=== PATIENT | female | born 1940 | race Caucasian/White ===

== ENCOUNTER 2019-12-05 16:13 | Inpatient (IN) ==
[2019-12-05] MEDS ORDERED: SODIUM CHLORIDE 0.9% 1000ML 1,000 ML IV SCH (17:30)
--- NOTE | 2019-12-05 17:32 | Emergency Department Note ---
Impression & Plan Weakness, Diarrhea, Elevated INR, Hypomagnesemia, Nausea, Hepatic steatosis ED Provider Note Provider: Hayder Sharma MD DATE OF SERVICE: 12/05/2019 CHIEF COMPLAINT: Fall, weakness, abdominal symptoms HISTORY OF PRESENT ILLNESS: Patient is a 79-year-old female with a past medical history of lupus, connective tissue disease, GERD, Sjogren's, diabetes presenting today with her daughter reporting that she has been having stomach issues and some discomfort for about a month. Decreased appetite and diarrhea has been reported. Initially treated with vancomycin with improvement of symptoms although C. difficile test was negative. Does relate that she was treated for multiple UTIs over the winter with transient improvement. History of abdominal issues and gastritis previously on omeprazole but has not been on it in some time. Evidently had a fall last night and again today where she slid out of bed and was too weak to get up. Was unable to get up and laid on the floor for least 4 hours this morning. Reports 8 of 10 abdominal pain at this time. Predominantly in the upper abdomen in a bandlike fashion. Endorses some diffuse mild back pain. Again denies any severe traumatic fall. Denies striking her head. Denies LOC. States at times she feels a bit nauseous and has worsening of the pain when she eats. Reports she has not had quite the same watery stools she has had before but it is very loose. Patient currently lives by herself in an apartment. PCP had recent blood work done without significant finding or consider GI evaluation; patient has history of GI evaluation. Patient has been started on Pepcid last several days without improvement of symptoms. REVIEW OF SYSTEMS: A total of 10 review of systems was obtained and negative except as stated above in the HPI. PAST MEDICAL HISTORY: As noted above MEDICATIONS: Reviewed and includes Depakote, Lexapro, Pepcid, metformin, Plaquenil SOCIAL HISTORY: lives in apartment by herself. No alcohol history reported. PHYSICAL EXAM: GENERAL: alert and oriented in no acute distress on stretcher appears fatigued Head: normocephalic and atraumatic EYES: No injection, discharge or icterus. NECK: Trachea midline. Supple. ENT: Mucous membranes pink and moist. LUNGS: Airway patent. No retractions. Breath sounds clear HEART: Regular rate and rhythm. No chest wall tenderness ABDOMEN: Soft with mild diffuse upper abdominal tenderness. BACK: Mild diffuse tenderness without noted crepitus, step-off, or contusion on the back SKIN: Acyanotic, warm, dry, without rashes EXTREMITIES: Without swelling, tenderness or deformity NEUROLOGICAL: No focal deficits. No aphasia. No facial droop or slurred speech. EK bpm sinus rhythm with PACs. No PVCs noted. No acute ST segment elevation is notable. Left axis. Normal QTC. No priors in the system. CONTINUOUS CARDIAC MONITORING: was ordered and showed a heart rate of 94 bpm in normal sinus rhythm with occasional PAC Patient's hypertension was referred to the hospitalist HOSPITAL COURSE: [id number] Patient was first seen and H&P performed. 1934 Patient reassessed and updated. Patient and daughter were updated. 1954 hospitalist was alerted. Patient's laboratory studies and imaging reviewed. Differential includes Infection, dehydration, metabolic abnormality, hypo/hyperglycemia, electrolyte disturbance, anemia, hypoxia, cardiac sources, i ntracerebral event, toxicologic, neurologic, gastrointestinal, as well as other pathologies. IMPRESSION/MEDICAL DECISION MAKING: Patient presents with nonspecific symptoms of weakness decreased appetite's over the past several weeks as well as abdominal pain and diarrhea. Has undergone outpatient evaluation. Recent blood work without acute findings noted beyond some mild AST elevation and alk phos elevation. Has tried Pepcid without improvement. Weakness to the point where she has difficulty getting out of bed and slid to the floor. Doubt significant traumatic injury given this minimal mechanism. States she did not strike her head. Not on anticoagulants. Doubt CVA. Do not believe any head or neck imaging at this time. Given her abdominal complaint and mild tenderness CT abdomen pelvis was completed. Basic labs were obtained including CK. EKG was obtained. Patient denies any acute chest pain. Stool tests were ordered including C. difficile although loose stool she is campo ving do not seem horribly consistent with this. Given some mild fluid hydration here initially. Not on significant anticoagulation. Laboratory studies show consistent thrombocytopenia. INR mildly elevated at 1.7. Hypomagnesemia of 1.1 is noted. Mild hyponatremia noted. Renal function stable. Free T4 within normal is a TSH slightly elevated. Troponin is negative. CPK 367. Depakote level be sent not significantly elevated. Urinalysis still pending. Chest x-ray is unremarkable. Ordered some magnesium replacement. Stool sample still pending. Does not examine significantly fluid overloaded at this time. Given her multiple falls and weakness as well as elevated INR and hepatic steatosis (concern for cirrhosis -would be a new diagnosis) with the colitis type symptoms feel that further observation in the hospital is warranted. Family and patient were in agreement. The hospitalist was alerted. Patient does not appear acutely septic. Given some Zofran and Toradol for symptom control. DIAGNOSIS: Weakness, diarrhea, hypomagnesemia, elevated INR, hepatic steatosis DISPOSITION: Evaluated by the hospitalist Past Med/Surg History Medical History (Updated 12/05/19 @ 22:59 by Nani May DO) Adjustment disorder with depressed mood (Chronic) Antibiotic-associated diarrhea (Chronic ~06/2019) Negative C. Diff test x 1 but good response to oral vancomycin Diabetes type 2, controlled (Chronic) Discoid lupus erythematosus GERD (gastroesophageal reflux disease) (Chronic) Glaucoma (Chronic) Gout (Resolved) Hearing difficulty (Chronic) Kidney stone (Resolved) Osteoarthritis (Chronic) Seizure (Resolved) Sjogren's disease (Chronic) Thrombocytopenia (Chronic) Undifferentiated connective tissue disease Surgical History H/O: hysterectomy (~1984) Hx of cholecystectomy (~1983) S/P tooth extraction Family History Grandfather Diabetes Mother Hypertension Gallbladder disease Grandmother No problems noted. Father Pancreatic cancer Brother Alcohol abuse Denies family history of Ovarian cancer Prostate cancer Alzheimer disease Heart disease Myocardial infarction Breast cancer Lung cancer Colorectal cancer Stroke Social History Preferred Language: [place]i Visual Impairment: Limited Hearing Ability: Use of Hearing Aid Beliefs That Will Affect Care: None marital status: / Current Living Situation: Alone Current Living Situation Comment: [place] current occupational status: retired Feels Safe at Home: Yes Smoking Status: Never smoker Second Hand Exposure: No ; Hx Alcohol Use: Yes Alcohol type: wine Alcohol Intake Frequency: Rarely Hx Substance Use: No Childhood Exposure to Second-Hand Smoke: Yes caffeine: Yes Dental Care, Regularly: Yes Physical Activity Frequency: 1-2 Times per Week Seatbelt Use: always Sunscreen Use: No Allergies Allergies Allergy/AdvReac Type Severity Reaction Status Date / Time ciprofloxacin [From Cipro] Allergy Severe Hives Verified 12/02/19 12:02 levofloxacin [From Levaquin] Allergy Severe Shortness Verified 12/02/19 12:02 of breath paroxetine Allergy Unknown Verified 12/02/19 12:02 phenytoin Allergy Unknown Verified 12/02/19 12:02 sulfamethoxazole Allergy Verified 12/02/19 12:02 [From Bactrim] trimethoprim [From Bactrim] Allergy Verified 12/02/19 12:02 unknown antibiotic Allergy Severe Browning-Bryon Uncoded 12/02/19 12:02 syndrome - no records available Home Meds Home Medications Medication Instructions Recorded Confirmed escitalopram oxalate 10 mg PO DAILY 12/05/19 12/05/19 estradiol [Estrace] 1 gm PV [id number] 12/05/19 12/05/19 latanoprost 1 drp OPB HS 12/05/19 12/05/19 metformin 1,000 mg PO QPM 12/05/19 12/05/19 propylene glycol [Systane Complete] 1 drp OPB TID PRN 12/05/19 12/05/19 Previous Rx's Medication Instructions Recorded divalproex 500 mg tablet,delayed 500 mg PO BID #180 tab 06/13/19 release hydroxychloroquine 200 mg tablet 200 mg PO DAILY #90 tab 08/25/19 famotidine 20 mg tablet 20 mg PO DAILY #30 tab 12/02/19 Results & Data (ED) Vital Signs Vital Signs - 24 hr 12/05/19 16:43 12/05/19 17:12 12/05/19 17:48 Temperature 36.8 C Temperature Source Oral Pulse Rate 100 H 100 H Pulse Rate from SpO2 Sensor 100 H Respiratory Rate 20 22 Respiratory Effort / Characteristics Non-Labored Spontaneous Respiratory Depth Normal Respiratory Pattern Regular Blood Pressure 81/54 L 107/62 Blood Pressure Mean 63 65 Blood Pressure Position Sitting Pulse Oximetry 95 98 96 Oxygen Delivery Method Room Air Room Air Sepsis Recent Fever Within 48 Hours No Sepsis New/Unexplained Change in Mental Status No Sepsis Action Taken by Nursing No Action Required 12/05/19 17:54 12/05/19 18:00 12/05/19 18:10 Temperature Temperature Source Pulse Rate 102 H 100 H 95 H Pulse Rate from SpO2 Sensor 127 H 99 H 98 H Respiratory Rate 13 19 17 Respiratory Effort / Characteristics Respiratory Depth Respiratory Pattern Blood Pressure Blood Pressure Mean Blood Pressure Position Pulse Oximetry 93 99 98 Oxygen Delivery Method Sepsis Recent Fever Within 48 Hours Sepsis New/Unexplained Change in Mental Status Sepsis Action Taken by Nursing 12/05/19 18:20 12/05/19 18:24 12/05/19 18:30 Temperature Temperature Source Pulse Rate 100 H 102 H 98 H Pulse Rate from SpO2 Sensor 103 H 98 H 106 H Respiratory Rate 29 H 20 15 Respiratory Effort / Characteristics Respiratory Depth Respiratory Pattern Blood Pressure 140/103 H 137/72 Blood Pressure Mean 112 106 Blood Pressure Position Pulse Oximetry 91 Oxygen Delivery Method Sepsis Recent Fever Within 48 Hours Sepsis New/Unexplained Change in Mental Status Sepsis Action Taken by Nursing 12/05/19 18:40 12/05/19 18:50 12/05/19 19:07 Temperature Temperature Source Pulse Rate 100 H 100 H 97 H Pulse Rate from SpO2 Sensor 98 H 92 H Respiratory Rate 22 27 H 16 Respiratory Effort / Characteristics Respiratory Depth Respiratory Pattern Blood Pressure Blood Pressure Mean Blood Pressure Position Pulse Oximetry 90 92 Oxygen Delivery Method Sepsis Recent Fever Within 48 Hours Sepsis New/Unexplained Change in Mental Status Sepsis Action Taken by Nursing 12/05/19 19:10 12/05/19 19:20 12/05/19 19:30 Temperature Temperature Source Pulse Rate 99 H 93 H 100 H Pulse Rate from SpO2 Sensor 104 H 96 H 101 H Respiratory Rate 17 17 22 Respiratory Effort / Characteristics Respiratory Depth Respiratory Pattern Blood Pressure 137/91 Blood Pressure Mean 106 Blood Pressure Position Pulse Oximetry 97 98 96 Oxygen Delivery Method Sepsis Recent Fever Within 48 Hours Sepsis New/Unexplained Change in Mental Status Sepsis Action Taken by Nursing 12/05/19 19:40 12/05/19 19:50 12/05/19 20:00 Temperature Temperature Source Pulse Rate 100 H 103 H 101 H Pulse Rate from SpO2 Sensor 113 H 100 H Respiratory Rate 24 20 15 Respiratory Effort / Characteristics Respiratory Depth Respiratory Pattern Blood Pressure 123/93 Blood Pressure Mean 99 Blood Pressure Position Pulse Oximetry 92 Oxygen Delivery Method Sepsis Recent Fever Within 48 Hours Sepsis New/Unexplained Change in Mental Status Sepsis Action Taken by Nursing 12/05/19 20:10 12/05/19 20:20 12/05/19 20:30 Temperature Temperature Source Pulse Rate 99 H 100 H 97 H Pulse Rate from SpO2 Sensor 101 H 115 H Respiratory Rate 13 16 21 Respiratory Effort / Characteristics Respiratory Depth Respiratory Pattern Blood Pressure 114/77 Blood Pressure Mean 90 Blood Pressure Position Pulse Oximetry 94 Oxygen Delivery Method Sepsis Recent Fever Within 48 Hours Sepsis New/Unexplained Change in Mental Status Sepsis Action Taken by Nursing 12/05/19 20:40 12/05/19 20:55 12/05/19 21:00 Temperature Temperature Source Pulse Rate 100 H 105 H 99 H Pulse Rate from SpO2 Sensor 99 H Respiratory Rate 14 14 Respiratory Effort / Characteristics Respiratory Depth Respiratory Pattern Blood Pressure 111/71 Blood Pressure Mean 84 Blood Pressure Position Pulse Oximetry 97 Oxygen Delivery Method Sepsis Recent Fever Within 48 Hours Sepsis New/Unexplained Change in Mental Status Sepsis Action Taken by Nursing 12/05/19 21:10 12/05/19 21:20 12/05/19 21:30 Temperature Temperature Source Pulse Rate 100 H 103 H 100 H Pulse Rate from SpO2 Sensor 101 H 85 99 H Respiratory Rate 19 17 22 Respiratory Effort / Characteristics Respiratory Depth Respiratory Pattern Blood Pressure 136/72 Blood Pressure Mean 81 Blood Pressure Position Pulse Oximetry 96 94 98 Oxygen Delivery Method Sepsis Recent Fever Within 48 Hours Sepsis New/Unexplained Change in Mental Status Sepsis Action Taken by Nursing 12/05/19 21:40 12/05/19 21:50 Temperature Temperature Source Pulse Rate 104 H 97 H Pulse Rate from SpO2 Sensor 97 H 99 H Respiratory Rate 23 20 Respiratory Effort / Characteristics Respiratory Depth Respiratory Pattern Blood Pressure Blood Pressure Mean Blood Pressure Position Pulse Oximetry 96 95 Oxygen Delivery Method Sepsis Recent Fever Within 48 Hours Sepsis New/Unexplained Change in Mental Status Sepsis Action Taken by Nursing Laboratory Data Result diagrams: 12/05/19 17:56 12/05/19 17:56 Lab Results 12/05/19 12/05/19 12/05/19 Range/Units 17:56 17:56 17:56 WBC 9.98 (4.8-10.8) K/uL RBC 4.03 L (4.2-5.4) M/uL Hgb 12.2 (12.0-16.0) g/dL Hct 36.9 L (37-47) % MCV 91.6 (80-100) fL MCH 30.3 (25-34) pg MCHC 33.1 (32-36) g/dL RDW Std Deviation 50.8 H (36.4-46.3) fL RDW Coeff of Nancy 15.0 H (11.5-14.5) % Plt Count 90 L (130-400) K/uL MPV 12.6 H (7.4-10.4) fL Immature Gran % (Auto) 0.3 % Neut % (Auto) 81.2 % Lymph % (Auto) 9.2 % Levy % (Auto) 9.1 % Eos % (Auto) 0.0 % Baso % (Auto) 0.2 % Immature Gran # (Auto) 0.03 H (0.00-0.02) K/uL Neut # (Auto) 8.10 H (1.4-6.5) K/uL Lymph # (Auto) 0.92 L (1.2-3.4) K/uL Levy # (Auto) 0.91 H (0.11-0.59) K/uL Eos # (Auto) 0.00 (0-0.5) K/uL Baso # (Auto) 0.02 (0-0.2) K/uL Echinocytes 1+ PT 17.7 H (9.0-12.0) Seconds INR 1.7 H (0.9-1.1) Sodium 134 L (136-145) mmol/L Potassium 4.1 (3.5-5.1) mmol/L Chloride 102 (98-107) mmol/L Carbon Dioxide 19 L (21-32) mmol/L Anion Gap 13.0 H (3-11) BUN 8 (7-18) mg/dl Creatinine 0.86 (0.6-1.2) mg/dl Est Cr Clr Drug Dosing 45.8 ml/min Est GFR ( Amer) 74.5 Est GFR (Non-Af Amer) 64.3 BUN/Creatinine Ratio 9.7 L (10-20) Glucose 85 (70-99) mg/dl Calcium 8.3 L (8.5-10.1) mg/dl Magnesium 1.1 L (1.8-2.4) mg/dl Total Bilirubin 0.7 (0.2-1) mg/dl AST 48 H (15-37) U/L ALT 18 (12-78) U/L Alkaline Phosphatase 175 H (45-117) U/L Total Creatine Kinase 367 H (26-192) U/L Troponin I < 0.015 (0-0.045) ng/ml Total Protein 6.4 (6.4-8.2) gm/dl Albumin 2.4 L (3.4-5.0) gm/dl Globulin 4.0 (2.5-4.0) gm/dl Albumin/Globulin Ratio 0.6 L (0.9-2) Lipase 20 L (73-393) U/L TSH 4.990 H (0.300-4.500) uIu/ml Free T4 1.27 (0.8-1.6) ng/dl Urine Color Urine Appearance (Clear) Urine pH (4.5-7.5) Ur Specific Alto (1.000-1.030) Urine Protein (Negative) Urine Glucose (UA) (Negative) Urine Ketones (Negative) Urine Blood (Negative) Urine Nitrite (Negative) Urine Bilirubin (Negative) Urine Urobilinogen (Negative) Ur Leukocyte Esterase (Negative) Urine WBC (Auto) (0-5) /hpf Urine RBC (Auto) (0-4) /hpf U Hyaline Cast (Auto) (0-5) /lpf U Epithel Cells (Auto) (0-5) /lpf Urine Bacteria (Auto) (Negative) Valproic Acid (50-100) mcg/ml 12/05/19 12/05/19 Range/Units 19:59 21:00 WBC (4.8-10.8) K/uL RBC (4.2-5.4) M/uL Hgb (12.0-16.0) g/dL Hct (37-47) % MCV (80-100) fL MCH (25-34) pg MCHC (32-36) g/dL RDW Std Deviation (36.4-46.3) fL RDW Coeff of Nancy (11.5-14.5) % Plt Count (130-400) K/uL MPV (7.4-10.4) fL Immature Gran % (Auto) % Neut % (Auto) % Lymph % (Auto) % Levy % (Auto) % Eos % (Auto) % Baso % (Auto) % Immature Gran # (Auto) (0.00-0.02) K/uL Neut # (Auto) (1.4-6.5) K/uL Lymph # (Auto) (1.2-3.4) K/uL Levy # (Auto) (0.11-0.59) K/uL Eos # (Auto) (0-0.5) K/uL Baso # (Auto) (0-0.2) K/uL Echinocytes PT (9.0-12.0) Seconds INR (0.9-1.1) Sodium (136-145) mmol/L Potassium (3.5-5.1) mmol/L Chloride (98-107) mmol/L Carbon Dioxide (21-32) mmol/L Anion Gap (3-11) BUN (7-18) mg/dl Creatinine (0.6-1.2) mg/dl Est Cr Clr Drug Dosing ml/min Est GFR ( Amer) Est GFR (Non-Af Amer) BUN/Creatinine Ratio (10-20) Glucose (70-99) mg/dl Calcium (8.5-10.1) mg/dl Magnesium (1.8-2.4) mg/dl Total Bilirubin (0.2-1) mg/dl AST (15-37) U/L ALT (12-78) U/L Alkaline Phosphatase (45-117) U/L Total Creatine Kinase (26-192) U/L Troponin I (0-0.045) ng/ml Total Protein (6.4-8.2) gm/dl Albumin (3.4-5.0) gm/dl Globulin (2.5-4.0) gm/dl Albumin/Globulin Ratio (0.9-2) Lipase (73-393) U/L TSH (0.300-4.500) uIu/ml Free T4 (0.8-1.6) ng/dl Urine Color Dark Yellow Urine Appearance Clear (Clear) Urine pH 5.0 (4.5-7.5) Ur Specific Alto > 1.045 H (1.000-1.030) Urine Protein Negative (Negative) Urine Glucose (UA) Negative (Negative) Urine Ketones Trace H (Negative) Urine Blood Negative (Negative) Urine Nitrite Positive A (Negative) Urine Bilirubin Negative (Negative) Urine Urobilinogen Negative (Negative) Ur Leukocyte Esterase Negative (Negative) Urine WBC (Auto) 5-10 H (0-5) /hpf Urine RBC (Auto) 0-4 (0-4) /hpf U Hyaline Cast (Auto) 1-5 (0-5) /lpf U Epithel Cells (Auto) >30 H (0-5) /lpf Urine Bacteria (Auto) 4+ H (Negative) Valproic Acid 33 L (50-100) mcg/ml Administered Medications Ioversol (Optiray 320 100ml) 93 ml IV ONCE PRN PRN Reason: Interaction Checking Stop: 12/09/19 18:58 Last Admin: 12/05/19 19:00 Dose: 93 ml Documented by: [id number] Discontinued Medications Sodium Chloride (Nss 1000ml) 1,000 mls @ 999 mls/hr IV .[id number] CARMELINA Stop: 12/05/19 18:30 Last Infusion: 12/05/19 19:09 Dose: 0 mls/hr Documented by: [id number] Admin: 12/05/19 18:01 Dose: 999 mls/hr Documented by: [id number] Magnesium Sulfate/Dextrose (Magnesium Sulfate / D5w) 1 gm in 100 mls @ 100 mls/hr IV NOW STA Stop: 12/05/19 20:34 Last Infusion: 12/05/19 20:54 Dose: 0 mls/hr Documented by: [id number] Admin: 12/05/19 19:45 Dose: 100 mls/hr Documented by: [id number] Phytonadione 10 mg/ Sodium (Chloride) 51 mls @ 102 mls/hr IV ONE ONE Stop: 12/05/19 22:22 Last Infusion: 12/05/19 22:54 Dose: 0 mls/hr Documented by: [id number] Admin: 12/05/19 22:20 Dose: 102 mls/hr Documented by: [id number] Ketorolac Tromethamine (Toradol) 10 mg IV NOW ONE Stop: 12/05/19 19:36 Last Admin: 12/05/19 19:45 Dose: 10 mg Documented by: [id number] Discharge Plan Visit Data *Final* Discharge Date/Time: 12/05/19 22:50 Chief Complaint: Fall Stated Complaint: FALL, NOT EATING, VERY WEAK, STOMACH PAINS ED Provider: Hayder Sharma Discharge Problem: Weakness, Diarrhea, Elevated INR, Hypomagnesemia, Nausea, Hepatic steatosis Patient Disposition: Admitted As Inpatient Discharge Instructions Interventions: ED Discharge Assessment Last Done: 12/05/19 22:50
[2019-12-05 18:18] LABS: Hematocrit (blood only) 36.9 % (37-47); Hemoglobin 12.2 g/dL (12.0-16.0); Mean Corpuscular Hemoglobin 30.3 pg (25-34); Mean Corpuscular Hgb Conc 33.1 g/dL (32-36); Mean Corpuscular Volume 91.6 fL (80-100); Mean Platelet Volume 12.6 fL (7.4-10.4); Platelet Count 90 K/uL (130-400); RDW Standard Deviation 50.8 fL (36.4-46.3); Red Blood Count 4.03 M/uL (4.2-5.4); White Blood Count 9.98 K/uL (4.8-10.8)
[2019-12-05 18:22] LABS: INR 1.7 (0.9-1.1); Prothrombin Time 17.7 Seconds (9.0-12.0)
[2019-12-05 18:33] LABS: Alanine Aminotransferase 18 U/L (12-78); Albumin Level 2.4 gm/dl (3.4-5.0); Aspartate Aminotransferase 48 U/L (15-37); BUN Creatinine Ratio 9.7 (10-20); Blood Urea Nitrogen 8 mg/dl (7-18); Calcium 8.3 mg/dl (8.5-10.1); Carbon Dioxide 19 mmol/L (21-32); Chloride 102 mmol/L (98-107); Creatinine Clr Calc Pharmacy 45.8 ml/min; Est GFR (African American) 74.5; Est GFR (Non-African American) 64.3; Glucose 85 mg/dl (70-99); Magnesium 1.1 mg/dl (1.8-2.4); Potassium 4.1 mmol/L (3.5-5.1); Sodium 134 mmol/L (136-145)
[2019-12-05 18:38] LABS: Basophils # (auto) 0.02 K/uL (0-0.2); Basophils % (auto) 0.2 %; Echinocytes 1+; Immature Granulocytes # (auto) 0.03 K/uL (0.00-0.02); Immature Granulocytes % (auto) 0.3 %; Lymphocytes # (auto) 0.92 K/uL (1.2-3.4); Lymphocytes % (auto) 9.2 %; Monocytes # (auto) 0.91 K/uL (0.11-0.59); Monocytes % (auto) 9.1 %; Neutrophils % (auto) 81.2 %
[2019-12-05 18:44] LABS: Albumin Globulin Ratio 0.6 (0.9-2); Alkaline Phosphatase 175 U/L (45-117); Bilirubin,Total 0.7 mg/dl (0.2-1); Creatine Kinase 367 U/L (26-192); Total Protein 6.4 gm/dl (6.4-8.2); Troponin I < 0.015 ng/ml (0-0.045)
--- NOTE | 2019-12-05 18:47 | XRay Report ---
SINGLE VIEW CHEST CLINICAL HISTORY: Generalized weakness. FINDINGS: An AP, portable, upright chest radiograph is obtained. No prior studies are available for c omparison at the time of dictation. The examination is degraded by portable technique, apical lordoti c positioning, and patient rotation. The heart is top normal for projection noting atherosclerotic c alcification of the thoracic aorta. The lungs and pleural spaces are clear. No pneumothorax is seen. The skeletal structures are osteopenic. The bony thorax is grossly intact. Degenerative change is not ed in the shoulders. Superior subluxation of the right humeral head suggests chronic rotator cuff inj ury. IMPRESSION: No active disease in the chest. ACT 112: Negative or not required by law. Electronically signed by: Jose Maria Baird M.D. 12/05/2019 6:46 PM
[2019-12-05 18:57] LABS: T4 Free Thyroxine 1.27 ng/dl (0.8-1.6)
[2019-12-05] MEDS ORDERED: IOVERSOL 100ml IV PRN (18:59)
--- NOTE | 2019-12-05 19:24 | CT Scan Report ---
CT SCAN OF THE ABDOMEN AND PELVIS WITH IV CONTRAST CLINICAL HISTORY: Generalized abdominal pain. Nausea and vomiting. Recent falls. COMPARISON STUDY: No priors. TECHNIQUE: Following the IV administration of 93 cc of Optiray 320, CT scan of the abdomen and pelvi s is performed from the lung bases to the proximal femora. Images are reviewed in the axial, sagittal , and coronal planes. IV contrast was administered without complication. A dose lowering technique wa s utilized adhering to the principles of ALARA. CT DOSE: 442.23 mGy.cm FINDINGS: Lung bases: The heart is normal in size and without pericardial effusion. The coronary arteries are d ensely calcified. There is a small hiatal hernia. There is a trace left pleural effusion with associa fatemeh atelectasis. Liver: The contrast-enhanced liver is cirrhotic in morphology. Hepatic attenuation is heterogeneously diminished indicating steatosis. There is hypertrophy of the left lobe and nodularity of the surface contour. There is no intrahepatic biliary ductal dilatation. The hepatic veins and portal veins are patent. Gallbladder: Surgically absent noting clips in the gallbladder fossa. Spleen: Normal in size and attenuation. Pancreas: The unenhanced pancreas is markedly atrophic. Question edema of the pancreatic head. Fluid surrounds the pancreas which may be related to ascites. Adrenal glands: Unremarkable. Kidneys: The contrast enhanced kidneys demonstrate cortical atrophy and are without hydronephrosis. T he kidneys enhance symmetrically. A 4 mm nonobstructing calculus is seen in the left lower pole. A ci rcumaortic left renal vein is incidentally noted. Abdominal vasculature: The abdominal aorta is normal in course and caliber noting advanced atheroscle rotic calcification. Bowel: There is moderate sigmoid diverticulosis without CT evidence of acute diverticulitis. There is colonic wall thickening and edema, greatest involving the right colon. There is associated mucosal h yperemia. The small bowel loops also appear mildly edematous. The appendix is well-visualized and no rmal. Peritoneum: There is a small volume of abdominopelvic ascites. No intraperitoneal free air is seen. Lymphadenopathy: None. Pelvic viscera: The bladder is decompressed and grossly unremarkable. The uterus is surgically absent . No adnexal lesion is seen Skeletal structures: The skeletal structures are osteopenic. The skeletal structures are osteopenic. There is lumbosacral spondylosis and scoliosis. There are age indeterminant compression deformities o f L1 and L4. No lytic or blastic lesions are seen. IMPRESSION: 1. The liver is cirrhotic in morphology with evidence of steatosis. 2. A small volume of abdominopelvic ascites suggest portal hypertension. 3. The colon appears thick-walled and edematous, greatest involving the right colon. This may represe nt portal colopathy. Correlate clinically for evidence of an infectious/inflammatory colitis. 4. The small bowel loops also appear mildly edematous, possibly related to hypoproteinemia and fluid overload. Again, clinical correlation will be required. 5. Trace left pleural effusion. 6. The pancreas is markedly atrophic and there is surrounding fluid. Question mild edema of the pancr eatic head. This is of indeterminant significance. Correlate with serum amylase/lipase levels to asse ss for pancreatitis. 7. There are age indeterminant compression deformities of L1 and L4. 8. Moderate sigmoid diverticulosis without CT evidence of acute diverticulitis. 9. Left-sided nephrolithiasis. 10. Additional findings as above. ACT 112: Negative or not required by law. Electronically signed by: Jose Maria Baird M.D. 12/05/2019 7:23 PM
[2019-12-05] MEDS ORDERED: MAGNESIUM SULFATE / D5W 1 GM/100 ML BAG IV STA (19:35)
[2019-12-05] MEDS ORDERED: KETOROLAC TROMETHAMINE 15 MG/ML VIAL IV ONE (19:35)
[2019-12-05 19:38] LABS: Lipase 20 U/L (73-393)
[2019-12-05 21:12] LABS: Appearance Urine Clear (Clear); Bacteria Urine Automated 4+ (Negative); Bilirubin Urine Negative (Negative); Blood Urine Negative (Negative); Color Urine Dark Yellow; Epithelial Cell Urine Auto >30 /lpf (0-5); Glucose Urine UA Negative (Negative); Ketones Urine Trace (Negative); Leukocyte Esterase Urine Negative (Negative); Nitrite Urine Positive (Negative); Protein Urine Negative (Negative); RBC Urine Automated 0-4 /hpf (0-4); Specific Gravity Urine > 1.045 (1.000-1.030); Urobilinogen Urine Negative (Negative)
[2019-12-05] MEDS ORDERED: ONDANSETRON INJ 2 MG/ML 2 ML VIAL IV PRN (21:53)
[2019-12-05] MEDS ORDERED: PHYTONADIONE 10 MG in SODIUM CHLORIDE 0.9% 50 ML IV ONE (21:53)
--- NOTE | 2019-12-05 21:55 | History & Physical Report ---
Date of Service December 05, 2019 Assessment & Plan (1) Cirrhosis: 79-year-old female with a past medical history significant for SLE, GERD, Sjogren's disease, seizure disorder, DM 2 on oral therapy admitted for newly discovered cirrhosis and ascites in the setting of abdominal pain, weakness and early satiety. Cirrhosis with findings suggestive of portal hypertension: CTAP showed mild ascites, suggests portal HTN from cirrhosis. MELD score 15. Differentials include alcoholic vs. autoimmune vs. infectious vs. medication-use hepatitis, primary biliary cholangitis. Patient does not have an alcohol abuse history. Have ordered acute hepatitis panel, anti-mitochondrial antibodies, anti-Smooth muscle antibodies. Patient has a history of autoimmune disease. While patient takes Tylenol daily, she takes <3g daily. Valproic acid level was not increased. Vitamin K 10mg IV given, repeat coags tomorrow (INR today 1.7). Morphine 2mg IV q4h PRN pain, Zofran PRN nausea. Hold fluids at this time in the setting of ascites and peripheral edema; albumin 25% x2 bags given (initial albumin 2.4). Repeat CMP AM. GI consult placed for AM. ? Colitis: Possible inflammatory vs. infectious colitis, other differential includes portal colopathy. Stool culture and C. diff testing ordered. Workup of cirrhosis as above. Full liquid diet for now. Pain control and Zofran as above. Abnormal UA: UA with bacteria, nitrites, negative LE. However catch was dirty. UCx pending. Patient without symptoms suggestive of UTI. Thrombocytopenia: Likely secondary to cirrhosis. Patient without acute bleeding. Continue to monitor with CBC. DM2: Hold home medications. Insulin SSI with carb correction. GERD: Continue home famotidine. Seizure disorder: Continue home valproic acid. Valproic acid level 33 on admission. Hypomagnesemia: Mg 1.1 on admission. Given Mg 1g IV. Repeat Mg AM. Code Status: FULL CODE FEN/GI: full liquid diet, albumin 25% x2 bags, Mg 1g IV given DVT ppx: SCDs Dispo: Med/Surg with Telemetry, GI consult AM, cirrhosis workup (2) Portal hypertension: (3) Ascites: (4) Elevated INR: (5) Colitis: (6) Thrombocytopenia: (7) Sjogren's disease: (8) Diabetes type 2, controlled: (9) Discoid lupus erythematosus: (10) Abdominal pain: History of Present Illness Chief Complaint: abdominal pain, weakness Primary Care Provider: Tamara Benítez MD 79-year-old female with a past medical history significant for SLE, GERD, Sjogren's disease, seizure disorder, DM 2 on oral therapy presented to the emergency room for several weeks of abdominal pain, diarrhea, with 1 week of profound weakness. Patient is accompanied by her daughter who also provided some collateral information. On my interview patient described that she has had watery, non-bloody diarrhea "on and off since April". Was seen several times by her PCP for UTIs, and therefore was thought to have a C. difficile infection and was put on vancomycin several months ago with temporary relief of her diarrhea. About 8 weeks ago she started to have recurrence of her watery diarrhea, and was intermittently taking Imodium with relief. Over that same time. She has also had a decrease in her appetite, as well as intermittent abdominal pains with food causing her to have significantly less oral intake. For example over the last week the patient has only had mashed potatoes every day. She has also not been hydrating well because she feels full after a few bites of food or sips of liquid. Yesterday she had an episode of weakness where she tried to get out of bed and felt she could not, so she slid out of bed onto the floor without hitting her head or losing consciousness, could not get up from the floor and so laid on the floor for 3 to 4 hours before she was assisted by her daughter. This happened again today which prompted her visit to the ER. Of note, it was noted on lab work in the outpatient that she had a transaminitis and a liver ultrasound is scheduled for Sunday of next week. Patient confirms some loss of weight of about 5-10 pounds over the last several months that was not intentional. On my interview patient is without abdominal pain, nausea or vomiting, fevers or chills, shortness of breath or chest pain. Feels that over the last several weeks her abdomen has become more distended. She reports a history of taking Tylenol Extra Strength 4 tablets every day for generalized aches and pains. No family history of any liver disease to her knowledge. Patient does not drink, nor does she have a history of alcohol abuse. Never smoker, denies illicit drug use. Reports that she "may have had a transfusion back when I lost a lot of after hysterectomy". In the ED BP initially was 81/54 tachycardia to low 100s. Patient was given 1 L NSS bolus with improvement in BP to 100s/60s. Toradol 10 mg IV given with improvement in her pain. CTAP performed which showed liver cirrhosis with steatosis, small ascites suggesting portal hypertension, possible portal colopathy vs. infectious/inflammatory colitis, mildly edematous small bowel loops, trace left pleural effusion, atrophic pancreas pancreatic head, diverticulosis without diverticulitis left-sided nonobstructive nephrolithiasis. Hospitalist service was consulted for admission. Allergies Allergy/AdvReac Type Severity Reaction Status Date / Time ciprofloxacin [From Cipro] Allergy Severe Hives Verified 12/02/19 12:02 levofloxacin [From Levaquin] Allergy Severe Shortness Verified 12/02/19 12:02 of breath paroxetine Allergy Unknown Verified 12/02/19 12:02 phenytoin Allergy Unknown Verified 12/02/19 12:02 sulfamethoxazole Allergy Verified 12/02/19 12:02 [From Bactrim] trimethoprim [From Bactrim] Allergy Verified 12/02/19 12:02 unknown antibiotic Allergy Severe Browning-Bryon Uncoded 12/02/19 12:02 syndrome - no records available Home Medications Home Medications Medication Instructions Recorded Confirmed Type divalproex 500 mg tablet,delayed 500 mg PO BID #180 tab 06/13/19 12/05/19 Rx release hydroxychloroquine 200 mg tablet 200 mg PO DAILY #90 tab 08/25/19 12/05/19 Rx famotidine 20 mg tablet 20 mg PO DAILY #30 tab 12/02/19 12/05/19 Rx escitalopram oxalate 10 mg PO DAILY 12/05/19 12/05/19 History estradiol [Estrace] 1 gm PV [id number] 12/05/19 12/05/19 History latanoprost 1 drp OPB HS 12/05/19 12/05/19 History metformin 1,000 mg PO QPM 12/05/19 12/05/19 History propylene glycol [Systane Complete] 1 drp OPB TID PRN 12/05/19 12/05/19 History Past Med/Surg History Medical History (Updated 12/07/19 @ 21:05 by Darien Meyer) Adjustment disorder with depressed mood (Chronic) Antibiotic-associated diarrhea (Chronic ~06/2019) Negative C. Diff test x 1 but good response to oral vancomycin Diabetes type 2, controlled (Chronic) Discoid lupus erythematosus GERD (gastroesophageal reflux disease) (Chronic) Glaucoma (Chronic) Gout (Resolved) Hearing difficulty (Chronic) Kidney stone (Resolved) Osteoarthritis (Chronic) Seizure Sjogren's disease (Chronic) Thrombocytopenia (Chronic) Undifferentiated connective tissue disease Surgical History H/O: hysterectomy (~1984) Hx of cholecystectomy (~1983) S/P tooth extraction Family History Grandfather Diabetes Mother Hypertension Gallbladder disease Grandmother No problems noted. Father Pancreatic cancer Brother Alcohol abuse Denies family history of Ovarian cancer Prostate cancer Alzheimer disease Heart disease Myocardial infarction Breast cancer Lung cancer Colorectal cancer Stroke Social History Preferred Language: Yi Communication Ability: Effective Visual Impairment: Limited Hearing Ability: Use of Hearing Aid Beliefs That Will Affect Care: None marital status: / Current Living Situation: Alone Current Living Situation Comment: [place] current occupational status: retired Other Information That Helps Us Care for You: No Feels Safe at Home: Yes Safety Concerns: Feels Safe At This Time Smoking Status: Never smoker Do You Dip or Chew Tobacco: No ; Second Hand Exposure: No ; Hx Alcohol Use: No Hx Substance Use: No Childhood Exposure to Second-Hand Smoke: Yes caffeine: Yes Dental Care, Regularly: Yes Physical Activity Frequency: 1-2 Times per Week Seatbelt Use: always Sunscreen Use: No Review of Systems Review of Systems: All systems reviewed & are unremarkable except as noted in HPI & below Constitutional: + malaise; no fever and no chills Respiratory: no cough, no dyspnea and no wheezing Cardiovascular: no chest pain, no palpitations and no edema Gastrointestinal: + abdominal pain (Diffuse, worst across her upper abdomen), + early satiety and + diarrhea/loose stools; no nausea, no vomiting, no constipation and no blood in stools Genitourinary: no dysuria and no hematuria Physical Exam Constitutional: WD/WN, vitals as above Eyes: PERRL, conjunctivae normal, anicteric sclerae ENMT: external ear and nose normal, oropharynx normal Neck: normal visual inspection Respiratory: normal respiratory effort, lungs clear to auscultation Cardiovascular: Rate/Rhythm: regular rate and regular rhythm Heart Sounds: + murmur (2/6 systolic murmur) Extremities: + edema (trace to 1+ bilateral LE edema) Gastrointestinal (Abdomen): Inspection/Auscultation: + abdomen distended and normal bowel sounds Percussion/Palpation: + abdomen tender (diffuse, worst in epigastric area) and abdomen soft; no guarding Musculoskeletal: no cyanosis or clubbing, extremities motor strength 5/5 Skin: no rashes, warm and dry no jaundice Neurologic: AAOx3, normal speech. PERRLA, EOMI, no nystagmus. Normal visual acuity bilaterally. Bilateral UE, LE, and face without sensory or motor deficits. II-XII intact bilaterally. No pronator drift. No tremor. Psychiatric: A+Ox3, euthymic affect Results & Data Results & Data ([facility]) Vital Signs (Past 12 Hours) Vital Signs Temp Pulse Resp BP Pulse Ox 12/05/19 20:55 105 H 12/05/19 20:40 100 H 14 12/05/19 20:30 97 H 21 114/77 12/05/19 20:20 100 H 16 94 12/05/19 20:10 99 H 13 12/05/19 20:00 101 H 15 123/93 92 20 19:50 103 H 20 12/05/19 19:40 100 H 24 12/05/19 19:30 100 H 22 137/91 96 12/05/19 19:20 93 H 17 98 12/05/19 19:10 99 H 17 97 12/05/19 19:07 97 H 16 12/05/19 18:50 100 H 27 H 92 20 18:40 100 H 22 90 20 18:30 98 H 15 137/72 20 18:24 102 H 20 140/103 H 12/05/19 18:20 100 H 29 H 91 20 18:10 95 H 17 98 12/05/19 18:00 100 H 19 99 20 17:54 102 H 13 93 12/05/19 17:48 96 12/05/19 17:12 100 H 22 107/62 98 12/05/19 16:43 36.8 C 100 H 20 81/54 L 95 Code Status & VTE Plan VTE Prophylaxis Plan VTE Prophylaxis will be ordered: Yes Supervising Physician Co-Signing Physician Notes Attending addendum: I have physically seen this patient, have supervised the medical residents activities, and agree with the H&P unless as otherwise noted. Assessment and Plan: Liver cirrhosis/portal hypertension/mild ascites/fatty liver/coagulopathy/meld score 15- Patient with known history of autoimmune diseases: Sjogren's syndrome and DLE. Order labs: Acute hepatitis panel, AMA and ASMA. Famotidine 20 mg IV every 12 hours Morphine sulfate 2 mg IV every 4 hours as needed severe pain Zofran 4 mg IV every 6 hours PRN Coagulopathy- INR 1.7. Give 10 mg vitamin K IV, and reassess in the a.m. Hypomagnesemia- Magnesium 1.1. Replace both IV and oral. Seizure disorder- Valproic acid level 33. Continue current dosing of 500 mg p.o. twice daily. Diabetes mellitus- Hold metformin 1000 mg p.o. every afternoon. Placed on Accu-Cheks before meals and at bedtime with NovoLog coverage per scale Remainder of orders and notations as noted. Resident Activity Tracking Resident Involvement: Resident Care Provided Care Provided: Adult Hospital Medicine (1) Ascites Ascites type: other type Qualified Code(s): R18.8 - Other ascites (2) Sjogren's disease Sjogren's organ involvement: unspecified organ involvement Qualified Code(s): M35.00 - Sicca syndrome, unspecified (3) Cirrhosis Ascites presence: with ascites Hepatic cirrhosis type: unspecified hepatic cirrhosis Qualified Code(s): K74.60 - Unspecified cirrhosis of liver; R18.8 - Other ascites (4) Diabetes type 2, controlled Diabetes mellitus complication status: without complication Diabetes mellitus long-term insulin use: without termite helper use Qualified Code(s): E11.9 - Type 2 diabetes mellitus without complications (5) Abdominal pain Abdominal location: upper abdomen, unspecified Qualified Code(s): R10.10 - Upper abdominal pain, unspecified
[2019-12-05] MEDS ORDERED: POLYETHYLENE (MIRALAX) 17 GM PACK PO PRN (23:18)
[2019-12-05] MEDS ORDERED: GLUCOSE 10 TABS/TUBE PO PRN (23:43)
[2019-12-05] MEDS ORDERED: DEXTROSE 50% 50 ML SYRINGE IV PRN (23:43)
[2019-12-05] MEDS ORDERED: GLUCAGON FOR INJ 1 MG VIAL SQ PRN (23:43)
[2019-12-05] MEDS ORDERED: CARBOHYDRATES FOR HYPOGLYCEMIA PO PRN (23:43)
[2019-12-05] MEDS ORDERED: GLUCOSE 40% GEL 15 GM TUBE PO PRN (23:43)
[2019-12-05] MEDS: ALBUMIN 25% 50 ML IV SCH (23:58)
[2019-12-06] MEDS: ALBUMIN 25% 50 ML IV SCH (00:54)
[2019-12-06 07:13] LABS: Hematocrit (blood only) 32.9 % (37-47); Hemoglobin 10.7 g/dL (12.0-16.0); Mean Corpuscular Hemoglobin 29.6 pg (25-34); Mean Corpuscular Hgb Conc 32.5 g/dL (32-36); Mean Corpuscular Volume 90.9 fL (80-100); Mean Platelet Volume 10.9 fL (7.4-10.4); Platelet Count 69 K/uL (130-400); RDW Coefficient of Variation 15.1 % (11.5-14.5); RDW Standard Deviation 50.9 fL (36.4-46.3); Red Blood Count 3.62 M/uL (4.2-5.4)
[2019-12-06 07:17] LABS: INR 1.5 (0.9-1.1); Partial Thromboplastin Ratio 1.3; Partial Thromboplastin Time 37.2 Seconds (21.0-31.0); Prothrombin Time 15.4 Seconds (9.0-12.0)
[2019-12-06 07:36] LABS: Albumin Level 2.5 gm/dl (3.4-5.0); BUN Creatinine Ratio 20.1 (10-20); Calcium 7.9 mg/dl (8.5-10.1); Creatinine Clr Calc Pharmacy 69.1 ml/min; Est GFR (African American) 102.2; Est GFR (Non-African American) 88.2; Magnesium 1.5 mg/dl (1.8-2.4)
[2019-12-06 07:37] LABS: Basophils # (auto) 0.01 K/uL (0-0.2); Basophils % (auto) 0.2 %; Eosinophils # (auto) 0.02 K/uL (0-0.5); Eosinophils % (auto) 0.5 %; Immature Granulocytes # (auto) 0.01 K/uL (0.00-0.02); Immature Granulocytes % (auto) 0.2 %; Lymphocytes # (auto) 0.61 K/uL (1.2-3.4); Lymphocytes % (auto) 13.9 %; Monocytes # (auto) 0.77 K/uL (0.11-0.59); Monocytes % (auto) 17.5 %; Neutrophils # (auto) 2.98 K/uL (1.4-6.5); Neutrophils % (auto) 67.7 %
[2019-12-06 07:39] LABS: Albumin Globulin Ratio 0.8 (0.9-2); Globulin 3.1 gm/dl (2.5-4.0); Total Protein 5.6 gm/dl (6.4-8.2)
[2019-12-06] MEDS: INSULIN ASPART 100 UNITS/ML 3 ML PEN SC SCH ×4 (07:50→21:17)
[2019-12-06] MEDS: DIVALPROEX DELAY RELEASE 500 MG TAB PO SCH ×2 (08:21→20:59)
[2019-12-06] MEDS: ESCITALOPRAM OXALATE 10 MG TAB PO SCH (08:21)
[2019-12-06] MEDS: FAMOTIDINE 20 MG TAB PO SCH (08:21)
[2019-12-06] MEDS: MoRPHine SULFATE 2 MG/ML CARP IV PRN (08:53)
[2019-12-06 09:05] LABS: Hepatitis B Surface Antigen Neg (Neg)
[2019-12-06 09:33] LABS: Hepatitis C IgG 13Yrs+Old_Rflx Neg (Neg)
--- NOTE | 2019-12-06 11:19 | Electrocardiogram Report ---
Test Reason : Blood Pressure : / mmHG Vent. Rate : 098 BPM Atrial Rate : 088 BPM P-R Int : 152 ms QRS Dur : 068 ms QT Int : 324 ms P-R-T Axes : 052 -30 -15 degrees QTc Int : 413 ms Poor data quality, interpretation may be adversely affected Sinus rhythm with Premature atrial complexes Left axis deviation Septal infarct , age undetermined Abnormal ECG No previous ECGs available Confirmed by Devin Triplett ([id number]) on 12/06/2019 11:19:25 AM Referred By: REFERRED SELF Confirmed By:Devin Triplett
--- NOTE | 2019-12-06 13:37 | Gastrointestinal Consultation ---
Date of Consultation December 06, 2019 Assessment & Plan (1) Cirrhosis: (2) Ascites: (3) Abnormal CT of the abdomen: MELD-Na is 11 today. decompensated cirrhosis with ascites. anemia noted, no obvious GI blood loss. her cirrhosis could be from SLE vs. AIH or other autoimmune etiology. viral hepatitis workup pending, so far negative hep BsAg and hep C Ab. the possibility of medication induced liver disease should be considered as well although this is rare with valproic acid and not seen with hydroxycholoroquine. Recs: --f/u pending liver workup and serologies --obtain diagnostic paracentesis on sunday12/08/2019, send fluid for cytology, cell count, albumin, amylase. --supportive care, trend H/H --will need EGD to screen for varices, likely as an outpatient --if no definitive etiology determined after workup, would consider liver biopsy -- <2 g sodium diet Thank you for allowing me to participate in the care of this patient. History of Present Illness Attending Physician: Darien Melendez Mitch 79 yo female with hx SLE on hydroxycholoroquine, GERD, Sjogrens disease, seizure disorder on valproic acid, DM2 with A1c less than 6 on metformin, here for abd pains, weakness and diarrhea. She was found to have cirrhosis on CT A/P. She denies any previous known hx liver disease, denies family hx liver disease, denies ETOH abuse. CT A/P shows cirrhosis and ascites and possible portal colopathy. Patient notes diffuse abdominal pains/swelling recently. Also notes decreased appetite. She has been having loose stools 2 times per day as well, denies hematochezia, hematemesis, had some unintentional wt loss but says she is gaining it back recently. She takes 2 g tylenol daily for aches and pains. Last blood transfusion was 36 years ago when she had a hysterectomy. No IVDU. Labs reviewed. Allergies Allergy/AdvReac Type Severity Reaction Status Date / Time ciprofloxacin [From Cipro] Allergy Severe Hives Verified 12/02/19 12:02 levofloxacin [From Levaquin] Allergy Severe Shortness Verified 12/02/19 12:02 of breath paroxetine Allergy Unknown Verified 12/02/19 12:02 phenytoin Allergy Unknown Verified 12/02/19 12:02 sulfamethoxazole Allergy Verified 12/02/19 12:02 [From Bactrim] trimethoprim [From Bactrim] Allergy Verified 12/02/19 12:02 unknown antibiotic Allergy Severe Browning-Bryon Uncoded 12/02/19 12:02 syndrome - no records available Home Medications Home Medications Medication Instructions Recorded Confirmed Type divalproex 500 mg tablet,delayed 500 mg PO BID #180 tab 06/13/19 12/05/19 Rx release hydroxychloroquine 200 mg tablet 200 mg PO DAILY #90 tab 08/25/19 12/05/19 Rx famotidine 20 mg tablet 20 mg PO DAILY #30 tab 12/02/19 12/05/19 Rx escitalopram oxalate 10 mg PO DAILY 12/05/19 12/05/19 History estradiol [Estrace] 1 gm PV 3XWK 12/05/19 12/05/19 History latanoprost 1 drp OPB HS 12/05/19 12/05/19 History metformin 1,000 mg PO QPM 12/05/19 12/05/19 History propylene glycol [Systane Complete] 1 drp OPB TID PRN 12/05/19 12/05/19 History Patient History Medical History Adjustment disorder with depressed mood (Chronic) Antibiotic-associated diarrhea (Chronic ~06/2019) Negative C. Diff test x 1 but good response to oral vancomycin Diabetes type 2, controlled (Chronic) Discoid lupus erythematosus GERD (gastroesophageal reflux disease) (Chronic) Glaucoma (Chronic) Gout (Resolved) Hearing difficulty (Chronic) Kidney stone (Resolved) Osteoarthritis (Chronic) Seizure (Resolved) Sjogren's disease (Chronic) Thrombocytopenia (Chronic) Undifferentiated connective tissue disease Surgical History H/O: hysterectomy (~1984) Hx of cholecystectomy (~1983) S/P tooth extraction Family History Grandfather Diabetes Mother Hypertension Gallbladder disease Grandmother No problems noted. Father Pancreatic cancer Brother Alcohol abuse Denies family history of Ovarian cancer Prostate cancer Alzheimer disease Heart disease Myocardial infarction Breast cancer Lung cancer Colorectal cancer Stroke Social History Preferred Language: Danish Communication Ability: Effective Visual Impairment: Limited Hearing Ability: Use of Hearing Aid Beliefs That Will Affect Care: None marital status: / Current Living Situation: Alone Current Living Situation Comment: [place] current occupational status: retired Other Information That Helps Us Care for You: No Feels Safe at Home: Yes Safety Concerns: Feels Safe At This Time Smoking Status: Never smoker Do You Dip or Chew Tobacco: No ; Second Hand Exposure: No ; Hx Alcohol Use: No Hx Substance Use: No Childhood Exposure to Second-Hand Smoke: Yes caffeine: Yes Dental Care, Regularly: Yes Physical Activity Frequency: 1-2 Times per Week Seatbelt Use: always Sunscreen Use: No Review of Systems Constitutional: no fever, no chills and no weight loss Eyes: as per Subjective / HPI Ear, Nose, Mouth, Throat: as per Subjective / HPI Respiratory: no dyspnea and no dyspnea on exertion Cardiovascular: no chest pain and no palpitations Gastrointestinal: as per Subjective / HPI Musculoskeletal: no joint pain and no swelling Integumentary: no rash and no lesions Neurologic: no numbness and no paresthesia Psychiatric: no depression and no anxiety Endocrine: no fatigue Hematologic / Lymphatic: no easy bleeding and no easy bruising Physical Exam Constitutional: WD/WN, vitals as above Eyes: EOM intact bilaterally Neck: normal visual inspection Respiratory: normal respiratory effort, lungs clear to auscultation Cardiovascular: RRR, no murmur, no edema Gastrointestinal (Abdomen): Inspection/Auscultation: abdomen normal to inspection; abdomen not distended Percussion/Palpation: + abdomen tender (periumbilical mild) and abdomen soft; no hepatosplenomegaly no asterixis Musculoskeletal: Extremities: no cyanosis Gait: normal gait Skin: no rashes, warm and dry Neurologic: moves all extremities Psychiatric: A+Ox3, euthymic affect Results & Data ([facility]) Vital Signs (Past 12 Hours) Vital Signs Temp Pulse Pulse Resp BP Pulse Ox 12/06/19 11:23 36.8 C 105 H 20 119/72 100 12/06/19 08:33 94 H 12/06/19 07:31 36.5 C 77 18 110/71 98 12/06/19 03:59 36.9 C 88 18 117/69 94 PG Care Time/CCT Total # of Minutes Spent Total Time Spent with Patient: Total time spent is greater than 50% in coordination of care (as documented) at patient's floor/unit and/or counseling patient: Coding Level of Care Code 75030 Initial Inpt Care Lvl 3 Diagnoses Cirrhosis K74.[address] of the abdomen R93.5
[2019-12-06] MEDS ORDERED: COUGH DROP (SUGAR FREE) LOZ 24 LOZ/1 BOX BUCCAL STA (21:05)
--- NOTE | 2019-12-06 22:55 | Hospitalist Progress Note ---
Date of Service December 06, 2019 Assessment & Plan (1) Cirrhosis: 79-year-old female with a past medical history significant for SLE, GERD, Sjogren's disease, seizure disorder, DM 2 on oral therapy admitted for newly discovered cirrhosis and ascites in the setting of abdominal pain, weakness and early satiety. Cirrhosis with findings suggestive of portal hypertension: CTAP showed mild ascites, suggests portal HTN from cirrhosis. MELD score 15. Differentials include alcoholic vs. autoimmune vs. infectious vs. medication-use hepatitis, primary biliary cholangitis. Patient does not have an alcohol abuse history. Have ordered acute hepatitis panel, anti-mitochondrial antibodies, anti-Smooth muscle antibodies. Patient has a history of autoimmune disease. Patient does take about 2 grs daily of tylenol which could be playing a role. Valproic acid level was not increased. INR improved to 1.5, however this was due to vit k. Morphine 2mg IV q4h PRN pain, however given abdominal pain will need to monitor closely for worsening pain and/or more frequent dosages as this may mask worsening condition. Zofran PRN nausea. will likely start lasix and spironolactone on the patient. Appreciate GI consult. ? Colitis: Possible inflammatory vs. infectious colitis, other differential includes portal colopathy. Stool culture and C. diff testing ordered. Workup of cirrhosis as above. Full liquid diet for now. Pain control and Zofran as above. Abnormal UA: UA with bacteria, nitrites, negative LE. However catch was dirty. UCx pending. Patient without symptoms suggestive of UTI. Thrombocytopenia: Likely secondary to cirrhosis. Patient without acute bleeding. Continue to monitor with CBC. DM2: Hold home medications. Insulin SSI with carb correction. GERD: Continue home famotidine. Seizure disorder: Continue home valproic acid. Valproic acid level 33 on admission. Hypomagnesemia: replenished. remains low. Code Status: FULL CODE FEN/GI: full liquid diet, albumin 25% x2 bags, Mg 1g IV given DVT ppx: SCDs Admission and Anticipated Discharge Date Admission Date: December 05, 2019 Subjective Patient reports no significant change from yesterday to today. Except for decreased amount of diarrhea. She reports her pain is better today. She does report about a 20 pound weight loss over the course of the previous year, but recently she has noticed some weight gain. She states her appetite has decreased. She reports she is not quite sure why she has liver problems. She does take about 2 grams of tylenol daily. Review of Systems Review of Systems: All systems reviewed & are unremarkable except as noted in HPI & below Physical Exam Physical Exam: Constitutional: WD/WN, vitals as above Eyes: PERRL, conjunctivae normal, anicteric sclerae ENMT: external ear and nose normal, oropharynx normal Neck: normal visual inspection Respiratory: normal respiratory effort, lungs clear to auscultation Cardiovascular: Rate/Rhythm: regular rate and regular rhythm Heart Sounds: + murmur (2/6 systolic murmur) Extremities: + edema (trace to 1+ bilateral LE edema) Gastrointestinal (Abdomen): Inspection/Auscultation: + abdomen distended and normal bowel sounds Percussion/Palpation: + abdomen tender (diffuse, worst in e pigastric area) and abdomen soft; no guarding, Musculoskeletal: no cyanosis or clubbing, extremities motor strength 5/5 Skin: no rashes, warm and dry no jaundice Neurologic: AAOx3, normal speech. PERRLA, EOMI, no nystagmus. Normal visual acuity bilaterally. Bilateral UE, LE, and face without sensory or motor deficits. II-XII intact bilaterally. No pronator drift. No tremor. Psychiatric: A+Ox3, euthymic affect Results & Data Results & Data ([facility]) Vital Signs (Past 12 Hours) Vital Signs Temp Pulse Pulse Resp BP Pulse Ox 12/06/19 19:43 37 C 87 18 117/71 95 12/06/19 16:16 94 H 12/06/19 16:00 36.6 C 91 H 18 101/62 90 12/06/19 11:23 36.8 C 105 H 20 119/72 100 PG Care Time/CCT Total # of Minutes Spent Total Time Spent with Patient: Total time spent is greater than 50% in coordination of care (as documented) at patient's floor/unit and/or counseling patient: Coding Level of Care Code 84277 Subseq Hosp Care Lvl 3 Diagnoses Cirrhosis K74.60 Time Spent (min) 35
[2019-12-07] MEDS: MoRPHine SULFATE 2 MG/ML CARP IV PRN ×3 (00:13→23:36)
[2019-12-07] MEDS: ESCITALOPRAM OXALATE 10 MG TAB PO SCH (07:59)
[2019-12-07] MEDS: FAMOTIDINE 20 MG TAB PO SCH (07:59)
[2019-12-07] MEDS: DIVALPROEX DELAY RELEASE 500 MG TAB PO SCH ×2 (08:00→19:36)
[2019-12-07] MEDS: INSULIN ASPART 100 UNITS/ML 3 ML PEN SC SCH (08:13)
--- NOTE | 2019-12-07 08:27 | Hospitalist Progress Note ---
Date of Service December 07, 2019 Assessment & Plan (1) Campylobacter enteritis: Patient has been in the past empirically treated for c diff colitis (though her c diff test was negative). She has developed diarrhea after a brief course of antibiotic for recurrent UTI. Recenly patient had recurrent diarrhea. During this hospital stay: C. diff negative Campylobacter jejuni is positive. Usually this is self limiting. Diarrhea though has been improving. Initially plan was to treat with antibiotics, as there was concern patient may be decompensating. However, this was not the case. will await paracenthesis to obtain culture/cell count of ascitic fluid as clinically patient appears to be improving: diarrhea is improving. BP has been stable. Percentage of neutrophils have decreased. Abdominal paracenthesis will be completed in the AM. (2) Cirrhosis: Cirrhosis with findings suggestive of portal hypertension: Newly diagnosed cirrhosis. CTAP showed mild ascites, suggests portal HTN from cirrhosis. MELD score 15. Differentials include alcoholic vs. autoimmune vs. infectious vs. medication-use hepatitis, primary biliary cholangitis. Patient does not have an alcohol abuse history. Have ordered acute hepatitis panel, anti-mitochondrial antibodies, anti-Smooth muscle antibodies. Patient has a history of autoimmune disease. Patient does take about 2 grs daily of tylenol which could be playing a role. Valproic acid level was not increased. INR improved to 1.5, however this was due to vit k. Morphine 2mg IV q4h PRN pain, however given abdominal pain will need to monitor closely for worsening pain and/or more frequent dosages as this may mask worsening condition. Zofran PRN nausea. may consider starting low dose lasix and spironolactone on the patient during hospital stay, at 40/100 mg ratio, once diarrhea improves. Appreciate GI consult. Abnormal UA: UA with bacteria, nitrites, negative LE. However catch was dirty. UCx pending. Patient without symptoms suggestive of UTI. Thrombocytopenia: Likely secondary to cirrhosis. Patient without acute bleeding. Continue to monitor with CBC. GERD: Continue home famotidine. Hypomagnesemia: replaced. remains low. (3) Ascites: will obtain paracenthesis in AM (4) Discoid lupus erythematosus: will resume plaquenil (5) Diabetes type 2, controlled: holding insulin as blood sugar has been controlled. (6) Seizure: Continue home valproic acid. Valproic acid level 33 on admission Code Status: FULL CODE FEN/GI: full liquid diet, albumin 25% x2 bags, Mg 1g IV given DVT ppx: SCDs Admission and Anticipated Discharge Date Admission Date: December 05, 2019 Subjective This is a pleasant 70-year-old female with SLE. She is a poor historian as he history does not coincide with the notes in the chart. She reports having abdominal pain since April accompanied by recurrent UTIs that were confirmed by dysuria and cultures. By June and in July of this year she started complaining of diarrhea and loose stools. She states that she is been following with urology and has no longer been having recurrent UTIs after starting a crea, but continues to be complain of weight loss and loose stools. Today she reports that her abdominal pain has not improved. She is also concerned about having a paracentesis and a liver biopsy. She is also concerned over diagnosis of cirrhosis. D/W nurse, he diarrhea appears improved. updated son. Review of Systems Review of Systems: All systems reviewed & are unremarkable except as noted in Subjective Physical Exam Physical Exam: Constitutional: WD/WN, vitals as above Eyes: PERRL, conjunctivae normal, anicteric sclerae ENMT: external ear and nose normal, oropharynx normal Neck: normal visual inspection Respiratory: normal respiratory effort, lungs clear to auscultation Cardiovascular: Rate/Rhythm: regular rate and regular rhythm Heart Sounds: + murmur (2/6 systolic murmur) Extremities: + edema (trace to 1+ bilateral LE edema) Gastrointestinal (Abdomen): Inspection/Auscultation: + abdomen distended and normal bowel sounds Percussion/Palpation: + abdomen tender (diffuse, worst in epigastric area) and abdomen soft; no guarding, Musculoskeletal: no cyanosis or clubbing, extremities motor strength 5/5 Skin: no rashes, warm and dry no jaundice Neurologic: AAOx3, normal speech. PERRLA, EOMI, no nystagmus. Normal visual acuity bilaterally. Bilateral UE, LE, and face without sensory or motor deficits. II-XII intact bilaterally. No pronator drift. No tremor. Psychiatric: A+Ox3, euthymic affect Results & Data Results & Data ([facility]) Vital Signs (Past 12 Hours) Vital Signs Temp Pulse Pulse Resp BP Pulse Ox 12/07/19 07:21 37.0 C 127 H 20 103/67 93 12/07/19 07:17 103 H 12/07/19 03:54 36.5 C 97 H 19 93/62 L 92 12/07/19 02:19 113 H 12/07/19 00:32 37.4 C 107 H 19 113/74 92 PG Care Time/CCT Total # of Minutes Spent Total Time Spent with Patient: Total time spent is greater than 50% in coordination of care (as documented) at patient's floor/unit and/or counseling patient: Coding Level of Care Code 58309 Subseq Hosp Care Lvl 3 Diagnoses Campylobacter enteritis A04.5 Cirrhosis K74.60 Ascites R18.8 Ascites type: other type Discoid lupus erythematosus L93.0 Diabetes type 2, controlled E11.9 Diabetes mellitus complication status: without complication Diabetes mellitus intermediate manager insulin use: without chcf use Seizure R56.9 Time Spent (min) 35 (1) Ascites Ascites type: other type Qualified Code(s): R18.8 - Other ascites (2) Diabetes type 2, controlled Diabetes mellitus complication status: without complication Diabetes mellitus intermediate manager insulin use: without intermediate manager use Qualified Code(s): E11.9 - Type 2 diabetes mellitus without complications
[2019-12-07 08:46] LABS: Hematocrit (blood only) 38.6 % (37-47); Hemoglobin 12.6 g/dL (12.0-16.0); Mean Corpuscular Hemoglobin 29.6 pg (25-34); Mean Corpuscular Hgb Conc 32.6 g/dL (32-36); Mean Corpuscular Volume 90.6 fL (80-100); Mean Platelet Volume 12.1 fL (7.4-10.4); Platelet Count 110 K/uL (130-400); RDW Coefficient of Variation 15.3 % (11.5-14.5); RDW Standard Deviation 50.8 fL (36.4-46.3); Red Blood Count 4.26 M/uL (4.2-5.4); White Blood Count 5.93 K/uL (4.8-10.8)
[2019-12-07 09:02] LABS: Albumin Level 2.6 gm/dl (3.4-5.0); BUN Creatinine Ratio 23.1 (10-20); Calcium 8.3 mg/dl (8.5-10.1); Creatinine Clr Calc Pharmacy 56.3 ml/min; Est GFR (African American) 95.5; Est GFR (Non-African American) 82.4; Magnesium 1.4 mg/dl (1.8-2.4); Potassium 3.6 mmol/L (3.5-5.1)
[2019-12-07 09:05] LABS: Albumin Globulin Ratio 0.7 (0.9-2); Bilirubin,Total 0.7 mg/dl (0.2-1); Globulin 3.6 gm/dl (2.5-4.0); Phosphorus 2.7 mg/dl (2.5-4.9); Total Protein 6.2 gm/dl (6.4-8.2)
[2019-12-07 09:11] LABS: Basophils # (auto) 0.01 K/uL (0-0.2); Basophils % (auto) 0.2 %; Echinocytes 1+; Eosinophils # (auto) 0.05 K/uL (0-0.5); Eosinophils % (auto) 0.8 %; Immature Granulocytes # (auto) 0.02 K/uL (0.00-0.02); Immature Granulocytes % (auto) 0.3 %; Lymphocytes # (auto) 1.15 K/uL (1.2-3.4); Lymphocytes % (auto) 19.4 %; Monocytes # (auto) 1.22 K/uL (0.11-0.59); Monocytes % (auto) 20.6 %; Neutrophils # (auto) 3.48 K/uL (1.4-6.5); Neutrophils % (auto) 58.7 %; Platelet Estimate Decreased (Normal)
[2019-12-07] MEDS: MAGNESIUM SULFATE / D5W 1 GM/100 ML BAG IV SCH ×2 (10:45→12:43)
--- NOTE | 2019-12-07 15:34 | Gastroenterology Progress Note ---
Date of Service December 07, 2019 Assessment & Plan (1) Abdominal pain: (2) Ascites: (3) Cirrhosis: agree with empiric coverage for possible SBP. C. Jejuni infection also noted. would recommend treatment in the setting of cirrhosis. low threshold for ICU transfer if she decompensates. await cirrhosis labs/chronic liver disease workup, diagnostic paracentesis tomorrow. rest as per primary team. Admission and Anticipated Discharge Date Admission Date: December 05, 2019 Subjective pt seen and examined, noted to have worsening labs today, worsening abdominal pains, and hypotension. placed on empiric abx by primary team for possible SBP, blood cx's sent. She notes diffuse abdominal pains, otherwise no significant sx's. afebrile. labs reviewed Review of Systems Constitutional: no fever and no chills Respiratory: no cough, no dyspnea and no dyspnea on exertion Cardiovascular: no chest pain and no dyspnea Gastrointestinal: as per Subjective / HPI Psychiatric: no depression and no anxiety Physical Exam Constitutional: WD/WN, vitals as above Respiratory: normal respiratory effort, lungs clear to auscultation Cardiovascular: RRR, no murmur, no edema Gastrointestinal (Abdomen): normal bowel sounds, soft, nontender, no hepatosplenomegaly Musculoskeletal: no lower extremity edema Psychiatric: A+Ox3, euthymic affect Results & Data Results & Data ([facility]) Vital Signs (Past 12 Hours) Vital Signs Temp Pulse Pulse Resp BP Pulse Ox 12/07/19 12:30 36.5 C 59 L 113/73 95 12/07/19 11:21 37.0 C 65 18 88/60 L 92 12/07/19 07:21 37.0 C 127 H 20 103/67 93 12/07/19 07:17 103 H 12/07/19 03:54 36.5 C 97 H 19 93/62 L 92 PG Care Time/CCT Total # of Minutes Spent Total Time Spent with Patient: Total time spent is greater than 50% in coordination of care (as documented) at patient's floor/unit and/or counseling patient: Coding Level of Care Code 29010 Subseq Hosp Care Lvl 3 Diagnoses Abdominal pain R10.10 Abdominal location: upper abdomen, unspecified Ascites R18.8 Ascites type: other type Cirrhosis K74.60; R18.8 Hepatic cirrhosis type: unspecified hepatic cirrhosis Ascites presence: with ascites (1) Abdominal pain Abdominal location: upper abdomen, unspecified Qualified Code(s): R10.10 - Upper abdominal pain, unspecified (2) Ascites Ascites type: other type Qualified Code(s): R18.8 - Other ascites (3) Cirrhosis Hepatic cirrhosis type: unspecified hepatic cirrhosis Ascites presence: with ascites Qualified Code(s): K74.60 - Unspecified cirrhosis of liver; R18.8 - Other ascites
--- NOTE | 2019-12-08 01:31 | Billing Data ---
Date of Service December 08, 2019 Coding Level of Care Code 72608 Initial Inpt Care Lvl 3
[2019-12-08] MEDS: DIVALPROEX DELAY RELEASE 500 MG TAB PO SCH ×2 (08:33→20:37)
[2019-12-08] MEDS: FAMOTIDINE 20 MG TAB PO SCH (08:33)
[2019-12-08] MEDS: ESCITALOPRAM OXALATE 10 MG TAB PO SCH (08:33)
[2019-12-08] MEDS: HYDROXYCHLOROQUINE SULFATE 200 MG TAB PO SCH ×2 (08:35→22:26)
--- NOTE | 2019-12-08 10:05 | Gastroenterology Progress Note ---
Date of Service December 08, 2019 Assessment & Plan (1) Cirrhosis: (2) Ascites: 1. Await diagnostic paracentesis as ordered. 2. Await pending blood cultures, autoantibodies and hepatitis serologies as ordered. 3. Will advise further pending results of testing. Admission and Anticipated Discharge Date Admission Date: December 05, 2019 Supervising Physician Co-Signing Physician Notes I personally evaluated the patient and agree with the findings as documented by CAROLYN Angel Exam: abd: soft, mild diffuse tenderness, nd Subjective Patient reports she is having some abdominal pain. Is going for diagnostic paracentesis this morning. Blood cultures are pending. Autoantibodies and hepa titis serologies pending. She offers no other complaints at present. MELD yesterday ~11. Review of Systems Constitutional: no fever Respiratory: no cough and no dyspnea Cardiovascular: no chest pain Gastrointestinal: as per Subjective / HPI Musculoskeletal: no swelling Physical Exam Constitutional: WD/WN, vitals as above well developed and well nourished Eyes: EOM intact bilaterally ENMT: Ears: + hearing impairment Neck: normal visual inspection Respiratory: normal respiratory effort, lungs clear to auscultation Cardiovascular: Rate/Rhythm: regular rate and regular rhythm Gastrointestinal (Abdomen): Inspection/Auscultation: normal bowel sounds Percussion/Palpation: + abdomen tender and abdomen soft Musculoskeletal: no lower extremity edema Skin: no rashes, warm and dry Psychiatric: A+Ox3, euthymic affect Results & Data Results & Data ([facility]) Vital Signs (Past 12 Hours) Vital Signs Temp Pulse Pulse Resp BP Pulse Ox 12/08/19 07:29 99 H 12/08/19 07:10 36.8 C 97 H 16 95/64 L 95 12/08/19 02:45 36.9 C 85 16 89/56 L 93 12/07/19 23:25 36.7 C 104 H 18 112/76 90 Laboratory Results Abnormal lab results 12/07/19 12/07/19 12/07/19 Range/Units 11:26 16:38 20:34 POC Glucose 206 H 111 H 144 H (70-99) mg/dl PG Care Time/CCT Total # of Minutes Spent Total Time Spent with Patient: Total time spent is greater than 50% in coordination of care (as documented) at patient's floor/unit and/or counseling patient: Coding Level of Care Code 99796 Subseq Hosp Care Lvl 3 Diagnoses Cirrhosis K74.60 Ascites R18.8
--- NOTE | 2019-12-08 10:17 | Ultrasound Report ---
PARACENTESIS UNDER ULTRASOUND GUIDANCE CLINICAL HISTORY: Generalized abdominal pain. Ascites. COMPARISON STUDY: Abdominal CT dated 12/05/2019. PROCEDURE: The risks, benefits, and alternatives to the procedure were discussed with the patient who voiced understanding. Written informed consent was obtained. Following real-time ultrasound localiza tion of a suitable pocket of fluid in the right lateral abdomen, the abdominal wall was prepped and d raped in the usual sterile fashion. The skin and soft tissues were anesthetized with 1% lidocaine. Th e sheathed paracentesis needle was inserted and approximately 0.8 liters of straw-colored ascitic flu id was removed by vacuum suction. Specimens were sent for laboratory analysis. The procedure was well tolerated and without immediate complication. The patient left the department in satisfactory condit ion. IMPRESSION: Successful ultrasound-guided paracentesis with removal of approximately 0.8 liters of asc itic fluid. ACT 112: Negative or not required by law. Electronically signed by: Jose Maria Baidr M.D. 12/08/2019 10:16 AM
[2019-12-08 11:19] LABS: Albumin Peritoneal Fluid 0.7 g/dl; Total Protein Peritoneal Fluid 1.5 g/dl
[2019-12-08 11:36] LABS: Appearance Peritoneal Fluid HAZY; Basophils, Fluid 1 %; Color Peritoneal Fluid YELLOW; Eosinophils, Fluid 0 %; Lymphocytes, Fluid 30 %; Mono,Macrophage,Mesothelial 48 %; Neutrophils, Fluid 21 %; RBC Peritoneal Fluid (A) < 3000 /uL; WBC Peritoneal Fluid (A) 259 /ul (0-300)
--- NOTE | 2019-12-08 14:31 | Hospitalist Progress Note ---
Date of Service December 08, 2019 Assessment & Plan (1) Campylobacter enteritis: Campylobacter jejuni is positive from stool on 12/05. - Per notes, was on abx for a brief time period, but by the time I took over on 12/07, she was not on any. Looking back in EMR, I do not see abx prescribed. - Started azithromycin on 12/07; 500 mg PO daily x 3 doses (2) Cirrhosis: Newly diagnosed cirrhosis; unknown cause. Differentials include alcoholic vs. autoimmune vs. infectious vs. medication-use hepatitis, primary biliary cholangitis. - Acute hepatitis panel, anti-mitochondrial antibodies, anti-Smooth muscle antibodies. - GI consulted - Will follow labs; will likely need liver biopsy and possibly EGD in the future though likely outpatient. - Paracentesis on 12/07 with no indication for SBP. (3) Discoid lupus erythematosus: No rashes at present. - Continue hydroxychloroquine (4) Sjogren's disease: Trouble with eating. - Delivery Of Shopping News & BRAKESHOE REPAIRER consult (5) Diabetes type 2, controlled: A1c was 5.7% this month. High of 9.3% last year. - Monitor blood sugars (6) Seizure: None noted inpatient. - Continue valproic acid (7) DVT prophylaxis: SCDs - Low DVT risk per admission calculator Admission and Anticipated Discharge Date Admission Date: December 05, 2019 Subjective Reports less abdominal pressure after her paracentesis. Overall, also less shortness of breath. No abdominal pain. Just feels tired. Reports no fevers/chills, chest pain, abdominal pain, nausea, or vomiting. Physical Exam Constitutional: WD/WN, vitals as above Eyes: EOM intact bilaterally; no conjunctival abnormality ENMT: external ear and nose normal, oropharynx normal Neck: trachea midline, no thyromegaly normal visual inspection Respiratory: normal respiratory effort, lungs clear to auscultation no respiratory distress Cardiovascular: RRR, no murmur, no edema Gastrointestinal (Abdomen): Inspection/Auscultation: abdomen normal to inspection; abdomen not distended Musculoskeletal: no cyanosis or clubbing, extremities motor strength 5/5 Skin: no rashes, warm and dry Neurologic: moves all extremities and awake Psychiatric: Orientation: alert, oriented to person and cooperative Results & Data Results & Data ([facility]) Vital Signs (Past 12 Hours) Vital Signs Temp Pulse Pulse Resp BP Pulse Ox 12/08/19 12:35 86 16 107/65 95 12/08/19 12:00 96 H 16 112/69 97 12/08/19 11:27 36.9 C 96 H 20 102/65 97 12/08/19 10:59 36.3 C L 96 H 20 107/71 97 12/08/19 10:33 88 16 106/62 97 12/08/19 10:13 80 16 107/66 90 12/08/19 07:29 99 H 12/08/19 07:10 36.8 C 97 H 16 95/64 L 95 12/08/19 02:45 36.9 C 85 16 89/56 L 93 PG Care Time/CCT Total # of Minutes Spent Total Time Spent with Patient: Total time spent is greater than 50% in coordination of care (as documented) at patient's floor/unit and/or counseling patient: Coding Level of Care Code 01280 Subseq Hosp Care Lvl 3 Diagnoses Campylobacter enteritis A04.5 Cirrhosis K74.60; R18.8 Hepatic cirrhosis type: unspecified hepatic cirrhosis Ascites presence: with ascites Discoid lupus erythematosus L93.0 Sjogren's disease M35.00 Sjogren's organ involvement: unspecified organ involvement Diabetes type 2, controlled E11.9 Diabetes mellitus penitentiary insulin use: without penitentiary use Diabetes mellitus complication status: without complication Seizure R56.9 DVT prophylaxis Z29.9 (1) Cirrhosis Hepatic cirrhosis type: unspecified hepatic cirrhosis Ascites presence: with ascites Qualified Code(s): K74.60 - Unspecified cirrhosis of liver; R18.8 - Oth er ascites (2) Sjogren's disease Sjogren's organ involvement: unspecified organ involvement Qualified Code(s): M35.00 - Sicca syndrome, unspecified (3) Diabetes type 2, controlled Diabetes mellitus penitentiary insulin use: without adjunct faculty for medical terminology use Diabetes mellitus complication status: without complication Qualified Code(s): E11.9 - Type 2 diabetes mellitus without complications
[2019-12-08] MEDS: AZITHROMYCIN 250 MG TAB PO SCH (16:22)
[2019-12-08] MEDS: MAGNESIUM SULFATE / D5W 1 GM/100 ML BAG IV SCH ×3 (18:47→22:26)
[2019-12-09 07:10] LABS: Hematocrit (blood only) 33.3 % (37-47); Hemoglobin 11.6 g/dL (12.0-16.0); Mean Corpuscular Hemoglobin 30.7 pg (25-34); Mean Corpuscular Hgb Conc 34.8 g/dL (32-36); Mean Corpuscular Volume 88.1 fL (80-100); RDW Coefficient of Variation 15.1 % (11.5-14.5); RDW Standard Deviation 48.6 fL (36.4-46.3); Red Blood Count 3.78 M/uL (4.2-5.4); White Blood Count 3.96 K/uL (4.8-10.8)
[2019-12-09 07:17] LABS: Mean Platelet Volume 11.1 fL (7.4-10.4); Platelet Count 81 K/uL (130-400)
[2019-12-09 07:28] LABS: Albumin Level 2.1 gm/dl (3.4-5.0); BUN Creatinine Ratio 25.9 (10-20); Creatinine Clr Calc Pharmacy 77.2 ml/min; Est GFR (Non-African American) 91.5; Magnesium 2.1 mg/dl (1.8-2.4); Potassium 3.5 mmol/L (3.5-5.1)
[2019-12-09 07:38] LABS: Albumin Globulin Ratio 0.7 (0.9-2); Bilirubin,Total 0.6 mg/dl (0.2-1); Globulin 3.1 gm/dl (2.5-4.0); Phosphorus 2.8 mg/dl (2.5-4.9); Total Protein 5.2 gm/dl (6.4-8.2)
[2019-12-09] MEDS: FAMOTIDINE 20 MG TAB PO SCH (08:15)
[2019-12-09] MEDS: DIVALPROEX DELAY RELEASE 500 MG TAB PO SCH ×3 (08:15→21:01)
[2019-12-09] MEDS: AZITHROMYCIN 250 MG TAB PO SCH (08:15)
[2019-12-09] MEDS: ESCITALOPRAM OXALATE 10 MG TAB PO SCH (08:15)
[2019-12-09] MEDS: HYDROXYCHLOROQUINE SULFATE 200 MG TAB PO SCH ×2 (08:18→20:45)
--- NOTE | 2019-12-09 09:41 | Gastroenterology Progress Note ---
Date of Service December 09, 2019 Assessment & Plan (1) Campylobacter enteritis: (2) Cirrhosis: 1. Complete course of oral antibiotics as prescribed. 2. Await pending labs. 3. Outpatient follow up in our office for ongoing medical management and work up of chronic liver disease. 4. Continue supportive care. Admission and Anticipated Discharge Date Admission Date: December 05, 2019 Supervising Physician Co-Signing Physician Notes I personally evaluated the patient and agree with the findings as documented by CAROLYN Angel Exam: abd: soft, nt, nd Subjective Isatu reports some ongoing abdominal pain and diarrhea and states "I just hurt all over". Has been started on Azithromycin by primary medicine. She is status post diagnostic paracentesis yesterday. No growth on culture. Cytology pending. C Diff testing from 12/05 was negative. Autoantibodies are pending. Review of Systems Constitutional: + fatigue; no fever and no chills Respiratory: no cough and no dyspnea Cardiovascular: no chest pain and no palpitations Gastrointestinal: as per Subjective / HPI Musculoskeletal: no swelling Psychiatric: no confusion Physical Exam Constitutional: WD/WN, vitals as above well developed and well nourished Eyes: + anicteric sclerae and EOM intact bilaterally Respiratory: normal respiratory effort, lungs clear to auscultation Cardiovascular: Rate/Rhythm: regular rate and regular rhythm Heart Sounds: + murmur Gastrointestinal (Abdomen): Inspection/Auscultation: normal bowel sounds Percussion/Palpation: abdomen soft; abdomen nontender Skin: no rashes, warm and dry Psychiatric: A+Ox3, euthymic affect Results & Data Results & Data ([facility]) Vital Signs (Past 12 Hours) Vital Signs Temp Pulse Pulse Resp BP Pulse Ox 12/09/19 07:04 36.6 C 75 20 100/61 95 12/09/19 03:04 36.3 C L 85 16 116/78 96 12/09/19 02:13 76 12/08/19 23:17 36.5 C 79 16 100/59 L 92 Laboratory Results Abnormal lab results 12/08/19 12/09/19 12/09/19 Range/Units 20:16 07:00 07:00 WBC 3.96 L (4.8-10.8) K/uL RBC 3.78 L (4.2-5.4) M/uL Hgb 11.6 L (12.0-16.0) g/dL Hct 33.3 L (37-47) % RDW Std Deviation 48.6 H (36.4-46.3) fL RDW Coeff of Nancy 15.1 H (11.5-14.5) % Plt Count 81 L (130-400) K/uL MPV 11.1 H (7.4-10.4) fL Creatinine 0.51 L (0.6-1.2) mg/dl BUN/Creatinine Ratio 25.9 H (10-20) POC Glucose 128 H (70-99) mg/dl Calcium 8.0 L (8.5-10.1) mg/dl AST 38 H (15-37) U/L Alkaline Phosphatase 155 H (45-117) U/L Total Protein 5.2 L (6.4-8.2) gm/dl Albumin 2.1 L (3.4-5.0) gm/dl Albumin/Globulin Ratio 0.7 L (0.9-2) PG Care Time/CCT Total # of Minutes Spent Total Time Spent with Patient: Total time spent is greater than 50% in coordination of care (as documented) at patient's floor/unit and/or counseling patient: Coding Level of Care Code 53135 Subseq Hosp Care Lvl 3 Diagnoses Campylobacter enteritis A04.5 Cirrhosis K74.60; R18.8 Ascites presence: with ascites Hepatic cirrhosis type: unspecified hepatic cirrhosis (1) Cirrhosis Ascites presence: with ascites Hepatic cirrhosis type: unspecified hepatic cirrhosis Qualified Code(s): K74.60 - Unspecified cirrhosis of liver; R18.8 - Other ascites
[2019-12-09] MEDS ORDERED: COUGH DROP (SUGAR FREE) LOZ 24 LOZ/1 BOX BUCCAL STA (13:31)
--- NOTE | 2019-12-09 13:59 | Hospitalist Progress Note ---
Date of Service December 09, 2019 Assessment & Plan (1) Campylobacter enteritis: Campylobacter jejuni is positive from stool on 12/05. - Per notes, was on abx for a brief time period, but by the time I took over on 12/07, she was not on any. Looking back in EMR, I do not see abx prescribed. - Started azithromycin on 12/07; 500 mg PO daily x 3 doses (may need longer given her immunosuppressed state) - On 12/08, diarrhea was improved slightly. Still loose and larger volume when goes, but only 1 episode so far today which is definitely an improvement. (2) Cirrhosis: Newly diagnosed cirrhosis; unknown cause. Differentials include alcoholic vs. autoimmune vs. infectious vs. medication-use hepatitis, primary biliary cholangitis. - Acute hepatitis panel, anti-mitochondrial antibodies, anti-Smooth muscle antibodies all pending. - Paracentesis on 12/07 with no indication for SBP. This was without any prior antibiotics (confirmed in our EMR and also with pharmacist). - GI consulted - Will follow labs; will likely need liver biopsy and possibly EGD in the future though likely outpatient. Discussed with GI team yesterday and today. Holding off on any diuretics as she only had a smaller volume of ascites and would not want to cause dehydration. (3) Discoid lupus erythematosus: No rashes at present. - Continue hydroxychloroquine (4) Sjogren's disease: Trouble with eating. - Insolvency Consultant & ENTRY LEVEL FINANCIAL ANALYST consulted -> Discussed with both today. Insolvency Consultant feels we will reach caloric goals in the next 1-2 days with adjusting of her diet. ENTRY LEVEL FINANCIAL ANALYST gave recs to help improve eating and reduce discomfort. (5) Diabetes type 2, controlled: A1c was 5.7% this month. High of 9.3% last year. - Monitor blood sugars -> Have been very good in the last 24 hours. (6) Seizure: None noted inpatient. - Continue valproic acid (7) DVT prophylaxis: SCDs - Low DVT risk per admission calculator Admission and Anticipated Discharge Date Admission Date: December 05, 2019 Subjective Doing better today. No major concerns overall. Feels "wiped out," but otherwise no pain in the abdomen, no other major concerns. Reports no fevers/chills, chest pain, shortness of breath, abdominal pain, nausea, or vomiting. Physical Exam Constitutional: WD/WN, vitals as above Eyes: EOM intact bilaterally; no conjunctival abnormality ENMT: external ear and nose normal, oropharynx normal Neck: trachea midline, no thyromegaly normal visual inspection Respiratory: normal respiratory effort, lungs clear to auscultation no respiratory distress Cardiovascular: RRR, no murmur, no edema Gastrointestinal (Abdomen): Inspection/Auscultation: abdomen normal to inspection; abdomen not distended Percussion/Palpation: abdomen soft; abdomen nontender, no guarding and abdomen not rigid Musculoskeletal: no cyanosis or clubbing, extremities motor strength 5/5 Skin: no rashes, warm and dry Neurologic: moves all extremities and awake Psychiatric: Orientation: alert, oriented to person and cooperative Results & Data Results & Data ([facility]) Vital Signs (Past 12 Hours) Vital Signs Temp Pulse Pulse Resp BP Pulse Ox 12/09/19 13:02 72 12/09/19 11:27 36.4 C L 79 20 99/68 L 99 12/09/19 11:12 76 12/09/19 07:04 36.6 C 75 20 100/61 95 12/09/19 03:04 36.3 C L 85 16 116/78 96 12/09/19 02:13 76 PG Care Time/CCT Total # of Minutes Spent Total Time Spent with Patient: Total time spent is greater than 50% in coordin ation of care (as documented) at patient's floor/unit and/or counseling patient: Coding Level of Care Code 97741 Subseq Hosp Care Lvl 3 Diagnoses Campylobacter enteritis A04.5 Cirrhosis K74.60; R18.8 Hepatic cirrhosis type: unspecified hepatic cirrhosis Ascites presence: with ascites Discoid lupus erythematosus L93.0 Sjogren's disease M35.00 Sjogren's organ involvement: unspecified organ involvement Diabetes type 2, controlled E11.9 Diabetes mellitus meterman insulin use: without meterman use Diabetes mellitus complication status: without complication Seizure R56.9 DVT prophylaxis Z29.9 (1) Cirrhosis Hepatic cirrhosis type: unspecified hepatic cirrhosis Ascites presence: with ascites Qualified Code(s): K74.60 - Unspecified cirrhosis of liver; R18.8 - Other ascites (2) Sjogren's disease Sjogren's organ involvement: unspecified organ involvement Qualified Code(s): M35.00 - Sicca syndrome, unspecified (3) Diabetes type 2, controlled Diabetes mellitus meterman insulin use: without meterman use Diabetes mellitus complication status: without complication Qualified Code(s): E11.9 - Type 2 diabetes mellitus without complications
--- NOTE | 2019-12-09 17:14 | Billing Data ---
Date of Service December 09, 2019 Coding Level of Care Code 06095 Prolonged Care (int'l) Comment Speaking with the patient's daughter, Naomi Toledo from 2:50pm - 3:25pm.
[2019-12-10 08:08] LABS: INR 1.2 (0.9-1.1); Prothrombin Time 12.5 Seconds (9.0-12.0)
[2019-12-10] MEDS: ESCITALOPRAM OXALATE 10 MG TAB PO SCH (08:22)
[2019-12-10] MEDS: AZITHROMYCIN 250 MG TAB PO SCH (08:22)
[2019-12-10] MEDS: FAMOTIDINE 20 MG TAB PO SCH (08:23)
[2019-12-10] MEDS: HYDROXYCHLOROQUINE SULFATE 200 MG TAB PO SCH ×2 (08:26→20:43)
[2019-12-10 08:36] LABS: BUN Creatinine Ratio 21.6 (10-20); Calcium 7.8 mg/dl (8.5-10.1); Creatinine Clr Calc Pharmacy 85.6 ml/min; Est GFR (African American) 109.7; Est GFR (Non-African American) 94.6; Magnesium 1.6 mg/dl (1.8-2.4); Potassium 3.6 mmol/L (3.5-5.1)
[2019-12-10 08:40] LABS: Albumin Globulin Ratio 0.7 (0.9-2); Bilirubin,Total 0.6 mg/dl (0.2-1); Ferritin 236.6 ng/ml (8-388); Globulin 2.9 gm/dl (2.5-4.0); Phosphorus 2.7 mg/dl (2.5-4.9); Total Protein 4.9 gm/dl (6.4-8.2)
[2019-12-10 09:59] LABS: Hematocrit (blood only) 31.9 % (37-47); Hemoglobin 11.2 g/dL (12.0-16.0); Mean Corpuscular Hemoglobin 30.9 pg (25-34); Mean Corpuscular Hgb Conc 35.1 g/dL (32-36); Mean Corpuscular Volume 88.1 fL (80-100); RDW Coefficient of Variation 15.2 % (11.5-14.5); RDW Standard Deviation 49.1 fL (36.4-46.3); Red Blood Count 3.62 M/uL (4.2-5.4); White Blood Count 3.63 K/uL (4.8-10.8)
[2019-12-10 10:09] LABS: Mean Platelet Volume 11.4 fL (7.4-10.4); Platelet Count 81 K/uL (130-400)
--- NOTE | 2019-12-10 10:24 | Gastroenterology Progress Note ---
Date of Service December 10, 2019 Assessment & Plan (1) Campylobacter enteritis: (2) Cirrhosis: 1. Complete course of oral antibiotics as prescribed. 2. Await pending labs. 3. Outpatient follow up in our office for ongoing medical management and work up of chronic liver disease. 4. Will sign off at this time. Admission and Anticipated Discharge Date Admission Date: December 05, 2019 Subjective Patient reports she is feeling better today. Reduced abdominal pain and states she did have a formed stool this morning. Continues Azithromycin. No other GI complaints. Review of Systems Constitutional: + fatigue; no fever and no chills Gastrointestinal: as per Subjective / HPI Psychiatric: no confusion Physical Exam Constitutional: WD/WN, vitals as above well developed and well nourished Eyes: + anicteric sclerae and EOM intact bilaterally Neck: normal visual inspection Respiratory: normal respiratory effort, lungs clear to auscultation Cardiovascular: Rate/Rhythm: regular rate and regular rhythm Gastrointestinal (Abdomen): normal bowel sounds, soft, nontender, no hepatosplenomegaly Skin: no rashes, warm and dry Psychiatric: A+Ox3, euthymic affect Results & Data Results [facility] Vital Signs (Past 12 Hours) Vital Signs Temp Pulse Pulse Resp BP Pulse Ox 12/10/19 07:35 36.6 C 55 L 95 H 106/69 95 12/10/19 07:30 61 12/10/19 03:02 36.6 C 69 18 112/67 96 12/10/19 02:01 77 12/09/19 23:25 36.7 C 65 18 107/72 96 PG Care Time/CCT Total # of Minutes Spent Total Time Spent with Patient: Total time spent is greater than 50% in coordination of care (as documented) at patient's floor/unit and/or counseling patient: Coding Level of Care Code 37542 Subseq Hosp Care Lvl 3 Diagnoses Campylobacter enteritis A04.5 Cirrhosis K74.60; R18.8 Ascites presence: with ascites Hepatic cirrhosis type: unspecified hepatic cirrhosis (1) Cirrhosis Ascites presence: with ascites Hepatic cirrhosis type: unspecified hepatic cirrhosis Qualified Code(s): K74.60 - Unspecified cirrhosis of liver; R18.8 - Other ascites
[2019-12-10] MEDS: LATANOPROST 0.005% OP SOLN 2.5 ML BTL OPB SCH (11:16)
[2019-12-10 11:44] LABS: Hepatitis A Antibody IgM NON-REACTIVE (NON-REACTIVE); Hepatitis B Core Antibody IgM NON-REACTIVE (NON-REACTIVE)
[2019-12-10] MEDS ORDERED: ACETAMINOPHEN 500 MG TAB PO PRN (13:27)
--- NOTE | 2019-12-10 13:49 | Ultrasound Report ---
US abdomen limited HISTORY: Nausea. Pain. Gallbladder. COMPARISON: None. FINDINGS: Pancreas: The pancreas demonstrates a normal echotexture. Liver: Hepatic cirrhosis. Outer cortical margin scarring. Gallbladder: Surgically removed CBD: 8 mm Right kidney: No hydronephrosis. Moderate ascites IMPRESSION: 1. Hepatic cirrhosis. 2. Ascites. 3. Prior cholecystectomy. ACT 112: Negative or not required by law. The above report was generated using voice recognition software. It may contain grammatical, syntax or spelling errors. Electronically signed by: Subhash Wilson M.D. 12/10/2019 1:47 PM
--- NOTE | 2019-12-10 15:37 | Hospitalist Progress Note ---
Date of Service December 10, 2019 Assessment & Plan (1) Campylobacter enteritis: Campylobacter jejuni is positive from stool on 12/05. - Per notes, was on abx for a brief time period, but by the time I took over on 12/07, she was not on any. Looking back in EMR, I do not see abx prescribed. - Started azithromycin on 12/07; 500 mg PO daily x 3 doses (may need longer given her immunosuppressed state) - On 12/08, diarrhea was improved slightly. - On 12/09, had 1 BM that was slightly firmer, but then had a looser stool in the afternoon. This could also be worsened/aggravated by portal colopathy which would be harder to treat. Zn deficiency could be playing a role as well as deficiency can cause diarrhea. (2) Cirrhosis: Newly diagnosed cirrhosis; unknown cause. - Differential includes: * NAFLD: Has diabetes and this can be worsened by valproic acid. Possibly most likely. * Autoimmune hepatitis: Has strong history of auto-immune disease personally and in family. Smooth muscle Ab and anti-KLM Ab pending. * Medication-use: Does report using up to 3g of acetaminophen daily for nearly 10 years. * PSC & primary biliary cholangitis: Both seemingly less likely given her non- cholestatic picture. Anti-mitrochondrial Ab pending. Could consider MRCP if needed. * Alpha-1 antitrypsin deficiency: Less likely given no COPD and no family hx of early cirrhosis. * Hemochromatosis: Ruled out given ferritin of 250. * Infectious causes: Ruled out given negative hepatitis Ab testing. - Paracentesis on 12/07 with no indication for SBP. This was without any prior antibiotics (confirmed in our EMR and also with pharmacist). - GI consulted - Will follow labs; will likely need liver biopsy and possibly EGD in the future though likely outpatient. Discussed with GI team yesterday and today. Holding off on any diuretics as she only had a smaller volume of ascites and would not want to cause dehydration. - Stable for discharge from their perspective. (3) Discoid lupus erythematosus: No rashes at present. - Continue hydroxychloroquine (4) Sjogren's disease: Trouble with eating. - It Help Desk Associate & HOP FARM WORKER consulted -> Discussed with both today. It Help Desk Associate feels we will reach caloric goals in the next 1-2 days with adjusting of her diet. HOP FARM WORKER gave recs to help improve eating and reduce discomfort. (5) Diabetes type 2, controlled: A1c was 5.7% this month. High of 9.3% last year. - Monitor blood sugars -> Have been very good in the last 24 hours. (6) Seizure: None noted inpatient. - Continue valproic acid (7) DVT prophylaxis: SCDs - Low DVT risk per admission calculator Admission and Anticipated Discharge Date Admission Date: December 05, 2019 Subjective Stable today. Had a more solid BM today, but then had a looser stool. Somewhat more energy today at times, but still with passing abdominal pain. Physical Exam Constitutional: WD/WN, vitals as above Eyes: EOM intact bilaterally; no conjunctival abnormality ENMT: external ear and nose normal, oropharynx normal Neck: trachea midline, no thyromegaly normal visual inspection Respiratory: normal respiratory effort, lungs clear to auscultation no respiratory distress Cardiovascular: RRR, no murmur, no edema Gastrointestinal (Abdomen): Inspection/Auscultation: abdomen normal to inspection; abdomen not distended Percussion/Palpation: abdomen soft; abdomen nontender, no guarding and abdomen not rigid Musculoskeletal: no cyanosis or clubbing, extremities motor strength 5/5 Skin: no rashes, warm and dry Neurologic: moves all extremities and awake Psychiatric: Orientation: alert, oriented to person and cooperative Results & Data Results & Data ([facility]) Vital Signs (Past 12 Hours) Vital Signs Temp Pulse Pulse Resp BP BP Pulse Ox 12/10/19 12:18 36.7 C 76 20 105/72 96 12/10/19 07:35 36.6 C 55 L 95 H 106/69 95 12/10/19 07:30 61 PG Care Time/CCT Total # of Minutes Spent Total Time Spent with Patient: Total time spent is greater than 50% in coordination of care (as documented) at patient's floor/unit and/or counseling patient: Coding Level of Care Code 68075 Subseq Hosp Care Lvl 3 Diagnoses Campylobacter enteritis A04.5 Cirrhosis K74.60; R18.8 Hepatic cirrhosis type: unspecified hepatic cirrhosis Ascites presence: with ascites Discoid lupus erythematosus L93.0 Sjogren's disease M35.00 Sjogren's organ involvement: unspecified organ involvement Diabetes type 2, controlled E11.9 Diabetes mellitus long term care pharmacist insulin use: without alf use Diabetes mellitus complication status: without complication Seizure R56.9 DVT prophylaxis Z29.9 (1) Cirrhosis Hepatic cirrhosis type: unspecified hepatic cirrhosis Ascites presence: with ascites Qualified Code(s): K74.60 - Unspecified cirrhosis of liver; R18.8 - Other ascites (2) Sjogren's disease Sjogren's organ involvement: unspecified organ involvement Qualified Code(s): M35.00 - Sicca syndrome, unspecified (3) Diabetes type 2, controlled Diabetes mellitus alf insulin use: without alf use Diabetes mellitus complication status: without complication Qualified Code(s): E11.9 - Type 2 diabetes mellitus without complications
[2019-12-10] MEDS: ZINC SULFATE 220 MG CAPSULE PO SCH (17:06)
[2019-12-10] MEDS: DIVALPROEX DELAY RELEASE 500 MG TAB PO SCH (20:43)
[2019-12-11 07:09] LABS: Hematocrit (blood only) 32.2 % (37-47); Mean Corpuscular Hemoglobin 30.7 pg (25-34); Mean Corpuscular Hgb Conc 34.2 g/dL (32-36); Mean Corpuscular Volume 89.9 fL (80-100); RDW Coefficient of Variation 15.5 % (11.5-14.5); RDW Standard Deviation 50.8 fL (36.4-46.3); Red Blood Count 3.58 M/uL (4.2-5.4); White Blood Count 3.37 K/uL (4.8-10.8)
[2019-12-11 07:39] LABS: Mean Platelet Volume 11.2 fL (7.4-10.4); Platelet Count 85 K/uL (130-400)
[2019-12-11 07:42] LABS: Albumin Level 1.9 gm/dl (3.4-5.0); BUN Creatinine Ratio 16.2 (10-20); Calcium 8.1 mg/dl (8.5-10.1); Creatinine Clr Calc Pharmacy 77.2 ml/min; Est GFR (Non-African American) 91.5; Magnesium 1.4 mg/dl (1.8-2.4); Potassium 3.5 mmol/L (3.5-5.1)
[2019-12-11 07:45] LABS: Albumin Globulin Ratio 0.6 (0.9-2); Bilirubin,Total 0.6 mg/dl (0.2-1); Globulin 3.2 gm/dl (2.5-4.0); Phosphorus 3.1 mg/dl (2.5-4.9); Total Protein 5.1 gm/dl (6.4-8.2)
[2019-12-11] MEDS: DIVALPROEX DELAY RELEASE 500 MG TAB PO SCH (07:48)
[2019-12-11] MEDS: ESCITALOPRAM OXALATE 10 MG TAB PO SCH (07:48)
[2019-12-11] MEDS: FAMOTIDINE 20 MG TAB PO SCH (07:48)
[2019-12-11] MEDS: AZITHROMYCIN 250 MG TAB PO SCH (07:49)
[2019-12-11] MEDS: LATANOPROST 0.005% OP SOLN 2.5 ML BTL OPB SCH ×2 (07:49→07:56)
[2019-12-11] MEDS: ZINC SULFATE 220 MG CAPSULE PO SCH (07:49)
[2019-12-11] MEDS: HYDROXYCHLOROQUINE SULFATE 200 MG TAB PO SCH (07:52)
[2019-12-11] MEDS ORDERED: AZITHROMYCIN 250 MG TAB PO ONE (07:59)
[2019-12-11] MEDS ORDERED: MAGNESIUM SULFATE / D5W 1 GM/100 ML BAG IV SCH (09:00)
--- NOTE | 2019-12-11 16:28 | Discharge Summary ---
Date of Service December 11, 2019 Admission HPI Per Admitting Provider 79-year-old female with a past medical history significant for SLE, GERD, Sjogren's disease, seizure disorder, DM 2 on oral therapy presented to the emergency room for several weeks of abdominal pain, diarrhea, with 1 week of profound weakness. Patient is accompanied by her daughter who also provided some collateral information. On my interview patient described that she has had watery, non-bloody diarrhea "on and off since April". Was seen several times by her PCP for UTIs, and therefore was thought to have a C. difficile infection and was put on vancomycin several months ago with temporary relief of her d iarrhea. About 8 weeks ago she started to have recurrence of her watery diarrhea, and was intermittently taking Imodium with relief. Over that same time. She has also had a decrease in her appetite, as well as intermittent abdominal pains with food causing her to have significantly less oral intake. For example over the last week the patient has only had mashed potatoes every day. She has also not been hydrating well because she feels full after a few bites of food or sips of liquid. Yesterday she had an episode of weakness where she tried to get out of bed and felt she could not, so she slid out of bed onto the floor without hitting her head or losing consciousness, could not get up from the floor and so laid on the floor for 3 to 4 hours before she was assisted by her daughter. This happened again today which prompted her visit to the ER. Of note, it was noted on lab work in the outpatient that she had a transaminitis and a liver ultrasound is scheduled for Sunday of next week. Patient confirms some loss of weight of about 5-10 pounds over the last several months that was not intentional. On my interview patient is without abdominal pain, nausea or vomiting, fevers or chills, shortness of breath or chest pain. Feels that over the last several weeks her abdomen has become more distended. She reports a history of taking Tylenol Extra Strength 4 tablets every day for generalized aches and pains. No family history of any liver disease to her knowledge. Patient does not drink, nor does she have a history of alcohol abuse. Never smoker, denies illicit drug use. Reports that she "may have had a transfusion back when I lost a lot of after hysterectomy". In the ED BP initially was 81/54 tachycardia to low 100s. Patient was given 1 L NSS bolus with improvement in BP to 100s/60s. Toradol 10 mg IV given with improvement in her pain. CTAP performed which showed liver cirrhosis with steatosis, small ascites suggesting portal hypertension, possible portal col opathy vs. infectious/inflammatory colitis, mildly edematous small bowel loops, trace left pleural effusion, atrophic pancreas pancreatic head, diverticulosis without diverticulitis left-sided nonobstructive nephrolithiasis. Hospitalist service was consulted for admission. Principal Diagnosis Campylobacter colitis and cirrhosis Discharge Exam Constitutional WD/WN, vitals as above Eyes EOM intact bilaterally; no conjunctival abnormality ENMT external ear and nose normal, oropharynx normal Neck trachea midline, no thyromegaly normal visual inspection Respiratory normal respiratory effort, lungs clear to auscultation no respiratory distress Cardiovascular RRR, no murmur, no edema Gastrointestinal (Abdomen) Inspection/Auscultation: abdomen normal to inspection; abdomen not distended Percussion/Palpation: abdomen soft; abdomen nontender, no guarding and abdomen not rigid Musculoskeletal no cyanosis or clubbing, extremities motor strength 5/5 Skin no rashes, warm and dry Neurologic moves all extremities and awake Psychiatric Orientation: alert, oriented to person and cooperative Discharge Data Allergies Allergy/AdvReac Type Severity Reaction Status Date / Time ciprofloxacin [From Cipro] Allergy Severe Hives Verified 12/02/19 12:02 levofloxacin [From Levaquin] Allergy Severe Shortness Verified 12/02/19 12:02 of breath paroxetine Allergy Unknown Verified 12/02/19 12:02 phenytoin Allergy Unknown Verified 12/02/19 12:02 sulfamethoxazole Allergy Verified 12/02/19 12:02 [From Bactrim] trimethoprim [From Bactrim] Allergy Verified 12/02/19 12:02 unknown antibiotic Allergy Severe Browning-Bryon Uncoded 12/02/19 12:02 syndrome - no records available Consultations 12/05/19 19:59 ED Decision to Admit Stat 12/05/19 23:18 Consult Gastroenterology Routine Ordered Studies 12/05/19 17:23 CT abd pelvis IV con only Stat 12/08/19 11:01 US paracentesis abd w/image Urgent 12/10/19 13:30 US abdomen limited Routine Hospital Course (1) Campylobacter enteritis: Campylobacter jejuni is positive from stool on 12/05. - Started azithromycin on 12/07; 500 mg PO daily x 1 week. BMs and abdominal pain seemed to be improving slightly by discharge. Can use Imodium PRN as well at home. (2) Cirrhosis: Newly diagnosed cirrhosis; unknown cause. - Differential includes: * NAFLD: Has diabetes and this can be worsened by valproic acid. Possibly most likely. * Autoimmune hepatitis: Has strong history of auto-immune disease personally and in family. Smooth muscle Ab and anti-KLM Ab pending. * Medication-use: Does report using up to 3g of acetaminophen daily for nearly 10 years. * PSC & primary biliary cholangitis: Both seemingly less likely given her non- cholestatic picture. Anti-mitrochondrial Ab pending. Could consider MRCP if needed. * Alpha-1 antitrypsin deficiency: Less likely given no COPD and no family hx of early cirrhosis. * Hemochromatosis: Ruled out given ferritin of 250. * Infectious causes: Ruled out given negative hepatitis Ab testing. - Paracentesis on 12/07 with no indication for SBP. This was without any prior antibiotics (confirmed in our EMR and also with pharmacist). - GI consulted - Will follow labs; will likely need liver biopsy and possibly EGD in the future though likely outpatient. Discussed with GI team yesterday and today. Holding off on any diuretics as she only had a smaller volume of ascites and would not want to cause dehydration. - Stable for discharge from their perspective. (3) Discoid lupus erythematosus: No rashes at present. - Continue hydroxychloroquine (4) Sjogren's disease: Trouble with eating. - Turntable Man & LIQUEFIED NATURAL GAS PLANT OPERATOR consulted -> Discussed with both today. She was really only able to eat about 1/3 of her caloric needs and drink about 1/2 of the liquid needs. She and daughter felt that she could do as well at home with food that was more to her liking. - Hopefully zinc supplement and treating the Campylobacter infection will improve this. (5) Diabetes type 2, controlled: A1c was 5.7% this month. High of 9.3% last year. - Monitor blood sugars -> Have been very good in the last 24 hours. (6) Seizure: None noted inpatient. - Continue valproic acid (7) DVT prophylaxis: SCDs - Low DVT risk per admission calculator Total Time Total Time Spent Total Time Spent (In Minutes): 35 Discharge Plan Discharge Items Patient Disposition: Home - Home Health Services Reason For Visit: CIRRHOSIS,PULMONARY HTN,WEAKNESS Discharge Diagnosis: Campylobacter infection, cirrhosis Activity: Resume your previous activity Non-emergency contact: Primary Care Provider and Pump Attendant Call non-emergency contact if: your symptoms worsen, your pain is worsening and your temperature is above 101 Follow-up/Referrals: Tamara Benítez MD [Primary Care Provider] - Alvino Mike MD [Physician] - (Please see Dr. Mike or Ria Faustin in the clinic in 1-2 weeks to review lab results and discuss any further testing needed.) Diet: Carb Consistent or DM2 and Heart Healthy Addtl Attending Provider Instructions: Ms. Toledo, You were admitted to the hospital with weakness and abdominal pain after eating. We found that you have a Campylobacter infection which is a food-borne bacterial infection. We started you on an antibiotic called azithromycin which you take for 3-7 days. We are going with the 7-day regimen because of your immune compromise from the hydroxychloroquine. Even with treatment, you will shed the bacteria in your stool for several months, so please do take extra care with handwashing after using the bathroom. The antibiotic is called azithromycin which is the "first-line" treatment for this infection. ( [email or web address]) It seems like your stools are improving with the treatment as they are generally becoming more solid and less loose. Hopefully this will continue to improve over the coming week to weeks. You can also use [id number] Imodium to help firm up your stools. Please take the Imodium as recommended on the label. We also incidentally discovered that you have a liver issue called cirrhosis. This is a scarring or fibrosis of the liver. There are many causes for this, and we feel that yours is most likely caused by an autoimmune issue (as you have several other autoimmune diseases and a strong family history of them) or possibly medication-related or related to your diabetes. We have some antibody testing that has been sent to the lab which will be back in a week or so, and the GI doctors will follow up with you regarding what the results show and any further testing. For your loss of taste and enjoyment in food, the account developer felt that a zinc deficiency can cause or contribute to this, and she recommended a zinc supplement for 14 days to help correct this to see if this improves your enjoyment of food. At present, you are really only eating about 1/3 to 1/2 of the calories and protein needed to stay healthy and about 1/2 of the liquid intake you need to stay healthy. You will need to boost these over the next few weeks to prevent further weight loss and reduce the risk of dehydration. Finally, I know you have periods with significant pain from your lupus. Tylenol is still safe in liver issues; however, you will need to cut back slightly on it. Please only take 500 mg tablets and only up to 3 per day. This amount of Tylenol should be safe even with your liver cirrhosis. If this is not effectively controlling your pain, please speak with Dr. Benítez and/or Dr. Mike on other pain-control options. It seemed to work well in the hospital, but in the hospital, you're not working as much or moving quite as much as at home, so you will have to see how this works for you while at home. Please follow closely with Dr. Benítez and Dr. Mike. If the diarrhea and abdominal pain are not improving in the next week, please call Dr. Benítez or Dr. Mike's office to discuss further testing or treatment. We have explored/tested for a variety of issues in the hospital, and I do not see any other explanations other than the Campylobacter infection and the liver issues. Pending Studies at Discharge: Yes Studies:: Liver antibody testing Stand-Alone Forms: My [facility] [employer], Smoking Cessation Medications and DC Order Prescriptions: New azithromycin 250 mg Tablet 500 mg PO QAM Qty: 6 RF: 0 zinc sulfate [Orazinc] 220 (50) mg Capsule 220 mg PO QAM Qty: 13 RF: 0 Continued divalproex [Depakote] 500 mg tablet,delayed release (DR/EC) 500 mg PO BID Qty: 180 RF: 3 hydroxychloroquine [Plaquenil] 200 mg tablet 200 mg PO DAILY Qty: 90 RF: 3 famotidine [Pepcid] 20 mg tablet 20 mg PO DAILY Qty: 30 RF: 2 escitalopram oxalate 20 mg tablet 10 mg PO DAILY RF: 0 estradiol [Estrace] 0.01 % (0.1 mg/gram) cream 1 gm PV [id number] RF: 0 metformin 1,000 mg tablet extended release 24hr 1,000 mg PO QPM RF: 0 Systane Complete 0.6 % Drops 1 drp OPB TID PRN (Reason: Dry Eyes) RF: 0 latanoprost 0.005 % drops 1 drp OPB HS RF: 0 Discharge Orders: Discharge Order (Routine); Ordered 12/11/19 Ordered By: Richard Cosby/Other Patient Handouts: Tips for Using Less Salt Admission Data Admit Date/Time: 12/05/19 21:53 Attending Provider: Richard Martinez Admit Provider: Nani May Primary Care Provider: Tamara Benítez Other Providers: Damir Magallanes ; Richard Martinez ; [facility] Other Interventions: Discharge Summary Assessment (RN) Last Done: 12/11/19 10:33 DC Date/Time DO NOT enter until pt leaves facility: 12/11/19 11:25 Coding Level of Care Code D/C Day Management >30 mins Diagnoses Campylobacter enteritis A04.5 Cirrhosis K74.60; R18.8 Hepatic cirrhosis type: unspecified hepatic cirrhosis Ascites presence: with ascites Discoid lupus erythematosus L93.0 Sjogren's disease M35.00 Sjogren's organ involvement: unspecified organ involvement Diabetes type 2, controlled E11.9 Diabetes mellitus residential insulin use: without vermin exterminator use Diabetes mellitus complication status: without complication Seizure R56.9 DVT prophylaxis Z29.9
--- NOTE | 2019-12-11 21:45 | Electrocardiogram Report ---
Test Reason : Blood Pressure : / mmHG Vent. Rate : 071 BPM Atrial Rate : 071 BPM P-R Int : 164 ms QRS Dur : 074 ms QT Int : 454 ms P-R-T Axes : -21 -21 -11 degrees QTc Int : 493 ms Sinus rhythm with Premature supraventricular complexes Low voltage QRS Cannot rule out Anterior infarct (cited on or before 05-DEC-2019) Nonspecific T wave abnormality Abnormal ECG When compared with ECG of 05-DEC-2019 17:31, Questionable change in initial forces of Anteroseptal leads Nonspecific T wave abnormality, improved in Lateral leads QT has lengthened Confirmed by Jeyson Chun ([id number]) on 12/11/2019 9:45:03 PM Referred By: REFERRED SELF Confirmed By:Jeyson Chun
[2019-12-12 10:54] LABS: Alpha 1 Antitrypsin 141 mg/dL (83-199); Liver,Kidney Microsome IgG Ab <=20.0 U (<=20.0)
== END 2019-12-11 11:25 | disposition home health service (06) | DRG 433 ==
LOC: ED 16:13 → 2N 21:53 → SUATTDRO 21:53 → 2N 22:50

== ENCOUNTER 2019-12-14 13:51 | Inpatient (IN) ==
--- NOTE | 2019-12-14 14:10 | Emergency Department Note ---
Impression & Plan Fall, Acute pain of left hip, Closed fracture of left inferior pubic ramus, Fracture of superior ramus of left pubis ED Provider Note Provider: Hayder Sharma MD DATE OF SERVICE: 12/14/2019 CHIEF COMPLAINT: Fall HISTORY OF PRESENT ILLNESS: Patient is a 79-year-old female with a history of radha pus, connective tissue disease, GERD, Sjogren's, diabetes, recent hospitalization for Campylobacter enteritis presenting today via ambulance from her apartment after a fall. Patient states that last night around midnight she was getting ready for bed and was going to sit down caught her toe and fell to the floor. Patient complains of some left hip pain prickly with trying to stand on her with movement but not so much at rest. States she might of bumped her head. Denies significant new pain to her chest, abdomen, or upper extremities. Patient denies numbness or tingling in her lower extremities at this time. Patient denies use of anticoagulants. Patient states that she did not want to bother anybody's and laid on the floor all night until family came and found her just a little bit ago. Patient states that her pain is really other with certain movements and when she tries to walk with her left leg/hip. REVIEW OF SYSTEMS: A total of 10 review of systems was obtained and negative except as stated above in the HPI. PAST MEDICAL HISTORY: As noted above MEDICATIONS: Reviewed medications which include metformin, Depakote, azithromycin among others SOCIAL HISTORY: Lives in an apartment, no alcohol history reported PHYSICAL EXAM: GENERAL: alert and oriented in no acute distress on stretcher Head: normocephalic and atraumatic EYES: No injection, discharge or icterus. PERRL NECK: Trachea midline. Supple. ENT: Mucous membranes pink and moist. LUNGS: Airway patent. No retractions. Breath sounds clear HEART: Regular rate and rhythm. No chest wall tenderness ABDOMEN: Soft and non-tender, without guarding or rebound. SKIN: Acyanotic, warm, dry, without rashes EXTREMITIES: Without swelling, tenderness or deformity except for pain with ROM of the left hip and some slight greater trochanter tenderness. NEUROLOGICAL: No focal deficits. No aphasia. No facial droop or slurred speech. Normal strength and tone in the extremities. Sensation to gross touch normal. EKG: Sinus rhythm with PACs at [address] segment elevation or depression notable. QTC 490. CONTINUOUS CARDIAC MONITORING: was ordered and showed a heart rate of 92 bpm in sinus rhythm with PVCs Patient's hypertension was referred to the hospitalist GCS 15. HOSPITAL COURSE: 1356 Patient was first seen and H&P performed. 1540 Patient reassessed and updated. Patient was resting comfortably. Informed of results. Discussed plan for MRI for further differentiation of hip. Discussed disposition and they have concerns about her ability to go home and wish for placement. We will start the admission process while awaiting MRI results [address] Pedro of the hospitalist team. Patient's laboratory studies and imaging reviewed. Differential includes Fracture, dislocation, contusion, intra-abdominal, pneumothorax, intrathoracic, intracranial, neurologic, compartment syndrome, rhabdomyolysis, as well as other pathologies. IMPRESSION/MEDICAL DECISION MAKING: Patient presents after mechanical fall last night. Recent hospitalization. Not on anticoagulants. Concern for left hip injury or pelvis/lower back issue. Did strike his head and given a imaging here was completed to exclude occult injury. Imaging of the hip and pelvis were obtained. Basic labs were obtained given the fact she was on the floor all night look for any signs of rhabdomyolysis or other issue. Patient's pain is not significant. Neurologically intact lower extremities. EKG without abnormality. Laboratory studies without significant abnormality. No troponin. CK not elevated. CT is without evidence of significant traumatic injury. Left hip x-ray concerning for possible nondispl aced impaction fracture. Discussed with radiology also reviewed on the CTs obtained and recommend an MRI for differentiation. Discussed with patient and [id number]. MRI will be ordered. Given that the patient still has difficult comfort walking and is having dysfunction at home they wish for rehab placement and will admit for further work on rehab placement and again pending MRI result for possible need for orthopedic involvement. MRI later returns with the patient is awaiting bed upstairs indicating evidence of pelvic fracture (medial aspect of the left superior and inferior pubic rami) without acute hip/femur fracture. DIAGNOSIS: Fall, left hip pain, left superior and inferior pubic rami fracture DISPOSITION: Hospitalist will evaluate Patient was agreeable with this plan. Past Med/Surg History Medical History (Updated 12/14/19 @ 19:06 by Hayder Sharma M.D.) Adjustment disorder with depressed mood (Chronic) Antibiotic-associated diarrhea (Chronic ~06/2019) Negative C. Diff test x 1 but good response to oral vancomycin Diabetes type 2, controlled (Chronic) Discoid lupus erythematosus GERD (gastroesophageal reflux disease) (Chronic) Glaucoma (Chronic) Gout (Resolved) Hearing difficulty (Chronic) Kidney stone (Resolved) Osteoarthritis (Chronic) Seizure Sjogren's disease (Chronic) Thrombocytopenia (Chronic) Undifferentiated connective tissue disease Surgical History H/O: hysterectomy (~1984) Hx of cholecystectomy (~1983) S/P tooth extraction Social History Preferred Language: Italian Communication Ability: Effective Visual Impairment: Limited Hearing Ability: Use of Hearing Aid Beliefs That Will Affect Care: None marital status: / Current Living Situation: Alone Current Living Situation Comment: [place] current occupational status: retired Feels Safe at Home: Yes Smoking Status: Never smoker Second Hand Exposure: No ; Hx Alcohol Use: No Hx Substance Use: No Childhood Exposure to Second-Hand Smoke: Yes caffeine: Yes Dental Care, Regularly: Yes Physical Activity Frequency: 1-2 Times per Week Seatbelt Use: always Sunscreen Use: No Allergies Allergies Allergy/AdvReac Type Severity Reaction Status Date / Time ciprofloxacin [From Cipro] Allergy Severe Hives Verified 12/14/19 14:21 levofloxacin [From Levaquin] Allergy Severe Shortness Verified 12/14/19 14:21 of breath paroxetine Allergy Unknown Verified 12/14/19 14:21 phenytoin Allergy Unknown Verified 12/14/19 14:21 sulfamethoxazole Allergy Verified 12/14/19 14:21 [From Bactrim] trimethoprim [From Bactrim] Allergy Verified 12/14/19 14:21 unknown antibiotic Allergy Severe Browning-Bryon Uncoded 12/14/19 14:21 syndrome - no records available Home Meds Home Medications Medication Instructions Recorded Confirmed Systane Complete 1 drp OPB TID PRN 12/05/19 12/14/19 escitalopram oxalate 10 mg PO DAILY 12/05/19 12/14/19 estradiol [Estrace] 1 gm PV 3XWK 12/05/19 12/14/19 latanoprost 1 drp OPB HS 12/05/19 12/14/19 metformin 1,000 mg PO QPM 12/05/19 12/14/19 Previous Rx's Medication Instructions Recorded divalproex 500 mg tablet,delayed 500 mg PO BID #180 tab 06/13/19 release hydroxychloroquine 200 mg tablet 200 mg PO DAILY #90 tab 08/25/19 famotidine 20 mg tablet 20 mg PO DAILY #30 tab 12/02/19 azithromycin 500 mg PO QAM #6 tab 12/11/19 zinc sulfate [Orazinc] 220 mg PO QAM #13 cap 12/11/19 blood sugar diagnostic #300 ea 12/12/19 blood-glucose meter #1 ea 12/12/19 lancets 33 gauge #300 ea 12/12/19 Results & Data (ED) Vital Signs Vital Signs - 24 hr 12/14/19 14:00 12/14/19 14:13 12/14/19 16:11 Temperature 37.0 C Temperature Source Oral Pulse Rate 92 H 77 Pulse Rate from SpO2 Sensor 87 Respiratory Rate 14 18 Respiratory Effort / Characteristics Non-Labored Respiratory Depth Normal Blood Pressure 136/75 135/80 Blood Pressure Mean 91 99 Pulse Oximetry 98 99 98 Oxygen Delivery Method Room Air Room Air Sepsis Recent Fever Within 48 Hours No Sepsis New/Unexplained Change in Mental Status No Sepsis Action Taken by Nursing No Action Required 12/14/19 17:13 Temperature Temperature Source Pulse Rate Pulse Rate from SpO2 Sensor Respiratory Rate Respiratory Effort / Characteristics Respiratory Depth Blood Pressure Blood Pressure Mean Pulse Oximetry Oxygen Delivery Method Room Air Sepsis Recent Fever Within 48 Hours Sepsis New/Unexplained Change in Mental Status Sepsis Action Taken by Nursing Laboratory Data Result diagrams: 12/14/19 14:07 12/14/19 14:07 Lab Results 12/14/19 12/14/19 12/14/19 Range/Units 14:07 14:07 14:07 WBC 10.25 (4.8-10.8) K/uL RBC 3.89 L (4.2-5.4) M/uL Hgb 11.7 L (12.0-16.0) g/dL Hct 35.3 L (37-47) % MCV 90.7 (80-100) fL MCH 30.1 (25-34) pg MCHC 33.1 (32-36) g/dL RDW Std Deviation 52.8 H (36.4-46.3) fL RDW Coeff of Nancy 15.9 H (11.5-14.5) % Plt Count 104 L (130-400) K/uL MPV 9.9 (7.4-10.4) fL Immature Gran % (Auto) 2.4 % Neut % (Auto) 64.8 % Lymph % (Auto) 19.2 % [place] % (Auto) 12.8 % Eos % (Auto) 0.7 % Baso % (Auto) 0.1 % Neut # (Auto) 6.64 H (1.4-6.5) K/uL Lymph # (Auto) 1.97 (1.2-3.4) K/uL [place] # (Auto) 1.31 H (0.11-0.59) K/uL Eos # (Auto) 0.07 (0-0.5) K/uL Baso # (Auto) 0.01 (0-0.2) K/uL Immature Gran # (Auto) 0.25 H (0.00-0.02) K/uL PT 14.2 H (9.0-12.0) Seconds INR 1.4 H (0.9-1.1) Sodium 138 (136-145) mmol/L Potassium 3.6 (3.5-5.1) mmol/L Chloride 105 (98-107) mmol/L Carbon Dioxide 25 (21-32) mmol/L Anion Gap 8.0 (3-11) BUN 6 L (7-18) mg/dl Creatinine 0.60 (0.6-1.2) mg/dl Est Cr Clr Drug Dosing 74.6 ml/min Est GFR ( Amer) 100.5 Est GFR (Non-Af Amer) 86.7 BUN/Creatinine Ratio 9.7 L (10-20) Glucose 83 (70-99) mg/dl Calcium 8.3 L (8.5-10.1) mg/dl Total Bilirubin 1.0 (0.2-1) mg/dl AST 53 H (15-37) U/L ALT 22 (12-78) U/L Alkaline Phosphatase 205 H (45-117) U/L Total Creatine Kinase 106 (26-192) U/L Troponin I < 0.015 (0-0.045) ng/ml Total Protein 6.0 L (6.4-8.2) gm/dl Albumin 2.3 L (3.4-5.0) gm/dl Globulin 3.7 (2.5-4.0) gm/dl Albumin/Globulin Ratio 0.6 L (0.9-2) Discharge Plan Visit Data Chief Complaint: Fall Stated Complaint: Fall hip pain ED Provider: Hayder Sharma Discharge Problem: Fall, Acute pain of left hip, Closed fracture of left inferior pubic ramus, Fracture of superior ramus of left pubis Patient Disposition: Being Evaluated by Hospitalist Discharge Instructions Interventions: ED Discharge Assessment Last Done: 12/14/19 17:13 Prescriptions Prescriptions: No Action divalproex [Depakote] 500 mg tablet,delayed release (DR/EC) 500 mg PO BID Qty: 180 RF: 3 hydroxychloroquine [Plaquenil] 200 mg tablet 200 mg PO DAILY Qty: 90 RF: 3 (DME) blood sugar diagnostic [RelaborateTouch Ultra Blue Test Strip] Strip See Rx Instructions .ROUTE .MEDSUPPLY Qty: 300 RF: 3 (DME) blood-glucose meter [RelaborateTouch Ultra2 Meter] Kit See Rx Instructions .ROUTE .MEDSUPPLY Qty: 1 RF: 1 (DME) lancets [RelaborateTouch Delica Lancets] 33 gauge misc See Rx Instructions .ROUTE .MEDSUPPLY Qty: 300 RF: 3 famotidine [Pepcid] 20 mg tablet 20 mg PO DAILY Qty: 30 RF: 2 escitalopram oxalate 20 mg tablet 10 mg PO DAILY RF: 0 estradiol [Estrace] 0.01 % (0.1 mg/gram) cream 1 gm PV 3XWK RF: 0 metformin 1,000 mg tablet extended release 24hr 1,000 mg PO QPM RF: 0 Systane Complete 0.6 % Drops 1 drp OPB TID PRN (Reason: Dry Eyes) RF: 0 latanoprost 0.005 % drops 1 drp OPB HS RF: 0 azithromycin 250 mg Tablet 500 mg PO QAM Qty: 6 RF: 0 zinc sulfate [Orazinc] 220 (50) mg Capsule 220 mg PO QAM Qty: 13 RF: 0 Referrals Referrals: Tamara Benítez MD [Primary Care Provider] - Discharge Problem: Fall Qualifiers: Encounter type: initial encounter Qualified Code(s): W19.XXXA - Unspecified fall, initial encounter Closed fracture of left inferior pubic ramus Qualifiers: Encounter type: initial encounter Qualified Code(s): S32.592A - Other specified fracture of left pubis, initial encounter for closed fracture Fracture of superior ramus of left pubis Qualifiers: Encounter type: initial encounter Fracture type: closed Qualified Code(s): S32.512A - Fracture of superior rim of left pubis, initial encounter for closed fracture
[2019-12-14 14:23] LABS: Basophils # (auto) 0.01 K/uL (0-0.2); Basophils % (auto) 0.1 %; Eosinophils # (auto) 0.07 K/uL (0-0.5); Eosinophils % (auto) 0.7 %; Hematocrit (blood only) 35.3 % (37-47); Hemoglobin 11.7 g/dL (12.0-16.0); Immature Granulocytes # (auto) 0.25 K/uL (0.00-0.02); Immature Granulocytes % (auto) 2.4 %; Lymphocytes # (auto) 1.97 K/uL (1.2-3.4); Lymphocytes % (auto) 19.2 %; Mean Corpuscular Hemoglobin 30.1 pg (25-34); Mean Corpuscular Hgb Conc 33.1 g/dL (32-36); Mean Corpuscular Volume 90.7 fL (80-100); Mean Platelet Volume 9.9 fL (7.4-10.4); Monocytes # (auto) 1.31 K/uL (0.11-0.59); Monocytes % (auto) 12.8 %; Neutrophils # (auto) 6.64 K/uL (1.4-6.5); Neutrophils % (auto) 64.8 %; Platelet Count 104 K/uL (130-400); RDW Coefficient of Variation 15.9 % (11.5-14.5); RDW Standard Deviation 52.8 fL (36.4-46.3); Red Blood Count 3.89 M/uL (4.2-5.4); White Blood Count 10.25 K/uL (4.8-10.8)
[2019-12-14 14:32] LABS: INR 1.4 (0.9-1.1); Prothrombin Time 14.2 Seconds (9.0-12.0)
[2019-12-14 14:40] LABS: Alanine Aminotransferase 22 U/L (12-78); Albumin Level 2.3 gm/dl (3.4-5.0); Aspartate Aminotransferase 53 U/L (15-37); BUN Creatinine Ratio 9.7 (10-20); Blood Urea Nitrogen 6 mg/dl (7-18); Calcium 8.3 mg/dl (8.5-10.1); Carbon Dioxide 25 mmol/L (21-32); Chloride 105 mmol/L (98-107); Creatinine Clr Calc Pharmacy 74.6 ml/min; Est GFR (African American) 100.5; Est GFR (Non-African American) 86.7; Glucose 83 mg/dl (70-99); Potassium 3.6 mmol/L (3.5-5.1); Sodium 138 mmol/L (136-145)
[2019-12-14 14:45] LABS: Albumin Globulin Ratio 0.6 (0.9-2); Alkaline Phosphatase 205 U/L (45-117); Creatine Kinase 106 U/L (26-192); Globulin 3.7 gm/dl (2.5-4.0); Troponin I < 0.015 ng/ml (0-0.045)
--- NOTE | 2019-12-14 15:01 | CT Scan Report ---
LUMBAR SPINE CT CT DOSE: HISTORY: Back pain. fall TECHNIQUE: Multiaxial CT images of the lumbar spine were performed and reformatted in the sagittal an d coronal plane without the use of contrast. A dose lowering technique was utilized adhering to the principles of ALARA. COMPARISON: None. FINDINGS: Mild levoscoliosis of the upper lumbar spine. The sacrum appears intact. Moderate facet deg enerative changes within the lower lumbar spine. Moderate disc space narrowing at L2-L3 and L5-S1. No change in the super endplate compression deformities at L1 and L4. There is also a mild inferior end plate compression deformity at T12. No new fractures or subluxation identified within the lumbar spin e. IMPRESSION: 1. Old compression deformities as described above. No acute fracture or subluxation within the lumbar spine. 2. Degenerative changes as described above. ACT 112: Negative or not required by law. Electronically signed by: Brady Mcdonald M.D. 12/14/2019 2:59 PM
--- NOTE | 2019-12-14 15:07 | CT Scan Report ---
ABDOMEN AND PELVIS CT WITHOUT CONTRAST CT DOSE: 407.74 mGy.cm HISTORY: fall TECHNIQUE: Multiaxial CT images of the abdomen and pelvis were performed without contrast. A dose lo wering technique was utilized adhering to the principles of ALARA. COMPARISON STUDY: Abdomen and pelvis CT 12/05/2019. FINDINGS: Trace bilateral pleural effusions. No pneumoperitoneum. No pneumatosis. Old T12, L1, and L4 compression deformities are again noted. No acute fractures identified within the abdomen or pelvis. Nodular contour to the liver consistent with cirrhosis. The spleen is mildly enlarged. Small amount of ascites, unchanged. Cholecystectomy. The unenhanced pancreas and adrenal glands are unremarkable. Bilateral nephrolithiasis. No hydronephrosis. No retroperitoneal lymphadenopathy. There is a left ret roaortic renal vein. Normal caliber abdominal aorta. Suboptimal evaluation for bowel pathology due to the lack of intravenous and oral contrast. However, there is no definite bowel wall thickening or ob struction. Colonic diverticulosis. Moderate body wall edema. Questionable thickening along the right side of the colon has improved in the interval. This may be due to underdistention. Normal bladder. T he uterus is surgically absent. IMPRESSION: 1. No acute traumatic process within the abdomen or pelvis. 2. Old compression deformities within the lower thoracic and lumbar spine. 3. Bilateral nephrolithiasis. No hydronephrosis. 4. Cirrhotic liver with evidence for portal hypertension including a small amount of ascites. This re honorio unchanged. 5. Moderate body wall edema.. 6. Questionable thickening along the right-sided colon has improved in the interval. This may be due to underdistention. 7. Additional findings as described above. ACT 112: Negative or not required by law. Electronically signed by: Brady Mcdonald M.D. 12/14/2019 3:06 PM
--- NOTE | 2019-12-14 15:11 | CT Scan Report ---
HEAD CT NONCONTRAST CT DOSE: 537.48 mGy.cm HISTORY: fall TECHNIQUE: Multiaxial CT images of the head were performed without the use of intravenous contrast. A utomated exposure control was utilized for this study. A dose lowering technique was utilized adheri ng to the principles of ALARA. Comparison: None. Findings: The paranasal sinuses and mastoid air cells are clear. The calvarium and skull base are int act. There is no mass, hematoma, midline shift, acute infarct. White matter hypodensity is nonspecifi c but suggestive of microvascular ischemic change. The ventricles and sulci demonstrate mild age-rela fatemeh involutional changes. Impression: No acute intracranial abnormality. Atrophy and microvascular ischemic changes. ACT 112: Negative or not required by law. Electronically signed by: Brady Mcdonald M.D. 12/14/2019 3:10 PM
--- NOTE | 2019-12-14 15:21 | XRay Report ---
XR hip LT 2V w pelvis, XR femur LT 2V routine CLINICAL HISTORY: fall, hip pain L COMPARISON STUDY: None. FINDINGS: The bones are osteopenic. The visualized pelvic bones are intact. Questionable subtle scler osis at the left subcapital femoral neck. This raises the possibility of a nondisplaced impaction fra cture. The mid to distal left femur is intact. Vascular calcifications are noted. No knee effusion. N o fracture or dislocation within the right hip. IMPRESSION: 1. Questionable subtle sclerosis of the left subcapital femoral neck. This raises the possibly of a n ondisplaced impaction fracture. Dedicated left hip MRI is recommended for further evaluation. 2. No fracture identified within the pelvis, right hip, or mid to distal left femur. ACT 112: Negative or not required by law. Electronically signed by: Brady Mcdonald M.D. 12/14/2019 3:19 PM
--- NOTE | 2019-12-14 16:19 | History & Physical Report ---
Date of Service December 14, 2019 Assessment & Plan (1) Acute pain of left hip: Pubic rami fracture on MRI Consult orthopedics for AM but suspect can be cleared for full weight bearing PT/OT evals (2) Fall: Monitor on telemetry for arrhythmia TTE to assess for murmurs present on exam Appears mechanical related to generalized weakness and deconditioning from recent hospitalization PT/OT evals for possible need for inpatient rehab (3) Campylobacter enteritis: Recently hospitalization for this. Last dose of azithromycin today. Monitor for ongoing diarrhea (4) Seizure: History of this. Not had seizure for many years and not suspected to be related to current admission Continue depakote (5) Cirrhosis: Ongoing workup for this. Follow up with gastroenterology on December 25 (6) GERD (gastroesophageal reflux disease): Continue famotidine 20mg PO daily (7) Diabetes type 2, controlled: HbA1C 5.7 [12/03/19] Hold metformin during admission, especially with diarrhea. Unclear if she still needs to take this Monitor with AM glucose in BMP (8) Adjustment disorder with depressed mood: Continue Lexapro 10mg PO daily (9) Discoid lupus erythematosus: Continue hydroxychloroquine 200mg PO daily (10) DVT prophylaxis: SCDs Admission and Anticipated Discharge Date Admission Date: 12/14/2019 History of Present Illness Chief Complaint: Left hip pain after falling Primary Care Provider: Tamara Benítez MD Isatu Toledo is a 79 year old female with multiple medical conditions who presents to the ER after falling at home. She was recently hospitalized due to Campylobacter colitis and recent diagnosis of liver cirrhosis causing diarrhea and generalized weakness and deconditioning. She was not eating well prior to discharge however she felt she would do better eating her own food at home and she was also not getting a lot of sleep in hospital so she felt this would also be better at home. She lives alone however her daughter lives 10 minutes away and is able to spend a lot of time with her. She was still not eating well at home. Yesterday afternoon she managed to walk around [facility]. After being dropped off back at her house she fell asleep on the couch and when she woke up to get into bed around midnight she tripped on a night stand when she turned and fell. Unable to get herself back up and didn't want to disturb anyone so spent the night on the floor. She thinks she may have hit her head on the way down but did not loose consciousness. No prodromal symptoms such as chest pain, shortness of breath or dizziness. Her family found her on the floor around 10:15am and she begged them to let her sleep in bed for a few hours before coming to hospital. She was unable to walk on her left leg when they got her up. Therefore brought in via EMS. Allergies Allergy/AdvReac Type Severity Reaction Status Date / Time ciprofloxacin [From Cipro] Allergy Severe Hives Verified 12/14/19 14:21 levofloxacin [From Levaquin] Allergy Severe Shortness Verified 12/14/19 14:21 of breath paroxetine Allergy Unknown Verified 12/14/19 14:21 phenytoin Allergy Unknown Verified 12/14/19 14:21 sulfamethoxazole Allergy Verified 12/14/19 14:21 [From Bactrim] trimethoprim [From Bactrim] Allergy Verified 12/14/19 14:21 unknown antibiotic Allergy Severe Browning-Bryon Uncoded 12/14/19 14:21 syndrome - no records available Home Medications Home Medications Medication Instructions Recorded Confirmed Type divalproex 500 mg tablet,delayed 500 mg PO BID #180 tab 06/13/19 12/14/19 Rx release hydroxychloroquine 200 mg tablet 200 mg PO DAILY #90 tab 08/25/19 12/14/19 Rx famotidine 20 mg tablet 20 mg PO DAILY #30 tab 12/02/19 12/14/19 Rx Systane Complete 1 drp OPB TID PRN 12/05/19 12/14/19 History escitalopram oxalate 10 mg PO DAILY 12/05/19 12/14/19 History estradiol [Estrace] 1 gm PV 3XWK 12/05/19 12/14/19 History latanoprost 1 drp OPB HS 12/05/19 12/14/19 History metformin 1,000 mg PO QPM 12/05/19 12/14/19 History azithromycin 500 mg PO QAM #6 tab 12/11/19 12/14/19 Rx zinc sulfate [Orazinc] 220 mg PO QAM #13 cap 12/11/19 12/14/19 Rx blood sugar diagnostic #300 ea 12/12/19 12/14/19 Rx blood-glucose meter #1 ea 12/12/19 12/14/19 Rx lancets 33 gauge #300 ea 12/12/19 12/14/19 Rx Past Med/Surg History Medical History Adjustment disorder with depressed mood (Chronic) Antibiotic-associated diarrhea (Chronic ~06/2019) Negative C. Diff test x 1 but good response to oral vancomycin Diabetes type 2, controlled (Chronic) Discoid lupus erythematosus GERD (gastroesophageal reflux disease) (Chronic) Glaucoma (Chronic) Gout (Resolved) Hearing difficulty (Chronic) Kidney stone (Resolved) Osteoarthritis (Chronic) Seizure Sjogren's disease (Chronic) Thrombocytopenia (Chronic) Undifferentiated connective tissue disease Surgical History H/O: hysterectomy (~1984) Hx of cholecystectomy (~1983) S/P tooth extraction Family History Grandfather Diabetes Mother Hypertension Gallbladder disease Grandmother No problems noted. 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 Beliefs That Will Affect Care: None marital status: / Current Living Situation: Alone Current Living Situation Comment: [place] current occupational status: retired Other Information That Helps Us Care for You: No Feels Safe at Home: Yes Safety Concerns: Feels Safe At This Time Smoking Status: Never smoker Second Hand Exposure: No ; Hx Alcohol Use: No Hx Substance Use: No Childhood Exposure to Second-Hand Smoke: Yes caffeine: Yes Dental Care, Regularly: Yes Physical Activity Frequency: 1-2 Times per Week Seatbelt Use: always Sunscreen Use: No Review of Systems Review of Systems: All systems reviewed & are unremarkable except as noted in HPI & below Physical Exam Constitutional: WD/WN, vitals as above Eyes: PERRL, conjunctivae normal, anicteric sclerae ENMT: external ear and nose normal, oropharynx normal Neck: trachea midline, no thyromegaly Respiratory: normal respiratory effort, lungs clear to auscultation Cardiovascular: Rate/Rhythm: regular rate and regular rhythm Heart Sounds: + murmur (systolci LUSB and apex) Extremities: normal capillary refill; no calf tenderness and no pedal edema Gastrointestinal (Abdomen): normal bowel sounds, soft, nontender, no hepatosplenomegaly Musculoskeletal: Left lateral hip pain on palpation. Able to internally and externally rotate hip with only mild pain. Skin: no rashes, warm and dry Neurologic: moves all extremities and awake; no focal motor deficits and not confused Speech / Cognition: normal speech Motor/Sensory: no tremor, no pronator drift and no sensory deficit Psychiatric: A+Ox3, euthymic affect Genitourinary: no CVA tenderness Results & Data Results & Data ([facility]) Vital Signs (Past 12 Hours) Vital Signs Temp Pulse Resp BP Pulse Ox 12/14/19 14:13 99 12/14/19 14:00 37.0 C 92 H 14 136/[address] NONCONTRAST Impression: No acute intracranial abnormality. Atrophy and microvascular ischemic changes. XR hip LT 2V w pelvis, XR femur LT 2V routine IMPRESSION: 1. Questionable subtle sclerosis of the left subcapital femoral neck. This raises the possibly of a nondisplaced impaction fracture. Dedicated left hip MRI is recommended for further evaluation. 2. No fracture identified within the pelvis, right hip, or mid to distal left femur. ABDOMEN AND PELVIS CT WITHOUT CONTRAST IMPRESSION: 1. No acute traumatic process within the abdomen or pelvis. 2. Old compression deformities within the lower thoracic and lumbar spine. 3. Bilateral nephrolithiasis. No hydronephrosis. 4. Cirrhotic liver with evidence for portal hypertension including a small amount of ascites. This remains unchanged. 5. Moderate body wall edema.. 6. Questionable thickening along the right-sided colon has improved in the interval. This may be due to underdistention. 7. Additional findings as described above. LUMBAR SPINE CT IMPRESSION: 1. Old compression deformities as described above. No acute fracture or subluxation within the lumbar spine. 2. Degenerative changes as described above. MR hip LT wo con IMPRESSION: 1. Nondisplaced fracture involving the medial aspect of the left superior and inferior pubic rami. 2. No fracture or dislocation within the proximal left femur. 3. Small amount of ascites and moderate body wall edema. ECG Indication: other (Fall) Rate (beats per minute): 85 Rhythm: normal sinus Findings: + PAC Comparison ECG Date: from (December 11 2019) Change: the following changes noted (TWI no longer evident in lateral leads) Code Status & VTE Plan Code Status All treatment outside of a cardiac arrest VTE Prophylaxis Plan VTE Prophylaxis will be ordered: Yes Reason for no VTE drug order: Treatment not indicated PG Care Time/CCT Total # of Minutes Spent Total Time Spent with Patient: Total time spent is greater than 50% in coordination of care (as documented) at patient's floor/unit and/or counseling patient: Coding Level of Care Code 74064 OBS Care - Level 3 Diagnoses Acute pain of left hip M25.552 Fall W19.XXXA Encounter type: initial encounter Campylobacter enteritis A04.5 Seizure R56.9 Cirrhosis K74.60 GERD (gastroesophageal reflux disease) K21.9 Diabetes type 2, controlled E11.9 Diabetes mellitus nursing home insulin use: without nursing home use Diabetes mellitus complication status: without complication Adjustment disorder with depressed mood F43.21 Discoid lupus erythematosus L93.0 DVT prophylaxis Z29.9 (1) Fall Encounter type: initial encounter Qualified Code(s): W19.XXXA - Unspecified fall, initial encounter (2) Diabetes type 2, controlled Diabetes mellitus nursing home insulin use: without nursing home use Diabetes mellitus complication status: without complication Qualified Code(s): E11.9 - Type 2 diabetes mellitus without complications
--- NOTE | 2019-12-14 17:50 | Magnetic Resonance Report ---
MR hip LT wo con HISTORY: Left hip pain, fall, ?frx TECHNIQUE: Multiplanar multisequence MRI of the pelvis and left hip were performed without the use of intravenous contrast. COMPARISON STUDY: Abdomen and pelvis CT 12/06/2019. FINDINGS: Nondisplaced fracture involving the medial aspect of the left superior and inferior pubic r ami. This is associated marrow edema within the medial aspect of the left pubic ring and adjacent sof t tissue edema. No fracture or dislocation within the proximal right or left femur. Small amount of a scites is again noted. Diffuse body wall edema. [id number] osteoarthritis within the bilateral hips. The visualized sacrum is intact. IMPRESSION: 1. Nondisplaced fracture involving the medial aspect of the left superior and inferior pubic rami. 2. No fracture or dislocation within the proximal left femur. 3. Small amount of ascites and moderate body wall edema. ACT 112: Negative or not required by law. Electronically signed by: Brady Mcdonald M.D. 12/14/2019 5:48 PM
[2019-12-14] MEDS ORDERED: POLYETHYLENE (MIRALAX) 17 GM PACK PO PRN (19:31)
[2019-12-14] MEDS ORDERED: ONDANSETRON INJ 2 MG/ML 2 ML VIAL IV PRN (19:31)
[2019-12-14] MEDS ORDERED: ALUMINUM/MAGNESIUM SUSP 30 ML UDC PO PRN (19:31)
[2019-12-14] MEDS ORDERED: MAGNESIUM HYDROXIDE SUSP 30 ML UDC PO PRN (19:31)
[2019-12-14] MEDS ORDERED: ARTIFICIAL TEARS OP PRN (19:41)
[2019-12-14] MEDS ORDERED: AZITHROMYCIN 250 MG TAB PO SCH (20:15)
--- NOTE | 2019-12-14 20:39 | Electrocardiogram Report ---
Test Reason : Blood Pressure : / mmHG Vent. Rate : 085 BPM Atrial Rate : 085 BPM P-R Int : 160 ms QRS Dur : 066 ms QT Int : 412 ms P-R-T Axes : 000 -29 017 degrees QTc Int : 490 ms Sinus rhythm with Premature atrial complexes Low voltage QRS Borderline ECG When compared with ECG of 11-DEC-2019 08:17, Minimal criteria for Anterior infarct are no longer Present Nonspecific T wave abnormality no longer evident in Lateral leads Confirmed by Andrea Hernandez ([id number]) on 12/14/2019 8:39:23 PM Referred By: REFERRED SELF Confirmed By:Artur Hernandez
[2019-12-14] MEDS: ACETAMINOPHEN 325 MG TAB PO PRN (20:41)
[2019-12-14] MEDS: DIVALPROEX DELAY RELEASE 500 MG TAB PO SCH (20:42)
[2019-12-14] MEDS: LATANOPROST 0.005% OP SOLN 2.5 ML BTL OPB SCH (20:43)
[2019-12-15] MEDS: ACETAMINOPHEN 325 MG TAB PO PRN ×3 (02:05→16:50)
[2019-12-15 07:38] LABS: Hematocrit (blood only) 31.8 % (37-47); Mean Corpuscular Hemoglobin 30.8 pg (25-34); Mean Corpuscular Hgb Conc 34.6 g/dL (32-36); Mean Corpuscular Volume 89.1 fL (80-100); RDW Coefficient of Variation 15.8 % (11.5-14.5); RDW Standard Deviation 51.7 fL (36.4-46.3); Red Blood Count 3.57 M/uL (4.2-5.4); White Blood Count 6.85 K/uL (4.8-10.8)
[2019-12-15] MEDS: DIVALPROEX DELAY RELEASE 500 MG TAB PO SCH ×2 (07:51→20:04)
[2019-12-15] MEDS: ESCITALOPRAM OXALATE 10 MG TAB PO SCH (07:51)
[2019-12-15] MEDS: ZINC SULFATE 220 MG CAPSULE PO SCH (07:51)
[2019-12-15] MEDS: FAMOTIDINE 20 MG TAB PO SCH (07:52)
[2019-12-15 07:53] LABS: Mean Platelet Volume 10.5 fL (7.4-10.4); Platelet Count 90 K/uL (130-400)
[2019-12-15 08:14] LABS: BUN Creatinine Ratio 14.3 (10-20); Calcium 8.1 mg/dl (8.5-10.1); Creatinine Clr Calc Pharmacy 101.8 ml/min; Est GFR (African American) 111.3; Magnesium 1.2 mg/dl (1.8-2.4); Potassium 3.9 mmol/L (3.5-5.1)
[2019-12-15] MEDS: HYDROXYCHLOROQUINE SULFATE 200 MG TAB PO SCH (09:33)
--- NOTE | 2019-12-15 11:20 | XCELERA ---
[id number]}___[id number]
--- NOTE | 2019-12-15 15:41 | Orthopedic Consultation ---
Date of Consultation December 15, 2019 Assessment & Plan (1) Closed fracture of left inferior pubic ramus: Fractures amenable to conservative treatment, protected weightbearing 50% on left lower extremity, ambulate with an assistive device/walker, physical therapy and Occupational Therapy, pain control, we discussed follow-up with osteoporosis clinic at [facility] at follow-up. The patient will need to follow-up with Dr. Ramirez in the office in 4 weeks for repeat x-rays, . Thank you for the consultation (2) Fracture of superior ramus of left pubis: History of Present Illness Reason for Consultation: Left superior and inferior pubic rami fracture Attending Physician: Darien Meyer History of Present Illness The patient is a 79-year-old female who presented to [facility] secondary to a mechanical fall from standing height on 12/13/2019 she reports. Had difficulty ambulating and pain to the left hip. Was admitted to [facility] on 12/14/2019 for further inpatient evaluation and treatment for left hip pain. X-ray showed questionable hip fracture, MRI of the left hip demonstrated a nondisplaced fracture of the left inferior and superior pubic rami. Patient denies any associated injuries, hitting head or loss of consciousness. Denies any numbness or tingling to her extremities. Allergies Allergy/AdvReac Type Severity Reaction Status Date / Time ciprofloxacin [From Cipro] Allergy Severe Hives Verified 12/14/19 14:21 levofloxacin [From Levaquin] Allergy Severe Shortness Verified 12/14/19 14:21 of breath paroxetine Allergy Unknown Verified 12/14/19 14:21 phenytoin Allergy Unknown Verified 12/14/19 14:21 sulfamethoxazole Allergy Verified 12/14/19 14:21 [From Bactrim] trimethoprim [From Bactrim] Allergy Verified 12/14/19 14:21 unknown antibiotic Allergy Severe Browning-Bryon Uncoded 12/14/19 14:21 syndrome - no records available Home Medications Home Medications Medication Instructions Recorded Confirmed Type divalproex 500 mg tablet,delayed 500 mg PO BID #180 tab 06/13/19 12/14/19 Rx release hydroxychloroquine 200 mg tablet 200 mg PO DAILY #90 tab 08/25/19 12/14/19 Rx famotidine 20 mg tablet 20 mg PO DAILY #30 tab 12/02/19 12/14/19 Rx Systane Complete 1 drp OPB TID PRN 12/05/19 12/14/19 History escitalopram oxalate 10 mg PO DAILY 12/05/19 12/14/19 History estradiol [Estrace] 1 gm PV 3XWK 12/05/19 12/14/19 History latanoprost 1 drp OPB HS 12/05/19 12/14/19 History metformin 1,000 mg PO QPM 12/05/19 12/14/19 History azithromycin 500 mg PO QAM #6 tab 12/11/19 12/14/19 Rx zinc sulfate [Orazinc] 220 mg PO QAM #13 cap 12/11/19 12/14/19 Rx blood sugar diagnostic #300 ea 12/12/19 12/14/19 Rx blood-glucose meter #1 ea 12/12/19 12/14/19 Rx lancets 33 gauge #300 ea 12/12/19 12/14/19 Rx Patient History Medical History Adjustment disorder with depressed mood (Chronic) Antibiotic-associated diarrhea (Chronic ~06/2019) Negative C. Diff test x 1 but good response to oral vancomycin Diabetes type 2, controlled (Chronic) Discoid lupus erythematosus GERD (gastroesophageal reflux disease) (Chronic) Glaucoma (Chronic) Gout (Resolved) Hearing difficulty (Chronic) Kidney stone (Resolved) Osteoarthritis (Chronic) Seizure Sjogren's disease (Chronic) Thrombocytopenia (Chronic) Undifferentiated connective tissue disease Surgical History H/O: hysterectomy (~1984) Hx of cholecystectomy (~1983) S/P tooth extraction Family History Grandfather Diabetes Mother Hypertension Gallbladder disease Grandmother No problems noted. 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 Beliefs That Will Affect Care: None marital status: / Current Living Situation: Alone Current Living Situation Comment: [place] current occupational status: retired Other Information That Helps Us Care for You: No Feels Safe at Home: Yes Safety Concerns: Feels Safe At This Time Smoking Status: Never smoker Second Hand Exposure: No ; Hx Alcohol Use: No Hx Substance Use: No Childhood Exposure to Second-Hand Smoke: Yes caffeine: Yes Dental Care, Regularly: Yes Physical Activity Frequency: 1-2 Times per Week Seatbelt Use: always Sunscreen Use: No Review of Systems Review of Systems: All systems reviewed & are unremarkable except as noted in HPI & below Constitutional: as per Subjective / HPI Physical Exam Physical Exam: LLE NVSI +EHL/FHL/TA/GS SILT grossly, +2 DP pulse, compartments soft NT, painful active and passive range of motion of left hip. Tenderness to palpation over greater trochanteric bursa. Skin is clean dry and intact. Constitutional: WD/WN, vitals as above Results & Data ([place]) Vital Signs (Past 12 Hours) Vital Signs Temp Pulse Pulse Resp BP BP Pulse Ox 12/15/19 15:07 74 12/15/19 15:04 36.7 C 71 18 106/69 96 12/15/19 11:16 36.3 C L 57 L 18 126/77 97 12/15/19 07:50 36.7 C 67 18 103/63 96 12/15/19 07:39 70 Diagnostic Findings XR hip LT 2V w pelvis, XR femur LT 2V routine CLINICAL HISTORY: fall, hip pain L COMPARISON STUDY: None. FINDINGS: The bones are osteopenic. The visualized pelvic bones are intact. Questionable subtle sclerosis at the left subcapital femoral neck. This raises the possibility of a nondisplaced impaction fracture. The mid to distal left femur is intact. Vascular calcifications are noted. No knee effusion. No fracture or dislocation within the right hip. IMPRESSION: 1. Questionable subtle sclerosis of the left subcapital femoral neck. This raises the possibly of a nondisplaced impaction fracture. Dedicated left hip MRI is recommended for further evaluation. 2. No fracture identified within the pelvis, right hip, or mid to distal left femur. HISTORY: Left hip pain, fall, ?frx TECHNIQUE: Multiplanar multisequence MRI of the pelvis and left hip were performed without the use of intravenous contrast. COMPARISON STUDY: Abdomen and pelvis CT 12/06/2019. FINDINGS: Nondisplaced fracture involving the medial aspect of the left superior and inferior pubic rami. This is associated marrow edema within the medial aspect of the left pubic ring and adjacent soft tissue edema. No fracture or dislocation within the proximal right or left femur. Small amount of ascites is again noted. Diffuse body wall edema. Xagu-fy-[id number] osteoarthritis within the bilateral hips. The visualized sacrum is intact. IMPRESSION: 1. Nondisplaced fracture involving the medial aspect of the left superior and inferior pubic rami. 2. No fracture or dislocation within the proximal left femur. 3. Small amount of ascites and moderate body wall edema. (1) Closed fracture of left inferior pubic ramus Encounter type: initial encounter Qualified Code(s): S32.592A - Other specified fracture of left pubis, initial encounter for closed fracture (2) Fracture of superior ramus of left pubis Encounter type: initial encounter Fracture type: closed Qualified Code(s): S32.512A - Fracture of superior rim of left pubis, initial encounter for closed fracture
[2019-12-15] MEDS: LATANOPROST 0.005% OP SOLN 2.5 ML BTL OPB SCH (20:04)
--- NOTE | 2019-12-15 21:37 | Hospitalist Progress Note ---
Date of Service December 15, 2019 Assessment & Plan (1) Acute pain of left hip: Pubic rami fracture on MRI Appreciate input from ortho PT/OT evals Anticpate discharge in AM. (2) Fall: Monitor on telemetry for arrhythmia TTE to assess for murmurs present on exam Appears mechanical related to generalized weakness and deconditioning from recent hospitalization PT/OT evals for possible need for inpatient rehab (3) Campylobacter enteritis: Recently hospitalization for this. Last dose of azithromycin today. Monitor for ongoing diarrhea (4) Seizure: History of this. Not had seizure for many years and not suspected to be related to current admission Continue depakote (5) Cirrhosis: Ongoing workup for this. Follow up with gastroenterology on December 25 (6) GERD (gastroesophageal reflux disease): Continue famotidine 20mg PO daily (7) Diabetes type 2, controlled: HbA1C 5.7 [12/03/19] Hold metformin during admission, especially with diarrhea. Unclear if she still needs to take this Monitor with AM glucose in BMP (8) Adjustment disorder with depressed mood: Continue Lexapro 10mg PO daily (9) Discoid lupus erythematosus: Continue hydroxychloroquine 200mg PO daily (10) DVT prophylaxis: SCDs Admission and Anticipated Discharge Date Admission Date: December 14, 2019 Subjective Patient reports feeling well. She has no new complaints. Review of Systems Review of Systems: All systems reviewed & are unremarkable except as noted in Subjective Physical Exam Physical Exam: Constitutional: WD/WN, vitals as above Eyes: PERRL, conjunctivae normal, anicteric sclerae ENMT: external ear and nose normal, oropharynx normal Neck: trachea midline, no thyromegaly Respiratory: normal respiratory effort, lungs clear to auscultation Cardiovascular: RaTe/Rhythm: regular rate and regular rhythm Heart Sounds: + murmur (systolci LUSB and apex) Extremities: normal capillary refill; no calf tenderness and no pedal edema Gastrointestinal (Abdomen): normal bowel sounds, soft, nontender, no hepatosplenomegaly Musculoskeletal: Left lateral hip pain on palpation. Able to internally and externally rotate hip with only mild pain. Skin: no rashes, warm and dry Neurologic: moves all extremities and awake; no focal motor deficits and not confused Speech / Cognition: normal speech Motor/Sensory: no tremor, no pronator drift and no sensory deficit Psychiatric: A+Ox3, euthymic affect Genitourinary: no CVA tenderness Results & Data Results & Data ([facility]) Vital Signs (Past 12 Hours) Vital Signs Temp Pulse Pulse Pulse Resp BP BP 12/15/19 20:03 36.6 C 77 15 112/72 12/15/19 15:07 74 12/15/19 15:04 36.7 C 71 18 106/69 12/15/19 11:16 36.3 C L 57 L 18 126/77 Pulse Ox 12/15/19 20:03 97 12/15/19 15:07 12/15/19 15:04 96 12/15/19 11:16 97 PG Care Time/CCT Total # of Minutes Spent Total Time Spent with Patient: Total time spent is greater than 50% in coordination of care (as documented) at patient's floor/unit and/or counseling patient: Coding Level of Care Code 82757 Subseq Hosp Care Lvl 3 Diagnoses Acute pain of left hip M25.552 Fall W19.XXXA Encounter type: initial encounter Campylobacter enteritis A04.5 Seizure R56.9 Cirrhosis K74.60 GERD (gastroesophageal reflux disease) K21.9 Diabetes type 2, controlled E11.9 Diabetes mellitus complication status: without complication Diabetes mellitus local company intermodal truck driver insulin use: without local company intermodal truck driver use Adjustment disorder with depressed mood F43.21 Discoid lupus erythematosus L93.0 DVT prophylaxis Z29.9 Time Spent (min) 35 (1) Diabetes type 2, controlled Diabetes mellitus complication status: without complication Diabetes mellitus local company intermodal truck driver insulin use: without jail use Qualified Code(s): E11.9 - Type 2 diabetes mellitus without complications (2) Fall Encounter type: initial encounter Qualified Code(s): W19.XXXA - Unspecified fall, initial encounter
[2019-12-15] MEDS: MAGNESIUM SULFATE / D5W 1 GM/100 ML BAG IV SCH (22:09)
[2019-12-15 23:57] LABS: Appearance Urine Cloudy (Clear); Bacteria Urine Automated 4+ (Negative); Bilirubin Urine Negative (Negative); Blood Urine Negative (Negative); Color Urine Orange; Epithelial Cell Urine Auto >30 /lpf (0-5); Glucose Urine UA Negative (Negative); Ketones Urine Trace (Negative); Leukocyte Esterase Urine Trace (Negative); Nitrite Urine Positive (Negative); Protein Urine Trace (Negative); Specific Gravity Urine 1.022 (1.000-1.030); Urobilinogen Urine Negative (Negative); pH Urine 5.5 (4.5-7.5)
[2019-12-16] MEDS: MAGNESIUM SULFATE / D5W 1 GM/100 ML BAG IV SCH ×4 (00:13→10:06)
[2019-12-16 00:15] LABS: Calcium Oxalate Crystals Urine Present (None Prsent); RBC Urine Automated 0-4 /hpf (0-4)
[2019-12-16] MEDS: ACETAMINOPHEN 325 MG TAB PO PRN ×2 (08:07→16:54)
[2019-12-16] MEDS: ESCITALOPRAM OXALATE 10 MG TAB PO SCH (08:10)
[2019-12-16] MEDS: DIVALPROEX DELAY RELEASE 500 MG TAB PO SCH ×2 (08:10→20:41)
[2019-12-16] MEDS: ZINC SULFATE 220 MG CAPSULE PO SCH (08:11)
[2019-12-16] MEDS: FAMOTIDINE 20 MG TAB PO SCH (08:11)
[2019-12-16 08:47] LABS: BUN Creatinine Ratio 11.9 (10-20); Calcium 8.1 mg/dl (8.5-10.1); Creatinine Clr Calc Pharmacy 80.4 ml/min; Est GFR (African American) 107.4; Est GFR (Non-African American) 92.7; Magnesium 1.9 mg/dl (1.8-2.4); Potassium 3.6 mmol/L (3.5-5.1)
[2019-12-16] MEDS ORDERED: NITROFURANTOIN MONOHYDRATE 100 MG CAP PO SCH (09:00)
[2019-12-16] MEDS: HYDROXYCHLOROQUINE SULFATE 200 MG TAB PO SCH (09:03)
[2019-12-16 12:50] LABS: BUN Creatinine Ratio 11.4 (10-20); Calcium 7.8 mg/dl (8.5-10.1); Creatinine Clr Calc Pharmacy 71.6 ml/min; Est GFR (African American) 103.4; Est GFR (Non-African American) 89.2; Potassium 3.8 mmol/L (3.5-5.1)
[2019-12-16] MEDS: LATANOPROST 0.005% OP SOLN 2.5 ML BTL OPB SCH (20:41)
--- NOTE | 2019-12-16 23:38 | Hospitalist Progress Note ---
Date of Service December 16, 2019 Assessment & Plan (1) Acute pain of left hip: Pubic rami fracture on MRI Appreciate input from ortho PT/OT evals Anticpate discharge, however awaiting [employer] approval from insurance.. (2) Fall: Monitor on telemetry for arrhythmia TTE to assess for murmurs present on exam Appears mechanical related to generalized weakness and deconditioning from recent hospitalization PT/OT evals for possible need for inpatient rehab (3) Campylobacter enteritis: Recently hospitalization for this. Last dose of azithromycin today. Monitor for ongoing diarrhea (4) Seizure: History of this. Not had seizure for many years and not suspected to be related to current admission Continue depakote (5) Cirrhosis: Ongoing workup for this. Follow up with gastroenterology on December 25 (6) GERD (gastroesophageal reflux disease): Continue famotidine 20mg PO daily (7) Diabetes type 2, controlled: HbA1C 5.7 [12/03/19] Hold metformin during admission, especially with diarrhea. Unclear if she still needs to take this Monitor with AM glucose in BMP (8) Adjustment disorder with depressed mood: Continue Lexapro 10mg PO daily (9) Discoid lupus erythematosus: Continue hydroxychloroquine 200mg PO daily (10) DVT prophylaxis: SCDs Asymptomatic bacteriuria Patient with bacteruria and pyuria. However she has no symptoms. will hold antibiotics ordered by overnight resident. Admission and Anticipated Discharge Date Admission Date: December 16, 2019 Subjective Patient reports no new symptoms. Patient denies any dysuria, or unrinary incontinence, hematuria. Review of Systems Review of Systems: All systems reviewed & are unremarkable except as noted in HPI & below Physical Exam Physical Exam: Constitutional: WD/WN, vitals as above Eyes: PERRL, conjunctivae normal, anicteric sclerae ENMT: external ear and nose normal, oropharynx normal Neck: trachea midline, no thyromegaly Respiratory: normal respiratory effort, lungs clear to auscultation Cardiovascular: Rate/Rhythm: regular rate and regular rhythm Heart Sounds: + murmur (systolci LUSB and apex) Extremities: normal capillary refill; no calf tenderness and no pedal edema Gastrointestinal (Abdomen): normal bowel sounds, soft, nontender, no hepatosplenomegaly Musculoskeletal: Left lateral hip pain on palpation. Able to internally and externally rotate hip with only mild pain. Skin: no rashes, warm and dry Neurologic: moves all extremities and awake; no focal motor deficits and not confused Speech / Cognition: normal speech Motor/Sensory: no tremor, no pronator drift and no sensory deficit Psychiatric: A+Ox3, euthymic affect Genitourinary: no CVA tenderness Results & Data Results & Data ([facility]) Vital Signs (Past 12 Hours) Vital Signs Temp Pulse Pulse Pulse Resp BP Pulse Ox 12/16/19 19:40 36.4 C L 72 18 111/73 97 12/16/19 15:15 36.8 C 70 18 104/56 L 95 12/16/19 15:06 70 12/16/19 11:43 36.7 C 69 18 103/58 L 94 PG Care Time/CCT Total # of Minutes Spent Total Time Spent with Patient: Total time spent is greater than 50% in coordination of care (as documented) at patient's floor/unit and/or counseling patient: Coding Level of Care Code 60618 Subseq Hosp Care Lvl 2 Diagnoses Acute pain of left hip M25.552 Fall W19.XXXA Encounter type: initial encounter Campylobacter enteritis A04.5 Seizure R56.9 Cirrhosis K74.60 GERD (gastroesophageal reflux disease) K21.9 Diabetes type 2, controlled E11.9 Diabetes mellitus equipment operator intermodal yard insulin use: without equipment operator intermodal yard use Diabetes mellitus complication status: without complication Adjustment disorder with depressed mood F43.21 Discoid lupus erythematosus L93.0 DVT prophylaxis Z29.9 (1) Fall Encounter type: initial encounter Qualified Code(s): W19.XXXA - Unspecified f all, initial encounter (2) Diabetes type 2, controlled Diabetes mellitus snf insulin use: without equipment operator intermodal yard use Diabetes mellitus complication status: without complication Qualified Code(s): E11.9 - Type 2 diabetes mellitus without complications
[2019-12-17] MEDS: DIVALPROEX DELAY RELEASE 500 MG TAB PO SCH (07:36)
[2019-12-17] MEDS: ESCITALOPRAM OXALATE 10 MG TAB PO SCH (07:37)
[2019-12-17] MEDS: FAMOTIDINE 20 MG TAB PO SCH (07:37)
[2019-12-17] MEDS: ZINC SULFATE 220 MG CAPSULE PO SCH (07:37)
[2019-12-17] MEDS: HYDROXYCHLOROQUINE SULFATE 200 MG TAB PO SCH (11:12)
--- NOTE | 2019-12-24 08:17 | Discharge Summary ---
Date of Service December 17, 2019 Admission HPI Per Admitting Provider Isatu Toledo is a 79 year old female with multiple medical conditions who presents to the ER after falling at home. She was recently hospitalized due to Campylobacter colitis and recent diagnosis of liver cirrhosis causing diarrhea and generalized weakness and deconditioning. She was not eating well prior to discharge however she felt she would do better eating her own food at home and she was also not getting a lot of sleep in hospital so she felt this would also be better at home. She lives alone however her daughter lives 10 minutes away and is able to spend a lot of time with her. She was still not eating well at home. Yesterday afternoon she managed to walk around [facility]. After being dropped off back at her house she fell asleep on the couch and when she woke up to get into bed around midnight she tripped on a night stand when she turned and fell. Unable to get herself back up and didn't want to disturb anyone so spent the night on the floor. She thinks she may have hit her head on the way down but did not loose consciousness. No prodromal symptoms such as chest pain, shortness of breath or dizziness. Her family found her on the floor around 10:15am and she begged them to let her sleep in bed for a few hours before coming to hospital. She was unable to walk on her left leg when they got her up. Therefore brought in via EMS. Principal Diagnosis closed fracture of left pubic rami Discharge Exam Constitutional: WD/WN, vitals as above Eyes: PERRL, conjunctivae normal, anicteric sclerae ENMT: external ear and nose normal, oropharynx normal Neck: trachea midline, no thyromegaly Respiratory: normal respiratory effort, lungs clear to auscultation Cardiovascular: Rate/Rhythm: regular rate and regular rhythm Heart Sounds: + murmur (systolci LUSB and apex) Extremities: normal capillary refill; no calf tenderness and no pedal edema Gastrointestinal (Abdomen): normal bowel sounds, soft, nontender, no hepatosplenomegaly Musculoskeletal: Left lateral hip pain on palpation. Able to internally and externally rotate hip with only mild pain. Skin: no rashes, warm and dry Neurologic: moves all extremities and awake; no focal motor deficits and not confused Speech / Cognition: normal speech Motor/Sensory: no tremor, no pronator drift and no sensory deficit Psychiatric: A+Ox3, euthymic affect Genitourinary: no CVA tenderness Discharge Data Allergies Allergy/AdvReac Type Severity Reaction Status Date / Time ciprofloxacin [From Cipro] Allergy Severe Hives Verified 12/14/19 14:21 levofloxacin [From Levaquin] Allergy Severe Shortness Verified 12/14/19 14:21 of breath paroxetine Allergy Unknown Verified 12/14/19 14:21 phenytoin Allergy Unknown Verified 12/14/19 14:21 sulfamethoxazole Allergy Verified 12/14/19 14:21 [From Bactrim] trimethoprim [From Bactrim] Allergy Verified 12/14/19 14:21 unknown antibiotic Allergy Severe Browning-Bryon Uncoded 12/14/19 14:21 syndrome - no records available Consultations 12/14/19 16:04 ED Decision to Admit Stat 12/15/19 12:17 Consult Orthopedic Surgery Routine Ordered Studies 12/14/19 14:02 CT abd pelvis wo con Stat CT head/brain wo con Stat CT lumbar spine wo con Stat 12/14/19 15:55 MR hip LT wo con Stat Hospital Course (1) Acute pain of left hip: Pubic rami fracture on MRI Appreciate input from ortho PT/OT evals discharge held due to awaiting [employer] approval from insurance.. (2) Fall: Monitor on telemetry for arrhythmia TTE to assess for murmurs present on exam Appears mechanical related to generalized weakness and deconditioning from recent hospitalization (3) Campylobacter enteritis: Recently hospitalization for this. Last dose of azithromycin today. Monitor for ongoing diarrhea (4) Seizure: History of this. Not had seizure for many years and not suspected to be related to current admission Continue depakote (5) Cirrhosis: Ongoing workup for this. Follow up with gastroenterology on December 25 (6) GERD (gastroesophageal reflux disease): Continue famotidine 20mg PO daily (7) Diabetes type 2, controlled: HbA1C 5.7 [12/03/19] Hold metformin during admission, especially with diarrhea. Unclear if she still needs to take this Monitor with AM glucose in [facility] (8) Adjustment disorder with depressed mood: Continue Lexapro 10mg PO daily (9) Discoid lupus erythematosus: Continue hydroxychloroquine 200mg PO daily (10) DVT prophylaxis: SCDs Asymptomatic bacteriuria Patient with bacteruria and pyuria. However she has no symptoms. will hold antibiotics Total Time Total Time Spent Total Time Spent (In Minutes): 32 Discharge Plan Discharge Items Patient Disposition: Transfer Inpatient Rehab Fac Reason For Visit: FALL, LEFT HIP PAIN Discharge Diagnosis: left hip pain Activity: Resume your previous activity Non-emergency contact: Primary Care Provider Call non-emergency contact if: you have any medication questions Follow-up/Referrals: Tamara Benítez MD [Primary Care Provider] - Diet: Low Sodium (2gm) and Lactose Intolerant Addtl Attending Provider Instructions: Bryce Avina were admitted to the hospital with orthopedic fracture. These fractures are amenable to conservative treatment. Please only perform protected weightbearing 50% on left lower extremity, ambulate with an assistive device/walker, physical therapy and Occupational Therapy, we discussed follow-up with osteoporosis clinic at [facility] at follow-up. The patient will need to follow-up with Dr. Ramirez in the office in 4 weeks for repeat x-rays, . You completed treatment for Campylobacter infection which is a food-borne bacterial infection. Hopefully your diarrhea will continue to improve over the coming week to weeks. You can also use [id number] Imodium to help firm up your stools. In regards to you cirrhosis, follow up with gastroenterology on December 25 Please continue with your zinc supplement. Finally, I know you have periods with significant pain from your lupus. Tylenol is still safe in liver issues; however, you will need to cut back slightly on it. Please only take 500 mg tablets and only up to 3 per day. This amount of Tylenol should be safe even with your liver cirrhosis. If this is not effectively controlling your pain, please speak with Dr. Benítez and/or Dr. Mike on other pain-control options. It seemed to work well in the hospital, but in the hospital, you're not working as much or moving quite as much as at home, so you will have to see how this works for you while at home. Please follow closely with Dr. Benítez and Dr. Mike. If the diarrhea and abdominal pain are not improving in the next week, please call Dr. Benítez or Dr. Mike's office to discuss further testing or treatment. We have explored/t ested for a variety of issues in the hospital, and I do not see any other explanations other than the Campylobacter infection and the liver issues. Pending Studies at Discharge: No Stand-Alone Forms: My [facility] Skilled Items Patient informed of condition?: No DNR: Yes Discharge Level of Care: Acute rehab Communicable Disease: No Discharge Prognosis: Stable Lines: None Urinary Catheter: No Medications and DC Order Prescriptions: Continued divalproex [Depakote] 500 mg tablet,delayed release (DR/EC) 500 mg PO BID Qty: 180 RF: 3 hydroxychloroquine [Plaquenil] 200 mg tablet 200 mg PO DAILY Qty: 90 RF: 3 famotidine [Pepcid] 20 mg tablet 20 mg PO DAILY Qty: 30 RF: 2 escitalopram oxalate 20 mg tablet 10 mg PO DAILY RF: 0 estradiol [Estrace] 0.01 % (0.1 mg/gram) cream 1 gm PV [id number] RF: 0 metformin 1,000 mg tablet extended release 24hr 1,000 mg PO QPM RF: 0 Systane Complete 0.6 % Drops 1 drp OPB TID PRN (Reason: Dry Eyes) RF: 0 latanoprost 0.005 % drops 1 drp OPB HS RF: 0 zinc sulfate [Orazinc] 220 (50) mg Capsule 220 mg PO QAM Qty: 13 RF: 0 Discontinued azithromycin 250 mg Tablet 500 mg PO QAM Qty: 6 RF: 0 No Action (DME) blood sugar diagnostic [OneTouch Ultra Blue Test Strip] Strip See Rx Instructions .ROUTE .MEDSUPPLY Qty: 300 RF: 3 (DME) lancets [OneTouch Delica Lancets] 33 gauge misc See Rx Instructions .ROUTE .MEDSUPPLY Qty: 300 RF: 3 (DME) blood-glucose meter [OneTouch Ultra2 Meter] Kit See Rx Instructions .ROUTE .MEDSUPPLY Qty: 1 RF: 1 Discharge Orders: Discharge Order (Routine); Ordered 12/17/19 Ordered By: Darien Meyer Admission Data Admit Date/Time: 12/16/19 16:45 Attending Provider: Darien Meyer Admit Provider: Dean Pedro Primary Care Provider: Tamara Benítez Other Providers: Dean Pedro ; Cristiano Simmons [facility] ; [facility] ; Edilson Edgar Other Interventions: Discharge Summary Assessment (RN) Last Done: 12/17/19 14:45 DC Date/Time DO NOT enter until pt leaves facility: 12/17/19 15:45 Coding Level of Care Code D/C Day Management >30 mins Diagnoses Acute pain of left hip M25.552 Fall W19.XXXA Encounter type: initial encounter Campylobacter enteritis A04.5 Seizure R56.9 Cirrhosis K74.60 GERD (gastroesophageal reflux disease) K21.9 Diabetes type 2, controlled E11.9 Diabetes mellitus complication status: without complication Diabetes mellitus jail insulin use: without jail use Adjustment disorder with depressed mood F43.21 Discoid lupus erythematosus L93.0 DVT prophylaxis Z29.9
== END 2019-12-17 15:45 | DRG 543 ==
LOC: ED 13:51 → 2N 13:51 → SUATTDRO 16:18 → 2N 17:13

== ENCOUNTER 2020-03-01 11:13 | Observation (INO) ==
[2020-03-01] MEDS ORDERED: SODIUM CHLORIDE 0.9% 1000ML 1,000 ML IV STA (11:31)
--- NOTE | 2020-03-01 11:36 | Emergency Department Note ---
Impression & Plan Nausea & vomiting, Retrosternal chest pain, Acute dehydration ED Provider Note INFORMANT: Patient ED PROVIDER(S): Krunal Holder MD CHIEF COMPLAINT: Dehydration PLAN: Disposition: Admitted Condition: Good MEDICAL DECISION MAKING: Patient presented due to chest pain and inability to swallow. This occurred since her gastric banding procedure. The patient had a nonischemic ECG. Her laboratory testing did not reveal any significant abnormalities. Troponin was negative. Chest x-ray was unremarkable. The case was discussed with her GI physician, Dr. Mike. He recommended Carafate and a PPI. We discussed a GI cocktail as well. Unfortunate the patient could not tolerate any oral intake. Because of this she was hydrated. A consultation was made with the internal medicine team for admission and further management. Patient informed. Triage Nursing notes reviewed and agree them. Additional history obtained from family Prior medical records reviewed, EGD and banding procedures noted. Vital Signs: reviewed and remarkable for no significant abnormalities Differential diagnosis: Esophageal obstruction, esophageal edema, esophageal spasm, infection, dehydration, metabolic abnormality, hypo/hyperglycemia, electrolyte disturbance, anemia, cardiac sources, neurologic, as well as other pathologies. Diagnostics interpreted by me: ECG: Twelve-lead ECG reveals a sinus rhythm at 70 bpm. There are PACs. Low voltage QRS. Septal Q waves present. No ST elevation or depression. Normal axis. Cardiac Monitoring: Cardiac monitoring ordered by me: The patient was placed on continuous cardiac monitoring and observed. It revealed a normal sinus rhythm at 78 beats per minute without ectopy or evidence of dysrhythmia. Imaging studies: Imaging studies: Chest x-ray. Findings: A chest x-ray was performed and revealed no pneumothorax, effusion, infiltrate, pulmonary edema, free air under the diaphragm, or wide mediastinum. Impression: No acute disease. Consultation(s): Dr. Mike, gastroenterology Dr. Pedro, hospitalist service HPI: The patient is a 79 year old female who presents to the Emergency Room with complaints of dehydration. This started 4 days ago and worsening. The patient also notes the following associated symptoms, nausea and vomiting, retrosternal chest , weakness, chronic diarrhea. The patient has found no relieving factors. Current pain is rated as 6/10. She had an EGD done 02/25 and three large varices banded by Dr. Mike. Pt denies LOC, headache, fevers, chills, diaphoresis, visual changes, neck pain, breathing difficulties, abdominal pain, back pain, melena, hematochezia, urinary symptoms, numbness, lymphadenopathy, rash, or other complaints. ROS: See above HPI for pertinent positives & negatives. A total of 10 systems reviewed and were otherwise negative. PAST MEDICAL HISTORY:See Below, GERD, SZ PAST SURGICAL HISTORY:See Below, EGD FAMILY HISTORY:See Below SOCIAL HISTORY:See Below, lives alone HOME MEDICATIONS:See Below ALLERGIES:See Below VITALS:See Below PHYSICAL EXAMINATION: GENERAL: Awake, tired-appearing, in no distress HENT: Normocephalic, atraumatic. Oropharynx unremarkable. EYES: Normal conjunctiva. Sclera non-icteric. NECK: Inspection normal. Non-tender. Supple. No nuchal rigidity. FROM. No masses. RESPIRATORY: Clear to auscultation. No wheezes. No rales. Normal respiratory effort. CARDIAC: Normal rate. Normal rhythm. No murmurs. No rubs. Extremities warm and well perfused. Pulses equal. No JVD. GI: Soft, non-distended. No tenderness to palpation. No rebound or guarding. No masses. RECTAL: Deferred. MUSCULOSKELETAL: Atraumatic. Chest examination reveals no tenderness. The back is symmetrical on inspection without obvious abnormality. There is no CVA tenderness to palpation. No joint edema. LOWER EXTREMITIES: Calves are equal size bilaterally and non-tender. No edema. No discoloration. NEURO: Normal sensorium. No sensory or motor deficits noted. SKIN: No rash or jaundice noted. Krunal Holder MD Past Med/Surg History Medical History (Updated 03/01/20 @ 16:03 by Zeke Ruiz DO) Adjustment disorder with depressed mood Antibiotic-associated diarrhea (~06/2019) Negative C. Diff test x 1 but good response to oral vancomycin Cardiac murmur "HEARD AT TIMES" Chronic back pain Cirrhosis CRYPTOGENIC Diabetes type 2, controlled Discoid lupus erythematosus F/U DR SALCEDO Esophageal varices GERD (gastroesophageal reflux disease) Glaucoma Gout Hearing difficulty Kidney stone Osteoarthritis Pelvic fracture 12/14/19-WHEELCHAIR BOUND-70% WT BEARING AT PRESENT Seizure LAST ONE MORE THAN 10 YRS AGO-F/U PCP Sjogren's disease Thrombocytopenia Undifferentiated connective tissue disease Surgical History (Updated 02/18/20 @ 09:44 by Svetlana Bajwa RN) H/O: hysterectomy (~1984) History of colonoscopy History of esophagogastroduodenoscopy (EGD) History of esophagogastroduodenoscopy (EGD) with banding of esophageal varices History of liver biopsy Hx of cholecystectomy (~1983) S/P tooth extraction Family History Grandfather Diabetes Mother Hypertension Gallbladder disease Grandmother No problems noted. Father Pancreatic cancer Brother Alcohol abuse Denies family history of Ovarian cancer Prostate cancer Alzheimer disease Heart disease Myocardial infarction Breast cancer Lung cancer Colorectal cancer Stroke Social History Smoking Status: Never smoker Second Hand Exposure: Yes (SPOUSE SMOKED CIGARS); Hx Alcohol Use: No Hx Substance Use: No Preferred Language: [place]an Communication Ability: Effective Visual Impairment: Limited Hearing Ability: Use of Hearing Aid Furnace Door Tender Required: No Beliefs That Will Affect Care: None marital status: / Current Living Situation: Alone Current Living Situation Comment: [place] current occupational status: retired Feels Safe at Home: Yes Childhood Exposure to Second-Hand Smoke: Yes caffeine: Yes Dental Care, Regularly: Yes Physical Activity Frequency: 1-2 Times per Week Seatbelt Use: always Sunscreen Use: No Allergies Allergies Allergy/AdvReac Type Severity Reaction Status Date / Time ciprofloxacin [From Cipro] Allergy Severe Hives Verified 03/01/20 12:58 levofloxacin [From Levaquin] Allergy Severe Shortness Verified 03/01/20 12:58 of breath paroxetine Allergy Unknown Diarrhea Verified 03/01/20 12:58 phenytoin Allergy Unknown Unknown Verified 03/01/20 12:58 sulfamethoxazole Allergy Unknown SOB Verified 03/01/20 12:58 [From Bactrim] trimethoprim [From Bactrim] Allergy Unknown SOB Verified 03/01/20 12:58 unknown antibiotic Allergy Severe Browning-Bryon Uncoded 03/01/20 12:58 syndrome - no records available Home Meds Home Medications Medication Instructions Recorded Confirmed Systane Complete 1 drp OPB TID PRN 12/05/19 03/01/20 escitalopram oxalate 10 mg PO QAM 12/05/19 03/01/20 latanoprost 1 drp OPB HS 12/05/19 03/01/20 lidocaine 5 % topical patch 1 - 2 patch TOP DAILY PRN 12/26/19 03/01/20 hydroxychloroquine [Plaquenil] 200 mg PO QAM 01/22/20 03/01/20 magnesium oxide 400 mg PO QAM 01/22/20 03/01/20 Previous Rx's Medication Instructions Recorded divalproex 500 mg tablet,delayed 500 mg PO BID #180 tab 06/13/19 release blood sugar diagnostic #300 ea 12/18/19 blood-glucose meter #1 ea 12/18/19 lancets 33 gauge #300 ea 12/18/19 rifaximin 550 mg tablet 550 mg PO BID #60 tab 02/03/20 dicyclomine 10 mg capsule 10 mg PO TID #90 cap 02/24/20 Results & Data (ED) Vital Signs Vital Signs - 24 hr 03/01/20 11:15 03/01/20 11:31 03/01/20 12:24 Temperature 36.6 C Temperature Source Oral Pulse Rate 73 66 Pulse Rate [Left] Pulse Rate from SpO2 Sensor Pulse Rhythm Regular Pulse Strength Normal Respiratory Rate 20 15 Respiratory Effort / Characteristics Non-Labored Spontaneous Respiratory Depth Normal Respiratory Pattern Regular Blood Pressure 107/63 Blood Pressure [Right Arm] Blood Pressure Mean 77 Blood Pressure Mean [Right Arm] Blood Pressure Position Sitting Blood Pressure Position [Right Arm] Pulse Oximetry 96 Oxygen Delivery Method Room Air Room Air Sepsis Recent Fever Within 48 Hours No Sepsis New/Unexplained Change in Mental Status N/A Sepsis Action Taken by Nursing No Action Required 03/01/20 12:30 03/01/20 13:00 03/01/20 13:13 Temperature Temperature Source Pulse Rate 68 65 65 Pulse Rate [Left] Pulse Rate from SpO2 Sensor Pulse Rhythm Pulse Strength Respiratory Rate 14 16 19 Respiratory Effort / Characteristics Respiratory Depth Respiratory Pattern Blood Pressure 125/67 Blood Pressure [Right Arm] Blood Pressure Mean 90 Blood Pressure Mean [Right Arm] Blood Pressure Position Blood Pressure Position [Right Arm] Pulse Oximetry Oxygen Delivery Method Sepsis Recent Fever Within 48 Hours Sepsis New/Unexplained Change in Mental Status Sepsis Action Taken by Nursing 03/01/20 13:14 03/01/20 13:30 03/01/20 13:31 Temperature Temperature Source Pulse Rate 65 61 63 Pulse Rate [Left] Pulse Rate from SpO2 Sensor Pulse Rhythm Pulse Strength Respiratory Rate 20 14 15 Respiratory Effort / Characteristics Respiratory Depth Respiratory Pattern Blood Pressure 144/73 H Blood Pressure [Right Arm] Blood Pressure Mean 90 Blood Pressure Mean [Right Arm] Blood Pressure Position Blood Pressure Position [Right Arm] Pulse Oximetry Oxygen Delivery Method Sepsis Recent Fever Within 48 Hours Sepsis New/Unexplained Change in Mental Status Sepsis Action Taken by Nursing 03/01/20 13:48 03/01/20 14:00 03/01/20 14:01 Temperature Temperature Source Pulse Rate 70 69 65 Pulse Rate [Left] 72 Pulse Rate from SpO2 Sensor 66 70 66 Pulse Rhythm Pulse Strength Respiratory Rate 16 16 15 Respiratory Effort / Characteristics Respiratory Depth Respiratory Pattern Blood Pressure 151/102 H 140/84 Blood Pressure [Right Arm] 151/102 H Blood Pressure Mean 116 99 Blood Pressure Mean [Right Arm] 118 Blood Pressure Position Blood Pressure Position [Right Arm] Lying Pulse Oximetry 98 98 98 Oxygen Delivery Method Room Air Sepsis Recent Fever Within 48 Hours Sepsis New/Unexplained Change in Mental Status Sepsis Action Taken by Nursing 03/01/20 14:30 03/01/20 14:31 03/01/20 15:00 Temperature Temperature Source Pulse Rate 68 69 71 Pulse Rate [Left] Pulse Rate from SpO2 Sensor 68 68 76 Pulse Rhythm Pulse Strength Respiratory Rate 14 18 13 Respiratory Effort / Characteristics Respiratory Depth Respiratory Pattern Blood Pressure 141/106 H Blood Pressure [Right Arm] Blood Pressure Mean 118 Blood Pressure Mean [Right Arm] Blood Pressure Position Blood Pressure Position [Right Arm] Pulse Oximetry 95 97 94 Oxygen Delivery Method Sepsis Recent Fever Within 48 Hours Sepsis New/Unexplained Change in Mental Status Sepsis Action Taken by Nursing 03/01/20 15:01 03/01/20 15:30 03/01/20 15:31 Temperature Temperature Source Pulse Rate 73 68 68 Pulse Rate [Left] Pulse Rate from SpO2 Sensor 70 Pulse Rhythm Pulse Strength Respiratory Rate 15 20 13 Respiratory Effort / Characteristics Respiratory Depth Respiratory Pattern Blood Pressure 135/73 155/71 H Blood Pressure [Right Arm] Blood Pressure Mean 88 91 Blood Pressure Mean [Right Arm] Blood Pressure Position Blood Pressure Position [Right Arm] Pulse Oximetry 95 Oxygen Delivery Method Sepsis Recent Fever Within 48 Hours Sepsis New/Unexplained Change in Mental Status Sepsis Action Taken by Nursing Laboratory Data Result diagrams: 03/01/20 11:52 03/01/20 11:52 Lab Results 03/01/20 03/01/20 03/01/20 Range/Units 11:52 11:52 11:52 WBC 3.72 L (4.8-10.8) K/uL RBC 3.92 L (4.2-5.4) M/uL Hgb 11.8 L (12.0-16.0) g/dL Hct 35.8 L (37-47) % MCV 91.3 (80-100) fL MCH 30.1 (25-34) pg MCHC 33.0 (32-36) g/dL RDW Std Deviation 46.6 H (36.4-46.3) fL RDW Coeff of Nancy 13.9 (11.5-14.5) % Plt Count 70 L (130-400) K/uL MPV 11.3 H (7.4-10.4) fL Immature Gran % (Auto) 0.3 % Neut % (Auto) 43.9 % Lymph % (Auto) 34.1 % Frio % (Auto) 17.7 % Eos % (Auto) 4.0 % Baso % (Auto) 0.0 % Neut # (Auto) 1.63 (1.4-6.5) K/uL Lymph # (Auto) 1.27 (1.2-3.4) K/uL Frio # (Auto) 0.66 H (0.11-0.59) K/uL Eos # (Auto) 0.15 (0-0.5) K/uL Baso # (Auto) 0.00 (0-0.2) K/uL Immature Gran # (Auto) 0.01 (0.00-0.02) K/uL PT 14.5 H (9.0-12.0) Seconds INR 1.4 H (0.9-1.1) APTT 28.8 (21.0-31.0) Seconds PTT Ratio 1.0 Sodium 139 (136-145) mmol/L Potassium 3.2 L (3.5-5.1) mmol/L Chloride 103 (98-107) mmol/L Carbon Dioxide 28 (21-32) mmol/L Anion Gap 8.0 (3-11) BUN 5 L (7-18) mg/dl Creatinine 0.60 (0.6-1.2) mg/dl Est Cr Clr Drug Dosing Not Reportable Est GFR ( Amer) 100.5 Est GFR (Non-Af Amer) 86.7 BUN/Creatinine Ratio 8.7 L (10-20) Glucose 136 H (70-99) mg/dl Calcium 9.3 (8.5-10.1) mg/dl Total Bilirubin 0.6 (0.2-1) mg/dl AST 45 H (15-37) U/L ALT 12 (12-78) U/L Alkaline Phosphatase 210 H (45-117) U/L Troponin I < 0.015 (0-0.045) ng/ml Total Protein 6.6 (6.4-8.2) gm/dl Albumin 2.4 L (3.4-5.0) gm/dl Globulin 4.2 H (2.5-4.0) gm/dl Albumin/Globulin Ratio 0.6 L (0.9-2) Lipase 37 L (73-393) U/L Administered Medications Sodium Chloride (Nss 1000ml) 1,000 mls @ 125 mls/hr IV .Q8H STA Stop: 03/01/20 19:30 Last Infusion: 03/01/20 16:59 Dose: 0 mls/hr Documented by: [id number] Admin: 03/01/20 13:16 Dose: 125 mls/hr Documented by: [id number] Discontinued Medications Al Hydrox/Mg Hydrox/Simethicone (Gi Cocktail Ed Use) Confirm Administered Dose 1 dose PO .STK-MED ONE Stop: 03/01/20 13:33 Last Admin: 03/01/20 13:34 Dose: 1 dose Documented by: [id number] Al Hydrox/Mg Hydrox/Simethicone 18 ml/ Lidocaine HCl 6 ml/ BARCODE IDENTIFIER 1 ea 0 ml PO ONE ONE Stop: 03/01/20 13:24 Last Admin: 03/01/20 13:34 Dose: Not Given Documented by: [id number] Sodium Chloride (Nss) 500 mls @ 999 mls/hr IV .Q31M CARMELINA Stop: 03/01/20 12:15 Last Infusion: 03/01/20 12:30 Dose: 0 mls/hr Documented by: [id number] Admin: 03/01/20 11:56 Dose: 999 mls/hr Documented by: [id number] Pantoprazole Sodium (Pantoprazole 40 Mg Tab) 40 mg PO NOW STA Stop: 03/01/20 13:24 Last Admin: 03/01/20 13:34 Dose: 40 mg Documented by: [id number] Sucralfate (Sucralfate 1 Gm/10 Ml Udc) 1 gm PO NOW STA Stop: 03/01/20 13:24 Last Admin: 03/01/20 13:47 Dose: Not Given Documented by: [id number] Discharge Plan Visit Data Chief Complaint: Dehydration Stated Complaint: DEHYDRATION,CHEST PAIN WITH EATING ED Provider: Krunal Holder Discharge Problem: Nausea & vomiting, Retrosternal chest pain, Acute dehydration Patient Disposition: Admitted As Inpatient Discharge Instructions Interventions: ED Discharge Assessment Last Done: 03/01/20 16:37
[2020-03-01] MEDS ORDERED: SODIUM CHLORIDE 0.9% 500 ML IV SCH (11:45)
[2020-03-01 12:01] LABS: Hematocrit (blood only) 35.8 % (37-47); Hemoglobin 11.8 g/dL (12.0-16.0); Mean Corpuscular Hemoglobin 30.1 pg (25-34); Mean Corpuscular Volume 91.3 fL (80-100); RDW Coefficient of Variation 13.9 % (11.5-14.5); RDW Standard Deviation 46.6 fL (36.4-46.3); Red Blood Count 3.92 M/uL (4.2-5.4); White Blood Count 3.72 K/uL (4.8-10.8)
[2020-03-01 12:06] LABS: Mean Platelet Volume 11.3 fL (7.4-10.4); Platelet Count 70 K/uL (130-400)
[2020-03-01 12:13] LABS: INR 1.4 (0.9-1.1); Partial Thromboplastin Time 28.8 Seconds (21.0-31.0); Prothrombin Time 14.5 Seconds (9.0-12.0)
[2020-03-01 12:22] LABS: Alanine Aminotransferase 12 U/L (12-78); Albumin Level 2.4 gm/dl (3.4-5.0); Aspartate Aminotransferase 45 U/L (15-37); BUN Creatinine Ratio 8.7 (10-20); Blood Urea Nitrogen 5 mg/dl (7-18); Calcium 9.3 mg/dl (8.5-10.1); Carbon Dioxide 28 mmol/L (21-32); Chloride 103 mmol/L (98-107); Est GFR (African American) 100.5; Est GFR (Non-African American) 86.7; Glucose 136 mg/dl (70-99); Lipase 37 U/L (73-393); Potassium 3.2 mmol/L (3.5-5.1); Sodium 139 mmol/L (136-145)
[2020-03-01 12:24] LABS: Eosinophils # (auto) 0.15 K/uL (0-0.5); Immature Granulocytes # (auto) 0.01 K/uL (0.00-0.02); Immature Granulocytes % (auto) 0.3 %; Lymphocytes # (auto) 1.27 K/uL (1.2-3.4); Lymphocytes % (auto) 34.1 %; Monocytes # (auto) 0.66 K/uL (0.11-0.59); Monocytes % (auto) 17.7 %; Neutrophils # (auto) 1.63 K/uL (1.4-6.5); Neutrophils % (auto) 43.9 %
--- NOTE | 2020-03-01 12:25 | XRay Report ---
XR chest 1V portable CLINICAL HISTORY: Atypical chest pain COMPARISON STUDY: No previous studies for comparison. FINDINGS: The cardiac and mediastinal contours are normal. There is no evidence of focal pulmonary co nsolidation. There is no evidence of failure. No pleural effusions are visualized.[ IMPRESSION: No active disease in the chest. ACT 112: Negative or not required by law. Electronically signed by: Timmy Wilson M.D. 03/01/2020 12:24 PM
[2020-03-01 12:28] LABS: Albumin Globulin Ratio 0.6 (0.9-2); Alkaline Phosphatase 210 U/L (45-117); Bilirubin,Total 0.6 mg/dl (0.2-1); Globulin 4.2 gm/dl (2.5-4.0); Total Protein 6.6 gm/dl (6.4-8.2); Troponin I < 0.015 ng/ml (0-0.045)
--- NOTE | 2020-03-01 12:29 | Electrocardiogram Report ---
Test Reason : Blood Pressure : / mmHG Vent. Rate : 070 BPM Atrial Rate : 070 BPM P-R Int : 150 ms QRS Dur : 082 ms QT Int : 434 ms P-R-T Axes : 054 -22 -09 degrees QTc Int : 468 ms Sinus rhythm with Premature atrial complexes Low voltage QRS Septal infarct , age undetermined Abnormal ECG When compared with ECG of 14-DEC-2019 14:10, Septal infarct is now Present Confirmed by Devin Triplett ([id number]) on 03/01/2020 12:29:16 PM Referred By: Alvino Mike Confirmed By:Devin Triplett
[2020-03-01] MEDS ORDERED: SUCRALFATE 1 GM/10 ML UDC PO STA (13:23)
[2020-03-01] MEDS ORDERED: PANTOprazole 40 MG TAB PO STA (13:23)
[2020-03-01] MEDS ORDERED: ALUMINUM/MAGNESIUM SUSP 18 ML, LIDOCAINE HCL VISCOUS 2% 6 ML, BARCODE IDENTIFIER 1 EA PO ONE (13:23)
[2020-03-01] MEDS ORDERED: GI COCKTAIL ED USE PO ONE (13:32)
--- NOTE | 2020-03-01 16:05 | History & Physical Report ---
Date of Service March 01, 2020 Assessment & Plan (1) Odynophagia: started after she had three varices banded on 02/25 pain is in lower esophagus, only happens when she swallows, occurs with both liquids and solids, really bad with trying to take pills pain lasts only a few minutes burping helps relieve the pain will allow full liquid diet, consult Dr. Mike who performed the EGD place on NSS + 20mEq of K at 80cc/hr repeat labs in the morning (2) Acute dehydration: fluids at 80cc/hr should be able to stop tomorrow Cr is at baseline, no RAJENDRA (3) Retrosternal chest pain: (4) Nausea & vomiting: occurs after trying to eat Zofran PRN consult GI (5) Esophageal varices: recently banding now with severe pain (6) Cirrhosis: no signs of decompensation follows with GI (7) Undifferentiated connective tissue disease: (8) Hypokalemia: will add 20mEq to IV fluids History of Present Illness Chief Complaint: it hurts to swallow Primary Care Provider: Tamara Benítez MD 79 yo female with history of cirrhosis with esophageal varices who presented to the ED due to pain in chest associated with drinking or eating. She said she had EGD on 02/[address] Mike, found to have three varices. The varices were banded. The following day she noticed intense chest pain with drinking liquids. The pain would last a few minutes and then subside. She only had the pain when swallowing something. She said that she never had pain in her throat, never had difficulty swallowing. The pain is located retro-sternal. Definitely only gets pain with swallowing, both liquids and solids. Some of her pills are difficult to get down due to their size. She was concerned because she never had pain like this after other EGD's. She said she never wants another EGD if this is the pain she gets. The ED discussed with Dr. Mike, he recommended carafate and protonix. Allergies Allergy/AdvReac Type Severity Reaction Status Date / Time ciprofloxacin [From Cipro] Allergy Severe Hives Verified 03/01/20 12:58 levofloxacin [From Levaquin] Allergy Severe Shortness Verified 03/01/20 12:58 of breath paroxetine Allergy Unknown Diarrhea Verified 03/01/20 12:58 phenytoin Allergy Unknown Unknown Verified 03/01/20 12:58 sulfamethoxazole Allergy Unknown SOB Verified 03/01/20 12:58 [From Bactrim] trimethoprim [From Bactrim] Allergy Unknown SOB Verified 03/01/20 12:58 unknown antibiotic Allergy Severe Browning-Bryon Uncoded 03/01/20 12:58 syndrome - no records available Home Medications Home Medications Medication Instructions Recorded Confirmed Type divalproex 500 mg tablet,delayed 500 mg PO BID #180 tab 06/13/19 03/01/20 Rx release Systane Complete 1 drp OPB TID PRN 12/05/19 03/01/20 History escitalopram oxalate 10 mg PO QAM 12/05/19 03/01/20 History latanoprost 1 drp OPB HS 12/05/19 03/01/20 History blood sugar diagnostic #300 ea 12/18/19 02/03/20 Rx blood-glucose meter #1 ea 12/18/19 02/03/20 Rx lancets 33 gauge #300 ea 12/18/19 02/03/20 Rx lidocaine 5 % topical patch 1 - 2 patch TOP DAILY PRN 12/26/19 03/01/20 History hydroxychloroquine [Plaquenil] 200 mg PO QAM 01/22/20 03/01/20 History magnesium oxide 400 mg PO QAM 01/22/20 03/01/20 History rifaximin 550 mg tablet 550 mg PO BID #60 tab 02/03/20 03/01/20 Rx dicyclomine 10 mg capsule 10 mg PO TID #90 cap 02/24/20 03/01/20 Rx Past Med/Surg History Medical History Adjustment disorder with depressed mood Antibiotic-associated diarrhea (~06/2019) Negative C. Diff test x 1 but good response to oral vancomycin Cardiac murmur "HEARD AT TIMES" Chronic back pain Cirrhosis CRYPTOGENIC Diabetes type 2, controlled Discoid lupus erythematosus F/U DR SALCEDO Esophageal varices GERD (gastroesophageal reflux disease) Glaucoma Gout Hearing difficulty Kidney stone Osteoarthritis Pelvic fracture 12/14/19-WHEELCHAIR BOUND-70% WT BEARING AT PRESENT Seizure LAST ONE MORE THAN 10 YRS AGO-F/U PCP Sjogren's disease Thrombocytopenia Undifferentiated connective tissue disease Surgical History H/O: hysterectomy (~1984) History of colonoscopy History of esophagogastroduodenoscopy (EGD) History of esophagogastroduodenoscopy (EGD) with banding of esophageal varices History of liver biopsy Hx of cholecystectomy (~1983) S/P tooth extraction Family History Grandfather Diabetes Mother Hypertension Gallbladder disease Grandmother No problems noted. Father Pancreatic cancer Brother Alcohol abuse Denies family history of Ovarian cancer Prostate cancer Alzheimer disease Heart disease Myocardial infarction Breast cancer Lung cancer Colorectal cancer Stroke Social History Smoking Status: Never smoker Second Hand Exposure: Yes (as a child); Hx Alcohol Use: No Hx Substance Use: No Preferred Language: Azerbaijani Communication Ability: Effective Visual Impairment: Limited Hearing Ability: Use of Hearing Aid Machine Sewer Required: No Beliefs That Will Affect Care: None marital status: / Current Living Situation: Alone Current Living Situation Comment: [place] current occupational status: retired Other Information That Helps Us Care for You: No Feels Safe at Home: Yes Safety Concerns: Feels Safe At This Time Childhood Exposure to Second-Hand Smoke: Yes caffeine: Yes Dental Care, Regularly: Yes Physical Activity Frequency: 1-2 Times per Week Seatbelt Use: always Sunscreen Use: No Review of Systems Review of Systems: All systems reviewed & are unremarkable except as noted in HPI & below Physical Exam Constitutional: WD/WN, vitals as above Eyes: PERRL, conjunctivae normal, anicteric sclerae ENMT: external ear and nose normal, oropharynx normal Neck: trachea midline, no thyromegaly Respiratory: normal respiratory effort, lungs clear to auscultation Cardiovascular: RRR, no murmur, no edema Gastrointestinal (Abdomen): normal bowel sounds, soft, nontender, no hepatosplenomegaly Musculoskeletal: no cyanosis or clubbing, extremities motor strength 5/5 Skin: no rashes, warm and dry Neurologic: patellar DTR's 2+ bilat, sensation intact and PERRL, EOMI, acco mmodation nl, no face palsy, no dysarthria Psychiatric: A+Ox3, euthymic affect Lymphatic: no cervical or axillary lymphadenopathy Results & Data Results & Data ([facility]) Vital Signs (Past 12 Hours) Vital Signs Temp Pulse Pulse Resp BP BP Pulse Ox 03/01/20 15:31 68 13 03/01/20 15:30 68 20 155/71 H 03/01/20 15:01 73 15 135/73 95 03/01/20 15:00 71 13 94 03/01/20 14:31 69 18 97 03/01/20 14:30 68 14 141/106 H 95 03/01/20 14:01 65 15 98 03/01/20 14:00 69 16 140/84 98 03/01/20 13:48 70 72 16 151/102 H 151/102 H 98 03/01/20 13:31 63 15 03/01/20 13:30 61 14 144/73 H 03/01/20 13:14 65 20 03/01/20 13:13 65 19 125/67 03/01/20 13:00 65 16 03/01/20 12:30 68 14 03/01/20 12:24 66 15 03/01/20 11:15 36.6 C 73 20 107/63 96 Laboratory Results Laboratory Results - last 24 hr 03/01/20 03/01/20 03/01/20 11:52 11:52 11:52 WBC 3.72 L RBC 3.92 L Hgb 11.8 L Hct 35.8 L MCV 91.3 MCH 30.1 MCHC 33.0 RDW Std Deviation 46.6 H RDW Coeff of Nancy 13.9 Plt Count 70 L MPV 11.3 H Immature Gran % (Auto) 0.3 Neut % (Auto) 43.9 Lymph % (Auto) 34.1 [place] % (Auto) 17.7 Eos % (Auto) 4.0 Baso % (Auto) 0.0 Neut # (Auto) 1.63 Lymph # (Auto) 1.27 [place] # (Auto) 0.66 H Eos # (Auto) 0.15 Baso # (Auto) 0.00 Immature Gran # (Auto) 0.01 PT 14.5 H INR 1.4 H APTT 28.8 PTT Ratio 1.0 Sodium 139 Potassium 3.2 L Chloride 103 Carbon Dioxide 28 Anion Gap 8.0 BUN 5 L Creatinine 0.60 Est Cr Clr Drug Dosing Not Reportable Est GFR ( Amer) 100.5 Est GFR (Non-Af Amer) 86.7 BUN/Creatinine Ratio 8.7 L Glucose 136 H POC Glucose Calcium 9.3 Total Bilirubin 0.6 AST 45 H ALT 12 Alkaline Phosphatase 210 H Troponin I < 0.015 Total Protein 6.6 Albumin 2.4 L Globulin 4.2 H Albumin/Globulin Ratio 0.6 L Lipase 37 L 03/01/20 03/01/20 17:24 20:44 WBC RBC Hgb Hct MCV MCH MCHC RDW Std Deviation RDW Coeff of Nancy Plt Count MPV Immature Gran % (Auto) Neut % (Auto) Lymph % (Auto) [place] % (Auto) Eos % (Auto) Baso % (Auto) Neut # (Auto) Lymph # (Auto) [place] # (Auto) Eos # (Auto) Baso # (Auto) Immature Gran # (Auto) PT INR APTT PTT Ratio Sodium Potassium Chloride Carbon Dioxide Anion Gap BUN Creatinine Est Cr Clr Drug Dosing Est GFR ( Amer) Est GFR (Non-Af Amer) BUN/Creatinine Ratio Glucose POC Glucose 87 184 H Calcium Total Bilirubin AST ALT Alkaline Phosphatase Troponin I Total Protein Albumin Globulin Albumin/Globulin Ratio Lipase Diagnostic Findings XR chest 1V portable CLINICAL HISTORY: Atypical chest pain COMPARISON STUDY: No previous studies for comparison. FINDINGS: The cardiac and mediastinal contours are normal. There is no evidence of focal pulmonary consolidation. There is no evidence of failure. No pleural effusions are visualized.[ IMPRESSION: No active disease in the chest. Code Status & VTE Plan VTE Prophylaxis Plan VTE Prophylaxis will be ordered: Yes PG Care Time/CCT Total # of Minutes Spent Total Time Spent with Patient: Total time spent is greater than 50% in coordination of care (as documented) at patient's floor/unit and/or counseling patient: Coding Level of Care Code 48238 OBS Care - Level 3 Diagnoses Odynophagia R13.10 Acute dehydration E86.0 Retrosternal chest pain R07.2 Nausea & vomiting R11.2 Esophageal varices I85.00 Cirrhosis K74.60 Undifferentiated connective tissue disease M35.9 Hypokalemia E87.6
[2020-03-01] MEDS ORDERED: ACETAMINOPHEN 325 MG TAB PO PRN (17:12)
[2020-03-01] MEDS ORDERED: ARTIFICIAL TEARS OP PRN (17:12)
[2020-03-01] MEDS ORDERED: ONDANSETRON INJ 2 MG/ML 2 ML VIAL IV PRN (17:12)
[2020-03-01] MEDS: SUCRALFATE 1 GM/10 ML UDC PO SCH ×2 (18:15→20:48)
[2020-03-01] MEDS: NSS + 20MEQ KCL 20 MEQ/1,000 ML BAG IV SCH (18:15)
[2020-03-01] MEDS: HEPARIN SOD 5,000 UNIT/0.5 ML VIAL SQ SCH (20:47)
[2020-03-01] MEDS: DIVALPROEX DELAY RELEASE 500 MG TAB PO SCH (20:47)
[2020-03-01] MEDS: LATANOPROST 0.005% OP SOLN 2.5 ML BTL OPB SCH (20:47)
[2020-03-01] MEDS: RIFAXIMIN 550 MG TABLET PO SCH (20:48)
[2020-03-02] MEDS: NSS + 20MEQ KCL 20 MEQ/1,000 ML BAG IV SCH (05:47)
[2020-03-02] MEDS: HEPARIN SOD 5,000 UNIT/0.5 ML VIAL SQ SCH ×3 (05:48→20:22)
[2020-03-02 06:31] LABS: Hematocrit (blood only) 31.8 % (37-47); Hemoglobin 10.6 g/dL (12.0-16.0); Mean Corpuscular Hemoglobin 30.5 pg (25-34); Mean Corpuscular Hgb Conc 33.3 g/dL (32-36); Mean Corpuscular Volume 91.6 fL (80-100); RDW Standard Deviation 46.9 fL (36.4-46.3); Red Blood Count 3.47 M/uL (4.2-5.4); White Blood Count 3.62 K/uL (4.8-10.8)
[2020-03-02 06:35] LABS: Mean Platelet Volume 10.6 fL (7.4-10.4); Platelet Count 59 K/uL (130-400)
[2020-03-02 07:14] LABS: Alanine Aminotransferase 9 U/L (12-78); Albumin Globulin Ratio 0.6 (0.9-2); Albumin Level 2.1 gm/dl (3.4-5.0); Alkaline Phosphatase 182 U/L (45-117); Aspartate Aminotransferase 32 U/L (15-37); Bilirubin,Total 0.7 mg/dl (0.2-1); Blood Urea Nitrogen 4 mg/dl (7-18); Calcium 7.9 mg/dl (8.5-10.1); Carbon Dioxide 28 mmol/L (21-32); Chloride 108 mmol/L (98-107); Est GFR (African American) 108.1; Est GFR (Non-African American) 93.3; Globulin 3.6 gm/dl (2.5-4.0); Glucose 79 mg/dl (70-99); Potassium 3.5 mmol/L (3.5-5.1); Sodium 141 mmol/L (136-145); Total Protein 5.7 gm/dl (6.4-8.2)
[2020-03-02] MEDS: SUCRALFATE 1 GM/10 ML UDC PO SCH ×4 (09:10→20:21)
[2020-03-02] MEDS: DIVALPROEX DELAY RELEASE 500 MG TAB PO SCH ×2 (09:10→20:21)
[2020-03-02] MEDS: ESCITALOPRAM OXALATE 10 MG TAB PO SCH (09:10)
[2020-03-02] MEDS: RIFAXIMIN 550 MG TABLET PO SCH ×2 (09:10→20:22)
--- NOTE | 2020-03-02 09:35 | Gastrointestinal Consultation ---
Date of Consultation March 02, 2020 Assessment & Plan (1) Odynophagia: (2) Cirrhosis: (3) Esophageal varices: Painful swallowing in the setting of recent large esophageal variceal banding. Symptoms have improved with addition of Carafate. 1. Continue Pantoprazole 40 mg daily. 2. Continue Carafate 1 g suspension ACHS x 10 days. 3. Diet advancement to soft diet as tolerated. 4. Continue supportive care. Supervising Physician Co-Signing Physician Notes I personally evaluated the patient and agree with the findings as documented by CAROLYN Angel Exam: abd: soft, nt, nd improving on carafate and PPI. continue these treatments, encouraged her to have small meals and chew food thoroughly. History of Present Illness Reason for Consultation: Odynophagia Requesting Physician: Dr. Ruiz Attending Physician: Zeke Ruiz DO History of Present Illness Patient is a 79 year-old female with a history of cryptogenic cirrhosis admitted with new onset of odynophagia and chest pain which began after recent EGD with variceal banding of large esophageal varices on 02/26/[address] Mike. She states that since admission, the symptoms have improved, especially after administration of the Carafate in the ER. Tolerating a full liquid diet but reports persistent pain with swallowing of medications. She denies any n/v or hematemesis. No melena. No abdominal pain. She remains on Pantoprazole 40 mg daily. Allergies Allergy/AdvReac Type Severity Reaction Status Date / Time ciprofloxacin [From Cipro] Allergy Severe Hives Verified 03/01/20 12:58 levofloxacin [From Levaquin] Allergy Severe Shortness Verified 03/01/20 12:58 of breath paroxetine Allergy Unknown Diarrhea Verified 03/01/20 12:58 phenytoin Allergy Unknown Unknown Verified 03/01/20 12:58 sulfamethoxazole Allergy Unknown SOB Verified 03/01/20 12:58 [From Bactrim] trimethoprim [From Bactrim] Allergy Unknown SOB Verified 03/01/20 12:58 unknown antibiotic Allergy Severe Browning-Bryon Uncoded 03/01/20 12:58 syndrome - no records available Home Medications Home Medications Medication Instructions Recorded Confirmed Type divalproex 500 mg tablet,delayed 500 mg PO BID #180 tab 06/13/19 03/01/20 Rx release Systane Complete 1 drp OPB TID PRN 12/05/19 03/01/20 History escitalopram oxalate 10 mg PO QAM 12/05/19 03/01/20 History latanoprost 1 drp OPB HS 12/05/19 03/01/20 History blood sugar diagnostic #300 ea 12/18/19 02/03/20 Rx blood-glucose meter #1 ea 12/18/19 02/03/20 Rx lancets 33 gauge #300 ea 12/18/19 02/03/20 Rx lidocaine 5 % topical patch 1 - 2 patch TOP DAILY PRN 12/26/19 03/01/20 History hydroxychloroquine [Plaquenil] 200 mg PO QAM 01/22/20 03/01/20 History magnesium oxide 400 mg PO QAM 01/22/20 03/01/20 History rifaximin 550 mg tablet 550 mg PO BID #60 tab 02/03/20 03/01/20 Rx dicyclomine 10 mg capsule 10 mg PO TID #90 cap 02/24/20 03/01/20 Rx pantoprazole 40 mg PO DAILY #30 tab 03/02/20 Rx sucralfate 1 g PO QID 10 Days #400 ml 03/02/20 Rx Patient History Medical History Adjustment disorder with depressed mood Antibiotic-associated diarrhea (~06/2019) Negative C. Diff test x 1 but good response to oral vancomycin Cardiac murmur "HEARD AT TIMES" Chronic back pain Cirrhosis CRYPTOGENIC Diabetes type 2, controlled Discoid lupus erythematosus F/U DR SALCEDO Esophageal varices GERD (gastroesophageal reflux disease) Glaucoma Gout Hearing difficulty Kidney stone Osteoarthritis Pelvic fracture 12/14/19-WHEELCHAIR BOUND-70% WT BEARING AT PRESENT Seizure LAST ONE MORE THAN 10 YRS AGO-F/U PCP Sjogren's disease Thrombocytopenia Undifferentiated connective tissue disease Surgical History H/O: hysterectomy (~1984) History of colonoscopy History of esophagogastroduodenoscopy (EGD) History of esophagogastroduodenoscopy (EGD) with banding of esophageal varices History of liver biopsy Hx of cholecystectomy (~1983) S/P tooth extraction Family History Grandfather Diabetes Mother Hypertension Gallbladder disease Grandmother No problems noted. Father Pancreatic cancer Brother Alcohol abuse Denies family history of Ovarian cancer Prostate cancer Alzheimer disease Heart disease Myocardial infarction Breast cancer Lung cancer Colorectal cancer Stroke Social History Smoking Status: Never smoker Second Hand Exposure: Yes (as a child); Hx Alcohol Use: No Hx Substance Use: No Preferred Language: Gibraltarian Communication Ability: Effective Visual Impairment: Limited Hearing Ability: Use of Hearing Aid Hatch Supervisor Required: No Beliefs That Will Affect Care: None marital status: / Current Living Situation: Alone Current Living Situation Comment: [place] current occupational status: retired Other Information That Helps Us Care for You: No Feels Safe at Home: Yes Safety Concerns: Feels Safe At This Time Childhood Exposure to Second-Hand Smoke: Yes caffeine: Yes Dental Care, Regularly: Yes Physical Activity Frequency: 1-2 Times per Week Seatbelt Use: always Sunscreen Use: No Review of Systems Constitutional: no fever and no chills Eyes: no problem reported Ear, Nose, Mouth, Throat: as per Subjective / HPI Respiratory: no cough and no dyspnea Cardiovascular: no chest pain and no palpitations Gastrointestinal: as per Subjective / HPI Genitourinary: no problem reported Musculoskeletal: no problem reported Integumentary: no problem reported Neurologic: no problem reported Psychiatric: no problem reported Endocrine: no problem reported Hematologic / Lymphatic: no problem reported Physical Exam Constitutional: WD/WN, vitals as above well developed and well nourished Eyes: EOM intact bilaterally ENMT: Ears: + hearing impairment Neck: normal visual inspection Respiratory: normal respiratory effort, lungs clear to auscultation Cardiovascular: RRR, no murmur, no edema Gastrointestinal (Abdomen): normal bowel sounds, soft, nontender, no hepatosplenomegaly Musculoskeletal: Extremities: extremities normal to inspection Skin: no rashes, warm and dry Psychiatric: A+Ox3, euthymic affect Results & Data ([facility]) Vital Signs (Past 12 Hours) Vital Signs Temp Pulse Resp BP Pulse Ox 03/02/20 07:18 36.9 C 66 16 133/73 94 03/01/20 23:30 36.8 C 70 16 137/66 95 Laboratory Results Abnormal lab results 03/01/20 03/01/20 03/01/20 Range/Units 11:52 11:52 11:52 WBC 3.72 L (4.8-10.8) K/uL RBC 3.92 L (4.2-5.4) M/uL Hgb 11.8 L (12.0-16.0) g/dL Hct 35.8 L (37-47) % RDW Std Deviation 46.6 H (36.4-46.3) fL Plt Count 70 L (130-400) K/uL MPV 11.3 H (7.4-10.4) fL Haakon # (Auto) 0.66 H (0.11-0.59) K/uL PT 14.5 H (9.0-12.0) Seconds INR 1.4 H (0.9-1.1) Potassium 3.2 L (3.5-5.1) mmol/L Chloride (98-107) mmol/L BUN 5 L (7-18) mg/dl Creatinine (0.6-1.2) mg/dl BUN/Creatinine Ratio 8.7 L (10-20) Glucose 136 H (70-99) mg/dl POC Glucose (70-99) mg/dl Calcium (8.5-10.1) mg/dl AST 45 H (15-37) U/L ALT (12-78) U/L Alkaline Phosphatase 210 H (45-117) U/L Total Protein (6.4-8.2) gm/dl Albumin 2.4 L (3.4-5.0) gm/dl Globulin 4.2 H (2.5-4.0) gm/dl Albumin/Globulin Ratio 0.6 L (0.9-2) Lipase 37 L (73-393) U/L 03/01/20 03/02/20 03/02/20 Range/Units 20:44 06:01 06:01 WBC 3.62 L (4.8-10.8) K/uL RBC 3.47 L (4.2-5.4) M/uL Hgb 10.6 L (12.0-16.0) g/dL Hct 31.8 L (37-47) % RDW Std Deviation 46.9 H (36.4-46.3) fL Plt Count 59 L (130-400) K/uL MPV 10.6 H (7.4-10.4) fL Haakon # (Auto) (0.11-0.59) K/uL PT (9.0-12.0) Seconds INR (0.9-1.1) Potassium (3.5-5.1) mmol/L Chloride 108 H (98-107) mmol/L BUN 4 L (7-18) mg/dl Creatinine 0.48 L (0.6-1.2) mg/dl BUN/Creatinine Ratio 9.0 L (10-20) Glucose (70-99) mg/dl POC Glucose 184 H (70-99) mg/dl Calcium 7.9 L D (8.5-10.1) mg/dl AST (15-37) U/L ALT 9 L (12-78) U/L Alkaline Phosphatase 182 H (45-117) U/L Total Protein 5.7 L (6.4-8.2) gm/dl Albumin 2.1 L (3.4-5.0) gm/dl Globulin (2.5-4.0) gm/dl Albumin/Globulin Ratio 0.6 L (0.9-2) Lipase (73-393) U/L PG Care Time/CCT Total # of Minutes Spent Total Time Spent with Patient: Total time spent is greater than 50% in coordination of care (as documented) at patient's floor/unit and/or counseling patient: Coding Level of Care Code 71902 Initial Inpt Care Lvl 3 Diagnoses Odynophagia R13.10 Cirrhosis K74.60 Esophageal varices I85.00
[2020-03-02] MEDS: PANTOprazole 40 MG in SYRINGE 0 ML IV SCH (11:47)
[2020-03-02] MEDS: MAGNESIUM SULFATE / D5W 1 GM/100 ML BAG IV SCH ×2 (13:35→15:48)
--- NOTE | 2020-03-02 13:52 | Hospitalist Progress Note ---
Date of Service March 02, 2020 Assessment & Plan (1) Odynophagia: started after she had three varices banded on 02/25 pain is in lower esophagus, only happens when she swallows, occurs with both liquids and solids, really bad with trying to take pills pain lasts only a few minutes burping helps relieve the pain relief with carafate and protonix advance to regular likely home tomorrow (2) Acute dehydration: fluids at 80cc/hr will stop today as intake is better Cr is at baseline, no RAJENDRA (3) Retrosternal chest pain: (4) Nausea & vomiting: occurs after trying to eat Zofran PRN consult GI resolved today (5) Esophageal varices: recently banding now with severe pain (6) Cirrhosis: no signs of decompensation follows with GI (7) Undifferentiated connective tissue disease: (8) Hypokalemia: resolved today, stop K in fluids (9) Hypomagnesemia: 1.5 today despite taking Mag Oxide 400mg at home will give 2gm IV today repeat tomorrow Admission and Anticipated Discharge Date Admission Date: March 01, 2020 Subjective patient doing better with Carafate for her pain tolerating liquids, did okay with some solid food spoke with her daughter over the phone, the patient has not been eating well for some time it is a constant struggle, they have tried supplements but patient unwilling to drink them daughter asked to check a magnesium as it tends to be low, it was 1.5, will give 2gm IV replacement patient will continue to try to improve oral intake check labs in AM, likely home tomorrow morning Review of Systems Review of Systems: All systems reviewed & are unremarkable except as noted in Subjective Physical Exam Constitutional: WD/WN, vitals as above Eyes: PERRL, conjunctivae normal, anicteric sclerae ENMT: external ear and nose normal, oropharynx normal Neck: trachea midline, no thyromegaly Respiratory: normal respiratory effort, lungs clear to auscultation Cardiovascular: RRR, no murmur, no edema Gastrointestinal (Abdomen): normal bowel sounds, soft, nontender, no hepatosplenomegaly Musculoskeletal: no cyanosis or clubbing, extremities motor strength 5/5 Skin: no rashes, warm and dry Neurologic: patellar DTR's 2+ bilat, sensation intact and PERRL, EOMI, accommodation nl, no face palsy, no dysarthria Psychiatric: A+Ox3, euthymic affect Lymphatic: no cervical or axillary lymphadenopathy Results & Data Results & Data ([facility]) Vital Signs (Past 12 Hours) Vital Signs Temp Pulse Resp BP Pulse Ox 03/02/20 07:18 36.9 C 66 16 133/73 94 Laboratory Results Laboratory Results - last 24 hr 03/01/20 03/01/20 03/02/20 17:24 20:44 06:01 WBC 3.62 L RBC 3.47 L Hgb 10.6 L Hct 31.8 L MCV 91.6 MCH 30.5 MCHC 33.3 RDW Std Deviation 46.9 H RDW Coeff of Nancy 14.0 Plt Count 59 L MPV 10.6 H Sodium Potassium Chloride Carbon Dioxide Anion Gap BUN Creatinine Est Cr Clr Drug Dosing Est GFR ( Amer) Est GFR (Non-Af Amer) BUN/Creatinine Ratio Glucose POC Glucose 87 184 H Calcium Magnesium Total Bilirubin AST ALT Alkaline Phosphatase Total Protein Albumin Globulin Albumin/Globulin Ratio 03/02/20 03/02/20 06:01 06:01 WBC RBC Hgb Hct MCV MCH MCHC RDW Std Deviation RDW Coeff of Nancy Plt Count MPV Sodium 141 Potassium 3.5 Chloride 108 H Carbon Dioxide 28 Anion Gap 5.0 BUN 4 L Creatinine 0.48 L Est Cr Clr Drug Dosing Not Reportable Est GFR ( Amer) 108.1 Est GFR (Non-Af Amer) 93.3 BUN/Creatinine Ratio 9.0 L Glucose 79 POC Glucose Calcium 7.9 L D Magnesium 1.5 L Total Bilirubin 0.7 AST 32 ALT 9 L Alkaline Phosphatase 182 H Total Protein 5.7 L Albumin 2.1 L Globulin 3.6 Albumin/Globulin Ratio 0.6 L Medications Administered Current Inpatient Medications Acetaminophen (Acetaminophen 325 Mg Tab) 650 mg PO Q4H PRN PRN Reason: pain/fever Stop: 03/31/20 17:11 Artificial Tears (Artificial Tears) 1 drops OP TID PRN PRN Reason: Dry Eyes Stop: 03/31/20 17:11 Divalproex Sodium (Divalproex Delay Release 500 Mg Tab) 500 mg PO BID CARMELINA Stop: 03/31/20 20:59 Last Admin: 03/02/20 09:10 Dose: 500 mg Documented by: Escitalopram Oxalate (Escitalopram Oxalate 10 Mg Tab) 10 mg PO QAM CARMELINA Stop: 04/01/20 08:59 Last Admin: 03/02/20 09:10 Dose: 10 mg Documented by: Heparin Sodium (Porcine) (Heparin Sod 5,000 Unit/0.5 Ml Vial) 5,000 units SQ Q8 [facility] Stop: 03/31/20 21:59 Last Admin: 03/02/20 13:35 Dose: Not Given Documented by: Pantoprazole Sodium 40 mg/ (Syringe) 10 mls @ 5 mls/min IV DAILY@1100 [facility] Stop: 04/01/20 10:59 Last Admin: 03/02/20 11:47 Dose: 5 mls/min Documented by: Magnesium Sulfate/Dextrose (Magnesium Sulfate / D5w) 1 gm in 100 mls @ 50 mls/hr IV Q2H [facility] Stop: 03/02/20 17:29 Last Admin: 03/02/20 13:35 Dose: 50 mls/hr Documented by: Latanoprost (Latanoprost 0.005% Op Soln 2.5 Ml Btl) 1 drops OPB HS [facility] Stop: 03/31/20 20:59 Last Admin: 03/01/20 20:47 Dose: 1 drops Documented by: Ondansetron HCl (Ondansetron Inj 2 Mg/Ml 2 Ml Vial) 4 mg IV Q6H PRN PRN Reason: Nausea Stop: 03/31/20 17:11 Rifaximin (Rifaximin 550 Mg Tablet) 550 mg PO BID [facility] Stop: 03/31/20 20:59 Last Admin: 03/02/20 09:10 Dose: 550 mg Documented by: Sucralfate (Sucralfate 1 Gm/10 Ml Udc) 1 gm PO QID [facility] Stop: 03/31/20 17:59 Last Admin: 03/02/20 13:12 Dose: 1 gm Documented by: PG Care Time/CCT Total # of Minutes Spent Total Time Spent with Patient: Total time spent is greater than 50% in coordination of care (as documented) at patient's floor/unit and/or counseling patient: Coding Level of Care Code 12336 Subseq Obs Care Lvl 3 Diagnoses Odynophagia R13.10 Acute dehydration E86.0 Retrosternal chest pain R07.2 Nausea & vomiting R11.2 Esophageal varices I85.00 Cirrhosis K74.60 Undifferentiated connective tissue disease M35.9 Hypokalemia E87.6 Hypomagnesemia E83.42
[2020-03-02] MEDS: LATANOPROST 0.005% OP SOLN 2.5 ML BTL OPB SCH (20:22)
[2020-03-03] MEDS: HEPARIN SOD 5,000 UNIT/0.5 ML VIAL SQ SCH ×2 (00:59→15:03)
[2020-03-03 07:25] LABS: BUN Creatinine Ratio 5.3 (10-20); Blood Urea Nitrogen 3 mg/dl (7-18); Calcium 8.2 mg/dl (8.5-10.1); Carbon Dioxide 26 mmol/L (21-32); Chloride 107 mmol/L (98-107); Est GFR (African American) 107.4; Est GFR (Non-African American) 92.7; Glucose 80 mg/dl (70-99); Magnesium 1.5 mg/dl (1.8-2.4); Potassium 3.5 mmol/L (3.5-5.1); Sodium 139 mmol/L (136-145)
[2020-03-03] MEDS: MAGNESIUM SULFATE / D5W 1 GM/100 ML BAG IV SCH ×3 (08:13→13:19)
[2020-03-03] MEDS: RIFAXIMIN 550 MG TABLET PO SCH (08:18)
[2020-03-03] MEDS: SUCRALFATE 1 GM/10 ML UDC PO SCH ×2 (08:18→13:19)
[2020-03-03] MEDS: DIVALPROEX DELAY RELEASE 500 MG TAB PO SCH (08:18)
[2020-03-03] MEDS: ESCITALOPRAM OXALATE 10 MG TAB PO SCH (08:20)
[2020-03-03] MEDS: PANTOprazole 40 MG in SYRINGE 0 ML IV SCH (10:59)
--- NOTE | 2020-03-03 14:33 | Discharge Summary ---
Date of Service March 03, 2020 Admission HPI Per Admitting Provider 79 yo female with history of cirrhosis with esophageal varices who presented to the ED due to pain in chest associated with drinking or eating. She said she had EGD on 02/[address] Mike, found to have three varices. The varices were banded. The following day she noticed intense chest pain with drinking liquids. The pain would last a few minutes and then subside. She only had the pain when swallowing something. She said that she never had pain in her throat, never had difficulty swallowing. The pain is located retro-sternal. Definitely only gets pain with swallowing, both liquids and solids. Some of her pills are difficult to get down due to their size. She was concerned because she never had pain like this after other EGD's. She said she never wants another EGD if this is the pain she gets. The ED discussed with Dr. Mike, he recommended carafate and protonix. Principal Diagnosis Odynophagia after banding of esophageal varices Discharge Exam Constitutional WD/WN, vitals as above Eyes PERRL, conjunctivae normal, anicteric sclerae ENMT external ear and nose normal, oropharynx normal Neck trachea midline, no thyromegaly Respiratory normal respiratory effort, lungs clear to auscultation Cardiovascular RRR, no murmur, no edema Gastrointestinal (Abdomen) normal bowel sounds, soft, nontender, no hepatosplenomegaly Musculoskeletal no cyanosis or clubbing, extremities motor strength 5/5 Skin no rashes, warm and dry Neurologic patellar DTR's 2+ bilat, sensation intact and PERRL, EOMI, accommodation nl, no face palsy, no dysarthria Psychiatric A+Ox3, euthymic affect Lymphatic no cervical or axillary lymphadenopathy Discharge Data Allergies Allergy/AdvReac Type Severity Reaction Status Date / Time ciprofloxacin [From Cipro] Allergy Severe Hives Verified 03/01/20 12:58 levofloxacin [From Levaquin] Allergy Severe Shortness Verified 03/01/20 12:58 of breath paroxetine Allergy Unknown Diarrhea Verified 03/01/20 12:58 phenytoin Allergy Unknown Unknown Verified 03/01/20 12:58 sulfamethoxazole Allergy Unknown SOB Verified 03/01/20 12:58 [From Bactrim] trimethoprim [From Bactrim] Allergy Unknown SOB Verified 03/01/20 12:58 unknown antibiotic Allergy Severe Browning-Bryon Uncoded 03/01/20 12:58 syndrome - no records available Consultations 03/01/20 14:04 ED Decision to Admit Stat 03/01/20 17:12 Consult Case Management - Discharge Planning Routine Consult Gastroenterology Routine Hospital Course (1) Odynophagia: started after she had three varices banded on 02/25 pain is in lower esophagus, only happens when she swallows, occurs with both liquids and solids, really bad with trying to take pills pain lasts only a few minutes burping helps relieve the pain relief with carafate and protonix advance diet to regular tolerating her diet although she does not eat much, this is normal for her, family always encouraging her to eat more discharge home on Carafate x 10 days, Protonix follow up with PCP (2) Acute dehydration: fluids at 80cc/hr stopped after one day as intake was better Cr is at baseline, no RAJENDRA (3) Retrosternal chest pain: due to esophageal pain resolved with Carafate no concerns that this is cardiac, only occurred after eating, sharp pain (4) Nausea & vomiting: occurs after trying to eat Zofran PRN consult GI resolved today (5) Esophageal varices: recently banding now with severe pain but resolved with carafate (6) Cirrhosis: no signs of decompensation follows with GI (7) Undifferentiated connective tissue disease: (8) Hypokalemia: resolved today, stop K in fluids (9) Hypomagnesemia: 1.5 on 03/02 and 03/03 despite IV replacement gave her additional 3gm IV on day of discharge will change her to Slo Mag from Mag Oxide to see if she gets better absorption Total Time Total Time Spent Total Time Spent (In Minutes): 32 minutes Total Time Includes: Examination of the Patient, Discharge Planning, Medication Reconciliation and Communication With Other Providers Discharge Plan Discharge Items Patient Disposition: Home - Self-Care Reason For Visit: DYSPHAGIA Discharge Diagnosis: Odynophagia (painful swallowing) Esophageal varices, banded, causing pain Condition on Discharge: Good Activity: Resume your previous activity Non-emergency contact: Primary Care Provider and Paramedical Aide Call non-emergency contact if: you have any medication questions, your symptoms worsen, your pain is not controlled and you have a fever Follow-up/Referrals: Tamara Benítez MD [Primary Care Provider] - 03/09/20 2:00 pm (one week) Diet: Regular Addtl Attending Provider Instructions: Medications: - CARAFATE: take four times a day prior to meals and evening, this is for pain in the chest due to esophagus pain, take for 10 days - PROTONIX: 40mg daily, take for a month - SLO MAG: replaces magnesium oxide as this might be better absorbed to help maintain magnesium Odynophagia (painful swallowing): due to banding of esophageal varices relieved with carafate and Protonix follow up with PCP in a week Low magnesium: replaced IV while you were here change to Slo Mag to see if you have better absorption Poor nutrition, intake try to continue to eat more, focus on food rich in protein, try to drink supplements if you cannot eat enough protein Pending Studies at Discharge: No Stand-Alone Forms: My [facility] [employer], Smoking Cessation Medications and DC Order Prescriptions: New sucralfate 100 mg/mL Suspension 1 g PO QID 10 Days Qty: 400 RF: 0 pantoprazole 40 mg tablet,delayed release (DR/EC) 40 mg PO DAILY Qty: 30 RF: 0 Slow-Mag 71.5 mg tablet,delayed release (DR/EC) 71.5 mg PO DAILY Qty: 30 RF: 3 Continued divalproex [Depakote] 500 mg tablet,delayed release (DR/EC) 500 mg PO BID Qty: 180 RF: 3 (DME) blood sugar diagnostic [OneTouch Ultra Blue Test Strip] Strip See Rx Instructions .ROUTE .MEDSUPPLY Qty: 300 RF: 3 (DME) lancets [OneTouch Delica Lancets] 33 gauge misc See Rx Instructions .ROUTE .MEDSUPPLY Qty: 300 RF: 3 (DME) blood-glucose meter [OneTouch Ultra2 Meter] Kit See Rx Instructions .ROUTE .MEDSUPPLY Qty: 1 RF: 1 dicyclomine 10 mg capsule 10 mg PO TID Qty: 90 RF: 2 lidocaine 5 % adhesive patch,medicated 1 - 2 patch TOP DAILY PRN (Reason: Pain) RF: 0 rifaximin 550 mg tablet 550 mg PO BID Qty: 60 RF: 2 escitalopram oxalate 20 mg tablet 10 mg PO QAM RF: 0 Systane Complete 0.6 % Drops 1 drp OPB TID PRN (Reason: Dry Eyes) RF: 0 latanoprost 0.005 % drops 1 drp OPB HS RF: 0 hydroxychloroquine [Plaquenil] 200 mg tablet 200 mg PO QAM RF: 0 Discontinued magnesium oxide 400 mg magnesium Capsule 400 mg PO QAM RF: 0 Discharge Orders: Discharge Order (Routine); Ordered 03/03/20 Ordered By: Zeke Ruiz Admission Data Admit Date/Time: 03/01/20 15:56 Attending Provider: Zeke Ruiz Admit Provider: Zeke Ruiz Primary Care Provider: Tamara Benítez Other Providers: Dean Pedro ; Alvino Mike Other Interventions: Discharge Summary Assessment (RN) Last Done: 03/03/20 14:17 Coding Level of Care Code 87264 OBS Care - Discharge Diagnoses Odynophagia R13.10 Acute dehydration E86.0 Retrosternal chest pain R07.2 Nausea & vomiting R11.2 Esophageal varices I85.00 Cirrhosis K74.60 Undifferentiated connective tissue disease M35.9 Hypokalemia E87.6 Hypomagnesemia E83.42
== END 2020-03-03 15:47 | disposition home or self-care (01) ==
LOC: 3W 11:13 → ED 11:13 → 3W 16:37

== ENCOUNTER 2020-03-05 22:16 | Observation (INO) ==
--- NOTE | 2020-03-05 22:57 | Emergency Department Note ---
History of Present Illness General Chief complaint: Confusion Stated complaint: CONFUSION, WEAKNESS Time Seen by Provider: 03/05/20 22:38 Source: patient and family (Daughter) History of Present Illness Provider complaint: Altered mental status Onset (ago): hour(s) 5 Pain Consistency: + now resolved Associated symptoms: + confusion and + weakness; no chest pain, no cough, no fever/chills, no headaches, no nausea/vomiting and no shortness of breath 79-year-old female presents emergency department for altered mental status. Daughter at bedside that reports that at 5:30 PM the patient was acutely confused. She states she almost fell but did not fall. No head trauma. Erika maiarturo reports that the patient was repeatedly asking the same questions and was trying to play with her phone when her phone was off. The daughter states that the patient was with her caregiver at that time. The daughter is visiting from out of town and was at a hotel. Daughter states that by the time she got back to the patient in 9 PM from the hotel she is back to her baseline. Home Medications Home Medications Medication Instructions Recorded Confirmed Type divalproex 500 mg tablet,delayed 500 mg PO BID #180 tab 06/13/19 03/06/20 Rx release Systane Complete 1 drp OPB TID PRN 12/05/19 03/06/20 History escitalopram oxalate 10 mg PO QAM 12/05/19 03/06/20 History latanoprost 1 drp OPB HS 12/05/19 03/06/20 History blood sugar diagnostic #300 ea 12/18/19 02/03/20 Rx blood-glucose meter #1 ea 12/18/19 02/03/20 Rx lancets 33 gauge #300 ea 12/18/19 02/03/20 Rx lidocaine 5 % topical patch 1 - 2 patch TOP DAILY PRN 12/26/19 03/06/20 History hydroxychloroquine [Plaquenil] 200 mg PO QAM 01/22/20 03/06/20 History rifaximin 550 mg tablet 550 mg PO BID #60 tab 02/03/20 03/06/20 Rx dicyclomine 10 mg capsule 10 mg PO TID #90 cap 02/24/20 03/06/20 Rx pantoprazole 40 mg PO DAILY #30 tab 03/02/20 03/06/20 Rx sucralfate 1 g PO QID 10 Days #400 ml 03/02/20 03/06/20 Rx magnesium chloride [Slow-Mag] 71.5 mg PO DAILY #30 tab 03/03/20 03/06/20 Rx Allergies Allergy/AdvReac Type Severity Reaction Status Date / Time ciprofloxacin [From Cipro] Allergy Severe Hives Verified 03/06/20 00:38 levofloxacin [From Levaquin] Allergy Severe Shortness Verified 03/06/20 00:38 of breath paroxetine Allergy Unknown Diarrhea Verified 03/06/20 00:38 phenytoin Allergy Unknown Unknown Verified 03/06/20 00:38 sulfamethoxazole Allergy Unknown SOB Verified 03/06/20 00:38 [From Bactrim] trimethoprim [From Bactrim] Allergy Unknown SOB Verified 03/06/20 00:38 unknown antibiotic Allergy Severe Browning-Bryon Uncoded 03/06/20 00:38 syndrome - no records available Past Med/Surg History Medical History Acute dehydration Adjustment disorder with depressed mood Antibiotic-associated diarrhea (~06/2019) Negative C. Diff test x 1 but good response to oral vancomycin Cardiac murmur "HEARD AT TIMES" Chronic back pain Cirrhosis CRYPTOGENIC Diabetes type 2, controlled Discoid lupus erythematosus F/U DR SALCEDO Esophageal varices GERD (gastroesophageal reflux disease) Glaucoma Gout Hearing difficulty Kidney stone Nausea & vomiting Osteoarthritis Pelvic fracture 12/14/19-WHEELCHAIR BOUND-70% WT BEARING AT PRESENT Retrosternal chest pain Seizure LAST ONE MORE THAN 10 YRS AGO-F/U PCP Sjogren's disease Thrombocytopenia Undifferentiated connective tissue disease Surgical History H/O: hysterectomy (~1984) History of colonoscopy History of esophagogastroduodenoscopy (EGD) History of esophagogastroduodenoscopy (EGD) with banding of esophageal varices History of liver biopsy Hx of cholecystectomy (~1983) S/P tooth extraction Family History Grandfather Diabetes Mother Hypertension Gallbladder disease Grandmother No problems noted. Father Pancreatic cancer Brother Alcohol abuse Denies family history of Ovarian cancer Prostate cancer Alzheimer disease Heart disease Myocardial infarction Breast cancer Lung cancer Colorectal cancer Stroke Social History (Reviewed 03/05/20 @ 22:54 by Yassine Eaton Smoking Status: Never smoker Second Hand Exposure: Yes (as a child); Hx Alcohol Use: No Hx Substance Use: No Preferred Language: Lithuanian Communication Ability: Effective Visual Impairment: Limited Hearing Ability: Use of Hearing Aid Bag Turner Required: No Beliefs That Will Affect Care: None marital status: / Current Living Situation: Alone Current Living Situation Comment: [place] current occupational status: retired Feels Safe at Home: Yes Childhood Exposure to Second-Hand Smoke: Yes caffeine: Yes Dental Care, Regularly: Yes Physical Activity Frequency: 1-2 Times per Week Seatbelt Use: always Sunscreen Use: No Review of Systems A total of 10 systems reviewed and were otherwise negative Physical Exam Vital Signs Vital Signs - 24 hr 03/05/20 22:23 03/05/20 23:35 03/05/20 23:47 Temperature 36.4 C L Temperature Source Oral Pulse Rate 76 Pulse Rate [Right Finger] 77 Respiratory Rate 18 18 Respiratory Effort / Characteristics Non-Labored Spontaneous Non-Labored Respiratory Depth Normal Blood Pressure 126/66 Blood Pressure [Right Arm] 151/70 H Blood Pressure Mean 86 Blood Pressure Mean [Right Arm] 97 Blood Pressure Position Sitting Pulse Oximetry 97 98 Oxygen Delivery Method Room Air Sepsis Recent Fever Within 48 Hours No Sepsis New/Unexplained Change in Mental Status No Sepsis Action Taken by Nursing No Action Required 03/06/20 00:16 Temperature Temperature Source Pulse Rate Pulse Rate [Right Finger] 82 Respiratory Rate 19 Respiratory Effort / Characteristics Respiratory Depth Blood Pressure Blood Pressure [Right Arm] 153/79 H Blood Pressure Mean Blood Pressure Mean [Right Arm] 103 Blood Pressure Position Pulse Oximetry 97 Oxygen Delivery Method Sepsis Recent Fever Within 48 Hours Sepsis New/Unexplained Change in Mental Status Sepsis Action Taken by Nursing Physical Exam GENERAL: She is oriented to person, place, and time. She appears well-developed and well-nourished. She does not appear distressed. HENT: Exam performed. -Head: Normocephalic and atraumatic. -Right Ear: External ear normal. No mastoid tenderness. -Left Ear: External ear normal. No mastoid tenderness. -Mouth/Throat: The oropharynx is clear and moist. No trismus in the jaw. No dental abscesses or uvula swelling. No oropharyngeal exudate or tonsillar abscesses. EYES: Conjunctivae and EOM are normal. Pupils are equal, round, and reactive to light. Right eye exhibits no discharge. Left eye exhibits no discharge. No scleral icterus. NECK: Normal range of motion. Neck supple. No JVD present. No spinous process tenderness present. No carotid bruit present. No rigidity. No tracheal deviation and normal range of motion present. No Brudzinski's sign and no Kernig's sign noted. CV: Normal rate, regular rhythm, normal heart sounds and intact distal pulses. There is no peripheral edema. Palpable radial pulses bue. PULM/CHEST: Effort normal and breath sounds normal. No respiratory distress. No stridor. She has no wheezes. She has no rales. -Chest Wall: She exhibits no tenderness. ABD: The abdomen is soft. Bowel sounds are normal. She has no distension. No mass is present. There is no tenderness. There is no rebound, no guarding, no Krishna's sign and no tenderness at McBurney's point. Rovsig negative MUSC/SKEL: Normal range of motion. There is no peripheral edema, tenderness or deformity. LYMPH: No cervical adenopathy. NEURO: She is alert and oriented to person, place, and time. She has normal strength. No cranial nerve deficit or sensory deficit. GCS eye subscore is 4. GCS verbal subscore is 5. GCS motor subscore is 6. Cerebellar tests wnl. NIHSS: 0 SKIN: Skin is warm and dry. She is not diaphoretic. PSYCH: She has a normal mood and affect. Behavior is normal. Judgment and thought content normal. Course Course 2237: The patient was evaluated in room C7. A complete history and physical exam was performed. Cardiac monitoring: An order was placed for continuous cardiac monitoring. The monitor shows a rate of 80 with sinus rhythm EMR reviewed. Patient has a history of esophageal varices and liver cirrhosis. Patient had variceal banding by Dr. Mike on February 26, 2020. 3 esophageal varices were banded. Patient was seen in the emergency department March 01 and admitted to the hospital from March 01 to March 03. During that hospital admission it was thought that the patient was suffering from a done aphasia after banding of the esophageal varices. The patient was dehydrated and received some fluids. She was given Carafate for her retrosternal chest pain. Her magnesium level was 1.5 on March 02 March 03. Patient appears to be always hypomagnesemic. Currently the patient has an NIH stroke scale of 0 and the patient daughter repo rts that the patient is back at her baseline mental status. No code stroke was called at this time given her negative NIH stroke scale and the fact that she is back to normal. Labs will be drawn the patient will be sent for CT of the head. 0030: Vital signs stable. Labs show hypomagnesemia. Lactic acidosis elevated at 3. Urinalysis is pending. Is unclear if the lactic acidemia is due to the patient's liver cirrhosis or due to acute infection. She has no meningeal signs on exam. Patient's altered mental status could be due electrolyte abnormality such as hypo-magnesium or TIA. [facility] Doyle consulted. Dr. Doyle asked that a CTA of the head and neck also be ordered for the patient. Administered Medications Magnesium Sulfate/Dextrose (Magnesium Sulfate / D5w) 1 gm in 100 mls @ 100 mls/hr IV Q1H CARMELINA Stop: 03/06/20 01:54 Last Admin: 03/06/20 00:19 Dose: 100 mls/hr Documented by: [id number] Discontinued Medications Sodium Chloride (Nss 1000ml) 1,000 mls @ 999 mls/hr IV .Q1H1M ONE Stop: 03/06/20 00:54 Last Admin: 03/06/20 00:19 Dose: 999 mls/hr Documented by: [id number] Medical Decision Making Laboratory Data Result diagrams: 03/05/20 23:12 03/05/20 23:12 Lab Results 03/05/20 03/05/20 03/05/20 Range/Units 23:12 23:12 23:12 WBC 4.30 L (4.8-10.8) K/uL RBC 3.76 L (4.2-5.4) M/uL Hgb 11.4 L (12.0-16.0) g/dL Hct 34.3 L (37-47) % MCV 91.2 (80-100) fL MCH 30.3 (25-34) pg MCHC 33.2 (32-36) g/dL RDW Std Deviation 47.1 H (36.4-46.3) fL RDW Coeff of Nancy 14.0 (11.5-14.5) % Plt Count 68 L (130-400) K/uL MPV 10.9 H (7.4-10.4) fL Immature Gran % (Auto) 0.2 % Neut % (Auto) 46.3 % Lymph % (Auto) 37.4 % [place] % (Auto) 13.3 % Eos % (Auto) 2.6 % Baso % (Auto) 0.2 % Neut # (Auto) 1.99 (1.4-6.5) K/uL Lymph # (Auto) 1.61 (1.2-3.4) K/uL [place] # (Auto) 0.57 (0.11-0.59) K/uL Eos # (Auto) 0.11 (0-0.5) K/uL Baso # (Auto) 0.01 (0-0.2) K/uL Immature Gran # (Auto) 0.01 (0.00-0.02) K/uL Platelet Estimate Decreased L (Normal) PT 14.2 H (9.0-12.0) Seconds INR 1.4 H (0.9-1.1) APTT 30.0 (21.0-31.0) Seconds PTT Ratio 1.1 Sodium (136-145) mmol/L Potassium (3.5-5.1) mmol/L Chloride (98-107) mmol/L Carbon Dioxide (21-32) mmol/L Anion Gap (3-11) BUN (7-18) mg/dl Creatinine (0.6-1.2) mg/dl Est Cr Clr Drug Dosing Est GFR ( Amer) Est GFR (Non-Af Amer) BUN/Creatinine Ratio (10-20) Glucose (70-99) mg/dl Lactate (0.4-2.0) mmol/L Calcium (8.5-10.1) mg/dl Magnesium (1.8-2.4) mg/dl Total Bilirubin (0.2-1) mg/dl AST (15-37) U/L ALT (12-78) U/L Alkaline Phosphatase (45-117) U/L Ammonia 34.3 H (11-32) umol/L Troponin I (0-0.045) ng/ml Total Protein (6.4-8.2) gm/dl Albumin (3.4-5.0) gm/dl Globulin (2.5-4.0) gm/dl Albumin/Globulin Ratio (0.9-2) Procalcitonin (0-0.5) ng/ml Urine Color Urine Appearance (Clear) Urine pH (4.5-7.5) Ur Specific [place] (1.000-1.030) Urine Protein (Negative) Urine Glucose (UA) (Negative) Urine Ketones (Negative) Urine Blood (Negative) Urine Nitrite (Negative) Urine Bilirubin (Negative) Urine Urobilinogen (Negative) Ur Leukocyte Esterase (Negative) Urine WBC (Auto) (0-5) /hpf Urine RBC (Auto) (0-4) /hpf U Epithel Cells (Auto) (0-5) /lpf Urine Bacteria (Auto) (Negative) 03/05/20 03/05/20 03/05/20 Range/Units 23:12 23:12 23:12 WBC (4.8-10.8) K/uL RBC (4.2-5.4) M/uL Hgb (12.0-16.0) g/dL Hct (37-47) % MCV (80-100) fL MCH (25-34) pg MCHC (32-36) g/dL RDW Std Deviation (36.4-46.3) fL RDW Coeff of Nancy (11.5-14.5) % Plt Count (130-400) K/uL MPV (7.4-10.4) fL Immature Gran % (Auto) % Neut % (Auto) % Lymph % (Auto) % [place] % (Auto) % Eos % (Auto) % Baso % (Auto) % Neut # (Auto) (1.4-6.5) K/uL Lymph # (Auto) (1.2-3.4) K/uL [place] # (Auto) (0.11-0.59) K/uL Eos # (Auto) (0-0.5) K/uL Baso # (Auto) (0-0.2) K/uL Immature Gran # (Auto) (0.00-0.02) K/uL Platelet Estimate (Normal) PT (9.0-12.0) Seconds INR (0.9-1.1) APTT (21.0-31.0) Seconds PTT Ratio Sodium 136 (136-145) mmol/L Potassium 3.2 L (3.5-5.1) mmol/L Chloride 101 (98-107) mmol/L Carbon Dioxide 27 (21-32) mmol/L Anion Gap 8.0 (3-11) BUN 6 L (7-18) mg/dl Creatinine 0.62 (0.6-1.2) mg/dl Est Cr Clr Drug Dosing Not Reportable Est GFR ( Amer) 99.4 Est GFR (Non-Af Amer) 85.8 BUN/Creatinine Ratio 9.5 L (10-20) Glucose 98 (70-99) mg/dl Lactate 3.0 H* (0.4-2.0) mmol/L Calcium 8.5 (8.5-10.1) mg/dl Magnesium 1.5 L (1.8-2.4) mg/dl Total Bilirubin 0.6 (0.2-1) mg/dl AST 32 (15-37) U/L ALT 11 L (12-78) U/L Alkaline Phosphatase 185 H (45-117) U/L Ammonia (11-32) umol/L Troponin I < 0.015 (0-0.045) ng/ml Total Protein 6.5 (6.4-8.2) gm/dl Albumin 2.4 L (3.4-5.0) gm/dl Globulin 4.1 H (2.5-4.0) gm/dl Albumin/Globulin Ratio 0.6 L (0.9-2) Procalcitonin < 0.05 (0-0.5) ng/ml Urine Color Urine Appearance (Clear) Urine pH (4.5-7.5) Ur Specific [place] (1.000-1.030) Urine Protein (Negative) Urine Glucose (UA) (Negative) Urine Ketones (Negative) Urine Blood (Negative) Urine Nitrite (Negative) Urine Bilirubin (Negative) Urine Urobilinogen (Negative) Ur Leukocyte Esterase (Negative) Urine WBC (Auto) (0-5) /hpf Urine RBC (Auto) (0-4) /hpf U Epithel Cells (Auto) (0-5) /lpf Urine Bacteria (Auto) (Negative) 03/06/20 Range/Units Unknown WBC (4.8-10.8) K/uL RBC (4.2-5.4) M/uL Hgb (12.0-16.0) g/dL Hct (37-47) % MCV (80-100) fL MCH (25-34) pg MCHC (32-36) g/dL RDW Std Deviation (36.4-46.3) fL RDW Coeff of Nancy (11.5-14.5) % Plt Count (130-400) K/uL MPV (7.4-10.4) fL Immature Gran % (Auto) % Neut % (Auto) % Lymph % (Auto) % [place] % (Auto) % Eos % (Auto) % Baso % (Auto) % Neut # (Auto) (1.4-6.5) K/uL Lymph # (Auto) (1.2-3.4) K/uL [place] # (Auto) (0.11-0.59) K/uL Eos # (Auto) (0-0.5) K/uL Baso # (Auto) (0-0.2) K/uL Immature Gran # (Auto) (0.00-0.02) K/uL Platelet Estimate (Normal) PT (9.0-12.0) Seconds INR (0.9-1.1) APTT (21.0-31.0) Seconds PTT Ratio Sodium (136-145) mmol/L Potassium (3.5-5.1) mmol/L Chloride (98-107) mmol/L Carbon Dioxide (21-32) mmol/L Anion Gap (3-11) BUN (7-18) mg/dl Creatinine (0.6-1.2) mg/dl Est Cr Clr Drug Dosing Est GFR ( Amer) Est GFR (Non-Af Amer) BUN/Creatinine Ratio (10-20) Glucose (70-99) mg/dl Lactate (0.4-2.0) mmol/L Calcium (8.5-10.1) mg/dl Magnesium (1.8-2.4) mg/dl Total Bilirubin (0.2-1) mg/dl AST (15-37) U/L ALT (12-78) U/L Alkaline Phosphatase (45-117) U/L Ammonia (11-32) umol/L Troponin I (0-0.045) ng/ml Total Protein (6.4-8.2) gm/dl Albumin (3.4-5.0) gm/dl Globulin (2.5-4.0) gm/dl Albumin/Globulin Ratio (0.9-2) Procalcitonin (0-0.5) ng/ml Urine Color Dark Yellow Urine Appearance Clear (Clear) Urine pH 6.0 (4.5-7.5) Ur Specific [place] 1.018 (1.000-1.030) Urine Protein Negative (Negative) Urine Glucose (UA) Negative (Negative) Urine Ketones Negative (Negative) Urine Blood Negative (Negative) Urine Nitrite Negative (Negative) Urine Bilirubin Negative (Negative) Urine Urobilinogen Negative (Negative) Ur Leukocyte Esterase 1+ H (Negative) Urine WBC (Auto) 5-10 H (0-5) /hpf Urine RBC (Auto) 5-10 H (0-4) /hpf U Epithel Cells (Auto) >30 H (0-5) /lpf Urine Bacteria (Auto) Negative (Negative) Imaging Data My Impression: Airway clear. No pneumothorax. No consolidation. No cardiomegaly or cephalization.. No free air under the diaphragm. No fractures of the skeletal structures. Radiologist's Impression: PreliminaryFindingsOnly See Final Report For Complete Findings CT HEAD: Comparison:CT head 12/14/19 Involutional and chronic small vessel ischemic changes. No ICH, mass effect, or edema. No skull fracture. Sinuses and mastoid air cells are clear. Radiologist: Mika Garcia M.D. Study ready at 23:48 and initial results transmitted at 23:50 ECG Data Indication: + altered mental status Rate (beats per minute): 73 Rhythm: + normal sinus ECG Intervals/blocks: + Normal QRS, + Normal MI and + Normal QT-c ECG ST segments: + Normal ST segments MDM Narrative 2238: The patient was evaluated in room C7. A complete history and physical exam was performed. Cardiac monitoring: An order was placed for continuous cardiac monitoring. The monitor shows a rate of 80 with sinus rhythm EMR reviewed. Patient has a history of esophageal varices and liver cirrhosis. Patient had variceal banding by Dr. Mike on February 26, 2020. 3 esophageal varices were banded. Patient was seen in the emergency department March 01 and admitted to the hospital from March 01 to March 03. During that hospital admission it was thought that the patient was suffering from a done aphasia after banding of the esophageal varices. The patient was dehydrated and received some fluids. She was given Carafate for her retrosternal chest pain. Her magnesium level was 1.5 on March 02 March 03. Patient appears to be always hypomagnesemic. Currently the patient has an NIH stroke scale of 0 and the patient daughter reports that the patient is back at her baseline mental status. No code stroke was called at this time given her negative NIH stroke scale and the fact that she is back to normal. Labs will be drawn the patient will be sent for CT of the head. 0030: Vital signs stable. Labs show hypomagnesemia. Lactic acidosis elevated at 3. Urinalysis is pending. Is unclear if the lactic acidemia is due to the patient's liver cirrhosis or due to acute infection. She has no meningeal signs on exam. Patient's altered mental status could be due electrolyte abnormality such as hypo-magnesium or TIA. Patient will be admitted to the [facility] hospitalist service. Dr. Doyle consulted. Dr. Doyle asked that a CTA of the head and neck also be ordered for the patient. Impression & Plan Brain TIA, Hypomagnesemia Discharge Plan Visit Data Chief Complaint: Confusion Stated Complaint: CONFUSION, WEAKNESS ED Provider: Yassine Vincent Discharge Problem: Brain TIA, Hypomagnesemia Patient Disposition: Being Evaluated by Hospitalist Forms Stand Alone Forms: [facility] Prescriptions Prescriptions: No Action divalproex [Depakote] 500 mg tablet,delayed release (DR/EC) 500 mg PO BID Qty: 180 RF: 3 (DME) blood sugar diagnostic [OneTouch Ultra Blue Test Strip] Strip See Rx Instructions .ROUTE .MEDSUPPLY Qty: 300 RF: 3 (DME) lancets [OneTouch Delica Lancets] 33 gauge misc See Rx Instructions .ROUTE .MEDSUPPLY Qty: 300 RF: 3 (DME) blood-glucose meter [OneTouch Ultra2 Meter] Kit See Rx Instructions .ROUTE .MEDSUPPLY Qty: 1 RF: 1 dicyclomine 10 mg capsule 10 mg PO TID Qty: 90 RF: 2 lidocaine 5 % adhesive patch,medicated 1 - 2 patch TOP DAILY PRN (Reason: Pain) RF: 0 rifaximin 550 mg tablet 550 mg PO BID Qty: 60 RF: 2 escitalopram oxalate 20 mg tablet 10 mg PO QAM RF: 0 Systane Complete 0.6 % Drops 1 drp OPB TID PRN (Reason: Dry Eyes) RF: 0 latanoprost 0.005 % drops 1 drp OPB HS RF: 0 hydroxychloroquine [Plaquenil] 200 mg tablet 200 mg PO QAM RF: 0 sucralfate 100 mg/mL Suspension 1 g PO QID 10 Days Qty: 400 RF: 0 pantoprazole 40 mg tablet,delayed release (DR/EC) 40 mg PO DAILY Qty: 30 RF: 0 Slow-Mag 71.5 mg tablet,delayed release (DR/EC) 71.5 mg PO DAILY Qty: 30 RF: 3 Referrals Referrals: Tamara Benítez MD [Primary Care Provider] -
[2020-03-05 23:24] LABS: Hematocrit (blood only) 34.3 % (37-47); Hemoglobin 11.4 g/dL (12.0-16.0); Mean Corpuscular Hemoglobin 30.3 pg (25-34); Mean Corpuscular Hgb Conc 33.2 g/dL (32-36); Mean Corpuscular Volume 91.2 fL (80-100); RDW Standard Deviation 47.1 fL (36.4-46.3); Red Blood Count 3.76 M/uL (4.2-5.4)
[2020-03-05 23:35] LABS: INR 1.4 (0.9-1.1); Partial Thromboplastin Ratio 1.1; Prothrombin Time 14.2 Seconds (9.0-12.0)
[2020-03-05 23:42] LABS: Alanine Aminotransferase 11 U/L (12-78); Albumin Level 2.4 gm/dl (3.4-5.0); Aspartate Aminotransferase 32 U/L (15-37); BUN Creatinine Ratio 9.5 (10-20); Blood Urea Nitrogen 6 mg/dl (7-18); Calcium 8.5 mg/dl (8.5-10.1); Carbon Dioxide 27 mmol/L (21-32); Chloride 101 mmol/L (98-107); Est GFR (African American) 99.4; Est GFR (Non-African American) 85.8; Glucose 98 mg/dl (70-99); Magnesium 1.5 mg/dl (1.8-2.4); Potassium 3.2 mmol/L (3.5-5.1); Sodium 136 mmol/L (136-145)
[2020-03-05 23:47] LABS: Albumin Globulin Ratio 0.6 (0.9-2); Alkaline Phosphatase 185 U/L (45-117); Bilirubin,Total 0.6 mg/dl (0.2-1); Globulin 4.1 gm/dl (2.5-4.0); Total Protein 6.5 gm/dl (6.4-8.2); Troponin I < 0.015 ng/ml (0-0.045)
[2020-03-05 23:50] LABS: Basophils # (auto) 0.01 K/uL (0-0.2); Basophils % (auto) 0.2 %; Eosinophils # (auto) 0.11 K/uL (0-0.5); Eosinophils % (auto) 2.6 %; Immature Granulocytes # (auto) 0.01 K/uL (0.00-0.02); Immature Granulocytes % (auto) 0.2 %; Lymphocytes # (auto) 1.61 K/uL (1.2-3.4); Lymphocytes % (auto) 37.4 %; Mean Platelet Volume 10.9 fL (7.4-10.4); Monocytes # (auto) 0.57 K/uL (0.11-0.59); Monocytes % (auto) 13.3 %; Neutrophils # (auto) 1.99 K/uL (1.4-6.5); Neutrophils % (auto) 46.3 %; Platelet Count 68 K/uL (130-400); Platelet Estimate Decreased (Normal)
[2020-03-05] MEDS ORDERED: SODIUM CHLORIDE 0.9% 1000ML 1,000 ML IV ONE (23:54)
[2020-03-06] MEDS: MAGNESIUM SULFATE / D5W 1 GM/100 ML BAG IV SCH ×2 (00:19→01:18)
[2020-03-06 00:30] LABS: Appearance Urine Clear (Clear); Bacteria Urine Automated Negative (Negative); Blood Urine Negative (Negative); Color Urine Dark Yellow; Epithelial Cell Urine Auto >30 /lpf (0-5); Glucose Urine UA Negative (Negative); Ketones Urine Negative (Negative); Leukocyte Esterase Urine 1+ (Negative); Nitrite Urine Negative (Negative); Protein Urine Negative (Negative); Specific Gravity Urine 1.018 (1.000-1.030); Urobilinogen Urine Negative (Negative)
[2020-03-06 00:58] LABS: Bilirubin Urine Negative (Negative); Ictotest Urine Negative (Negative)
[2020-03-06 01:06] LABS: Calcium Oxalate Crystals Urine Present (None Prsent); Cast Urine Automated 0 /lpf (0-5)
[2020-03-06] MEDS ORDERED: CARBOHYDRATES FOR HYPOGLYCEMIA PO PRN (02:56)
[2020-03-06] MEDS ORDERED: ONDANSETRON INJ 2 MG/ML 2 ML VIAL IV PRN (02:56)
[2020-03-06] MEDS ORDERED: ACETAMINOPHEN 325 MG TAB PO PRN (02:56)
[2020-03-06] MEDS ORDERED: GLUCAGON FOR INJ 1 MG VIAL SQ PRN (02:56)
[2020-03-06] MEDS ORDERED: GLUCOSE 10 TABS/TUBE PO PRN (02:56)
[2020-03-06] MEDS ORDERED: GLUCOSE 40% GEL 15 GM TUBE PO PRN (02:56)
[2020-03-06] MEDS ORDERED: LIDOCAINE 5% 1 PATCH TD PRN (02:56)
[2020-03-06] MEDS ORDERED: DEXTROSE 50% 50 ML SYRINGE IV PRN (02:56)
[2020-03-06] MEDS ORDERED: MAGNESIUM HYDROXIDE SUSP 30 ML UDC PO PRN (02:56)
[2020-03-06] MEDS ORDERED: ALUMINUM/MAGNESIUM SUSP 30 ML UDC PO PRN (02:56)
[2020-03-06] MEDS ORDERED: ARTIFICIAL TEARS OP PRN (03:25)
[2020-03-06] MEDS: NSS + 20MEQ KCL 20 MEQ/1,000 ML BAG IV SCH ×3 (03:59→23:24)
--- NOTE | 2020-03-06 05:08 | History & Physical Report ---
Date of Service March 06, 2020 Assessment & Plan (1) Brain TIA: TIA/acute confusion episode spontaneously resolved- CT of head performed in ED negative We will order CTA head and neck. Stroke without TPA protocol order set Present on Admission?: Yes (2) Confusion: See above Present on Admission?: Yes (3) Hypomagnesemia: She was recently started on pantoprazole, which may be possible for low magnesium and low potassium. Which may in turn, be contributing to her other symptoms as well. Stop pantoprazole. Continue Carafate. Add famotidine Present on Admission?: Yes (4) Esophageal varices: (5) Seizure: (6) Discoid lupus erythematosus: (7) GERD (gastroesophageal reflux disease): (8) Adjustment disorder with depressed mood: (9) Sjogren's disease: (10) Hypokalemia: (11) Cirrhosis: Admission and Anticipated Discharge Date Admission Date: March 06, 2020 History of Present Illness Chief Complaint: The patient is brought to the emergency department due to an episode of acute confusion that began around 5:30 PM and spontaneously resolved. Primary Care Provider: Tamara Benítez MD The patient is a 79-year-old female with a past medical history including portal hypertension, cirrhosis, esophageal varices, seizure, discoid lupus er ythematosus, undifferentiated connective tissue disease, GERD, thrombocytopenia, adjustment disorder with depressed mood, Sjogren's syndrome and diabetes mellitus type 2. The daughter provides most of her history and review of systems. The daughter reports that she was visiting from out of town, and was at a local hotel with her disabled . The daughter recalls reports that by the time she got to the patient at 9 PM, the symptoms had resolved and she is back to her baseline. Allergies Allergy/AdvReac Type Severity Reaction Status Date / Time ciprofloxacin [From Cipro] Allergy Severe Hives Verified 03/06/20 00:38 levofloxacin [From Levaquin] Allergy Severe Shortness Verified 03/06/20 00:38 of breath paroxetine Allergy Unknown Diarrhea Verified 03/06/20 00:38 phenytoin Allergy Unknown Unknown Verified 03/06/20 00:38 sulfamethoxazole Allergy Unknown SOB Verified 03/06/20 00:38 [From Bactrim] trimethoprim [From Bactrim] Allergy Unknown SOB Verified 03/06/20 00:38 unknown antibiotic Allergy Severe Browning-Bryon Uncoded 03/06/20 00:38 syndrome - no records available Home Medications Home Medications Medication Instructions Recorded Confirmed Type divalproex 500 mg tablet,delayed 500 mg PO BID #180 tab 06/13/19 03/06/20 Rx release Systane Complete 1 drp OPB TID PRN 12/05/19 03/06/20 History escitalopram oxalate 10 mg PO QAM 12/05/19 03/06/20 History latanoprost 1 drp OPB HS 12/05/19 03/06/20 History blood sugar diagnostic #300 ea 12/18/19 02/03/20 Rx blood-glucose meter #1 ea 12/18/19 02/03/20 Rx lancets 33 gauge #300 ea 12/18/19 02/03/20 Rx lidocaine 5 % topical patch 1 - 2 patch TOP DAILY PRN 12/26/19 03/06/20 History hydroxychloroquine [Plaquenil] 200 mg PO QAM 01/22/20 03/06/20 History rifaximin 550 mg tablet 550 mg PO BID #60 tab 02/03/20 03/06/20 Rx dicyclomine 10 mg capsule 10 mg PO TID #90 cap 02/24/20 03/06/20 Rx pantoprazole 40 mg PO DAILY #30 tab 03/02/20 03/06/20 Rx sucralfate 1 g PO QID 10 Days #400 ml 03/02/20 03/06/20 Rx magnesium chloride [Slow-Mag] 71.5 mg PO DAILY #30 tab 03/03/20 03/06/20 Rx Past Med/Surg History Medical History Acute dehydration Adjustment disorder with depressed mood Antibiotic-associated diarrhea (~06/2019) Negative C. Diff test x 1 but good response to oral vancomycin Cardiac murmur "HEARD AT TIMES" Chronic back pain Cirrhosis CRYPTOGENIC Diabetes type 2, controlled Discoid lupus erythematosus F/U DR SALCEDO Esophageal varices GERD (gastroesophageal reflux disease) Glaucoma Gout Hearing difficulty Kidney stone Nausea & vomiting Osteoarthritis Pelvic fracture 12/14/19-WHEELCHAIR BOUND-70% WT BEARING AT PRESENT Retrosternal chest pain Seizure LAST ONE MORE THAN 10 YRS AGO-F/U PCP Sjogren's disease Thrombocytopenia Undifferentiated connective tissue disease Surgical History H/O: hysterectomy (~1984) History of colonoscopy History of esophagogastroduodenoscopy (EGD) History of esophagogastroduodenoscopy (EGD) with banding of esophageal varices History of liver biopsy Hx of cholecystectomy (~1983) S/P tooth extraction Family History Grandfather Diabetes Mother Hypertension Gallbladder disease Grandmother No problems noted. 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 Beliefs That Will Affect Care: None marital status: / Current Living Situation: Alone Current Living Situation Comment: [place] current occupational status: retired Other Information That Helps Us Care for You: No Feels Safe at Home: Yes Childhood Exposure to Second-Hand Smoke: Yes caffeine: Yes Dental Care, Regularly: Yes Physical Activity Frequency: 1-2 Times per Week Seatbelt Use: always Sunscreen Use: No Review of Systems Review of Systems: Unobtainable due to cognitive status Physical Exam Physical Exam: The patient is awake, alert , normocephalic and atraumatic, lying in bed and in no acute distress. HEENT--PERRL, EOMI, mucous membranes and oropharynx dry. Neck--supple. No JVD. No bruits. Thyroid normal, trachea midline, no adenopathy. Heart--normal S1 and S2. No murmurs, rubs or gallops. Lungs--clear bilaterally, no respiratory distress, no accessory muscle use. Abdomen--normal bowel sounds and soft. Nontender. Nondistended. Extremities--no cyanosis or clubbing. No edema. Dermatologic--normal skin turgor, normal color, no abnormal lymph nodes, no rash. Neurologic--cranial nerves II through XII grossly intact. Rheumatologic--normal range of motion. Psychiatric--normal affect. Results & Data Results & Data ([facility]) Vital Signs (Past 12 Hours) Vital Signs Temp Pulse Pulse Resp BP BP BP 03/06/20 05:00 98.1 F 70 18 124/72 03/06/20 03:09 97.7 F 86 16 154/83 H 03/06/20 02:08 79 19 144/75 H 03/06/20 01:15 83 15 144/81 H 03/06/20 00:16 82 19 153/79 H 03/05/20 23:47 77 18 151/70 H 03/05/20 22:23 97.5 F L 76 18 126/66 Pulse Ox 03/06/20 05:00 96 03/06/20 03:09 95 03/06/20 02:08 96 03/06/20 01:15 96 03/06/20 00:16 97 03/05/20 23:47 98 03/05/20 22:23 97 Laboratory Results Laboratory Results WBC 4.30 K/uL (4.8-10.8) L 03/05/20 23:12 RBC 3.76 M/uL (4.2-5.4) L 03/05/20 23:12 Hgb 11.4 g/dL (12.0-16.0) L 03/05/20 23:12 Hct 34.3 % (37-47) L 03/05/20 23:12 MCV 91.2 fL (80-100) 03/05/20 23:12 MCH 30.3 pg (25-34) 03/05/20 23:12 MCHC 33.2 g/dL (32-36) 03/05/20 23:12 RDW Std Deviation 47.1 fL (36.4-46.3) H 03/05/20 23:12 RDW Coeff of Nancy 14.0 % (11.5-14.5) 03/05/20 23:12 Plt Count 68 K/uL (130-400) L 03/05/20 23:12 MPV 10.9 fL (7.4-10.4) H 03/05/20 23:12 Immature Gran % (Auto) 0.2 % 03/05/20 23:12 Neut % (Auto) 46.3 % 03/05/20 23:12 Lymph % (Auto) 37.4 % 03/05/20 23:12 [place] % (Auto) 13.3 % 03/05/20 23:12 Eos % (Auto) 2.6 % 03/05/20 23:12 Baso % (Auto) 0.2 % 03/05/20 23:12 Neut # (Auto) 1.99 K/uL (1.4-6.5) 03/05/20 23:12 Lymph # (Auto) 1.61 K/uL (1.2-3.4) 03/05/20 23:12 [place] # (Auto) 0.57 K/uL (0.11-0.59) 03/05/20 23:12 Eos # (Auto) 0.11 K/uL (0-0.5) 03/05/20 23:12 Baso # (Auto) 0.01 K/uL (0-0.2) 03/05/20 23:12 Immature Gran # (Auto) 0.01 K/uL (0.00-0.02) 03/05/20 23:12 Platelet Estimate Decreased (Normal) L 03/05/20 23:12 PT 14.2 Seconds (9.0-12.0) H 03/05/20 23:12 INR 1.4 (0.9-1.1) H 03/05/20 23:12 APTT 30.0 Seconds (21.0-31.0) 03/05/20 23:12 PTT Ratio 1.1 03/05/20 23:12 Sodium 136 mmol/L (136-145) 03/05/20 23:12 Potassium 3.2 mmol/L (3.5-5.1) L 03/05/20 23:12 Chloride 101 mmol/L (98-107) 03/05/20 23:12 Carbon Dioxide 27 mmol/L (21-32) 03/05/20 23:12 Anion Gap 8.0 (3-11) 03/05/20 23:12 BUN 6 mg/dl (7-18) L 03/05/20 23:12 Creatinine 0.62 mg/dl (0.6-1.2) 03/05/20 23:12 Est Cr Clr Drug Dosing Not Reportable 03/05/20 23:12 Est GFR ( Amer) 99.4 03/05/20 23:12 Est GFR (Non-Af Amer) 85.8 03/05/20 23:12 BUN/Creatinine Ratio 9.5 (10-20) L 03/05/20 23:12 Glucose 98 mg/dl (70-99) 03/05/20 23:12 Lactate 2.5 mmol/L (0.4-2.0) H* 03/06/20 01:20 Calcium 8.5 mg/dl (8.5-10.1) 03/05/20 23:12 Magnesium 1.5 mg/dl (1.8-2.4) L 03/05/20 23:12 Total Bilirubin 0.6 mg/dl (0.2-1) 03/05/20 23:12 AST 32 U/L (15-37) 03/05/20 23:12 ALT 11 U/L (12-78) L 03/05/20 23:12 Alkaline Phosphatase 185 U/L (45-117) H 03/05/20 23:12 Ammonia 34.3 umol/L (11-32) H 03/05/20 23:12 Troponin I < 0.015 ng/ml (0-0.045) 03/05/20 23:12 Total Protein 6.5 gm/dl (6.4-8.2) 03/05/20 23:12 Albumin 2.4 gm/dl (3.4-5.0) L 03/05/20 23:12 Globulin 4.1 gm/dl (2.5-4.0) H 03/05/20 23:12 Albumin/Globulin Ratio 0.6 (0.9-2) L 03/05/20 23:12 Procalcitonin < 0.05 ng/ml (0-0.5) 03/05/20 23:12 Urine Color Dark Yellow 03/06/20 Unknown Urine Appearance Clear (Clear) 03/06/20 Unknown Urine pH 6.0 (4.5-7.5) 03/06/20 Unknown Ur Specific [place] 1.018 (1.000-1.030) 03/06/20 Unknown Urine Protein Negative (Negative) 03/06/20 Unknown Urine Glucose (UA) Negative (Negative) 03/06/20 Unknown Urine Ketones Negative (Negative) 03/06/20 Unknown Urine Blood Negative (Negative) 03/06/20 Unknown Urine Nitrite Negative (Negative) 03/06/20 Unknown Urine Bilirubin Negative (Negative) 03/06/20 Unknown Urine Urobilinogen Negative (Negative) 03/06/20 Unknown Ur Leukocyte Esterase 1+ (Negative) H 03/06/20 Unknown Urine WBC (Auto) 5-10 /hpf (0-5) H 03/06/20 Unknown Urine RBC (Auto) 5-10 /hpf (0-4) H 03/06/20 Unknown U Hyaline Cast (Auto) 0 /lpf (0-5) 03/06/20 Unknown U Epithel Cells (Auto) >30 /lpf (0-5) H 03/06/20 Unknown Urine Bacteria (Auto) Negative (Negative) 03/06/20 Unknown Calcium Oxalate Crystal Present (None Prsent) A 03/06/20 Unknown Diagnostic Findings [facility] Patient: NU HOLLEY (Female) : 40 Status: ER Date: 03/05/20 23:43 Room #: History: [facility] Slices: 66 Priors: Tech: Hollie Valente @ [phone] Exams: CT HEAD Contrast: Accession Numbers: [id number] Preliminary Findings Only See Final Report For Complete Findings CT HEAD: Comparison: CT head 12/14/19 Involutional and chronic small vessel ischemic changes. No ICH, mass effect, or edema. No skull fracture. Sinuses and mastoid air cells are clear. Radiologist: Mika Garcia M.D. Study ready at 23:48 and initial results transmitted at 23:50 *This report constitutes a preliminary interpretation only. Non-acute findings felt to be unrelated to the clinical presentation may not be discussed in this report. The study will be interpreted and a final report will be generated by the local Radiologist the following shift. To reach the hospital radiology department call [phone]. If a discrepancy is found between the preliminary and final interpretations of this study, please notify us via our Client Portal at [email or web address] can also fax this report with a description of the discrepancy, or include the final report, to our daytime fax number [phone].If faxing, please indicate the severity of discrepancy using one of the following categories: [ ] 1 - Agree/Informational [ ] 2 - Unlikely to Affect Management [ ] 3 - Possible Eventual Change of Management [ ] 4 - Probable Immediate Change of Management For all other patient related information, please fax us at [phone]. Code Status & VTE Plan Code Status Full code VTE Prophylaxis Plan VTE Prophylaxis will be ordered: Yes PG Care Time/CCT Total # of Minutes Spent Total Time Spent with Patient: Total time spent is greater than 50% in coordination of care (as documented) at patient's floor/unit and/or counseling patient: Coding Level of Care Code 55698 Initial Inpt Care Lvl 3 Diagnoses Brain TIA G45.9 Confusion R41.0 Hypomagnesemia E83.42 Esophageal varices I85.00 Seizure R56.9 Discoid lupus erythematosus L93.0 GERD (gastroesophageal reflux disease) K21.9 Adjustment disorder with depressed mood F43.21 Sjogren's disease M35.00 Sjogren's organ involvement: unspecified organ involvement Hypokalemia E87.6 Cirrhosis K74.60 (1) Sjogren's disease Sjogren's organ involvement: unspecified organ involvement Qualified Code(s): M35.00 - Sicca syndrome, unspecified
[2020-03-06] MEDS ORDERED: PHARMACIST DISCHARGE MED REC CONSULT PRN (05:17)
[2020-03-06 07:36] LABS: INR 1.4 (0.9-1.1); Prothrombin Time 14.6 Seconds (9.0-12.0)
[2020-03-06 07:40] LABS: Estimated Average Glucose 105 mg/dl; Hemoglobin A1C 5.3 % (4.5-5.6)
[2020-03-06 08:07] LABS: Albumin Level 1.9 gm/dl (3.4-5.0); BUN Creatinine Ratio 10.5 (10-20); Calcium 8.2 mg/dl (8.5-10.1); Creatinine Clr Calc Pharmacy 87.5 ml/min; Est GFR (African American) 110.5; Est GFR (Non-African American) 95.3; Potassium 3.3 mmol/L (3.5-5.1)
[2020-03-06 08:09] LABS: Albumin Globulin Ratio 0.5 (0.9-2); Bilirubin,Total 0.6 mg/dl (0.2-1); Globulin 3.6 gm/dl (2.5-4.0); Total Protein 5.5 gm/dl (6.4-8.2)
[2020-03-06] MEDS: DICYCLOMINE HCL 10 MG CAP PO SCH ×3 (08:26→21:19)
[2020-03-06] MEDS: DIVALPROEX DELAY RELEASE 500 MG TAB PO SCH ×2 (08:27→21:19)
[2020-03-06] MEDS: MAGNESIUM CHLORIDE 64MG DELAYED REL TAB PO SCH (08:27)
[2020-03-06] MEDS: ESCITALOPRAM OXALATE 10 MG TAB PO SCH (08:27)
[2020-03-06] MEDS: RIFAXIMIN 550 MG TABLET PO SCH ×2 (08:27→21:19)
[2020-03-06] MEDS: HYDROXYCHLOROQUINE SULFATE 200 MG TAB PO SCH (08:27)
[2020-03-06] MEDS: HEPARIN SOD 5,000 UNIT/0.5 ML VIAL SQ SCH ×2 (08:28→21:19)
[2020-03-06] MEDS: SUCRALFATE 1 GM/10 ML UDC PO SCH ×4 (08:28→21:19)
[2020-03-06] MEDS: INSULIN ASPART 100 UNITS/ML 3 ML PEN SC SCH ×4 (08:29→20:10)
[2020-03-06] MEDS: ASPIRIN 81 MG ECTAB PO SCH (08:33)
--- NOTE | 2020-03-06 09:08 | CT Scan Report ---
CT SCAN OF THE BRAIN WITHOUT IV CONTRAST CLINICAL HISTORY: Change in mental status. COMPARISON STUDY: CT of the brain dated 12/14/2019. TECHNIQUE: Unenhanced axial CT scan of the brain is performed from the vertex to the skull base. A do se lowering technique was utilized adhering to the principles of ALARA. CT DOSE: 614.27 mGy.cm FINDINGS: Brain parenchyma: There are age-related involutional changes noting moderate to advanced subcortical and periventricular microangiopathic change. There is no hemorrhage, mass effect, or evidence of acu te territorial ischemia by CT criteria. Vega-white matter differentiation is preserved. No extra-axia l fluid collection is seen. Ventricles, sulci, cisterns: Prominent secondary to involutional change. Intracranial vasculature: There is atherosclerotic calcification of the cavernous carotid and vertebr al arteries. Calvarium: Unremarkable. Sinuses and mastoids: The visualized paranasal sinuses are clear. The mastoid air cells are well pneu matized. Orbits: The bony orbits are grossly intact. There are bilateral ocular lens implants. IMPRESSION: There is no hemorrhage, mass effect, or evidence of acute territorial ischemia by CT torey tirado. ACT 112: Negative or not required by law. Electronically signed by: Jose Maria Baird M.D. 03/06/2020 9:06 AM
[2020-03-06] MEDS ORDERED: POTASSIUM CHLORIDE 20 MEQ TABCR PO STA (09:16)
[2020-03-06 09:52] LABS: Chol HDL Ratio 3; Cholesterol 90 mg/dl (0-200); HDL Cholesterol 31 mg/dl; LDL Cholesterol Calculated 43 mg/dl; Triglycerides 79 mg/dl (0-150); VLDL Cholesterol 16 mg/dl
--- NOTE | 2020-03-06 10:07 | XRay Report ---
SINGLE VIEW CHEST CLINICAL HISTORY: Sepsis. FINDINGS: An AP, portable, upright chest radiograph is compared to study dated 03/01/2020. The examina tion is degraded by portable technique and patient rotation. The heart is top normal for projection noting atherosclerotic calcification of the thoracic aorta. Chronic interstitial thickening is simila r to previous. There is mild bibasilar scarring/atelectasis. No airspace consolidation or large pleur al effusion is identified. No pneumothorax is seen. The skeletal structures are osteopenic. The bony thorax is grossly intact. Degenerative change is noted in the shoulders. IMPRESSION: No active disease in the chest. ACT 112: Negative or not required by law. Electronically signed by: Jose Maria Baird M.D. 03/06/2020 10:05 AM
[2020-03-06] MEDS ORDERED: OPTIRAY 320 125ml IV ONE (10:13)
--- NOTE | 2020-03-06 11:09 | Neurology Consultation ---
Date of Consultation March 06, 2020 Assessment & Plan (1) Cirrhosis: (2) Seizure: (3) AMS (altered mental status): Isatu Toledo is a 79 yo woman w/ PMH of Sjogren's disease, GERD, DM, discoid lupus erythematosus, chronic back pain, cirrhosis, adjustment disorder with depressed mood, history of nephrolithiasis, and history of epilepsy who presented to [facility] for acute onset of confusion, gait imbalance and AMS. # Transient confusion: would be more concerned about an underlying dementia process (sundowning) or underlying toxic/metabolic dysfunction. She has apparently not had a seizure in over a decade and we do not have prior workup available. Was restarted on depakote last fall by PCP, however, patient has cirrhosis (?). Ammonia level is not high enough to think that her symptoms were due to hyperammonemia. Would be more worried for her underlying liver disease as the cause. Unlikely to be a TIA but can complete workup as below. A1c 5.3, LDL 43. - Would check MRI brain with seizure protocol w/o contrast and TTE to complete possible TIA workup - Was just banded for esophageal varices earlier this week; would hold off on aspirin at this time - Recommend weaning off of depakote given liver cirrhosis and considering keppra 500mg bid instead. - Recommend an outpatient workup with neurology to see if she even needs to be on any AEDs as last seizure was over a decade ago. - Would also check B12/TSH as she appears to have an underlying mild dementi a/cognitive impairment on exam and family also endorses concern about this Thank you for this interesting consult. Plan of care discussed with primary team. Please call or text questions. History of Present Illness Attending Physician: Reza Marvin, History of Present Illness Isatu Toledo is a 79 yo woman w/ PMH of Sjogren's disease, GERD, DM, discoid lupus erythematosus, chronic back pain, cirrhosis, adjustment disorder with depressed mood, history of nephrolithiasis, and history of epilepsy who presented to [facility] for acute onset of confusion, gait imbalance and AMS. 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 In the ED, she was afebrile, BP 126/66, heart rate 76, respiratory rate 18, satting 97% on room air. Labs notable for WBCs 4.3, hemoglobin 11.4, platelets 68, sodium 136, potassium 3.2, BUN 6, creatinine 0.62, glucose 98, INR 1.4, ammonia mildly elevated at 34.3, LFTs within normal, alkaline phosphatase elevated 185, troponin negative, albumin low at 2.4, pro calcitonin less than 0.05, lactate elevated mildly to 3, Mg low at 1.5, UA shows pyuria but no infection. EKG showed normal sinus rhythm. Imaging independently reviewed. CT head shows no hemorrhage or hypodensity, moderate small vessel disease noted and generalized atrophy with ex vacuo dilation. CTA H&N shows no LVO, high grade stenosis or aneurysm. She was admitted for possible TIA. On examination today, she reports that she remembers getting the CT scans ye sterday but was not sure why she was admitted again. notes that family is concerned about Spoke with daughter who is concerned about her ability to care for herself as she lives alone and manages her own medications currently. Isatu noted that her last seizure was more than a decade ago and involved generalized shaking and "blacking out". She was unable to provide further details but notes that she has been on depakote since then with no recurrence of events. Allergies Allergy/AdvReac Type Severity Reaction Status Date / Time ciprofloxacin [From Cipro] Allergy Severe Hives Verified 03/06/20 00:38 levofloxacin [From Levaquin] Allergy Severe Shortness Verified 03/06/20 00:38 of breath paroxetine Allergy Unknown Diarrhea Verified 03/06/20 00:38 phenytoin Allergy Unknown Unknown Verified 03/06/20 00:38 sulfamethoxazole Allergy Unknown SOB Verified 03/06/20 00:38 [From Bactrim] trimethoprim [From Bactrim] Allergy Unknown SOB Verified 03/06/20 00:38 unknown antibiotic Allergy Severe Browning-Bryon Uncoded 03/06/20 00:38 syndrome - no records available Home Medications Home Medications Medication Instructions Recorded Confirmed Type divalproex 500 mg tablet,delayed 500 mg PO BID #180 tab 06/13/19 03/06/20 Rx release Systane Complete 1 drp OPB TID PRN 12/05/19 03/06/20 History escitalopram oxalate 10 mg PO QAM 12/05/19 03/06/20 History latanoprost 1 drp OPB HS 12/05/19 03/06/20 History blood sugar diagnostic #300 ea 12/18/19 02/03/20 Rx blood-glucose meter #1 ea 12/18/19 02/03/20 Rx lancets 33 gauge #300 ea 12/18/19 02/03/20 Rx lidocaine 5 % topical patch 1 - 2 patch TOP DAILY PRN 12/26/19 03/06/20 History hydroxychloroquine [Plaquenil] 200 mg PO QAM 01/22/20 03/06/20 History rifaximin 550 mg tablet 550 mg PO BID #60 tab 02/03/20 03/06/20 Rx dicyclomine 10 mg capsule 10 mg PO TID #90 cap 02/24/20 03/06/20 Rx pantoprazole 40 mg PO DAILY #30 tab 03/02/20 03/06/20 Rx sucralfate 1 g PO QID 10 Days #400 ml 03/02/20 03/06/20 Rx magnesium chloride [Slow-Mag] 71.5 mg PO DAILY #30 tab 03/03/20 03/06/20 Rx Patient History Medical History Acute dehydration Adjustment disorder with depressed mood Antibiotic-associated diarrhea (~06/2019) Negative C. Diff test x 1 but good response to oral vancomycin Cardiac murmur "HEARD AT TIMES" Chronic back pain Cirrhosis CRYPTOGENIC Diabetes type 2, controlled Discoid lupus erythematosus F/U DR SALCEDO Esophageal varices GERD (gastroesophageal reflux disease) Glaucoma Gout Hearing difficulty Kidney stone Nausea & vomiting Osteoarthritis Pelvic fracture 12/14/19-WHEELCHAIR BOUND-70% WT BEARING AT PRESENT Retrosternal chest pain Seizure LAST ONE MORE THAN 10 YRS AGO-F/U PCP Sjogren's disease Thrombocytopenia Undifferentiated connective tissue disease Surgical History H/O: hysterectomy (~1984) History of colonoscopy History of esophagogastroduodenoscopy (EGD) History of esophagogastroduodenoscopy (EGD) with banding of esophageal varices History of liver biopsy Hx of cholecystectomy (~1983) S/P tooth extraction Family History Grandfather Diabetes Mother Hypertension Gallbladder disease Grandmother No problems noted. Father Pancreatic cancer Brother Alcohol abuse Denies family history of Ovarian cancer Prostate cancer Alzheimer disease Heart disease Myocardial infarction Breast cancer Lung cancer Colorectal cancer Stroke Social History Smoking Status: Never smoker Second Hand Exposure: Yes (as a child); Hx Alcohol Use: No Hx Substance Use: No Preferred Language: Irish Communication Ability: Effective Visual Impairment: Limited Hearing Ability: Use of Hearing Aid [employer] Required: No Beliefs That Will Affect Care: None marital status: / Current Living Situation: Alone Current Living Situation Comment: [place] current occupational status: retired Other Information That Helps Us Care for You: No Feels Safe at Home: Yes Childhood Exposure to Second-Hand Smoke: Yes caffeine: Yes Dental Care, Regularly: Yes Physical Activity Frequency: 1-2 Times per Week Seatbelt Use: always Sunscreen Use: No Review of Systems Review of Systems: 14 point review of systems completed and negative except as in HPI. Exam (Neuro) Physical Exam: General Exam: GEN: NAD, sitting in chair. HEENT: No conjunctival injection, no rhinorrhea. CV: RRR, no peripheral edema PULM: Nonlabored respirations on room air. Neuro Exam: MS: Awake and Alert. Oriented to person, place, not date. Speech fluent and appropriate without dysarthria or paraphasic errors. Language intact including naming, comprehension, repetition. Cognition and memory mildly impaired. Attention intact. No neglect. CN: Visual jacobo full. No extinction to double simultaneous stimuli. Unable to visualize fundi on fundoscopic exam. PERRLA OU. EOMI without nystagmus. Facial sensation intact to LT. Facial muscles full and symmetric. Hearing intact to conversation. Uvula midline with symmetric palatal elevation. Shoulder shrug normal. Tongue midline. MOTOR: Normal bulk and tone. No pronator drift. BUE strength 5-/5 at deltoids, biceps, triceps, wrist flexors and extensors, and hand grasp bilaterally. BLE strength 5-/5 at iliopsoas, hamstrings, quadriceps, tibialis anterior, and gastrocnemius bilaterally. REFLEXES: Trace at biceps, triceps, brachioradialis, trace patella and absent Achilles bilaterally. Flexor plantar responses bilaterally. SENSORY: Intact to LT without extinction to double simultaneous stimuli. Vibration and temperature intact throughout (vibration mildly diminished in BLEs up to the knees). COORDINATION: No dysmetria or ataxia on [id number] bilaterally. Normal Monica bilaterally. GAIT: deferred given physical status Results & Data ([facility]) Vital Signs (Past 12 Hours) Vital Signs Temp Pulse Pulse Resp BP BP BP 03/06/20 08:05 36.5 C 67 18 131/77 03/06/20 07:39 68 03/06/20 05:00 36.7 C 70 18 124/72 03/06/20 03:09 36.5 C 86 16 154/83 H 03/06/20 02:08 79 19 144/75 H 03/06/20 01:15 83 15 144/81 H 03/06/20 00:16 82 19 153/79 H 03/05/20 23:47 77 18 151/70 H Pulse Ox 03/06/20 08:05 97 03/06/20 07:39 03/06/20 05:00 96 03/06/20 03:09 95 03/06/20 02:08 96 03/06/20 01:15 96 03/06/20 00:16 97 03/05/20 23:47 98 PG Care Time/CCT Total # of Minutes Spent Total Time Spent with Patient: Total time spent is greater than 50% in coordination of care (as documented) at patient's floor/unit and/or counseling patient: Coding Level of Care Code 31963 OBS Care - Level 3 Diagnoses Cirrhosis K74.60 Seizure R56.9 AMS (altered mental status) R41.82
--- NOTE | 2020-03-06 11:14 | CT Scan Report ---
CT ANGIOGRAM OF THE BRAIN; CT ANGIOGRAM OF THE NECK CLINICAL HISTORY: Transient ischemic attack. COMPARISON STUDY: Unenhanced CT of the brain dated 03/05/2020. TECHNIQUE: Following the IV administration of 118 of Optiray 320, CT angiogram of the head and neck w as performed from the aortic arch to the vertex. Images are reviewed in the axial, sagittal, and joan nal planes. 3-D MIPS images are created and assessed. IV contrast was administered without complicati on. All measurements were calculated based on NASCET criteria. A dose lowering technique was utilize d adhering to the principles of ALARA. 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 There is no hemorrhage, mass effect, or evidence of acute territorial ischemia by CT criteria. There is no evidence of enhancing mass lesion on the angiogram phase images. The ventricles, sulci, and cisterns are prominent secondary to involutional change. Gra y-white matter differentiation is preserved. No extra-axial fluid collection is seen. Thoracic aorta: There is atherosclerotic calcification of the thoracic aorta. Visualized portions of the thoracic aorta are normal in caliber. The aortic arch demonstrates standard 3-vessel anatomy. Right carotid arterial system: The right common carotid artery is widely patent, as are the right int ernal and external carotid arteries. Mild plaque is noted in the carotid bulb. Left carotid arterial system: The left common carotid artery is widely patent, as are the internal an d external carotid arteries. Mild atherosclerotic plaque is noted in the carotid bulb. Vertebral arteries: The vertebral arteries are widely patent bilaterally noting left-sided dominance. Subclavian arteries: Widely patent bilaterally. Intracranial vasculature: There is atherosclerotic calcification of the cavernous carotid arteries. T here is origin of the right posterior cerebral artery. There is a large left posterior communic ating artery. The internal carotid arteries are patent at the skull base, as are the anterior and mid dle cerebral arteries bilaterally. The vertebrobasilar system and posterior cerebral arteries are wid анна patent. The left vertebral artery is dominant. There is no aneurysm, high-grade stenosis, or foca l vessel cut off seen throughout the intracranial circulation. Jugular veins: Patent bilaterally. Foci of intravenous gas are noted in the neck and at the skull bas e. Dural sinuses: Patent. Lung apices: Partially visualized upper lobe lung parenchyma appears clear. Soft tissues: The visualized pharyngeal soft tissues are normal in appearance noting angiographic pha se technique. The oropharyngeal airway appears widely patent. The salivary and thyroid glands are nor mal in appearance. No cervical lymphadenopathy is seen. Skeletal structures: The skeletal structures are osteopenic. The calvarium appears intact. The cervic al spine is maintained noting multilevel spondylosis. No lytic or blastic lesion is seen. Orbits: The bony orbits are intact. Orbital contents are normal in appearance noting bilateral ocular lens implants. Sinuses and mastoids: The paranasal sinuses are clear. The mastoid air cells are well pneumatized. IMPRESSION: 1. There is no hemorrhage, mass effect, or evidence of acute territorial ischemia by CT criteria noti ng angiographic phase technique. 2. Unremarkable CT angiogram of the brain. 3. Unremarkable CT angiogram of the neck. ACT 112: Negative or not required by law. Electronically signed by: Jose Maria Baird M.D. 03/06/2020 11:12 AM
--- NOTE | 2020-03-06 14:43 | Magnetic Resonance Report ---
MRI OF THE BRAIN WITHOUT IV CONTRAST CLINICAL HISTORY: Transient ischemic attack. COMPARISON STUDY: CT of the brain dated 03/05/2020. TECHNIQUE: MRI of the brain was performed utilizing various T1 and T2-weighted sequences in the axial , sagittal, and coronal planes. IV contrast was not administered for this examination. The examinatio n is degraded by motion artifact. 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 There is no hemorrhage or mass effect. There is no restri cted diffusion to suggest acute ischemia. Vega-white matter differentiation is preserved. No extra-ax ial fluid collection is seen. The cerebellar tonsils are normal in configuration. Ventricles, sulci, and cisterns: Prominent secondary to involutional change. Pituitary and sella: Unremarkable. Intracranial vasculature: Normal flow voids are maintained at the skull base. Orbits: The bony orbits are grossly intact. Orbital contents are normal in appearance noting bilatera l ocular lens implants. Sinuses and mastoids: Clear. Calvarium: Unremarkable. Cervical cord: Partially visualized cervical spinal cord is normal in morphology and signal intensity . IMPRESSION: No acute intracranial abnormality. ACT 112: Negative or not required by law. Electronically signed by: Jose Maria Baird M.D. 03/06/2020 2:42 PM
--- NOTE | 2020-03-06 14:44 | XCELERA ---
[id number]
--- NOTE | 2020-03-06 16:50 | Electrocardiogram Report ---
Test Reason : Blood Pressure : / mmHG Vent. Rate : 073 BPM Atrial Rate : 072 BPM P-R Int : 184 ms QRS Dur : 086 ms QT Int : 296 ms P-R-T Axes : 000 -24 018 degrees QTc Int : 326 ms Normal sinus rhythm with sinus arrhythmia Low voltage QRS Poor R wave progression, consider anterior UT vs. lead placement vs. LVH Abnormal ECG When compared with ECG of 01-MAR-2020 11:26, Premature atrial complexes are no longer Present Nonspecific T wave abnormality, worse in Lateral leads QT has shortened Confirmed by Andrea Hernandez ([id number]) on 03/06/2020 4:49:51 PM Referred By: REFERRED SELF Confirmed By:Artur Hernandez
--- NOTE | 2020-03-06 19:08 | Hospitalist Progress Note ---
Date of Service March 06, 2020 Assessment & Plan (1) Confusion: Isatu Toledo is a 79 yo female who presented to the ED after an ~3.5 hour episode of acute confusion last night. The episode of confusion spontaneously resolved around 9:00pm. Altered Mental Status/Confusion TIA vs dementia/delirium CT head 03/05/20 -- negative; There is no hemorrhage, mass effect, or evidence of acute territorial ischemia by CT criteria. CTA neck/head 03/06/20 -- negative; There is no hemorrhage, mass effect, or evidence of acute territorial ischemia by CT criteria noting angiographic phase technique. Brain MRI 03/06/20 -- negative; No acute intracranial abnormality. Neurology consulted. Appreciate their recommendations. Recommend outpatient workup with neurology. Will check B12 and TSH. BMP, CBC, and Mag qAM. Patient's family concerned that patient cannot return home to independent living. Will consult case management for discharge planning. PT/OT/ST eval and treat. Hypomagnesemia and Hypokalemia Repleted with magnesium and potassium ? associated with recently being started on pantoprazole Discontinue pantoprazole Continue carafate and famotidine DMII History of diabetes Continue insulin aspart Depression Continue escitalopram 10mg po qAM FEN/GI: Regular diet DVT ppx: SCDs, Heparin 5000 units SQ q12h Dispo: med surge/tele Code status: Full code (2) Hypokalemia: (3) Hypomagnesemia: (4) Diabetes type 2, controlled: Admission and Anticipated Discharge Date Admission Date: March 06, 2020 Supervising Physician Co-Signing Physician Notes I personally examined the patient and verified all sanford points of history and exam, discussed case, and agree with decision making with Dr Paulino. no complaints at this time. feeling liek herself. dtr notes she's like herself as well. dtr later notes "she cannot go home, she is not safe" vitals noted nad heent nc at mmm breathing unlabored no accessory muscles good effort no focal neuro deficits AMS - agree w neuro - transient confusion in dementia seems most likely. 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 PT/OT eval and treat, consider placmenet options otherwise as above Subjective Patient was seen and evaluated in her room this afternoon after admission. She states that she is overall doing great and that she's back to baseline. Patient's daughter is at bedside and agrees that patient's cognitive status has returned to baseline and she is no longer confused. Patient denies any pain including CP, SOB, headache, or abdominal pain. Patient's daughter does express concern about the patient returning home to independent living. Patient lives alone with the assistance of 2 aides a few hours per day. Daughter states that patient is not safe to go home at this time, due to progressive forgetfulness and intermittent confusion, and family is considering placement options (even if for just short term placement). One of patient's aides, Pamela, is a CEMENT SIDE LASTER at a local personal fdc ([employer] [facility]) and daughter questions if patient would be stable enough/independent enough to be able to go there. Review of Systems Constitutional: no fever, no chills and no fatigue Respiratory: no cough and no dyspnea Cardiovascular: no chest pain Gastrointestinal: no abdominal pain, no nausea, no vomiting and no dysphagia Neurologic: no headache(s) Physical Exam Physical Exam: GENERAL: No acute distress. Well developed and well nourished. Resting comfortably in bed. Vital signs reviewed as above. HENT: Moist mucous membranes. RESPIRATORY: No respiratory distress. Able to speak in full sentences without increased work of breathing. EXTREMITIES: No edema. Non-tender. NEUROLOGIC: No focal neurological deficits. Good fine motor skills -- patient is crocheting in bed. PSYCHIATRIC: Cooperative. Appropriate mood and affect. Results & Data Results & Data ([facility]) Vital Signs (Past 12 Hours) Vital Signs Temp Pulse Pulse Resp BP Pulse Ox 03/06/20 15:38 36.7 C 71 16 128/77 98 03/06/20 11:31 36.7 C 77 18 136/68 95 03/06/20 08:05 36.5 C 67 18 131/77 97 03/06/20 07:39 68 (1) Diabetes type 2, controlled Diabetes mellitus complication status: without complication Diabetes mellitus termination clerk insulin use: without chcf use Qualified Code(s): E11.9 - Type 2 diabetes mellitus without complications
[2020-03-06] MEDS: LATANOPROST 0.005% OP SOLN 2.5 ML BTL OPB SCH (21:19)
[2020-03-07 06:22] LABS: Hematocrit (blood only) 31.1 % (37-47); Mean Corpuscular Hemoglobin 29.7 pg (25-34); Mean Corpuscular Hgb Conc 32.2 g/dL (32-36); Mean Corpuscular Volume 92.3 fL (80-100); RDW Coefficient of Variation 14.2 % (11.5-14.5); Red Blood Count 3.37 M/uL (4.2-5.4); White Blood Count 3.21 K/uL (4.8-10.8)
[2020-03-07 06:25] LABS: Mean Platelet Volume 10.3 fL (7.4-10.4); Platelet Count 53 K/uL (130-400)
[2020-03-07 06:55] LABS: BUN Creatinine Ratio 8.9 (10-20); Calcium 8.4 mg/dl (8.5-10.1); Creatinine Clr Calc Pharmacy 109.7 ml/min; Est GFR (African American) 115.8; Est GFR (Non-African American) 99.9; Magnesium 1.4 mg/dl (1.8-2.4)
[2020-03-07 07:00] LABS: Basophils # (auto) 0.01 K/uL (0-0.2); Basophils % (auto) 0.3 %; Eosinophils # (auto) 0.16 K/uL (0-0.5); Lymphocytes # (auto) 1.33 K/uL (1.2-3.4); Lymphocytes % (auto) 41.4 %; Monocytes # (auto) 0.31 K/uL (0.11-0.59); Monocytes % (auto) 9.7 %; Neutrophils % (auto) 43.6 %
[2020-03-07 07:04] LABS: Thyroid Stimulating Hormone 2.25 uIu/ml (0.300-4.500)
[2020-03-07] MEDS: RIFAXIMIN 550 MG TABLET PO SCH ×2 (08:48→20:15)
[2020-03-07] MEDS: ESCITALOPRAM OXALATE 10 MG TAB PO SCH (08:48)
[2020-03-07] MEDS: MAGNESIUM CHLORIDE 64MG DELAYED REL TAB PO SCH (08:48)
[2020-03-07] MEDS: DIVALPROEX DELAY RELEASE 500 MG TAB PO SCH (08:49)
[2020-03-07] MEDS: DICYCLOMINE HCL 10 MG CAP PO SCH ×3 (08:49→20:15)
[2020-03-07] MEDS: HYDROXYCHLOROQUINE SULFATE 200 MG TAB PO SCH (08:49)
[2020-03-07] MEDS: ASPIRIN 81 MG ECTAB PO SCH (08:49)
[2020-03-07] MEDS: HEPARIN SOD 5,000 UNIT/0.5 ML VIAL SQ SCH ×3 (08:50→20:15)
[2020-03-07] MEDS: SUCRALFATE 1 GM/10 ML UDC PO SCH ×4 (08:50→20:15)
[2020-03-07] MEDS: INSULIN ASPART 100 UNITS/ML 3 ML PEN SC SCH ×4 (08:51→20:13)
[2020-03-07] MEDS: MAGNESIUM SULFATE / D5W 1 GM/100 ML BAG IV SCH ×2 (09:33→11:34)
[2020-03-07] MEDS: NSS + 20MEQ KCL 20 MEQ/1,000 ML BAG IV SCH ×3 (09:33→19:33)
[2020-03-07] MEDS ORDERED: levETIRAcetam 500 MG in 0.9 % SODIUM CHLORIDE 100 ML IV ONE ×2 (09:57→20:00)
--- NOTE | 2020-03-07 17:35 | Hospitalist Progress Note ---
Date of Service March 07, 2020 Assessment & Plan (1) Confusion: Isatu Toledo is a 79 yo female who presented to the ED after an ~3.5 hour episode of acute confusion last night (03/05/20). The episode of confusion spontaneously resolved around 9:00pm. Altered Mental Status/Confusion TIA vs dementia/delirium CT head 03/05/20 -- negative; There is no hemorrhage, mass effect, or evidence of acute territorial ischemia by CT criteria. CTA neck/head 03/06/20 -- negative; There is no hemorrhage, mass effect, or evidence of acute territorial ischemia by CT criteria noting angiographic phase technique. Brain MRI 03/06/20 -- negative; No acute intracranial abnormality. Neurology consulted. Appreciate their recommendations. Recommend outpatient workup with neurology. - B12 and TSH checked per neurology recommendations -- both are wnl (B12 712, TSH 2.25) Believe that transient confusion with dementia is most likely. Discussed dementia with patient's daughter. Patient's family concerned that patient cannot return home to independent living. Case management on for discharge planning. Awaiting placement vs. home. BMP and Mag qAM. PT/OT/ST eval and treat. Hypomagnesemia and Hypokalemia Repleted with magnesium and potassium Magnesium 03/07 still low; repleted again 03/07 -- check BMP and Mag in AM ? associated with recently being started on pantoprazole. Discontinue pantoprazole Continue carafate and famotidine DMII History of diabetes Continue insulin aspart Depression Continue escitalopram 10mg po qAM FEN/GI: Regular diet DVT ppx: SCDs, Heparin 5000 units SQ q12h Dispo: med surge/tele Code status: Full code (2) Hypokalemia: (3) Hypomagnesemia: (4) Diabetes type 2, controlled: Admission and Anticipated Discharge Date Admission Date: March 06, 2020 Supervising Physician Co-Signing Physician Notes I personally examined the patient and verified all sanford points of history and exam, discussed case, and agree with decision making with Dr Paulino. dtr spoke w us in hallway not wanting to talk w pt - noted that she really feels pt not safe at home. upset about how things are going upset that mom is probably going to choose to go home again. later able to see pt alone - she notes that she is getting older, didn't seem aware of dementia but is aware of getting less independent and losing some things jacobo kalpana used to be able to do. aware that she probably will need prison at some point in near future but wants to be able to do things on her terms. notes that she was in [facility] in [place] a few years back, family talked her into moving to [facility] to be near them, then notes she had a few good years, sarcastically jokes she should move back to [place]. notes that she does sometimes not get enough to eat or drink. vitals noted nad heent nc at mmm breathing unlabored no accessory muscles good effort no focal neuro deficits AMS - agree w neuro - transient confusion in dementia seems most likely. 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 right now lucid, has capacity, wants to go home - but is realistic about her situation. i wonder if her transient delirium was from dehydration - discussed basic nutrition and hydration goals. is stable for home in current medical situation - but understanding of family's concerns will allow time for her to consider options and for planning. discussed that with her medical issues and probable dementia being progressive things, it is unfortunately realistic that thsi may be as good as she is - and therefore if she doesn't need help now she likely will quite soon (discussed that she's right on the brink of independence vs not as i see it now) - so it would be far better for her to plan next steps on her terms rather than what is able to be done/what is available if she reaches a crisis -as it relates to dtr, explained that with patient having capacity and doing well with PT, we have no legal ability to have her do anything against her wishes. noted that typically when family is having concerns like they are, discussing directly wtih the patient is far more productive than discussing with the medical team without the patient's involvement. further told her to directly talk with her mom about what she is concerned about - and that often folks respond better to family saying their concerns than telling people what they are no longer able to do. dispo - ultimately as it is her wishes and she has capacity, i believe the patient will go home. will delay so as to allow her time to think and consider now that we have been able to have a roberta, doctor to patient discussion without outside influences. she seems quite insightful and didn't really offer up any denial of the situation - but rather a resigned acceptance of what we are seeing. she is willing to tour facilities and start to plan ahead, just doesn't wnat to move to [facility] immediately. given her capacity, i do believe she is understanding of the risks/benefits of her decisions. i also strongly suspect she will be moving into [facility] soon but seesm to want to do so on her terms. otherwise as above Subjective Patient was seen and evaluated in room today. She states that she is doing well and she has no complaints or concerns. Patient denies any confusion, CP, abdominal pain, SOB, cough, n/v/d, leg pain, or leg swelling. She is questioning when she can return home. Patient does note that she would like to be d/c home. Addendum: patient re-evaluated with daughter at bedside. Patient still states that she is doing well without any complaints or concerns. Patient's daughter is very worried about patient returning to home. Patient does have care at home for ~4 hours per day (2 hours in AM and 2 hours in PM) but daughter is concerned that she should not be at home due to her intermittent periods of confusion. Daughter would like for patient to have placement in [facility] (preferably [facility]). Review of Systems Constitutional: no fever and no chills Respiratory: no cough and no dyspnea Cardiovascular: no chest pain Gastrointestinal: no abdominal pain, no nausea, no vomiting and no diarrhea/loose stools Musculoskeletal: no swelling and no body aches Neurologic: no headache(s) and no confusion Physical Exam Physical Exam: GENERAL: No acute distress. Well developed and well nourished. Resting comfortably in bed. Vital signs reviewed as above. HENT: Moist mucous membranes. RESPIRATORY: No respiratory distress. Able to speak in full sentences without increased work of breathing. Lungs CTA b/l. CARDIO: Regular rate and rhythm. 2/6 YANE. EXTREMITIES: No edema. Non-tender. NEUROLOGIC: No focal neurological deficits. A/Ox3. PSYCHIATRIC: Cooperative. Appropriate mood and affect. Results & Data Results & Data ([facility]) Vital Signs (Past 12 Hours) Vital Signs Temp Pulse Pulse Resp BP Pulse Ox 03/07/20 15:21 36.7 C 78 18 138/69 91 03/07/20 15:01 72 03/07/20 12:03 36.8 C 68 18 128/65 96 03/07/20 09:36 74 03/07/20 07:37 36.6 C 67 18 133/75 95 (1) Diabetes type 2, controlled Diabetes mellitus complication status: without complication Diabetes mellitus termite control representative insulin use: without termite control representative use Qualified Code(s): E11.9 - Type 2 diabetes mellitus without complications
--- NOTE | 2020-03-07 19:13 | Billing Data ---
Date of Service March 07, 2020 Coding Level of Care Code 08675 Subseq Hosp Care Lvl 3
[2020-03-07] MEDS: DIVALPROEX DELAY RELEASE 250 MG TABEC PO SCH (20:15)
[2020-03-07] MEDS: LATANOPROST 0.005% OP SOLN 2.5 ML BTL OPB SCH (20:15)
[2020-03-08] MEDS: NSS + 20MEQ KCL 20 MEQ/1,000 ML BAG IV SCH ×2 (04:56→05:33)
[2020-03-08 07:23] LABS: Mean Corpuscular Hemoglobin 31.1 pg (25-34); Mean Corpuscular Hgb Conc 33.3 g/dL (32-36); Mean Corpuscular Volume 93.2 fL (80-100); RDW Coefficient of Variation 14.3 % (11.5-14.5); RDW Standard Deviation 48.8 fL (36.4-46.3); Red Blood Count 3.54 M/uL (4.2-5.4); White Blood Count 3.33 K/uL (4.8-10.8)
[2020-03-08 07:24] LABS: Mean Platelet Volume 10.4 fL (7.4-10.4); Platelet Count 58 K/uL (130-400)
[2020-03-08 07:47] LABS: BUN Creatinine Ratio 3.8 (10-20); Calcium 8.2 mg/dl (8.5-10.1); Est GFR (African American) 108.1; Est GFR (Non-African American) 93.3; Magnesium 1.5 mg/dl (1.8-2.4); Potassium 4.2 mmol/L (3.5-5.1)
[2020-03-08 07:49] LABS: Acanthocytes 1+; Basophils # (auto) 0.01 K/uL (0-0.2); Basophils % (auto) 0.3 %; Lymphocytes # (auto) 1.26 K/uL (1.2-3.4); Lymphocytes % (auto) 37.8 %; Monocytes # (auto) 0.47 K/uL (0.11-0.59); Monocytes % (auto) 14.1 %; Neutrophils # (auto) 1.39 K/uL (1.4-6.5); Neutrophils % (auto) 41.8 %
[2020-03-08] MEDS: RIFAXIMIN 550 MG TABLET PO SCH (08:24)
[2020-03-08] MEDS: ASPIRIN 81 MG ECTAB PO SCH (08:24)
[2020-03-08] MEDS: DIVALPROEX DELAY RELEASE 250 MG TABEC PO SCH (08:25)
[2020-03-08] MEDS: HYDROXYCHLOROQUINE SULFATE 200 MG TAB PO SCH (08:25)
[2020-03-08] MEDS: ESCITALOPRAM OXALATE 10 MG TAB PO SCH (08:25)
[2020-03-08] MEDS: DICYCLOMINE HCL 10 MG CAP PO SCH ×2 (08:28→14:44)
[2020-03-08] MEDS: MAGNESIUM CHLORIDE 64MG DELAYED REL TAB PO SCH (08:28)
[2020-03-08] MEDS: MAGNESIUM SULFATE / D5W 1 GM/100 ML BAG IV SCH ×3 (08:36→12:32)
[2020-03-08] MEDS: SUCRALFATE 1 GM/10 ML UDC PO SCH ×2 (08:36→14:44)
[2020-03-08] MEDS: HEPARIN SOD 5,000 UNIT/0.5 ML VIAL SQ SCH (08:37)
--- NOTE | 2020-03-08 08:39 | Hospitalist Progress Note ---
Date of Service March 08, 2020 Assessment & Plan (1) Confusion: Isatu Toledo is a 79 yo female who presented to the ED after an ~3.5 hour episode of acute confusion on 03/05/20 with subsequent and spontaneous resolution. Altered Mental Status/Confusion TIA vs dementia/delirium CT head 03/05/20 -- negative; There is no hemorrhage, mass effect, or evidence of acute territorial ischemia by CT criteria. CTA neck/head 03/06/20 -- negative; There is no hemorrhage, mass effect, or evidence of acute territorial ischemia by CT criteria noting angiographic phase technique. Brain MRI 03/06/20 -- negative; No acute intracranial abnormality. Neurology consulted. Appreciate their recommendations. Recommend outpatient workup with neurology. - B12 and TSH checked per neurology recommendations -- both are wnl (B12 712, TSH 2.25) Believe that transient confusion with dementia is most likely. Discussed dementia with patient's daughter. Patient's family concerned that patient cannot return home to independent living. Case management on for discharge planning. Awaiting placement vs. home. BMP and Mag qAM. PT/OT/ST eval and treat. Hypomagnesemia and Hypokalemia Repleted with magnesium and potassium Magnesium 03/07 still low; repleted again 03/07 -- check BMP and Mag in AM ? associated with recently being started on pantoprazole. Discontinue pantoprazole Continue carafate and famotidine DMII History of diabetes Continue insulin aspart Depression Continue escitalopram 10mg po qAM FEN/GI: Regular diet DVT ppx: SCDs, Heparin 5000 units SQ q12h Dispo: med surge/tele Code status: Full code (2) Hypokalemia: (3) Hypomagnesemia: (4) Diabetes type 2, controlled: Admission and Anticipated Discharge Date Admission Date: March 06, 2020 Subjective Patient seen at the bedside this morning. Reports feeling well overall, and agitated about being in the hospital - really wants to go home. After having her discussion with Dr. Marvin last night, she reports that she feels it would be in her best interest to end up at an assisted living facility, but would really like to return home first to get her things in order. Reports living alone at home. She denies any pain and overall reports feeling well. No abdominal pain. Appetite "isn't really there." No chest pain, palpitations, or shortness of breath. Physical Exam Constitutional: Patient in her chair this morning eating breakfast comfortably. She is alert and oriented throughout our discussion and has good insight about the reason she is here. She is in no acute distress. She is afebrile. Respiratory: Good respiratory effort. Intermittent crackles throughout all lung jacobo bilaterally. No wheezes, rales, or rhonchi otherwise. Cardiovascular: Normal rate and regular rhythm. S1 and S2 present. Grade 1-2/6 systolic ejection murmur best heard at the RUSB. Otherwise, no rubs or gallops. No peripheral edema in the lower extremities b/l. Gastrointestinal (Abdomen): Nondistended and nontender to palpation. Results & Data Results & Data ([facility]) Vital Signs (Past 12 Hours) Vital Signs Temp Pulse Pulse Resp BP Pulse Ox Pulse Ox 03/08/20 07:49 36.7 C 61 20 140/63 96 03/08/20 07:24 70 03/08/20 02:00 94 03/07/20 23:59 69 03/07/20 22:35 36.8 C 69 18 134/74 95 (1) Diabetes type 2, controlled Diabetes mellitus complication status: without complication Diabetes mellitus manager terminal insulin use: without manager terminal use Qualified Code(s): E11.9 - Type 2 diabetes mellitus without complications
[2020-03-08] MEDS: INSULIN ASPART 100 UNITS/ML 3 ML PEN SC SCH ×2 (08:40→12:00)
[2020-03-08] MEDS ORDERED: levETIRAcetam 250 MG TAB PO SCH (09:00)
[2020-03-08] MEDS ORDERED: MAGNESIUM OXIDE 400 MG TAB PO SCH (09:00)
--- NOTE | 2020-03-08 18:27 | Discharge Summary ---
Date of Service March 08, 2020 Admission HPI Per Admitting Provider The patient is a 79-year-old female with a past medical history including portal hypertension, cirrhosis, esophageal varices, seizure, discoid lupus erythematosus, undifferentiated connective tissue disease, GERD, t hrombocytopenia, adjustment disorder with depressed mood, Sjogren's syndrome and diabetes mellitus type 2. The daughter provides most of her history and review of systems. The daughter reports that she was visiting from out of town, and was at a local hotel with her disabled . The daughter recalls reports that by the time she got to the patient at 9 PM, the symptoms had resolved and she is back to her baseline. Admission Exam Per Admitting Provider The patient is awake, alert , normocephalic and atraumatic, lying in bed and in no acute distress. HEENT--PERRL, EOMI, mucous membranes and oropharynx dry. Neck--supple. No JVD. No bruits. Thyroid normal, trachea midline, no adenopathy. Heart--normal S1 and S2. No murmurs, rubs or gallops. Lungs--clear bilaterally, no respiratory distress, no accessory muscle use. Abdomen--normal bowel sounds and soft. Nontender. Nondistended. Extremities--no cyanosis or clubbing. No edema. Dermatologic--normal skin turgor, normal color, no abnormal lymph nodes, no rash. Neurologic--cranial nerves II through XII grossly intact. Rheumatologic--normal range of motion. Psychiatric--normal affect. Principal Diagnosis transient confusion dementia hypomagnesemia hypokalemia Discharge Exam Constitutional WD/WN, vitals as above 79-year-old female who was in her chair eating breakfast. She is conversive,and alert words during our discussion. No acute distress Neck normal visual inspection Respiratory normal respiratory effort, lungs clear to auscultation Cardiovascular RRR, no murmur, no edema No lower extremity peripheral edema. The legs are nontender to palpation. Gastrointestinal (Abdomen) Percussion/Palpation: abdomen soft; abdomen nontender, no guarding and no hepatosplenomegaly Psychiatric A+Ox3, euthymic affect Discharge Data Allergies Allergy/AdvReac Type Severity Reaction Status Date / Time ciprofloxacin [From Cipro] Allergy Severe Hives Verified 03/06/20 00:38 levofloxacin [From Levaquin] Allergy Severe Shortness Verified 03/06/20 00:38 of breath paroxetine Allergy Unknown Diarrhea Verified 03/06/20 00:38 phenytoin Allergy Unknown Unknown Verified 03/06/20 00:38 sulfamethoxazole Allergy Unknown SOB Verified 03/06/20 00:38 [From Bactrim] trimethoprim [From Bactrim] Allergy Unknown SOB Verified 03/06/20 00:38 unknown antibiotic Allergy Severe Browning-Bryon Uncoded 03/06/20 00:38 syndrome - no records available Consultations 03/06/20 00:02 ED Decision to Admit Stat 03/06/20 02:56 Consult Case Management - Discharge Planning Routine 03/06/20 05:17 Consult Case Management - Discharge Planning Routine Consult Neurology Routine Ordered Studies 03/05/20 22:48 CT head/brain wo con Urgent 03/06/20 05:12 CT angio head w con Stat CT angio neck with con Stat 03/06/20 05:17 MR brain wo con Routine Hospital Course (1) Confusion: Isatu Toledo is a 79 yo female who presented to the ED after an ~3.5 hour episode of acute confusion on 03/05/20 with subsequent and spontaneous resolution. Hospital Course: Isatu Toledo was seen at [facility] from 03/05 - 03/08 for a work- up and evaluation of transient confusion. There was initial concern for TIAs, as similar episodes of transient confusion have happened in the past. In the Emergency Room, Ms. Toledo underwent CT of the head which was negative for hemorrhage, mass effect, or acute territorial ischemia -- angiography was performed on 03/06, which similarly showed similarly. MRI displayed no acute intracranial abnormality. She was, however, found to have hypomagnesemia and hypokalemia; these were both repleted via IVF. Pantoprazole was also discontinued, as there had been concern this may have been contributory to these electrolyte abnormalities. Neurology was consulted for further evaluation -- given her h/o cirrhosis, ammonia was determined not to be elevated enough to be contributory; further, given her liver disease, Depakote was weaned (see to-do outpatient above). TSH and B12 were WNL. Given this otherwise unremarkable workup, primary etiology of this transient confusion was thought to be related to underlying dementia (e.g., sundowning) vs. metabolic dysfunction. - As patient has not had a seizure in over 10 years and there was possibility this may have been contributory to her episode of transient confusion, neurology initiated Depakote ween during her stay. Discharge regimen as follows: Decrease Depakote to 250mg PO b.i.d. upon discharge, and transition to 250mg PO qHS next week. Start Keppra 250mg PO b.i.d. upon discharge (given 500mg IV loading dose during stay) -- can consider increasing to 500mg PO b.i.d. if needed. Patient to have outpatient neurology f/u within 2-5 weeks of discharge. As outpatient - - Check magnesium level in 1-2 weeks upon discharge (Mg 1.5 at discharge - 03/08) - Consider adding magnesium oxide 400mg PO daily daily to b.i.d. for additio nal repletion, if needed - Check potassium level within a month of discharge (K 4.2 at discharge - 03/08) - Discharged to [facility] (2) Hypokalemia: (3) Hypomagnesemia: (4) Diabetes type 2, controlled: Total Time Total Time Spent Total Time Spent (In Minutes): . Discharge Plan Discharge Items Patient Disposition: Personal Long Term Reason For Visit: CONFUSION Discharge Diagnosis: dementia hypokalemia hypomagnesemia Activity: Per Instructions section Non-emergency contact: Primary Care Provider Call non-emergency contact if: your symptoms worsen, your pain is not controlled and your temperature is above 101 Follow-up/Referrals: Tamara Benítez MD [Primary Care Provider] - 03/12/20 11:30 am (Please call [phone] if you need to reschedule this appointment.) Diet: Regular and Carb Consistent or DM2 Addtl Attending Provider Instructions: You were seen at [facility] from 03/05 - 03/08 for a work-up and evaluation of confusion ("altered mental status"). In the Emergency Room, you underwent several scans and lab tests to rule-out any acute problems, such as a stroke ("hemorrhage," "TIAs") and vitamin deficiencies - these tests did not reveal any explanation for your symptoms. However, you were found to have low blood magnesium and potassium; these were both repleted during your stay through intravenous fluids. Your pantoprazole was also discontinued. Based on your work-up, the most likely cause of your episode of confusion was likely due to structural changes in the brain that occur with aging, and can sometimes precipitate episodes of forgetfulness ("dementia"). Together with your care team and family, you have decided to discharge to [facility] for ongoing support. The following medications should be discontinued upon discharge: -PANTOPRAZOLE Medication changes / additions: Made at the recommendation of neurology - Take Depakote 250mg two times daily by mouth for 1 week. After 1 week, reduce dose to 250mg at bedtime. - Begin Keppra 250mg two times daily by mouth for 1 week. If tolerated, then increase Keppra to 500mg twice daily by mouth. - *Follow up with neurology in 2-5 weeks, as below. You are to see your primary care physician, Dr. Benítez, within 1-2 weeks of discharge from the hospital; they should contact you regarding appointment scheduling within 48 hours. If you do not hear from them, please call their office to schedule an appointment at [phone]. You are also to see neurology within 2-5 weeks, preferably by TeleHealth. If you should experience any worsening of your symptoms, and/or new or concerning symptoms, please seek immediate medical attention - including contacting your PCP, going to the emergency room, or calling 911. Pending Studies at Discharge: No Stand-Alone Forms: My [employer] Smoking Cessation Skilled Items Patient informed of condition?: Yes DNR: No Discharge Level of Care: Skilled Communicable Disease: No Discharge Prognosis: Stable Lines: None Urinary Catheter: No Medications and DC Order Prescriptions: New levetiracetam [Keppra] 250 mg tablet 250 mg PO BID 30 Days Qty: 60 RF: 2 divalproex [Depakote] 250 mg tablet,delayed release (DR/EC) 250 mg PO BID 7 Days Qty: 14 RF: 0 divalproex [Depakote] 250 mg tablet,delayed release (DR/EC) 250 mg PO .qhs Qty: 30 RF: 2 Continued (DME) blood sugar diagnostic [OneTouch Ultra Blue Test Strip] Strip See Rx Instructions .ROUTE .MEDSUPPLY Qty: 300 RF: 3 (DME) lancets [OneTouch Delica Lancets] 33 gauge misc See Rx Instructions .ROUTE .MEDSUPPLY Qty: 300 RF: 3 (DME) blood-glucose meter [OneTouch Ultra2 Meter] Kit See Rx Instructions .ROUTE .MEDSUPPLY Qty: 1 RF: 1 dicyclomine 10 mg capsule 10 mg PO TID Qty: 90 RF: 2 lidocaine 5 % adhesive patch,medicated 1 - 2 patch TOP DAILY PRN (Reason: Pain) RF: 0 rifaximin 550 mg tablet 550 mg PO BID Qty: 60 RF: 2 Systane Complete 0.6 % Drops 1 drp OPB TID PRN (Reason: Dry Eyes) RF: 0 latanoprost 0.005 % drops 1 drp OPB HS RF: 0 hydroxychloroquine [Plaquenil] 200 mg tablet 200 mg PO QAM RF: 0 sucralfate 100 mg/mL Suspension 1 g PO QID 10 Days Qty: 400 RF: 0 Slow-Mag 71.5 mg tablet,delayed release (DR/EC) 71.5 mg PO DAILY Qty: 30 RF: 3 Discontinued divalproex [Depakote] 500 mg tablet,delayed release (DR/EC) 500 mg PO BID Qty: 180 RF: 3 pantoprazole 40 mg tablet,delayed release (DR/EC) 40 mg PO DAILY Qty: 30 RF: 0 No Action escitalopram oxalate 20 mg tablet 20 mg PO DAILY Qty: 30 RF: 5 Discharge Orders: Discharge Order (Routine); Ordered 03/08/20 Ordered By: Reza Banuelos Admission Data Admit Date/Time: 03/06/20 01:16 Attending Provider: Cindy Vasques Admit Provider: Rafael Stephen Primary Care Provider: Tamara Benítez Other Providers: Rafael Stephen ; Arnold Ring ; Reza Marvin Other Interventions: Discharge Summary Assessment (RN) Last Done: 03/08/20 13:18 Supervising Physician Co-Signing Physician Notes Resident Physician Supervision Note: I independently interviewed and examined the patient and verified the sanford history and physical, reviewed labs and image studies, discussed the case with the resident Dr. Banuelos and agree with the findings and care plan. Resident Activity Tracking Resident Involvement: Resident Care Provided Care Provided: Adult Hospital Medicine
== END 2020-03-08 14:47 | disposition home or self-care (01) ==
LOC: 2W 22:16 → ED 22:16 → SUATTDRO 03-06 01:16 → 2W 03-06 02:08

== ENCOUNTER 2021-04-10 | Observation (INO) ==
[2021-04-10] MEDS ORDERED: fentaNYL citrate 100 MCG/2 ML VIAL IV STA (00:26)
[2021-04-10] MEDS ORDERED: ONDANSETRON INJ 2 MG/ML 2 ML VIAL IV STA (00:26)
--- NOTE | 2021-04-10 00:53 | Emergency Department Note ---
Impression & Plan Fracture of head of humerus, Fall Admit to the [facility] group ED Provider Note NAME: NU HOLLEY AGE: 80 SEX: F ARRIVES VIA: Ambulance INFORMANT: Patient ED PROVIDER(S): Ayesha Mccallum DO CHIEF COMPLAINT: Fall PLAN: Disposition: Admit to the [facility] Condition: Stable MEDICAL DECISION MAKING: This is an 80-year-old female patient who tripped in her apartment and fell landing on her right shoulder. The patient did not strike her head or lose consciousness. X-ray of the right upper extremity confirms a right humeral head fracture. Laboratory studies were fairly unremarkable. She has baseline anemia and thrombocytopenia. Patient required multiple doses of IV analgesia and oral analgesia for pain management. The patient was placed into a shoulder immobilizer and was still quite uncomfortable. The emergency department case martha crabtree discussed the situation with the patient and her daughter. I discussed the case with Dr. Ayala and he will evaluate for further management. Triage Nursing notes reviewed and agree with them. Additional history obtained from the daughter who arrived at the bedside Vital Signs: reviewed and unremarkable Differential diagnosis: Shoulder dislocation, humeral head fracture, midshaft humerus fracture ER treatment provided: IV fentanyl, IV Zofran IV Dilaudid IV Dilaudid Diagnostics interpreted by me: Laboratory studies: See below Imaging studies: As per my interpretation Right shoulder: Obvious humeral neck fracture with moderate displacement. HPI: 80/F arrives for evaluation of fall. The patient was walking in her apartment when she caught the tip of her shoe on the carpeting and fell forward landing on her right shoulder. The patient denies striking her head or losing consciousness. She denies any neck pain. She describes severe right shoulder pain. The patient had to crawl to an area where she could call for help. ROS: See above HPI for pertinent positives & negatives. A total of 10 systems reviewed and were otherwise negative. PAST MEDICAL HISTORY:See Below PAST SURGICAL HISTORY:See Below FAMILY HISTORY:See Below SOCIAL HISTORY:See Below HOME MEDICATIONS:See list ALLERGIES:See list VITALS:See Below PHYSICAL EXAMINATION: HEENT: Head - normocephalic and atraumatic. Pupils are equal, round, and reactive to light. Extraocular eye muscles are intact and sclera are anicteric. Ears - bilaterally patent canals with no evidence of hemotympanum. Nose - moist nasal mucosa without evidence of trauma or discharge. Mouth - moist buccal mucosa with no trauma to the teeth or signs of malocclusion. Neck:The neck is supple and there is no pain to palpation over the posterior ce rvical spine and no obvious step-offs or deformities. There is no JVD or tracheal deviation. Chest: There are no signs of deformities, contusions or abrasions to the chest wall. There is no obvious crepitus or paradoxical chest rise. Heart: Regular, rate, and rhythm. There is a normal S1 and S2 with no murmurs, clicks, or gallops appreciated. Lungs: Clear to auscultation bilaterally with no wheezes, rales, or rhonchi. Abdomen: Soft, completely nontender, nondistended, with good bowel sounds. There is no sign of trauma such as contusions, abrasions or penetrations. There are no palpable pulsatile masses or hepatosplenomegaly. There is no guarding, rigidity, or rebound noted. Pelvis: Stable to rock and compression. Extremities: Pain to palpation over the right humeral head with very limited range of motion in the right upper extremity. Neuro: The patient is awake and alert and easily able to follow commands. Muscle strength is 5 out of 5 in all 4 extremities. Otherwise, neuro exam is unremarkable. ED COURSE: Times/Reassessments: 0015: The patient was evaluated in room B5. A complete history and physical was performed. An IV lock was initiated in the left arm. The patient was given 50 mcg of IV fentanyl and 4 mg of IV Zofran. X-rays were obtained of the right shoulder. The patient continued to complain of pain and was given 0.25 mg of IV Dilaudid. This only gave minimal relief to the discomfort. The inspection manager discussed the situation with the patient and her daughter. We placed her into a shoulder immobilizer which gave only minimal relief to her discomfort. The patient was given an additional 0.25 mg of IV Dilaudid. Again, the patient was still quite uncomfortable and will require further inpatient care for pain management. I discussed the case with the [facility] hospitalist who will evaluate for further management. Ayesha Mccallum DO Past Med/Surg History Medical History Adjustment disorder with depressed mood Antibiotic-associated diarrhea Chronic back pain Cirrhosis Closed fracture of left inferior pubic ramus Diabetes type 2, controlled Discoid lupus erythematosus Esophageal varices Generalized anxiety disorder GERD (gastroesophageal reflux disease) Glaucoma Gout Hearing difficulty Kidney stone Osteoarthritis Osteopenia Portal hypertension Seizure Sensorineural hearing loss (SNHL) of both ears Sjogren's disease Thrombocytopenia Undifferentiated connective tissue disease Urinary incontinence Surgical History H/O: hysterectomy (~1984) History of colonoscopy History of esophagogastroduodenoscopy (EGD) History of esophagogastroduodenoscopy (EGD) History of liver biopsy Hx of cholecystectomy (~1983) S/P tooth extraction Family History Grandfather Diabetes Mother Hypertension Gallbladder disease Grandmother No problems noted. Father Pancreatic cancer Brother Alcohol abuse Denies family history of Ovarian cancer Prostate cancer Alzheimer disease Heart disease Myocardial infarction Breast cancer Lung cancer Colorectal cancer Stroke Social History Smoking Status: Never smoker Second Hand Exposure: Yes (her smoked ); Hx Alcohol Use: No Hx Substance Use: No Preferred Language: Yi Communication Ability: Effective Visual Impairment: Limited Hearing Ability: Use of Hearing Aid Payroll Officer Required: No Beliefs That Will Affect Care: None marital status: / Current Living Situation: Alone Current Living Situation Comment: [place] current occupational status: retired 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 Feels Safe at Home: Yes Childhood Exposure to Second-Hand Smoke: No caffeine: Yes Dental Care, Regularly: No Physical Activity Frequency: Does not Exercise Seatbelt Use: always Sunscreen Use: No Assistive Devices: Glasses, Hearing Aid - Bilateral and Walker Allergies Allergies Allergy/AdvReac Type Severity Reaction Status Date / Time ciprofloxacin [From Cipro] Allergy Severe Hives Verified 04/10/21 01:37 levofloxacin [From Levaquin] Allergy Severe Shortness Verified 04/10/21 01:37 of breath paroxetine Allergy Unknown Diarrhea Verified 04/10/21 01:37 phenytoin Allergy Unknown Unknown Verified 04/10/21 01:37 sulfamethoxazole Allergy Unknown SOB Verified 04/10/21 01:37 [From Bactrim] trimethoprim [From Bactrim] Allergy Unknown SOB Verified 04/10/21 01:37 unknown antibiotic Allergy Severe Browning-Bryon Uncoded 04/10/21 01:37 syndrome - no records available Home Meds Home Medications Medication Instructions Recorded Confirmed latanoprost 0.005 % eye drops 1 drp OPB HS 12/05/19 04/10/21 cholecalciferol (vitamin D3) 50 50 mcg PO QDD 08/11/20 04/10/21 mcg (2,000 unit) capsule escitalopram oxalate 20 mg tablet 20 mg PO QAM 10/15/20 04/10/21 magnesium chloride 71.5 mg 71.5 mg PO BID 10/15/20 04/10/21 (magnesium chloride) tablet,delayed release (Slow-Mag) lidocaine 5 % topical patch 1 - 2 patch TOP DAILY PRN 02/24/21 04/10/21 peg 400-propylene glycol (PF) 0.4 1 drp OPHTHALMIC (EYE) BID PRN 04/10/21 04/10/21 %-0.3 % eye drops in a dropperette (Systane (PF)) Previous Rx's Medication Instructions Recorded blood sugar diagnostic (OneTouch #300 ea 12/18/19 Ultra Blue Test Strip) blood-glucose meter (OneTouch #1 ea 12/18/19 Ultra2 Meter) lancets 33 gauge (OneTouch Delica #300 ea 12/18/19 Lancets) hydroxychloroquine 200 mg tablet 200 mg PO QAM #90 tab 08/30/20 (Plaquenil) famotidine 20 mg tablet (Pepcid) 20 mg PO DAILY #90 tab 11/18/20 levetiracetam 250 mg tablet 250 mg PO BID #180 tab 02/03/21 (Keppra) albuterol sulfate 90 mcg/actuation 2 puff INHALATION Q6H PRN #8.5 g 02/16/21 aerosol inhaler rifaximin 550 mg tablet 550 mg PO BID #90 tab 02/24/21 spironolactone 25 mg tablet 25 mg PO DAILY #90 tab 02/24/21 Results & Data (ED) Vital Signs Vital Signs - 24 hr 04/10/21 00:10 04/10/21 00:44 04/10/21 01:17 Temperature 36.8 C Temperature Source Oral Pulse Rate 95 H Pulse Rate [Left Finger] 90 92 H Respiratory Rate 20 20 20 Blood Pressure 122/74 Blood Pressure [Left Arm] 118/66 131/81 Blood Pressure Mean 90 Blood Pressure Mean [Left Arm] 83 97 Pulse Oximetry 99 96 97 Oxygen Delivery Method Room Air Room Air Room Air Sepsis Recent Fever Within 48 Hours No Sepsis New/Unexplained Change in Mental Status N/A Sepsis Action Taken by Nursing No Action Required 04/10/21 02:25 04/10/21 03:38 04/10/21 04:52 Temperature Temperature Source Pulse Rate Pulse Rate [Left Finger] 88 89 98 H Respiratory Rate 20 20 20 Blood Pressure Blood Pressure [Left Arm] 126/108 H 107/61 103/58 L Blood Pressure Mean Blood Pressure Mean [Left Arm] 114 76 73 Pulse Oximetry 93 100 91 Oxygen Delivery Method Room Air Room Air Sepsis Recent Fever Within 48 Hours Sepsis New/Unexplained Change in Mental Status Sepsis Action Taken by Nursing 04/10/21 05:58 Temperature Temperature Source Pulse Rate Pulse Rate [Left Finger] 89 Respiratory Rate 20 Blood Pressure Blood Pressure [Left Arm] 84/62 L Blood Pressure Mean Blood Pressure Mean [Left Arm] 69 Pulse Oximetry 97 Oxygen Delivery Method Room Air Sepsis Recent Fever Within 48 Hours Sepsis New/Unexplained Change in Mental Status Sepsis Action Taken by Nursing Laboratory Data Result diagrams: 04/10/21 00:32 04/10/21 00:32 Lab Results 04/10/21 04/10/21 04/10/21 Range/Units 00:32 00:32 03:40 WBC 8.69 (4.8-10.8) K/uL RBC 3.43 L (4.2-5.4) M/uL Hgb 10.8 L (12.0-16.0) g/dL Hct 32.0 L (37-47) % MCV 93.3 (80-100) fL MCH 31.5 (25-34) pg MCHC 33.8 (32-36) g/dL RDW Std Deviation 48.8 H (36.4-46.3) fL RDW Coeff of Nancy 14.2 (11.5-14.5) % Plt Count 67 L (130-400) K/uL MPV 12.0 H (7.4-10.4) fL Immature Gran % (Auto) 0.1 % Neut % (Auto) 84.9 % Lymph % (Auto) 4.9 % [place] % (Auto) 10.0 % Eos % (Auto) 0.0 % Baso % (Auto) 0.1 % Neut # (Auto) 7.37 H (1.4-6.5) K/uL Lymph # (Auto) 0.43 L (1.2-3.4) K/uL [place] # (Auto) 0.87 H (0.11-0.59) K/uL Eos # (Auto) 0.00 (0-0.5) K/uL Baso # (Auto) 0.01 (0-0.2) K/uL Immature Gran # (Auto) 0.01 (0.00-0.02) K/uL Platelet Estimate Decreased L (Normal) Echinocytes 1+ Acanthocytes (Spur) 1+ Sodium 136 (136-145) mmol/L Potassium 4.5 (3.5-5.1) mmol/L Chloride 107 (98-107) mmol/L Carbon Dioxide 21 (21-32) mmol/L Anion Gap 8.0 (3-11) BUN 15 (7-18) mg/dl Creatinine 1.25 H (0.6-1.2) mg/dl Est Cr Clr Drug Dosing 29.7 ml/min Est GFR ( Amer) 47.0 ml/min Est GFR (Non-Af Amer) 40.6 ml/min BUN/Creatinine Ratio 12.1 (10-20) Glucose 252 H (70-99) mg/dl Calcium 9.4 (8.5-10.1) mg/dl Total Bilirubin 0.9 (0.2-1) mg/dl AST 56 H (15-37) U/L ALT 28 (12-78) U/L Alkaline Phosphatase 185 H (45-117) U/L Total Protein 6.9 (6.4-8.2) gm/dl Albumin 2.7 L (3.4-5.0) gm/dl Globulin 4.2 H (2.5-4.0) gm/dl Albumin/Globulin Ratio 0.6 L (0.9-2) COVID-19 Eval Order Covid[facility] at [facility] SARS-CoV-2 (PCR) (Negative) 04/10/21 Range/Units 03:40 WBC (4.8-10.8) K/uL RBC (4.2-5.4) M/uL Hgb (12.0-16.0) g/dL Hct (37-47) % MCV (80-100) fL MCH (25-34) pg MCHC (32-36) g/dL RDW Std Deviation (36.4-46.3) fL RDW Coeff of Nancy (11.5-14.5) % Plt Count (130-400) K/uL MPV (7.4-10.4) fL Immature Gran % (Auto) % Neut % (Auto) % Lymph % (Auto) % [place] % (Auto) % Eos % (Auto) % Baso % (Auto) % Neut # (Auto) (1.4-6.5) K/uL Lymph # (Auto) (1.2-3.4) K/uL [place] # (Auto) (0.11-0.59) K/uL Eos # (Auto) (0-0.5) K/uL Baso # (Auto) (0-0.2) K/uL Immature Gran # (Auto) (0.00-0.02) K/uL Platelet Estimate (Normal) Echinocytes Acanthocytes (Spur) Sodium (136-145) mmol/L Potassium (3.5-5.1) mmol/L Chloride (98-107) mmol/L Carbon Dioxide (21-32) mmol/L Anion Gap (3-11) BUN (7-18) mg/dl Creatinine (0.6-1.2) mg/dl Est Cr Clr Drug Dosing ml/min Est GFR ( Amer) ml/min Est GFR (Non-Af Amer) ml/min BUN/Creatinine Ratio (10-20) Glucose (70-99) mg/dl Calcium (8.5-10.1) mg/dl Total Bilirubin (0.2-1) mg/dl AST (15-37) U/L ALT (12-78) U/L Alkaline Phosphatase (45-117) U/L Total Protein (6.4-8.2) gm/dl Albumin (3.4-5.0) gm/dl Globulin (2.5-4.0) gm/dl Albumin/Globulin Ratio (0.9-2) COVID-19 Eval Order SARS-CoV-2 (PCR) NEGATIVE (Negative) Administered Medications Discontinued Medications Fentanyl Citrate (Fentanyl Citrate 100 Mcg/2 Ml Vial) 50 mcg IV NOW STA Stop: 04/10/21 00:27 Last Admin: 04/10/21 00:39 Dose: 50 mcg Documented by: [id number] Hydromorphone HCl (Hydromorphone Inj 0.5 Mg/0.5 Ml Syr) 0.25 mg IV NOW STA Stop: 04/10/21 01:13 Last Admin: 04/10/21 01:16 Dose: 0.25 mg Documented by: [id number] Hydromorphone HCl (Hydromorphone Inj 0.5 Mg/0.5 Ml Syr) 0.25 mg IV NOW STA Stop: 04/10/21 02:44 Last Admin: 04/10/21 03:01 Dose: 0.25 mg Documented by: [id number] Ondansetron HCl (Ondansetron Inj 2 Mg/Ml 2 Ml Vial) 4 mg IV NOW STA Stop: 04/10/21 00:27 Last Admin: 04/10/21 00:39 Dose: 4 mg Documented by: [id number] Oxycodone HCl (Oxycodone Hcl Ir 5 Mg Tab (Immediate Release)) 5 mg PO NOW STA Stop: 04/10/21 02:46 Last Admin: 04/10/21 03:01 Dose: 5 mg Documented by: [id number] Discharge Plan Visit Data Chief Complaint: Fall Stated Complaint: FALL w/rt SHOULDER PAIN ED Provider: Ayesha Mccallum Discharge Problem: Fracture of head of humerus, Fall Forms Stand Alone Forms: [facility] Prescriptions Prescriptions: No Action (DME) blood sugar diagnostic [OneTouch Ultra Blue Test Strip] Strip See Rx Instructions .ROUTE .MEDSUPPLY Qty: 300 RF: 3 (DME) lancets [OneTouch Delica Lancets] 33 gauge misc See Rx Instructions .ROUTE .MEDSUPPLY Qty: 300 RF: 3 (DME) blood-glucose meter [OneTouch Ultra2 Meter] Kit See Rx Instructions .ROUTE .MEDSUPPLY Qty: 1 RF: 1 hydroxychloroquine [Plaquenil] 200 mg tablet 200 mg PO QAM Qty: 90 RF: 1 famotidine [Pepcid] 20 mg tablet 20 mg PO DAILY Qty: 90 RF: 3 levetiracetam [Keppra] 250 mg tablet 250 mg PO BID Qty: 180 RF: 3 albuterol sulfate 90 mcg/actuation HFA aerosol inhaler 2 puff inhalation Q6H PRN (Reason: shortness of breath or wheezing) Qty: 8.5 RF: 1 lidocaine 5 % adhesive patch,medicated 1 - 2 patch TOP DAILY PRN (Reason: Pain) RF: 0 cholecalciferol (vitamin D3) 50 mcg (2,000 unit) capsule 50 mcg PO QDD RF: 0 rifaximin 550 mg tablet 550 mg PO BID Qty: 90 RF: 2 spironolactone 25 mg tablet 25 mg PO DAILY Qty: 90 RF: 3 latanoprost 0.005 % drops 1 drp OPB HS RF: 0 escitalopram oxalate 20 mg tablet 20 mg PO QAM RF: 0 Slow-Mag 71.5 mg tablet,delayed release (DR/EC) 71.5 mg PO BID RF: 0 Systane (PF) 0.4-0.3 % Dropperette 1 drp OPHTHALMIC (EYE) BID PRN (Reason: Dry Eye(S)) RF: 0 Referrals Referrals: Tamara Benítez MD [Primary Care Provider] - Discharge Problem: Fracture of head of humerus Qualifiers: Encounter type: initial encounter Fracture type: closed Laterality: right Qualified Code(s): S42.291A - Other displaced fracture of upper end of right humerus, initial encounter for closed fracture Fall Qualifiers: Encounter type: initial encounter Qualified Code(s): W19.XXXA - Unspecified fall, initial encounter
[2021-04-10 01:01] LABS: Albumin Level 2.7 gm/dl (3.4-5.0); BUN Creatinine Ratio 12.1 (10-20); Calcium 9.4 mg/dl (8.5-10.1); Creatinine Clr Calc Pharmacy 29.7 ml/min; Est GFR (Non-African American) 40.6 ml/min; Potassium 4.5 mmol/L (3.5-5.1)
[2021-04-10 01:02] LABS: Hemoglobin 10.8 g/dL (12.0-16.0); Mean Corpuscular Hemoglobin 31.5 pg (25-34); Mean Corpuscular Hgb Conc 33.8 g/dL (32-36); Mean Corpuscular Volume 93.3 fL (80-100); Platelet Count 67 K/uL (130-400); RDW Coefficient of Variation 14.2 % (11.5-14.5); RDW Standard Deviation 48.8 fL (36.4-46.3); Red Blood Count 3.43 M/uL (4.2-5.4); White Blood Count 8.69 K/uL (4.8-10.8)
[2021-04-10 01:03] LABS: Acanthocytes 1+; Basophils # (auto) 0.01 K/uL (0-0.2); Basophils % (auto) 0.1 %; Echinocytes 1+; Immature Granulocytes # (auto) 0.01 K/uL (0.00-0.02); Immature Granulocytes % (auto) 0.1 %; Lymphocytes # (auto) 0.43 K/uL (1.2-3.4); Lymphocytes % (auto) 4.9 %; Monocytes # (auto) 0.87 K/uL (0.11-0.59); Neutrophils # (auto) 7.37 K/uL (1.4-6.5); Neutrophils % (auto) 84.9 %; Platelet Estimate Decreased (Normal)
[2021-04-10 01:04] LABS: Albumin Globulin Ratio 0.6 (0.9-2); Bilirubin,Total 0.9 mg/dl (0.2-1); Globulin 4.2 gm/dl (2.5-4.0); Total Protein 6.9 gm/dl (6.4-8.2)
[2021-04-10] MEDS ORDERED: HYDROmorphone INJ 0.5 MG/0.5 ML SYR IV STA ×2 (01:12→02:43)
[2021-04-10] MEDS ORDERED: oxyCODONE HCL IR 5 MG TAB (IMMEDIATE RELEASE) PO STA (02:45)
--- NOTE | 2021-04-10 06:16 | History & Physical Report ---
Date of Service April 10, 2021 Assessment & Plan (1) Closed fracture of head of right humerus: Plan: Status post fall Placed in sling in the ED Patient and family are aware this is usually a nonoperative fracture We will consult orthopedic surgery for their assessment Acetaminophen 650 mg p.o. every 6 hours as needed mild pain or fever Hydrocodone/APAP, 5/325, 1 p.o. every 6 hours as needed moderate pain Hydrocodone/APAP, 5/325, 2 p.o. every 6 hours as needed severe pain Patient will need PT and OT after sufficient healing is occurred, but not at this time She would likely need to be placed in rehab/assisted living, which ever she qualifies for, for help as she is right-handed. (2) Generalized anxiety disorder: Plan: Continue Escitalopram 20 mg daily (3) Seizure: Plan: Continue levetiracetam (4) GERD (gastroesophageal reflux disease): Plan: Continue famotidine (5) Thrombocytopenia: Plan: Platelets are 67 upon admission with range 53-92 Follow serially (6) Diabetes type 2, controlled: Plan: Patient had been on Metformin, but not been doing well with that. Glucose is 252 upon admission Placed on Accu-Cheks before meals and at bedtime with NovoLog coverage per scale Check hemoglobin A1c (7) Cirrhosis: Plan: Cryptogenic cirrhosis/ascites/portal hypertension- Continue rifaximin Hold spironolactone briefly due to mild RAJENDRA (8) Ascites: Plan: See above (9) Portal hypertension: Plan: See above (10) Sjogren's disease: Plan: Sjogren's disease/discoid lupus erythematosus- Continue hydroxychloroquine (11) Discoid lupus erythematosus: Plan: See above (12) Hearing difficulty: Plan: Wears hearing aids bilaterally History of Present Illness Chief Complaint: The patient presents to the emergency department with right shoulder pain after tripping and falling in her apartment Primary Care Provider: Tamara Benítez MD The patient is an 80-year-old female with a past medical history including portosystemic encephalopathy, ascites, ELSA, osteopenia, portal hypertension, cirrhosis, urine incontinence, bilateral SNHL, esophageal varices, seizure, discoid lupus erythematosus, undifferentiated CTD, hearing loss with hearing aids present, glaucoma, GERD, thrombocytopenia, Sjogren's syndrome and diabetes mellitus. Patient presents to the emergency department with her daughter, after tripping and falling in her apartment, and sustaining right shoulder pain. She denies hitting her head and she denies any other joint involvement. X-ray in the emergency department the right shoulder shows a right humeral head fracture. Abnormal laboratories: Hemoglobin 10.8, hematocrit 32.0, platelets of 67, creatinine 1.25, glucose 252, AST 56, albumin 2.7 Allergies Allergy/AdvReac Type Severity Reaction Status Date / Time ciprofloxacin [From Cipro] Allergy Severe Hives Verified 04/10/21 01:37 levofloxacin [From Levaquin] Allergy Severe Shortness Verified 04/10/21 01:37 of breath paroxetine Allergy Unknown Diarrhea Verified 04/10/21 01:37 phenytoin Allergy Unknown Unknown Verified 04/10/21 01:37 sulfamethoxazole Allergy Unknown SOB Verified 04/10/21 01:37 [From Bactrim] trimethoprim [From Bactrim] Allergy Unknown SOB Verified 04/10/21 01:37 unknown antibiotic Allergy Severe Browning-Bryon Uncoded 04/10/21 01:37 syndrome - no records available Home Medications Medication Instructions Recorded Confirmed Type latanoprost 0.005 % eye drops 1 drp OPB HS 12/05/19 04/10/21 History blood sugar diagnostic (OneTouch #300 ea 12/18/19 02/24/21 Rx Ultra Blue Test Strip) blood-glucose meter (OneTouch #1 ea 12/18/19 02/24/21 Rx Ultra2 Meter) lancets 33 gauge (OneTouch Delica #300 ea 12/18/19 02/24/21 Rx Lancets) cholecalciferol (vitamin D3) 50 50 mcg PO QDD 08/11/20 04/10/21 History mcg (2,000 unit) capsule hydroxychloroquine 200 mg tablet 200 mg PO QAM #90 tab 08/30/20 04/10/21 Rx (Plaquenil) escitalopram oxalate 20 mg tablet 20 mg PO QAM 10/15/20 04/10/21 History magnesium chloride 71.5 mg 71.5 mg PO BID 10/15/20 04/10/21 History (magnesium chloride) tablet,delayed release (Slow-Mag) famotidine 20 mg tablet (Pepcid) 20 mg PO DAILY #90 tab 06/03/21 10/24/21 Rx levetiracetam 250 mg tablet 250 mg PO BID #180 tab 02/03/21 04/10/21 Rx (Keppra) albuterol sulfate 90 mcg/actuation 2 puff INHALATION Q6H PRN #8.5 g 02/16/21 04/10/21 Rx aerosol inhaler lidocaine 5 % topical patch 1 - 2 patch TOP DAILY PRN 02/24/21 04/10/21 History rifaximin 550 mg tablet 550 mg PO BID #90 tab 02/24/21 04/10/21 Rx spironolactone 25 mg tablet 25 mg PO DAILY #90 tab 02/24/21 04/10/21 Rx peg 400-propylene glycol (PF) 0.4 1 drp OPHTHALMIC (EYE) BID PRN 04/10/21 04/10/21 History %-0.3 % eye drops in a dropperette (Systane (PF)) Past Med/Surg History Medical History Adjustment disorder with depressed mood Antibiotic-associated diarrhea Chronic back pain Cirrhosis Closed fracture of left inferior pubic ramus Diabetes type 2, controlled Discoid lupus erythematosus Esophageal varices Generalized anxiety disorder GERD (gastroesophageal reflux disease) Glaucoma Gout Hearing difficulty Kidney stone Osteoarthritis Osteopenia Portal hypertension Seizure Sensorineural hearing loss (SNHL) of both ears Sjogren's disease Thrombocytopenia Undifferentiated connective tissue disease Urinary incontinence Surgical History H/O: hysterectomy (~1984) History of colonoscopy History of esophagogastroduodenoscopy (EGD) History of esophagogastroduodenoscopy (EGD) History of liver biopsy Hx of cholecystectomy (~1983) S/P tooth extraction Family History Grandfather Diabetes Mother Hypertension Gallbladder disease Grandmother No problems noted. Father Pancreatic cancer Brother Alcohol abuse Denies family history of Ovarian cancer Prostate cancer Alzheimer disease Heart disease Myocardial infarction Breast cancer Lung cancer Colorectal cancer Stroke Social History Smoking Status: Never smoker Second Hand Exposure: Yes (her smoked ); Hx Alcohol Use: No Hx Substance Use: No Preferred Language: Qatari Communication Ability: Effective Visual Impairment: Limited Hearing Ability: Use of Hearing Aid Digital Media Intern Required: No Beliefs That Will Affect Care: None marital status: / Current Living Situation: Alone Current Living Situation Comment: [place] current occupational status: retired 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 Feels Safe at Home: Yes Childhood Exposure to Second-Hand Smoke: No caffeine: Yes Dental Care, Regularly: No Physical Activity Frequency: Does not Exercise Seatbelt Use: always Sunscreen Use: No Assistive Devices: Glasses, Hearing Aid - Bilateral and Walker Review of Systems Review of Systems: The patient denies chest pain, palpitations, shortness of breath, dyspnea on exertion, cough, lower extremity swelling, sore throat, fevers, chills, sweats, fatigue, nausea, vomiting, diarrhea , constipation, abdominal pain, pelvic pain, blood in urine or stool, dysuria, urinary frequency or urgency, lightheadedness, dizziness, headache, memory loss, loss of consciousness, rash, abnormal bruising or bleeding, imbalance, focal or generalized weakness, numbness or tingling in left arm or b ilateral legs, generalized arthralgias or myalgias, back or neck pain, or night sweats. The review of systems is otherwise negative other than for that already noted above, and at least 10 systems have been reviewed. Physical Exam Physical Exam: The patient is awake, alert and oriented 3, well developed and well nourished, normocephalic and atraumatic, lying in bed and in no acute distress. HEENT--PERRL, EOMI, mucous membranes and oropharynx normal. Neck--supple. No JVD. No bruits. Thyroid normal, trachea midline, no adenopathy. Heart--normal S1 and S2. No murmurs, rubs or gallops. Lungs--clear bilaterally, no respiratory distress, no accessory muscle use. Abdomen--normal bowel sounds and soft. Nontender. Nondistended, no hernias or masses, no organomegaly. Extremities--no cyanosis or clubbing. No edema. Dermatologic--normal skin turgor, normal color, no abnormal lymph nodes, no rash. Neurologic--cranial nerves II through XII grossly intact. Rheumatologic--limited exam due to right shoulder pain Psychiatric--normal affect. Results & Data Results & Data ([facility]) Vital Signs (Past 12 Hours) Vital Signs Temp Pulse Pulse Resp BP BP Pulse Ox 04/10/21 05:58 89 20 84/62 L 97 04/10/21 04:52 98 H 20 103/58 L 91 04/10/21 03:38 89 20 107/61 100 04/10/21 02:25 88 20 126/108 H 93 04/10/21 01:17 92 H 20 131/81 97 04/10/21 00:44 90 20 118/66 96 04/10/21 00:10 98.2 F 95 H 20 122/74 99 Laboratory Results Laboratory Results WBC 8.69 K/uL (4.8-10.8) 04/10/21 00:32 RBC 3.43 M/uL (4.2-5.4) L 04/10/21 00:32 Hgb 10.8 g/dL (12.0-16.0) L 04/10/21 00:32 Hct 32.0 % (37-47) L 04/10/21 00:32 MCV 93.3 fL (80-100) 04/10/21 00:32 MCH 31.5 pg (25-34) 04/10/21 00:32 MCHC 33.8 g/dL (32-36) 04/10/21 00:32 RDW Std Deviation 48.8 fL (36.4-46.3) H 04/10/21 00:32 RDW Coeff of Nancy 14.2 % (11.5-14.5) 04/10/21 00:32 Plt Count 67 K/uL (130-400) L 04/10/21 00:32 MPV 12.0 fL (7.4-10.4) H 04/10/21 00:32 Immature Gran % (Auto) 0.1 % 04/10/21 00:32 Neut % (Auto) 84.9 % 04/10/21 00:32 Lymph % (Auto) 4.9 % 04/10/21 00:32 [place] % (Auto) 10.0 % 04/10/21 00:32 Eos % (Auto) 0.0 % 04/10/21 00:32 Baso % (Auto) 0.1 % 04/10/21 00:32 Neut # (Auto) 7.37 K/uL (1.4-6.5) H 04/10/21 00:32 Lymph # (Auto) 0.43 K/uL (1.2-3.4) L 04/10/21 00:32 [place] # (Auto) 0.87 K/uL (0.11-0.59) H 04/10/21 00:32 Eos # (Auto) 0.00 K/uL (0-0.5) 04/10/21 00:32 Baso # (Auto) 0.01 K/uL (0-0.2) 04/10/21 00:32 Immature Gran # (Auto) 0.01 K/uL (0.00-0.02) 04/10/21 00:32 Platelet Estimate Decreased (Normal) L 04/10/21 00:32 Echinocytes 1+ 04/10/21 00:32 Acanthocytes (Spur) 1+ 04/10/21 00:32 Sodium 136 mmol/L (136-145) 04/10/21 00:32 Potassium 4.5 mmol/L (3.5-5.1) 04/10/21 00:32 Chloride 107 mmol/L (98-107) 04/10/21 00:32 Carbon Dioxide 21 mmol/L (21-32) 04/10/21 00:32 Anion Gap 8.0 (3-11) 04/10/21 00:32 BUN 15 mg/dl (7-18) 04/10/21 00:32 Creatinine 1.25 mg/dl (0.6-1.2) H 04/10/21 00:32 Est Cr Clr Drug Dosing 29.7 ml/min 04/10/21 00:32 Est GFR ( Amer) 47.0 ml/min 04/10/21 00:32 Est GFR (Non-Af Amer) 40.6 ml/min 04/10/21 00:32 BUN/Creatinine Ratio 12.1 (10-20) 04/10/21 00:32 Glucose 252 mg/dl (70-99) H 04/10/21 00:32 Calcium 9.4 mg/dl (8.5-10.1) 04/10/21 00:32 Total Bilirubin 0.9 mg/dl (0.2-1) 04/10/21 00:32 AST 56 U/L (15-37) H 04/10/21 00:32 ALT 28 U/L (12-78) 04/10/21 00:32 Alkaline Phosphatase 185 U/L (45-117) H 04/10/21 00:32 Total Protein 6.9 gm/dl (6.4-8.2) 04/10/21 00:32 Albumin 2.7 gm/dl (3.4-5.0) L 04/10/21 00:32 Globulin 4.2 gm/dl (2.5-4.0) H 04/10/21 00:32 Albumin/Globulin Ratio 0.6 (0.9-2) L 04/10/21 00:32 COVID-19 Eval Order Covid19 at [facility] 04/10/21 03:40 SARS-CoV-2 (PCR) NEGATIVE (Negative) 04/10/21 03:40 Code Status & VTE Plan Code Status Full code VTE Prophylaxis Plan VTE Prophylaxis will be ordered: Yes PG Care Time/CCT Total # of Minutes Spent Total Time Spent with Patient: Total time spent is greater than 50% in coordination of care (as documented) at patient's floor/unit and/or counseling patient: Coding Level of Care Code INT OBSERVATION CARE 70M LVL 3 Diagnoses Closed fracture of head of right humerus S42.291A Generalized anxiety disorder F41.1 Seizure R56.9 GERD (gastroesophageal reflux disease) K21.9 Thrombocytopenia D69.6 Diabetes type 2, controlled E11.9 Diabetes mellitus intermediate insulin use: without teller vault use Diabetes mellitus complication status: without complication Ascites R18.8 Portal hypertension K76.6 Cirrhosis K74.60 Sjogren's disease M35.00 Sjogren's organ involvement: unspecified organ involvement Discoid lupus erythematosus L93.0 Hearing difficulty H91.90 (1) Diabetes type 2, controlled Diabetes mellitus teller vault insulin use: without intermediate use Diabetes mellitus complication status: without complication Qualified Code(s): E11.9 - Type 2 diabetes mellitus without complications (2) Sjogren's disease Sjogren's organ involvement: unspecified organ involvement Qualified Code(s): M35.00 - Sicca syndrome, unspecified
[2021-04-10] MEDS ORDERED: GLUCAGON FOR INJ 1 MG VIAL SQ PRN (07:00)
[2021-04-10] MEDS ORDERED: ONDANSETRON INJ 2 MG/ML 2 ML VIAL IV PRN (07:00)
[2021-04-10] MEDS ORDERED: GLUCOSE 40% GEL 15 GM TUBE PO PRN (07:00)
[2021-04-10] MEDS ORDERED: HYDROCODONE/ACETAMOPHEN 5/325MG TAB PO PRN (07:00)
[2021-04-10] MEDS ORDERED: DEXTROSE 50% 50 ML SYRINGE IV PRN (07:00)
[2021-04-10] MEDS ORDERED: CARBOHYDRATES FOR HYPOGLYCEMIA PO PRN (07:00)
[2021-04-10] MEDS ORDERED: GLUCOSE 10 TABS/TUBE PO PRN (07:00)
[2021-04-10] MEDS: ENOXAPARIN INJ 30 MG/0.3 ML SYR SQ SCH (08:29)
[2021-04-10] MEDS: FAMOTIDINE 20 MG TAB PO SCH (08:30)
[2021-04-10] MEDS: SPIRONOLACTONE 25 MG TAB PO SCH (08:30)
[2021-04-10] MEDS: levETIRAcetam 250 MG TAB PO SCH ×2 (08:30→19:59)
[2021-04-10] MEDS: HYDROXYCHLOROQUINE SULFATE 200 MG TAB PO SCH (08:30)
[2021-04-10] MEDS: rifAXIMin 550 MG TABLET PO SCH ×2 (08:30→20:00)
[2021-04-10] MEDS: MAGNESIUM CHLORIDE 64MG DELAYED REL TAB PO SCH ×2 (08:30→20:00)
[2021-04-10] MEDS: ESCITALOPRAM OXALATE 20 MG TAB PO SCH (08:31)
--- NOTE | 2021-04-10 08:42 | XRay Report ---
XR shoulder RT min 2V routine CLINICAL HISTORY: fall TECHNIQUE: 2 views of the right shoulder were obtained. Comparison: None available at the time of this dictation. FINDINGS: There is a displaced, impacted fracture of the right humeral neck. Soft tissue swelling is seen. The visualized portions of the lungs are clear. IMPRESSION: Displaced, impacted apparently 2 part fracture of the humeral neck. ACT 112: Negative or not required by law. Electronically signed by: Zeke Coreas M.D. 04/10/2021 8:41 AM
[2021-04-10] MEDS: INSULIN ASPART 100 UNITS/ML 3 ML PEN SC SCH ×4 (09:11→20:45)
[2021-04-10] MEDS: HYDROCODONE/ACETAMOPHEN 5/325MG TAB PO PRN (15:44)
[2021-04-10] MEDS: CHOLECALCIFEROL 1,000 UNITS 25 MCG TAB PO SCH (17:45)
[2021-04-10] MEDS: HYDROmorphone INJ 0.5 MG/0.5 ML SYR IV PRN (18:10)
[2021-04-10] MEDS: LATANOPROST 0.005% OP SOLN 2.5 ML BTL OPB SCH (21:38)
--- NOTE | 2021-04-10 23:46 | History & Physical Bridge Note ---
Date of Service April 10, 2021 History & Physical Bridge Note I have examined the patient, reviewed the History & Physical and in the interval since the performance of the History & Physical I have noted the following changes of clinical significance: Patient having a lot of pain in the right humerus and had some hallucinations earlier after taking oxycodone and plus it did not help her pain. Added IV Dilaudid and this seems to be helping. Otherwise, awaiting orthopedic surgery evaluation. If surgical correction is recommended given displacement of the fracture, she may be better served to have this at a tertiary care facility given her cirrhosis and complex medical history. Vitals reviewed Gen: AAOx3, NAD HEENT: Anicteric sclerae, EOMI CV: RRR no mgr nl S1S2 Pulm: CTAB no wcr Abd: +BS soft NT ND no masses or hernias Ext: Right upper extremity and shoulder sling, neurovascularly intact in the right hand Skin: No rashes, warm/dry Neuro: Full strength throughout except right shoulder girdle not tested Continue current plan Consult orthopedics to see if she would need surgery given displacement of the fracture Added IV Dilaudid 0.25 mg IV every 4 hours as needed Follow CBC, CMP in the morning If platelets fall below 50,000, would hold Lovenox
[2021-04-11] MEDS: HYDROCODONE/ACETAMOPHEN 5/325MG TAB PO PRN ×4 (03:28→20:33)
[2021-04-11] MEDS: ENOXAPARIN INJ 30 MG/0.3 ML SYR SQ SCH (06:22)
[2021-04-11] MEDS: HYDROmorphone INJ 0.5 MG/0.5 ML SYR IV PRN ×2 (06:32→13:22)
[2021-04-11] MEDS: HYDROXYCHLOROQUINE SULFATE 200 MG TAB PO SCH (07:20)
[2021-04-11] MEDS: rifAXIMin 550 MG TABLET PO SCH ×2 (07:20→20:28)
[2021-04-11] MEDS: FAMOTIDINE 20 MG TAB PO SCH (07:20)
[2021-04-11] MEDS: MAGNESIUM CHLORIDE 64MG DELAYED REL TAB PO SCH ×2 (07:20→20:28)
[2021-04-11] MEDS: ESCITALOPRAM OXALATE 20 MG TAB PO SCH (07:21)
[2021-04-11] MEDS: SPIRONOLACTONE 25 MG TAB PO SCH (07:21)
[2021-04-11] MEDS: levETIRAcetam 250 MG TAB PO SCH ×2 (07:21→20:28)
[2021-04-11 08:31] LABS: Hematocrit (blood only) 28.4 % (37-47); Hemoglobin 9.7 g/dL (12.0-16.0); Mean Corpuscular Hemoglobin 31.6 pg (25-34); Mean Corpuscular Hgb Conc 34.2 g/dL (32-36); Mean Corpuscular Volume 92.5 fL (80-100); RDW Coefficient of Variation 14.3 % (11.5-14.5); Red Blood Count 3.07 M/uL (4.2-5.4); White Blood Count 7.35 K/uL (4.8-10.8)
[2021-04-11 08:38] LABS: Estimated Average Glucose 180 mg/dl; Hemoglobin A1C 7.9 % (4.5-5.6)
[2021-04-11 08:55] LABS: Eosinophils # (auto) 0.04 K/uL (0-0.5); Eosinophils % (auto) 0.5 %; Immature Granulocytes # (auto) 0.02 K/uL (0.00-0.02); Immature Granulocytes % (auto) 0.3 %; Lymphocytes # (auto) 1.46 K/uL (1.2-3.4); Lymphocytes % (auto) 19.9 %; Mean Platelet Volume 11.7 fL (7.4-10.4); Monocytes # (auto) 0.91 K/uL (0.11-0.59); Monocytes % (auto) 12.4 %; Neutrophils # (auto) 4.92 K/uL (1.4-6.5); Neutrophils % (auto) 66.9 %; Platelet Count 57 K/uL (130-400)
[2021-04-11] MEDS: INSULIN ASPART 100 UNITS/ML 3 ML PEN SC SCH ×4 (09:23→20:59)
[2021-04-11 09:44] LABS: Albumin Level 2.5 gm/dl (3.4-5.0); Creatinine Clr Calc Pharmacy 24.1 ml/min
[2021-04-11 09:45] LABS: BUN Creatinine Ratio 16.3 (10-20); Calcium 8.6 mg/dl (8.5-10.1); Est GFR (African American) 36.3 ml/min; Est GFR (Non-African American) 31.3 ml/min
[2021-04-11 09:46] LABS: Albumin Globulin Ratio 0.7 (0.9-2)
[2021-04-11 09:47] LABS: Globulin 3.8 gm/dl (2.5-4.0); Total Protein 6.3 gm/dl (6.4-8.2)
--- NOTE | 2021-04-11 11:17 | Orthopedic Consultation ---
Date of Consultation April 11, 2021 Assessment & Plan (1) Closed fracture of head of right humerus: Right impacted and displaced proximal humerus fracture. X-rays have been reviewed by Dr. Bragg. He feels at this time that the fracture would heal in place and that the patient could be placed in a sling and continue with nonweightbearing on the right upper extremity as well as no range of motion of the right shoulder at this time. I discussed with the patient that if she wanted to have surgery, that it would require a reverse total shoulder arthroplasty. We would have to discuss with medicine service to see if the patient would be medically stable for the surgery. I have already discussed this with Dr. Ruiz who will see the patient later today. I have also discussed the risks attributed with the surgery with the patient. We will also discuss it with the patient's family and unless they are thinking more of a surgical fixation, we will plan for nonoperative treatment at this time. Continue ice to the right shoulder. Sling to the right upper extremity. As noted above, nonweightbearing on the right upper extremity with no range of motion of the right shoulder. Addendum: I have spoken with the patient's [id number] at length. She states that the patient had called her this morning and discussed the options that we had been discussing considering her treatment for her right proximal humerus fracture. At this time, we will plan on nonoperative treatment per family request. Plan for PT/OT protocols for gait training and ADLs and transfers. The patient's [id number] states that it may be difficult in taking care of her in the near future. [facility]. Supervising Physician Co-Signing Physician Notes Patient seen and examined. Agree with RAVIN Samuels's note as above. Patient with moderately displaced, impacted proximal humerus fracture. She has a lot of other medical problems, including cirrhosis, portal hypertension, encephalopathy, thrombocytopenia, seizure disorder, lupus, diabetes, etc. We discussed nonoperative versus surgical treatment with a reverse total shoulder arthroplasty at great length today. I think a shoulder replacement surgery would be a very big surgery for her and difficult for her to recover from. I think this will heal with nonoperative treatment with reasonable function in the future. She is very much in favor of nonoperative treatment. I also advised her that we could always do a reverse total shoulder later if she is unhappy with her functional result. Her biggest concern at this point is her persistent pain after the injury. I advised her that this should significantly improve by about 2 to 3 weeks after the injury. I would recommend maximizing nonnarcotic medications including Tylenol and ibuprofen as much as it is safe given her other medical issues. I would recommend sling for now. She may come out of the sling about 6 times a day for gentle passive pendulum exercises at the shoulder and active range of motion at the elbow. Follow-up with me in orthopedic surgery clinic approximately 2 weeks from injury. Please call [facility] at [phone] to make an appointment. Orthopedics will sign off for now. Please call with questions. History of Present Illness Reason for Consultation: Right proximal humerus fracture Attending Physician: Zeke Ruiz DO History of Present Illness The patient is an 80-year-old female with a past medical history including portosystemic encephalopathy, ascites, ELSA, osteopenia, portal hypertension, cirrhosis, urine incontinence, bilateral SNHL, esophageal varices, seizure, discoid lupus erythematosus, undifferentiated CTD, hearing loss with hearing aids present, glaucoma, GERD, thrombocytopenia, Sjogren's syndrome and diabetes mellitus. Patient states that she was ambulating in her home on the carpet with shoes that had rubber toes on the front portion of the shoe. She ended up catching part of her shoe on the carpet, lost her balance and fell onto her right side. She states she had immediate pain in her right shoulder since having difficulty moving it. She denies loss of consciousness. She denies hitting her head. She has no other complaints of joint pain other than her shoulder. Is brought to the emergency room here at [facility] and was found that she had a proximal humerus fracture. She was admitted by the hospitalist service and we have been asked to see her for her right humerus fracture. Allergies Allergy/AdvReac Type Severity Reaction Status Date / Time ciprofloxacin [From Cipro] Allergy Severe Hives Verified 04/10/21 01:37 levofloxacin [From Levaquin] Allergy Severe Shortness Verified 04/10/21 01:37 of breath paroxetine Allergy Unknown Diarrhea Verified 04/10/21 01:37 phenytoin Allergy Unknown Unknown Verified 04/10/21 01:37 sulfamethoxazole Allergy Unknown SOB Verified 04/10/21 01:37 [From Bactrim] trimethoprim [From Bactrim] Allergy Unknown SOB Verified 04/10/21 01:37 unknown antibiotic Allergy Severe Browning-Bryon Uncoded 04/10/21 01:37 syndrome - no records available Home Medications Medication Instructions Recorded Confirmed Type latanoprost 0.005 % eye drops 1 drp OPB HS 12/05/19 04/10/21 History blood sugar diagnostic (OneTouch #300 ea 12/18/19 02/24/21 Rx Ultra Blue Test Strip) blood-glucose meter (OneTouch #1 ea 12/18/19 02/24/21 Rx Ultra2 Meter) lancets 33 gauge (OneTouch Delica #300 ea 12/18/19 02/24/21 Rx Lancets) cholecalciferol (vitamin D3) 50 50 mcg PO QDD 08/11/20 04/10/21 History mcg (2,000 unit) capsule hydroxychloroquine 200 mg tablet 200 mg PO QAM #90 tab 08/30/20 04/10/21 Rx (Plaquenil) escitalopram oxalate 20 mg tablet 20 mg PO QAM 10/15/20 04/10/21 History magnesium chloride 71.5 mg 71.5 mg PO BID 10/15/20 04/10/21 History (magnesium chloride) tablet,delayed release (Slow-Mag) famotidine 20 mg tablet (Pepcid) 20 mg PO DAILY #90 tab 11/18/20 04/10/21 Rx levetiracetam 250 mg tablet 250 mg PO BID #180 tab 02/03/21 04/10/21 Rx (Keppra) albuterol sulfate 90 mcg/actuation 2 puff INHALATION Q6H PRN #8.5 g 02/16/21 04/10/21 Rx aerosol inhaler lidocaine 5 % topical patch 1 - 2 patch TOP DAILY PRN 02/24/21 04/10/21 History rifaximin 550 mg tablet 550 mg PO BID #90 tab 02/24/21 04/10/21 Rx spironolactone 25 mg tablet 25 mg PO DAILY #90 tab 02/24/21 04/10/21 Rx peg 400-propylene glycol (PF) 0.4 1 drp OPHTHALMIC (EYE) BID PRN 04/10/21 04/10/21 History %-0.3 % eye drops in a dropperette (Systane (PF)) Patient History Medical History Adjustment disorder with depressed mood Antibiotic-associated diarrhea Chronic back pain Cirrhosis cryptogenic Closed fracture of left inferior pubic ramus Diabetes type 2, controlled Discoid lupus erythematosus F/U DR SALCEDO Esophageal varices Generalized anxiety disorder GERD (gastroesophageal reflux disease) Glaucoma Gout Hearing difficulty Kidney stone Osteoarthritis Osteopenia Portal hypertension Seizure LAST ONE MORE THAN 10 YRS AGO Sensorineural hearing loss (SNHL) of both ears Sjogren's disease Thrombocytopenia Undifferentiated connective tissue disease Urinary incontinence Surgical History H/O: hysterectomy (~1984) History of colonoscopy History of esophagogastroduodenoscopy (EGD) History of esophagogastroduodenoscopy (EGD) with banding of esophageal varices History of liver biopsy Hx of cholecystectomy (~1983) S/P tooth extraction Family History Grandfather Diabetes Mother Hypertension Gallbladder disease Grandmother No problems noted. Father Pancreatic cancer Brother Alcohol abuse Denies family history of Ovarian cancer Prostate cancer Alzheimer disease Heart disease Myocardial infarction Breast cancer Lung cancer Colorectal cancer Stroke Social History Smoking Status: Never smoker Second Hand Exposure: Yes (her smoked ); Hx Alcohol Use: Yes Alcohol type: wine Hx Substance Use: No Preferred Language: [place] Communication Ability: Impaired Visual Impairment: Limited Hearing Ability: Use of Hearing Aid Counsellors Required: No Beliefs That Will Affect Care: None marital status: Current Living Situation: Alone Current Living Situation Comment: [place] current occupational status: retired current occupation: career with [email or web address] How many Children do You have: 2 Other Information That Helps Us Care for You: No Feels Safe at Home: Yes Safety Concerns: Feels Safe At This Time Childhood Exposure to Second-Hand Smoke: No caffeine: Yes Dental Care, Regularly: No Physical Activity Frequency: Does not Exercise Seatbelt Use: always Sunscreen Use: No Assistive Devices: None Physical Exam Physical Exam: Patient is awake and alert upon arrival into the room. She is hard of hearing without her hearing aids. She appears to be in no acute distress. Pleasant cooperative. On examination of her right shoulder, she is notably in a sling. The right shoulder has mild to moderate swelling. No overt ecchymosis noted at this time. She has tenderness on palpation of the right shoulder. No tenderness on palpation over the right clavicle. She is nontender on palpation of the right elbow and gentle range of motion does not cause her any discomfort there. Right wrist range of motion is within normal limits and is nontender. He is able to move all of her fingers at this time with good flexion and extension. States that she has some slight decrease sensation which she feels is secondary to her hands being cold. Cap refills less than 2 seconds. No range of motion performed of the right shoulder secondary to fracture. He denies any left upper extremity pain or discomfort. Lower extremities appear to be unaffected. Results & Data ([facility]) Vital Signs (Past 12 Hours) Vital Signs Temp Pulse Resp BP Pulse Ox 04/11/21 08:18 37.1 C 75 14 116/73 04/11/21 07:13 36.8 C 79 16 102/59 L 94 Diagnostic Findings Patient: LEYDIANNAdmit Date: 04/10/21MR#: [id number]: [address]Acct ID:[id number]: Date: 1940[facility] Zip: [place], [place] [address]Ego: 80Location: 3NSex: FRoom/Bed: [address] Phy: Abeba Boo, MDDiagnosis: RIGHT HUMERAL HEAD FRACTURE S/P FALLPri Phy: Tamara Benítez, MDService Date: 04/10/21Fa Phy:Interpreting Phy: [facility]ke Coreas [facility] Phy: Rafael Stephen M.D. Ordering Phy: Ayesha Mccallum D.O. cc: ~ XR shoulder RT min 2V routine CLINICAL HISTORY: fall TECHNIQUE: 2 views of the right shoulder were obtained. Comparison: None available at the time of this dictation. FINDINGS: There is a displaced, impacted fracture of the right humeral neck. Soft tissue swelling is seen. The visualized portions of the lungs are clear. IMPRESSION: Displaced, impacted apparently 2 part fracture of the humeral neck.
[2021-04-11] MEDS ORDERED: traMADol HCL 50 MG TABLET PO STA (14:44)
[2021-04-11] MEDS: CHOLECALCIFEROL 1,000 UNITS 25 MCG TAB PO SCH (18:04)
--- NOTE | 2021-04-11 18:13 | Hospitalist Progress Note ---
Date of Service April 11, 2021 Assessment & Plan (1) Closed fracture of head of right humerus: Plan: - S/P Fall - Plan for non-operative approach at this time - Maintain sling and nonweightbearing and no ROM - Continue Hydrocodone/APAP overnight - will have to re-engage best option given cirrhosis history and also has varices which could impact use of NSAIDs -- Was hallucinating with Oxycodone - Will further discuss Tramadol - patient is concered for increase risk of seizures - it is unclear if she had a seizure from this med vs Protonix per her report? - PT/OT - Case management - consideration for [facility] (2) Generalized anxiety disorder: Plan: - Continue Escitalopram 20 mg daily (3) Seizure: Plan: - Continue levetiracetam 250 mg BID (4) GERD (gastroesophageal reflux disease): Plan: - Continue famotidine 20 mg daily (5) Thrombocytopenia: Plan: - Baseline 50-90 - Currenlty at 57 and will monitor - will need to hold Lovenox should platelets drop below 50,000 - Follow serially (6) Diabetes type 2, controlled: Plan: - Patient had been on Metformin, but not been doing well with that. - A1c is 7.9 - which would not want to overcorrect given age - will discuss medication options vs dietary control and monitoring (7) Cirrhosis: Plan: - Cryptogenic cirrhosis/ascites/portal hypertension- - Continue rifaximin BID and Spironolactone (8) Sjogren's disease: Plan: - Sjogren's disease/discoid lupus erythematosus- - Continue hydroxychloroquine (9) Hearing difficulty: Plan: Wears hearing aids bilaterally Plan: Try to better manage pain control; plan for non-operative management Admission and Anticipated Discharge Date Admission Date: April 10, 2021 Subjective Had better pain control earlier today but worsening pain into the afternoon. Limitations on medications due to her liver. Was having some hallucinations with Oxycodone but seems to be doing okay with the Hydrocodone however will have to watch given Tylenol. Will reassess pain in AM to see how to better adjust regimen. She is concerned with seizure risk with Tramadol and will further discuss this with her as well Review of Systems Review of Systems: REVIEW OF SYSTEMS General/Constitutional: Denies fever/chills Cardiovascular: Denies chest pain, palpitations, edema Respiratory: Denies cough, sputum, SOB, wheezing, orthopnea GI: Denies nausea, vomiting, abdominal pain, constipation, diarrhea : Denies dysuria Musculoskeletal: + R shoulder pain Physical Exam Physical Exam: PHYSICAL EXAM General Appearance: WDWN in NAD who is A&O x 3 HEENT: Head is normocephalic/atraumatic; EOMI; PERRLA; Hearing grossly intact; Mucous membranes moist Neck: Supple; Trachea midline; Neg JVD Heart: RRR with no M/G/R Lungs: CTA in all lung jacobo bilaterally; Respirations unlabored; Neg accessory muscle use Abdomen: Soft, non-tender, non-distended; Positive BS x 4 quadrants; Neg organomegaly Extremities: Capillary refill < 2 seconds; Neg cyanosis or edema; RUE in sling Neurological: Speech clear; Gross motor/sensory function intact; Neg focal neurologic deficits - did not assess movement of RUE Psychiatric: Appropriate mood/affect Skin: Normal Color; Warm/Dry Results & Data Results & Data ([facility]) Vital Signs (Past 12 Hours) Vital Signs Temp Pulse Resp BP Pulse Ox 04/11/21 14:52 36.9 C 78 16 105/64 93 04/11/21 11:20 37.1 C 76 16 108/68 92 04/11/21 08:18 37.1 C 75 14 116/73 04/11/21 07:13 36.8 C 79 16 102/59 L 94 PG Care Time/CCT Total # of Minutes Spent Total Time Spent with Patient: Total time spent is greater than 50% in coordination of care (as documented) at patient's floor/unit and/or counseling patient: Coding Level of Care Code 40194 Subseq Hosp Care Lvl 3 Diagnoses Closed fracture of head of right humerus S42.291A Generalized anxiety disorder F41.1 Seizure R56.9 GERD (gastroesophageal reflux disease) K21.9 Thrombocytopenia D69.6 Diabetes type 2, controlled E11.9 Diabetes mellitus complication status: without complication Diabetes mellitus residential insulin use: without ad terminal makeup operator use Cirrhosis K74.60 Sjogren's disease M35.00 Sjogren's organ involvement: unspecified organ involvement Hearing difficulty H91.90 (1) Sjogren's disease Sjogren's organ involvement: unspecified organ involvement Qualified Code(s): M35.00 - Sicca syndrome, unspecified (2) Diabetes type 2, controlled Diabetes mellitus complication status: without complication Diabetes mellitus ad terminal makeup operator insulin use: without residential use Qualified Code(s): E11.9 - Type 2 diabetes mellitus without complications
[2021-04-11] MEDS: DOCUSATE SODIUM 100 MG CAP PO SCH (20:28)
[2021-04-11] MEDS: LATANOPROST 0.005% OP SOLN 2.5 ML BTL OPB SCH (20:28)
[2021-04-12] MEDS: HYDROCODONE/ACETAMOPHEN 5/325MG TAB PO PRN ×2 (04:24→09:17)
[2021-04-12] MEDS: ENOXAPARIN INJ 30 MG/0.3 ML SYR SQ SCH (06:28)
[2021-04-12] MEDS: FAMOTIDINE 20 MG TAB PO SCH (08:00)
[2021-04-12] MEDS: SPIRONOLACTONE 25 MG TAB PO SCH (08:00)
[2021-04-12] MEDS: MAGNESIUM CHLORIDE 64MG DELAYED REL TAB PO SCH ×2 (08:00→20:35)
[2021-04-12] MEDS: rifAXIMin 550 MG TABLET PO SCH ×2 (08:00→20:35)
[2021-04-12] MEDS: levETIRAcetam 250 MG TAB PO SCH ×2 (08:00→20:35)
[2021-04-12] MEDS: HYDROXYCHLOROQUINE SULFATE 200 MG TAB PO SCH (08:01)
[2021-04-12] MEDS: DOCUSATE SODIUM 100 MG CAP PO SCH ×2 (08:01→20:34)
[2021-04-12] MEDS: ESCITALOPRAM OXALATE 20 MG TAB PO SCH (08:01)
[2021-04-12] MEDS: INSULIN ASPART 100 UNITS/ML 3 ML PEN SC SCH ×4 (09:09→20:34)
[2021-04-12] MEDS ORDERED: SODIUM CHLORIDE 0.9% 1000ML 1,000 ML IV SCH (11:00)
--- NOTE | 2021-04-12 12:35 | Hospitalist Progress Note ---
Date of Service April 12, 2021 Assessment & Plan (1) Closed fracture of head of right humerus: Plan: - S/P Fall - Plan for non-operative approach at this time - Maintain sling and nonweightbearing and no ROM - Continue Hydrocodone/APAP - she does intermittently use Tylenol at home; Will do Toradol once daily x 2 days to get some better pain control but not overuse NSAIDs -- Was hallucinating with Oxycodone - PT/OT - Case management - consideration for [facility] vs SNF - Ortho consulted - May come out of the sling about 6 times a day for gentle passive pendulum exercises at the shoulder and active range of motion at the elbow. Follow-up in orthopedic surgery clinic approximately 2 weeks from injury (around Apr 24). Call [facility] at [phone] to make an appointment (2) Generalized anxiety disorder: Plan: - Continue Escitalopram 20 mg daily (3) Seizure: Plan: - Continue levetiracetam 250 mg BID (4) GERD (gastroesophageal reflux disease): Plan: - Continue famotidine 20 mg daily (5) Thrombocytopenia: Plan: - Baseline 50-90 - Currenlty at 57 and will monitor - will need to hold Lovenox should platelets drop below 50,000 - Follow serially (6) Diabetes type 2, controlled: Plan: - Patient had been on Metformin, but not been doing well with that. -- Discussed with daughter that patient stopped eating and was having lows. She lost significant weight do to it. Given age it may be best to monitor and control dietary management given age. 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- - Continue rifaximin BID and Spironolactone (8) Sjogren's disease: Plan: - Sjogren's disease/discoid lupus erythematosus- - Continue hydroxychloroquine (9) Hearing difficulty: Plan: Wears hearing aids bilaterally Plan: - Continue pain control; plan for non-operative management - Updated DIL over the phone Admission and Anticipated Discharge Date Admission Date: April 10, 2021 Subjective Pt reports her pain about the same with movement today but feels the pain medication is giving better relief. She is not experiencing any hallucinations. She states she was told she can have some Tylenol even in the setting of her cirrhosis and does use it intermittently at home. She does avoid ibuprofens/etc. She states when resting her pain is minimal to none but occasionally forgets and uses her hand and hurts more. Review of Systems Review of Systems: REVIEW OF SYSTEMS General/Constitutional: Denies fever/chills Cardiovascular: Denies chest pain, palpitations, edema Respiratory: Denies cough, sputum, SOB, wheezing, orthopnea GI: Denies nausea, vomiting, abdominal pain, constipation, diarrhea : Denies dysuria Musculoskeletal: + R shoulder pain Physical Exam Physical Exam: PHYSICAL EXAM General Appearance: WDWN in NAD who is A&O x 3 HEENT: Head is normocephalic/atraumatic; Mucous membranes moist; hard of hearing Neck: Supple; Trachea midline; Neg JVD Heart: RRR with no M/G/R Lungs: CTA in all lung jacobo bilaterally; Respirations unlabored; Neg accessory muscle use Abdomen: Soft, non-tender, non-distended; Positive BS x 4 quadrants Extremities: Neg cyanosis or edema; RUE in sling; cap refill immediate in RUE Neurological: Speech clear; Gross motor/sensory function intact; Neg focal neurologic deficits - did not assess movement of RUE Psychiatric: Appropriate mood/affect Skin: Normal Color; Warm/Dry Results & Data Results & Data ([facility]) Vital Signs (Past 12 Hours) Vital Signs Temp Pulse Resp BP Pulse Ox 04/12/21 07:03 37.1 C 73 18 131/73 93 PG Care Time/CCT Total # of Minutes Spent Total Time Spent with Patient: Total time spent is greater than 50% in coordination of care (as documented) at patient's floor/unit and/or counseling patient: Coding Level of Care Code 54219 Subseq Hosp Care Lvl 3 Diagnoses Closed fracture of head of right humerus S42.291A Generalized anxiety disorder F41.1 Seizure R56.9 GERD (gastroesophageal reflux disease) K21.9 Thrombocytopenia D69.6 Diabetes type 2, controlled E11.9 Diabetes mellitus group home insulin use: without group home use Diabetes mellitus complication status: without complication Cirrhosis K74.60 Sjogren's disease M35.00 Sjogren's organ involvement: unspecified organ involvement Hearing difficulty H91.90 (1) Diabetes type 2, controlled Diabetes mellitus middle or intermediate school principal insulin use: without middle or intermediate school principal use Diabetes mellitus complication status: without complication Qualified Code(s): E11.9 - Type 2 diabetes mellitus without complications (2) Sjogren's disease Sjogren's organ involvement: unspecified organ involvement Qualified Code(s): M35.00 - Sicca syndrome, unspecified
[2021-04-12] MEDS: CHOLECALCIFEROL 1,000 UNITS 25 MCG TAB PO SCH (17:58)
[2021-04-12] MEDS: LATANOPROST 0.005% OP SOLN 2.5 ML BTL OPB SCH (20:36)
[2021-04-13] MEDS: HYDROCODONE/ACETAMOPHEN 5/325MG TAB PO PRN ×2 (02:25→07:35)
[2021-04-13] MEDS: ENOXAPARIN INJ 30 MG/0.3 ML SYR SQ SCH (06:12)
[2021-04-13] MEDS: HYDROXYCHLOROQUINE SULFATE 200 MG TAB PO SCH (07:29)
[2021-04-13] MEDS: rifAXIMin 550 MG TABLET PO SCH ×2 (07:29→20:52)
[2021-04-13] MEDS: ESCITALOPRAM OXALATE 20 MG TAB PO SCH (07:29)
[2021-04-13] MEDS: DOCUSATE SODIUM 100 MG CAP PO SCH ×2 (07:29→20:52)
[2021-04-13] MEDS: SPIRONOLACTONE 25 MG TAB PO SCH (07:30)
[2021-04-13] MEDS: FAMOTIDINE 20 MG TAB PO SCH (07:30)
[2021-04-13] MEDS: MAGNESIUM CHLORIDE 64MG DELAYED REL TAB PO SCH ×2 (07:30→20:53)
[2021-04-13] MEDS: levETIRAcetam 250 MG TAB PO SCH ×2 (07:30→21:17)
[2021-04-13 07:53] LABS: Hemoglobin 9.4 g/dL (12.0-16.0); Mean Corpuscular Hemoglobin 31.8 pg (25-34); Mean Corpuscular Hgb Conc 34.8 g/dL (32-36); Mean Corpuscular Volume 91.2 fL (80-100); Mean Platelet Volume 12.3 fL (7.4-10.4); Platelet Count 51 K/uL (130-400); RDW Standard Deviation 46.8 fL (36.4-46.3); Red Blood Count 2.96 M/uL (4.2-5.4); White Blood Count 5.18 K/uL (4.8-10.8)
[2021-04-13 08:11] LABS: BUN Creatinine Ratio 16.2 (10-20); Calcium 9.4 mg/dl (8.5-10.1); Creatinine Clr Calc Pharmacy 31.7 ml/min; Potassium 4.2 mmol/L (3.5-5.1)
[2021-04-13] MEDS: INSULIN ASPART 100 UNITS/ML 3 ML PEN SC SCH ×4 (09:01→20:51)
[2021-04-13] MEDS ORDERED: KETOROLAC TROMETHAMINE 15 MG/ML VIAL IV ONE (10:21)
--- NOTE | 2021-04-13 12:20 | Hospitalist Progress Note ---
Date of Service April 13, 2021 Assessment & Plan (1) Closed fracture of head of right humerus: Plan: - S/P Fall; *Possible Age-related osteoporosis w current pathologic fracture, right humerus - Plan for non-operative approach at this time - Maintain sling - Continue Hydrocodone/APAP - she does intermittently use Tylenol at home; Will do Toradol once daily x 2 days to get some better pain control but not overuse NSAIDs -- Was hallucinating with Oxycodone - PT/OT - Case management - consideration for [facility] vs SNF - Ortho consulted - May come out of the sling about 6 times a day for gentle passive pendulum exercises at the shoulder and active range of motion at the elbow. Follow-up in orthopedic surgery clinic approximately 2 weeks from injury (around Apr 24). Call [facility] at [phone] to make an appointment (2) Generalized anxiety disorder: Plan: - Continue Escitalopram 20 mg daily (3) Seizure: Plan: - Continue levetiracetam 250 mg BID (4) GERD (gastroesophageal reflux disease): Plan: - Continue famotidine 20 mg daily (5) Thrombocytopenia: Plan: - Baseline 50-90 - Currenlty at 51 and will monitor - will hold Lovenox for now - Follow serially (6) Diabetes type 2, controlled: Plan: - Patient had been on Metformin, but not been doing well with that. -- Discussed with daughter that patient stopped eating and was having frequent lows. She lost significant weight due to it. Given age it may be best to monitor and control dietary management given age. 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 States the mornings are the worst for her and then it eases up. She felt like she didnt get good sleep overnight. Tolerating a diet. Has been moving her bowels. Verbalizes no other complaints at this time. Review of Systems Review of Systems: REVIEW OF SYSTEMS General/Constitutional: Denies fever/chills Cardiovascular: Denies chest pain, palpitations, edema Respiratory: Denies cough, sputum, SOB, wheezing, orthopnea GI: Denies nausea, vomiting, abdominal pain, constipation, diarrhea : Denies dysuria Musculoskeletal: + R shoulder pain Physical Exam Physical Exam: PHYSICAL EXAM General Appearance: WDWN in NAD who is A&O x 3 HEENT: Head is normocephalic/atraumatic; Mucous membranes moist; hard of hearing Neck: Supple; Trachea midline; Neg JVD Heart: RRR with no M/G/R Lungs: CTA in all lung jacobo bilaterally; Respirations unlabored; Neg accessory muscle use Abdomen: Soft, non-tender, non-distended; Positive BS x 4 quadrants Extremities: Neg cyanosis or edema; RUE in sling; cap refill immediate in RUE Neurological: Speech clear; Gross motor/sensory function intact; Neg focal neurologic deficits - did not assess movement of RUE Psychiatric: Appropriate mood/affect Skin: Normal Color; Warm/Dry Results & Data Results & Data ([facility]) Vital Signs (Past 12 Hours) Vital Signs Temp Pulse Resp BP Pulse Ox 04/13/21 07:21 37.1 C 69 16 150/74 H 96 PG Care Time/CCT Total # of Minutes Spent Total Time Spent with Patient: Total time spent is greater than 50% in coordination of care (as documented) at patient's floor/unit and/or counseling patient: Coding Level of Care Code 68915 Subseq Hosp Care Lvl 3 Diagnoses Closed fracture of head of right humerus S42.291A Generalized anxiety disorder F41.1 Seizure R56.9 GERD (gastroesophageal reflux disease) K21.9 Thrombocytopenia D69.6 Diabetes type 2, controlled E11.9 Diabetes mellitus complication status: without complication Diabetes mellitus superintendent terminal insulin use: without superintendent terminal use Cirrhosis K74.60 Sjogren's disease M35.00 Sjogren's organ involvement: unspecified organ involvement Hearing difficulty H91.90 (1) Sjogren's disease Sjogren's organ involvement: unspecified organ involvement Qualified Code(s): 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
[2021-04-13] MEDS: CHOLECALCIFEROL 1,000 UNITS 25 MCG TAB PO SCH (17:34)
[2021-04-13] MEDS: LATANOPROST 0.005% OP SOLN 2.5 ML BTL OPB SCH (20:51)
[2021-04-14] MEDS: HYDROCODONE/ACETAMOPHEN 5/325MG TAB PO PRN ×2 (00:41→07:36)
[2021-04-14] MEDS: HYDROXYCHLOROQUINE SULFATE 200 MG TAB PO SCH (08:41)
[2021-04-14] MEDS: rifAXIMin 550 MG TABLET PO SCH ×2 (08:41→21:04)
[2021-04-14] MEDS: ESCITALOPRAM OXALATE 20 MG TAB PO SCH (08:41)
[2021-04-14] MEDS: DOCUSATE SODIUM 100 MG CAP PO SCH ×2 (08:41→21:03)
[2021-04-14] MEDS: SPIRONOLACTONE 25 MG TAB PO SCH (08:41)
[2021-04-14] MEDS: MAGNESIUM CHLORIDE 64MG DELAYED REL TAB PO SCH ×2 (08:41→21:04)
[2021-04-14] MEDS: FAMOTIDINE 20 MG TAB PO SCH (08:41)
[2021-04-14] MEDS: INSULIN ASPART 100 UNITS/ML 3 ML PEN SC SCH ×4 (08:50→21:05)
[2021-04-14] MEDS ORDERED: KETOROLAC TROMETHAMINE 15 MG/ML VIAL IV ONE (09:00)
[2021-04-14] MEDS: levETIRAcetam 250 MG TAB PO SCH ×2 (09:32→21:03)
--- NOTE | 2021-04-14 11:00 | Hospitalist Progress Note ---
Date of Service April 14, 2021 Assessment & Plan (1) Closed fracture of head of right humerus: Plan: - S/P Fall; *Possible Age-related osteoporosis w current pathologic fracture, right humerus - Plan for non-operative approach at this time - Maintain sling but may come out of sling up to 6 times a day - Continue Hydrocodone/APAP - she does intermittently use Tylenol at home; Will do Toradol once daily x 2 days to get some better pain control but not overuse NSAIDs -- Was hallucinating with Oxycodone - PT/OT - Case management - awaiting SNF determination - Ortho consulted - May come out of the sling about 6 times a day for gentle passive pendulum exercises at the shoulder and active range of motion at the elbow. Follow-up in orthopedic surgery clinic approximately 2 weeks from injury (around Apr 24). Call [facility] at [phone] to make an appointment (2) Generalized anxiety disorder: Plan: - Continue Escitalopram 20 mg daily (3) Seizure: Plan: - Continue levetiracetam 250 mg BID (4) GERD (gastroesophageal reflux disease): Plan: - Continue famotidine 20 mg daily (5) Thrombocytopenia: Plan: - Baseline 50-90 - Currenlty at 51 and will monitor - will hold Lovenox for now - Follow serially (6) Diabetes type 2, controlled: Plan: - Patient had been on Metformin, but not been doing well with that. -- Discussed with daughter that patient stopped eating and was having frequent lows. She lost significant weight due to it. Given age it may be best to monitor and control dietary management given age. 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 - Continue rifaximin BID and Spironolactone -- Some mild RAJENDRA earlier in admission but did resolve with gentle hydration and will monitor (8) Sjogren's disease: Plan: - Sjogren's disease/discoid lupus erythematosus- - Continue hydroxychloroquine (9) Hearing difficulty: Plan: Wears hearing aids bilaterally Plan: - Continue pain control; plan for non-operative management - Will update DIL over the phone - May not have a bed until next week Admission and Anticipated Discharge Date Admission Date: April 10, 2021 Subjective Looks well this AM. Pain is doing better this AM compared to yesterday. Ate her breakfast very well and tolerated without issue. Awaiting rehab determination. Review of Systems Review of Systems: REVIEW OF SYSTEMS General/Constitutional: Denies fever/chills Cardiovascular: Denies chest pain, palpitations, edema Respiratory: Denies cough, sputum, SOB, wheezing, orthopnea GI: Denies nausea, vomiting, abdominal pain, constipation, diarrhea : Denies dysuria Musculoskeletal: + R shoulder pain (continues to improve but mostly with movement; pain regimen has worked well) Physical Exam Physical Exam: PHYSICAL EXAM General Appearance: WDWN in NAD who is A&O x 3 HEENT: Head is normocephalic/atraumatic; Mucous membranes moist; hard of hearing Neck: Supple; Trachea midline; Neg JVD Heart: RRR with no M/G/R Lungs: CTA in all lung jacobo bilaterally; Respirations unlabored; Neg accessory muscle use Abdomen: Soft, non-tender, non-distended; Positive BS x 4 quadrants Extremities: Neg cyanosis or edema; RUE in sling; cap refill immediate and sensation intact in RUE Neurological: Speech clear; Gross motor/sensory function intact; Neg focal neurologic deficits - did not assess movement of RUE Psychiatric: Appropriate mood/affect Skin: Normal Color; Warm/Dry Results & Data Results & Data ([facility]) Vital Signs (Past 12 Hours) Vital Signs Temp Pulse Resp BP Pulse Ox 04/14/21 07:15 37.1 C 72 15 112/61 96 PG Care Time/CCT Total # of Minutes Spent Total Time Spent with Patient: Total time spent is greater than 50% in coordination of care (as documented) at patient's floor/unit and/or counseling patient: Coding Level of Care Code 00500 Subseq Hosp Care Lvl 3 Diagnoses Closed fracture of head of right humerus S42.291A Generalized anxiety disorder F41.1 Seizure R56.9 GERD (gastroesophageal reflux disease) K21.9 Thrombocytopenia D69.6 Diabetes type 2, controlled E11.9 Diabetes mellitus exterminator helper insulin use: without exterminator helper use Diabetes mellitus complication status: without complication Cirrhosis K74.60 Sjogren's disease M35.00 Sjogren's organ involvement: unspecified organ involvement Hearing difficulty H91.90 (1) Diabetes type 2, controlled Diabetes mellitus exterminator helper insulin use: without retirement use Diabetes mellitus complication status: without complication Qualified Code(s): E11.9 - Type 2 diabetes mellitus without complications (2) Sjogren's disease Sjogren's organ involvement: unspecified organ involvement Qualified Code(s): M35.00 - Sicca syndrome, unspecified
[2021-04-14] MEDS: CHOLECALCIFEROL 1,000 UNITS 25 MCG TAB PO SCH (16:06)
[2021-04-14] MEDS: LATANOPROST 0.005% OP SOLN 2.5 ML BTL OPB SCH (21:05)
[2021-04-15] MEDS: HYDROCODONE/ACETAMOPHEN 5/325MG TAB PO PRN ×2 (02:42→07:29)
[2021-04-15] MEDS: ESCITALOPRAM OXALATE 20 MG TAB PO SCH (08:28)
[2021-04-15] MEDS: levETIRAcetam 250 MG TAB PO SCH ×2 (08:29→20:41)
[2021-04-15] MEDS: SPIRONOLACTONE 25 MG TAB PO SCH (08:29)
[2021-04-15] MEDS: DOCUSATE SODIUM 100 MG CAP PO SCH ×2 (08:29→20:41)
[2021-04-15] MEDS: FAMOTIDINE 20 MG TAB PO SCH (08:29)
[2021-04-15] MEDS: rifAXIMin 550 MG TABLET PO SCH ×2 (08:29→20:40)
[2021-04-15] MEDS: MAGNESIUM CHLORIDE 64MG DELAYED REL TAB PO SCH ×2 (08:29→20:41)
[2021-04-15] MEDS: HYDROXYCHLOROQUINE SULFATE 200 MG TAB PO SCH (08:30)
[2021-04-15] MEDS: INSULIN ASPART 100 UNITS/ML 3 ML PEN SC SCH ×4 (08:37→20:47)
--- NOTE | 2021-04-15 10:02 | Hospitalist Progress Note ---
Date of Service April 15, 2021 Assessment & Plan (1) Closed fracture of head of right humerus: Plan: - S/P Fall; *Possible Age-related osteoporosis w current pathologic fracture, right humerus - Plan for non-operative approach at this time - Maintain sling but may come out of sling up to 6 times a day per orthopedics - Continue Hydrocodone/APAP - she does intermittently use Tylenol at home; Gave Toradol once daily x 2 days to get some better pain control but will avoid overuse of NSAIDs -- Was hallucinating with Oxycodone - PT/OT - Case management - awaiting SNF determination - possibly Sunday/Sunday - Ortho consulted - May come out of the sling about 6 times a day for gentle passive pendulum exercises at the shoulder and active range of motion at the elbow. Follow-up in orthopedic surgery clinic approximately 2 weeks from injury (around Apr 24). Call [facility] [place] at [phone] to make an appointment (2) Generalized anxiety disorder: Plan: - Continue Escitalopram 20 mg daily (3) Seizure: Plan: - Continue levetiracetam 250 mg BID (4) GERD (gastroesophageal reflux disease): Plan: - Continue famotidine 20 mg daily (5) Thrombocytopenia: Plan: - Baseline 50-90 - Follow serially - labs in AM (6) Diabetes type 2, controlled: Plan: - Patient had been on Metformin, but not been doing well with that. -- Discussed with daughter that patient stopped eating and was having frequent lows. She lost significant weight due to it. Given age it may be best to monitor and control dietary management given age. 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 - Continue rifaximin BID and Spironolactone -- Some mild RAJENDRA earlier in admission but did resolve with gentle hydration and will monitor (8) Sjogren's disease: Plan: - Sjogren's disease/discoid lupus erythematosus - Continue hydroxychloroquine (9) Hearing difficulty: Plan: Wears hearing aids bilaterally Plan: - Continue pain control; plan for non-operative management - Will update DIL over the phone - Awaiting bed at [facility] - [facility]ianne may have bed Sunday/Sunday; [facility] may not have a bed until next week Admission and Anticipated Discharge Date Admission Date: April 10, 2021 Subjective Reports some worse pain this AM but pain medication is improving this. States the pain does better throughout the day. Does make her sleepy but no hallucinations. She is tolerating a diet. Ate blueberries and some of her ukrainian toast. Has been drinking Boost periodically. Verbalizes no new complaints Review of Systems Review of Systems: REVIEW OF SYSTEMS General/Constitutional: Denies fever/chills Cardiovascular: Denies chest pain, palpitations, edema Respiratory: Denies cough, sputum, SOB, wheezing GI: Denies nausea, vomiting, abdominal pain, constipation, diarrhea : Denies dysuria Musculoskeletal: + R shoulder pain (controlled with current regimen) Physical Exam Physical Exam: PHYSICAL EXAM General Appearance: WDWN in NAD who is A&O x 3 HEENT: Head is normocephalic/atraumatic; Mucous membranes moist; hard of hearing Neck: Supple; Trachea midline; Neg JVD Heart: RRR with no M/G/R Lungs: CTA in all lung jacobo bilaterally; Respirations unlabored; Neg accessory muscle use Abdomen: Soft, non-tender, non-distended; Positive BS x 4 quadrants Extremities: Neg cyanosis or edema; RUE in sling; cap refill immediate and sensation intact in RUE Neurological: Speech clear; Gross motor/sensory function intact; Neg focal neurologic deficits - did not assess movement of RUE Psychiatric: Appropriate mood/affect Skin: Normal Color; Warm/Dry Results & Data Results & Data ([facility]) Vital Signs (Past 12 Hours) Vital Signs Temp Pulse Resp BP Pulse Ox 04/15/21 07:25 37.0 C 66 16 104/49 L 95 04/14/21 23:08 37.0 C 64 18 107/69 93 PG Care Time/CCT Total # of Minutes Spent Total Time Spent with Patient: Total time spent is greater than 50% in coordination of care (as documented) at patient's floor/unit and/or counseling patient: Coding Level of Care Code 58969 Subseq Hosp Care Lvl 2 Diagnoses Closed fracture of head of right humerus S42.291A Generalized anxiety disorder F41.1 Seizure R56.9 GERD (gastroesophageal reflux disease) K21.9 Thrombocytopenia D69.6 Diabetes type 2, controlled E11.9 Diabetes mellitus meterman insulin use: without assisted use Diabetes mellitus complication status: without complication Cirrhosis K74.60 Sjogren's disease M35.00 Sjogren's organ involvement: unspecified organ involvement Hearing difficulty H91.90 (1) Diabetes type 2, controlled Diabetes mellitus assisted insulin use: without meterman use Diabetes mellitus complication status: without complication Qualified Code(s): E11.9 - Type 2 diabetes mellitus without complications (2) Sjogren's disease Sjogren's organ involvement: unspecified organ involvement Qualified Code(s): M35.00 - Sicca syndrome, unspecified
[2021-04-15] MEDS: CHOLECALCIFEROL 1,000 UNITS 25 MCG TAB PO SCH (18:01)
[2021-04-15] MEDS: LATANOPROST 0.005% OP SOLN 2.5 ML BTL OPB SCH (20:40)
[2021-04-16] MEDS: HYDROCODONE/ACETAMOPHEN 5/325MG TAB PO PRN ×3 (04:22→21:21)
[2021-04-16 08:05] LABS: Hematocrit (blood only) 26.3 % (37-47); Mean Corpuscular Hemoglobin 31.7 pg (25-34); Mean Corpuscular Hgb Conc 34.2 g/dL (32-36); Mean Corpuscular Volume 92.6 fL (80-100); RDW Coefficient of Variation 14.5 % (11.5-14.5); RDW Standard Deviation 49.2 fL (36.4-46.3); Red Blood Count 2.84 M/uL (4.2-5.4)
[2021-04-16 08:20] LABS: Mean Platelet Volume 11.6 fL (7.4-10.4); Platelet Count 66 K/uL (130-400)
[2021-04-16 08:24] LABS: BUN Creatinine Ratio 14.1 (10-20); Creatinine Clr Calc Pharmacy 29.5 ml/min; Est GFR (African American) 46.6 ml/min; Est GFR (Non-African American) 40.2 ml/min; Potassium 4.7 mmol/L (3.5-5.1)
[2021-04-16] MEDS: INSULIN ASPART 100 UNITS/ML 3 ML PEN SC SCH ×4 (09:16→21:22)
[2021-04-16] MEDS: DOCUSATE SODIUM 100 MG CAP PO SCH ×2 (09:20→20:32)
[2021-04-16] MEDS: ESCITALOPRAM OXALATE 20 MG TAB PO SCH (09:20)
[2021-04-16] MEDS: SPIRONOLACTONE 25 MG TAB PO SCH (09:21)
[2021-04-16] MEDS: MAGNESIUM CHLORIDE 64MG DELAYED REL TAB PO SCH ×2 (09:21→20:32)
[2021-04-16] MEDS: HYDROXYCHLOROQUINE SULFATE 200 MG TAB PO SCH (09:21)
[2021-04-16] MEDS: rifAXIMin 550 MG TABLET PO SCH ×2 (09:21→20:31)
[2021-04-16] MEDS: FAMOTIDINE 20 MG TAB PO SCH (09:21)
[2021-04-16] MEDS: levETIRAcetam 250 MG TAB PO SCH ×2 (09:21→20:32)
[2021-04-16] MEDS: CHOLECALCIFEROL 1,000 UNITS 25 MCG TAB PO SCH (16:33)
[2021-04-16] MEDS ORDERED: POLYETHYLENE (MIRALAX) 17 GM PACK PO PRN (19:18)
--- NOTE | 2021-04-16 19:23 | Hospitalist Progress Note ---
Date of Service April 16, 2021 Assessment & Plan (1) Closed fracture of head of right humerus: Plan: - S/P Fall; *Possible Age-related osteoporosis w current pathologic fracture, right humerus - Plan for non-operative approach at this time - Maintain sling but may come out of sling up to 6 times a day per orthopedics - Continue Hydrocodone/APAP - she does intermittently use Tylenol at home; Gave Toradol once daily x 2 days to get some better pain control but will avoid overuse of NSAIDs -- Was hallucinating with Oxycodone - Continue PT/OT - Case management - awaiting SNF determination - possibly Sunday for [facility] - Maintain bowel regimen - did move bowels today but reports harder stool to pass; is currently on stool softener and can use Miralax PRN if further difficulty moving bowels - Ortho consulted - May come out of the sling about 6 times a day for gentle passive pendulum exercises at the shoulder and active range of motion at the elbow. Follow-up in orthopedic surgery clinic approximately 2 weeks from injury (around Apr 24). Call [facility] at [phone] to make an appointment (2) Generalized anxiety disorder: Plan: - Continue Escitalopram 20 mg daily (3) Seizure: Plan: - Continue levetiracetam 250 mg BID (4) GERD (gastroesophageal reflux disease): Plan: - Continue famotidine 20 mg daily (5) Thrombocytopenia: Plan: - Baseline 50-90; Currently stable - Follow serially - labs in AM (6) Diabetes type 2, controlled: Plan: - Patient had been on Metformin, but not been doing well with that. -- Discussed with daughter that patient stopped eating and was having frequent lows. She lost significant weight due to it. Given age it may be best to monitor and control dietary management given age. 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 - Continue rifaximin BID and Spironolactone -- Some mild RAJENDRA earlier in admission but did resolve with gentle hydration and will monitor (8) Sjogren's disease: Plan: - Sjogren's disease/discoid lupus erythematosus - Continue hydroxychloroquine (9) Hearing difficulty: Plan: Wears hearing aids bilaterally Plan: - Continue pain control; plan for non-operative management - Updated son at bedside - Awaiting bed at [facility] - Iris may have bed Sunday; [facility] may not have a bed until next week Admission and Anticipated Discharge Date Admission Date: April 10, 2021 Subjective Reports doing well. Some harder stool today but did move her bowels. She is on stool softeners but will add miralax as needed to help with regular bowel movements. Pain is reported as getting better a little bit each day. Tolerating a diet without issue. Review of Systems Review of Systems: REVIEW OF SYSTEMS General/Constitutional: Denies fever/chills Cardiovascular: Denies chest pain, palpitations, edema Respiratory: Denies cough,SOB GI: + hard stool but moving bowels; Denies nausea, vomiting, abdominal pain, constipation, diarrhea : Denies dysuria Musculoskeletal: + R shoulder pain (controlled with current regimen - requiring only a couple doses a day) Physical Exam Physical Exam: PHYSICAL EXAM General Appearance: WDWN in NAD who is A&O x 3 HEENT: Head is normocephalic; healing ecchymosis on the R side of the forehead extending to mid-forehead; Mucous membranes moist; hard of hearing Neck: Supple; Trachea midline; Neg JVD Heart: RRR with no M/G/R Lungs: CTA in all lung jacobo bilaterally; Respirations unlabored; Neg accessory muscle use Abdomen: Soft, non-tender, non-distended; Positive BS x 4 quadrants Extremities: Neg cyanosis or edema; RUE in sling; cap refill immediate and sensation intact in RUE; healing ecchymosis of the R upper arm Neurological: Speech clear; Gross motor/sensory function intact; Neg focal neurologic deficits - did not assess movement of RUE Psychiatric: Appropriate mood/affect Skin: Normal Color; Warm/Dry Results & Data Results & Data ([facility]) Vital Signs (Past 12 Hours) Vital Signs Temp Pulse Resp BP Pulse Ox 04/16/21 18:09 73 101/63 04/16/21 15:17 36.9 C 68 16 92/54 L 96 PG Care Time/CCT Total # of Minutes Spent Total Time Spent with Patient: Total time spent is greater than 50% in coordination of care (as documented) at patient's floor/unit and/or counseling patient: Coding Level of Care Code 83609 Subseq Hosp Care Lvl 2 Diagnoses Closed fracture of head of right humerus S42.291A Generalized anxiety disorder F41.1 Seizure R56.9 GERD (gastroesophageal reflux disease) K21.9 Thrombocytopenia D69.6 Diabetes type 2, controlled E11.9 Diabetes mellitus fci insulin use: without fci use Diabetes mellitus complication status: without complication Cirrhosis K74.60 Sjogren's disease M35.00 Sjogren's organ involvement: unspecified organ involvement Hearing difficulty H91.90 (1) Diabetes type 2, controlled Diabetes mellitus battery plate remover insulin use: without fci use Diabetes mellitus complication status: without complication Qualified Code(s): E11.9 - Type 2 diabetes mellitus without complications (2) Sjogren's disease Sjogren's organ involvement: unspecified organ involvement Qualified Code(s): M35.00 - Sicca syndrome, unspecified
[2021-04-16] MEDS: LATANOPROST 0.005% OP SOLN 2.5 ML BTL OPB SCH (20:31)
[2021-04-17] MEDS: HYDROCODONE/ACETAMOPHEN 5/325MG TAB PO PRN ×3 (05:25→21:44)
[2021-04-17] MEDS: DOCUSATE SODIUM 100 MG CAP PO SCH ×2 (08:08→21:44)
[2021-04-17] MEDS: ESCITALOPRAM OXALATE 20 MG TAB PO SCH (08:08)
[2021-04-17] MEDS: levETIRAcetam 250 MG TAB PO SCH ×2 (08:08→21:44)
[2021-04-17] MEDS: HYDROXYCHLOROQUINE SULFATE 200 MG TAB PO SCH (08:08)
[2021-04-17] MEDS: FAMOTIDINE 20 MG TAB PO SCH (08:08)
[2021-04-17] MEDS: rifAXIMin 550 MG TABLET PO SCH ×2 (08:08→21:44)
[2021-04-17] MEDS: MAGNESIUM CHLORIDE 64MG DELAYED REL TAB PO SCH ×2 (08:08→21:44)
--- NOTE | 2021-04-17 09:12 | Hospitalist Progress Note ---
Date of Service April 17, 2021 Assessment & Plan (1) Closed fracture of head of right humerus: Plan: - S/P Fall; *Possible Age-related osteoporosis w current pathologic fracture, right humerus - Plan for non-operative approach at this time - Maintain sling but may come out of sling up to 6 times a day per orthopedics - Continue Hydrocodone/APAP - she does intermittently use Tylenol at home; Gave Toradol once daily x 2 days to get some better pain control but will avoid overuse of NSAIDs -- Was hallucinating with Oxycodone - Continue PT/OT - Case management - awaiting SNF determination - possibly Sunday for Noviper - Maintain bowel regimen - did move bowels yesterday but reports harder stool to pass; is currently on stool softener and can use Miralax PRN if further difficulty moving bowels - Ortho consulted - May come out of the sling about 6 times a day for gentle passive pendulum exercises at the shoulder and active range of motion at the elbow. Follow-up in orthopedic surgery clinic approximately 2 weeks from injury (around Apr 24). Call [facility] at [phone] to make an appointment (2) Generalized anxiety disorder: Plan: - Continue Escitalopram 20 mg daily (3) Seizure: Plan: - Continue levetiracetam 250 mg BID (4) GERD (gastroesophageal reflux disease): Plan: - Continue famotidine 20 mg daily (5) Thrombocytopenia: Plan: - Baseline 50-90; Currently stable - Follow serially - labs in AM - Did hold Lovenox given lower plts earlier in stay (6) Diabetes type 2, controlled: Plan: - Patient had been on Metformin, but not been doing well with that. -- Discussed with daughter that patient stopped eating and was having frequent lows. She lost significant weight due to it. Given age it may be best to monitor and control dietary management given age. 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 - Continue rifaximin BID and Spironolactone -- Some mild RAJENDRA earlier in admission but did resolve with gentle hydration - last check was 1.26 -- Did have a similar Cr in August of this year - can monitor with routine labs as electrolytes are acceptable (8) Sjogren's disease: Plan: - Sjogren's disease/discoid lupus erythematosus - Continue hydroxychloroquine (9) Hearing difficulty: Plan: Wears hearing aids bilaterally Plan: - Continue pain control; plan for non-operative management - Updated son at bedside yesterday - Awaiting bed at [facility] - [facility] may have bed Sunday; [facility] a bed this week - if remains in current state would anticipate stable for D/C Admission and Anticipated Discharge Date Admission Date: April 10, 2021 Subjective Reports feeling well today. Eating breakfast without difficulty or nausea/vomiting. Has not required frequent pain medication and reports each day it is a bit better. She reports no other complaints today Review of Systems Review of Systems: REVIEW OF SYSTEMS General/Constitutional: Denies fever/chills Cardiovascular: Denies chest pain, palpitations, edema Respiratory: Denies cough,SOB GI: + hard stool (yesterday) but moving bowels; Denies nausea, vomiting, abdominal pain, constipation, diarrhea : Denies dysuria Musculoskeletal: + R shoulder pain (controlled with current regimen - requiring only a couple doses a day) Physical Exam Physical Exam: PHYSICAL EXAM General Appearance: WDWN in NAD who is A&O x 3 HEENT: Head is normocephalic; healing ecchymosis on the R side of the forehead extending to mid-forehead; Mucous membranes moist; hard of hearing Neck: Supple; Trachea midline; Neg JVD Heart: RRR with no M/G/R Lungs: CTA in all lung jacobo bilaterally; Respirations unlabored; Neg accessory muscle use Abdomen: Soft, non-tender, non-distended; Positive BS x 4 quadrants Extremities: Neg cyanosis or edema; RUE in sling; cap refill immediate and sensation intact in RUE; healing ecchymosis of the R upper arm Neurological: Speech clear; Gross motor/sensory function intact; Neg focal neurologic deficits - did not assess movement of RUE Psychiatric: Appropriate mood/affect Skin: Normal Color; Warm/Dry Results & Data Results & Data ([facility]) Vital Signs (Past 12 Hours) Vital Signs Temp Pulse Resp BP Pulse Ox 04/17/21 07:21 37.0 C 69 14 96/59 L 94 04/16/21 22:41 36.8 C 66 18 99/60 L 91 PG Care Time/CCT Total # of Minutes Spent Total Time Spent with Patient: Total time spent is greater than 50% in coordination of care (as documented) at patient's floor/unit and/or counseling patient: Coding Level of Care Code 25475 Subseq Hosp Care Lvl 2 Diagnoses Closed fracture of head of right humerus S42.291A Generalized anxiety disorder F41.1 Seizure R56.9 GERD (gastroesophageal reflux disease) K21.9 Thrombocytopenia D69.6 Diabetes type 2, controlled E11.9 Diabetes mellitus predatory animal exterminator insulin use: without chcf use Diabetes mellitus complication status: without complication Cirrhosis K74.60 Sjogren's disease M35.00 Sjogren's organ involvement: unspecified organ involvement Hearing difficulty H91.90 (1) Diabetes type 2, controlled Diabetes mellitus chcf insulin use: without predatory animal exterminator use Diabetes mellitus complication status: without complication Qualified Code(s): E11.9 - Type 2 diabetes mellitus without complications (2) Sjogren's disease Sjogren's organ involvement: unspecified organ involvement Qualified Code(s): M35.00 - Sicca syndrome, unspecified
[2021-04-17] MEDS: INSULIN ASPART 100 UNITS/ML 3 ML PEN SC SCH ×4 (09:38→21:46)
[2021-04-17] MEDS: SPIRONOLACTONE 25 MG TAB PO SCH (10:03)
[2021-04-17] MEDS: CHOLECALCIFEROL 1,000 UNITS 25 MCG TAB PO SCH (17:12)
[2021-04-17] MEDS: LATANOPROST 0.005% OP SOLN 2.5 ML BTL OPB SCH (21:45)
[2021-04-18 07:03] LABS: Hematocrit (blood only) 25.8 % (37-47); Hemoglobin 8.8 g/dL (12.0-16.0); Mean Corpuscular Hemoglobin 31.8 pg (25-34); Mean Corpuscular Hgb Conc 34.1 g/dL (32-36); Mean Corpuscular Volume 93.1 fL (80-100); RDW Coefficient of Variation 14.6 % (11.5-14.5); RDW Standard Deviation 49.7 fL (36.4-46.3); Red Blood Count 2.77 M/uL (4.2-5.4); White Blood Count 4.75 K/uL (4.8-10.8)
[2021-04-18 07:15] LABS: Mean Platelet Volume 11.8 fL (7.4-10.4); Platelet Count 79 K/uL (130-400)
[2021-04-18] MEDS: rifAXIMin 550 MG TABLET PO SCH ×2 (07:38→21:14)
[2021-04-18] MEDS: levETIRAcetam 250 MG TAB PO SCH ×2 (07:38→21:13)
[2021-04-18] MEDS: HYDROCODONE/ACETAMOPHEN 5/325MG TAB PO PRN ×2 (07:38→13:53)
[2021-04-18] MEDS: MAGNESIUM CHLORIDE 64MG DELAYED REL TAB PO SCH ×2 (07:38→21:14)
[2021-04-18] MEDS: HYDROXYCHLOROQUINE SULFATE 200 MG TAB PO SCH (07:39)
[2021-04-18] MEDS: ESCITALOPRAM OXALATE 20 MG TAB PO SCH (07:39)
[2021-04-18] MEDS: FAMOTIDINE 20 MG TAB PO SCH (07:39)
[2021-04-18] MEDS: SPIRONOLACTONE 25 MG TAB PO SCH (07:39)
[2021-04-18] MEDS: DOCUSATE SODIUM 100 MG CAP PO SCH ×2 (07:39→21:14)
[2021-04-18 07:57] LABS: BUN Creatinine Ratio 13.4 (10-20); Calcium 8.9 mg/dl (8.5-10.1); Est GFR (African American) 51.5 ml/min; Est GFR (Non-African American) 44.4 ml/min; Potassium 4.4 mmol/L (3.5-5.1)
--- NOTE | 2021-04-18 09:30 | Hospitalist Progress Note ---
Date of Service April 18, 2021 Assessment & Plan (1) Closed fracture of head of right humerus: Plan: S/P Fall; *Possible Age-related osteoporosis w current pathologic fracture, right humerus - Plan for non-operative approach at this time - Maintain sling but may come out of sling up to 6 times a day per orthopedics Continue Hydrocodone/APAP - she does intermittently use Tylenol at home; Gave Toradol once daily x 2 days to get some better pain control but will avoid overuse of NSAIDs -- Was hallucinating with Oxycodone --> has not needed any further. Using tylenol (sparing with cirrhosis) --> Discussed lidocaine patch at patient request as discussed R knee discomfort (Xray without fracture or dislocation within R knee but did note small R knee effusion, Chondrocalcinosis with mild tricompartmental osteoarthritis.) Added Voltaren gel--> If effective, discussed can continue this medication for the shoulder as well Bowel regimen - did move bowels yesterday and today, no further constipation since limiting the opiates is currently on stool softener and can use Miralax PRN if further difficulty moving bowels Ortho consulted - May come out of the sling about 6 times a day for gentle passive pendulum exercises at the shoulder and active range of motion at the elbow. Follow-up in orthopedic surgery clinic approximately 2 weeks from injury (around Apr 24) --> To call [facility] at [phone] to make an appointment Continue PT/OT D/c when bed available. CM following. Refs to [facility] and [facility] (2) Right knee pain: Plan: 2nd to fall had previously not had issues with pain until ambulating with therapy now that shoulder pain much improved Imaging without dislocation but does note effusion (does not appear large to tap), was not warm (calf was warm) --> Venous Doppler NEGATIVE for DVT RLE Voltaren gel Ice/elevation C/w ortho if needed/continued issues (3) Generalized anxiety disorder: Plan: Stable Continue Escitalopram 20 mg daily (4) Seizure: Plan: Hx of such Continue levetiracetam 250 mg BID (5) GERD (gastroesophageal reflux disease): Plan: Continue famotidine 20 mg daily (6) Thrombocytopenia: Plan: Baseline 50-90; Currently stable at 79 Lovenox on hold given lower platelets earlier in stay --> utilize SCDs Did have swelling/tenderness to R calf --> VENOUS DOPPLER NEGATIVE FOR DVT CBC in AM (7) Diabetes type 2, controlled: Plan: Patient had been on Metformin, but not been doing well with that. A1c 7.9 -- Discussed with daughter that patient stopped eating and was having frequent lows. She lost significant weight due to it. Given age it may be best to monitor and control dietary management given age. -- Can have close F/U with PCP to determine a different option BSGs varying, 96 this morning but up to 260 over past 24 hours Consider low does sulfonylurea at d/c? vs f/u with PCP/dietary modifications (8) Cirrhosis: Plan: - Cryptogenic cirrhosis/ascites/portal hypertension - Continue rifaximin BID and Spironolactone -- Some mild RAJENDRA earlier in admission but did resolve with gentle hydration - last check was 1.26 -- Did have a similar Cr in August of this year - can monitor with routine labs as electrolytes are acceptable (9) Sjogren's disease: Plan: - Sjogren's disease/discoid lupus erythematosus - Continue hydroxychloroquine (10) Hearing difficulty: Plan: Wears hearing aids bilaterally (11) Anemia: Plan: - Continue pain control; plan for non-operative management - Awaiting bed at [facility] this week Admission and Anticipated Discharge Date Admission Date: April 10, 2021 Supervising Physician Co-Signing Physician Notes RAVIN Supervision Note: I did not personally see or examine the patient today, but I verified all sanford points of RAVIN Zhang's assessment and plan with the following exceptions/additions: anemia-workup pending Subjective Patient evaluated this afternoon. Watching videos on ipad. Pain to shoulder improving -- discussed lidocaine patch and topical voltaren (also for knee)-- she states initially wasn't having much knee problems but noticed once shoulder pain improving she was having difficulty standing/putting weight on her right knee. Apparent bruising and some pain with ROM but no obvious fracture appreciated. Will obtain x-ray. She also endorses warmth and swelling to that area and is tender to palpation of calf with warmth and we will also check venous Doppler to r/o DVT. Discussed no bed at rehab today but possible d/c tomorrow or Sunday. She states she is in no yin and everyone has been great. Eating/drinking no issue. Moving bowels and states no further issues with constipation. No fever, chills, chest pain, shortness of breath, nausea or vomiting at this time. Questions/concerns addressed. Review of Systems Review of Systems: All systems reviewed & are unremarkable except as noted in HPI & below Physical Exam Physical Exam: PHYSICAL EXAM General Appearance: WDWN in NAD who is A&O x 3 HEENT: Head is normocephalic; healing ecchymosis on the R side of the forehead extending to mid-forehead; Mucous membranes moist; hard of hearing Neck: Supple; Trachea midline; Neg JVD Heart: RRR with no M/G/R Lungs: CTA in all lung jacobo bilaterally; Respirations unlabored; Neg accessory muscle use Abdomen: Soft, non-tender, non-distended; Positive BS x 4 quadrants Extremities: Neg cyanosis or edema; RUE in sling; cap refill immediate and sensation intact in RUE; healing ecchymosis of the R upper arm R knee with ecchymosis to medial aspect, minimally tender to palpation, small effusion appreciated Neurological: Speech clear; Gross motor/sensory function intact; Neg focal neurologic deficits - did not assess movement of RUE Psychiatric: Appropriate mood/affect Skin: Normal Color; Warm/Dry Results & Data Results & Data ([facility]) Vital Signs (Past 12 Hours) Vital Signs Temp Pulse Resp BP Pulse Ox 04/18/21 07:30 36.9 C 66 16 129/71 96 04/17/21 22:45 36.9 C 72 16 101/45 L 96 Laboratory Results 04/18/21 04/18/21 04/18/21 Range/Units 08:19 06:30 06:30 WBC 4.75 L (4.8-10.8) K/uL RBC 2.77 L (4.2-5.4) M/uL Hgb 8.8 L (12.0-16.0) g/dL Hct 25.8 L (37-47) % MCV 93.1 (80-100) fL MCH 31.8 (25-34) pg MCHC 34.1 (32-36) g/dL RDW Std Deviation 49.7 H (36.4-46.3) fL RDW Coeff of Nancy 14.6 H (11.5-14.5) % Plt Count 79 L (130-400) K/uL MPV 11.8 H (7.4-10.4) fL Sodium 135 L (136-145) mmol/L Potassium 4.4 (3.5-5.1) mmol/L Chloride 106 (98-107) mmol/L Carbon Dioxide 23 (21-32) mmol/L Anion Gap 6.0 (3-11) BUN 16 (7-18) mg/dl Creatinine 1.16 (0.6-1.2) mg/dl Est Cr Clr Drug Dosing 32.0 ml/min Est GFR ( Amer) 51.5 ml/min Est GFR (Non-Af Amer) 44.4 ml/min BUN/Creatinine Ratio 13.4 (10-20) Glucose 94 (70-99) mg/dl POC Glucose 96 (70-99) mg/dl Calcium 8.9 (8.5-10.1) mg/dl 04/17/21 04/17/21 04/17/21 Range/Units 20:45 17:29 12:17 WBC (4.8-10.8) K/uL RBC (4.2-5.4) M/uL Hgb (12.0-16.0) g/dL Hct (37-47) % MCV (80-100) fL MCH (25-34) pg MCHC (32-36) g/dL RDW Std Deviation (36.4-46.3) fL RDW Coeff of Nancy (11.5-14.5) % Plt Count (130-400) K/uL MPV (7.4-10.4) fL Sodium (136-145) mmol/L Potassium (3.5-5.1) mmol/L Chloride (98-107) mmol/L Carbon Dioxide (21-32) mmol/L Anion Gap (3-11) BUN (7-18) mg/dl Creatinine (0.6-1.2) mg/dl Est Cr Clr Drug Dosing ml/min Est GFR ( Amer) ml/min Est GFR (Non-Af Amer) ml/min BUN/Creatinine Ratio (10-20) Glucose (70-99) mg/dl POC Glucose 238 H 260 H 194 H (70-99) mg/dl Calcium (8.5-10.1) mg/dl PG Care Time/CCT Total # of Minutes Spent Total Time Spent with Patient: Total time spent is greater than 50% in coordination of care (as documented) at patient's floor/unit and/or counseling patient: Coding Level of Care Code 57386 Subseq Hosp Care Lvl 3 Diagnoses Closed fracture of head of right humerus S42.291A Generalized anxiety disorder F41.1 Seizure R56.9 GERD (gastroesophageal reflux disease) K21.9 Thrombocytopenia D69.6 Diabetes type 2, controlled E11.9 Diabetes mellitus complication status: without complication Diabetes mellitus half-way insulin use: without terminal block assembler use Cirrhosis K74.60 Sjogren's disease M35.00 Sjogren's organ involvement: unspecified organ involvement Hearing difficulty H91.90 Right knee pain M25.561 Anemia D64.9 (1) Sjogren's disease Sjogren's organ involvement: unspecified organ involvement Qualified Code(s): M35.00 - Sicca syndrome, unspecified (2) Diabetes type 2, controlled Diabetes mellitus complication status: without complication Diabetes mellitus half-way insulin use: without half-way use Qualified Code(s): E11.9 - Type 2 diabetes mellitus without complications
[2021-04-18] MEDS: INSULIN ASPART 100 UNITS/ML 3 ML PEN SC SCH ×4 (09:48→21:15)
[2021-04-18 10:38] LABS: Ferritin 71.4 ng/ml (8-388)
--- NOTE | 2021-04-18 13:55 | Ultrasound Report ---
ULTRASOUND RIGHT LOWER EXTREMITY VENOUS CLINICAL HISTORY: Right leg pain. COMPARISON STUDY: Bilateral lower extremity venous ultrasound dated 02/06/2020. TECHNIQUE: Real-time, grayscale, and color Doppler sonography of the deep veins of the right lower ex tremity was performed from the inguinal crease to the calf. Compression and augmentation were utilize d. FINDINGS: There is no sonographic evidence of deep venous thrombosis identified in the right lower ex tremity. The common femoral, superficial femoral, and popliteal veins are patent and normally robson sible. The greater saphenous vein and the profunda femoris vein at the junction with the common femor al vein are clear. The visualized calf veins are patent. IMPRESSION: There is no sonographic evidence of deep venous thrombosis identified in the right lower extremity. ACT 112: Negative or not required by law. Electronically signed by: Jose Maria Baird M.D. 04/18/2021 1:53 PM
[2021-04-18] MEDS: DICLOFENAC SOD 1% GEL 100 GM TUBE EXT SCH ×3 (14:01→21:16)
[2021-04-18] MEDS: LIDOCAINE 5% 1 PATCH TD SCH (14:01)
--- NOTE | 2021-04-18 14:45 | XRay Report ---
RIGHT KNEE 3 VIEWS HISTORY: R knee pain s/p fall COMPARISON: None. FINDINGS: There is no fracture or dislocation. Mild chondrocalcinosis. The bones are osteopenic. Mild tricompartmental cartilage space narrowing with small marginal osteophytes. There is a small knee ef fusion. Vascular calcifications are noted. No radiopaque foreign bodies. IMPRESSION: 1. No fracture or dislocation within the right knee. 2. Small right knee effusion. 3. Chondrocalcinosis with mild tricompartmental osteoarthritis. ACT 112: Negative or not required by law. Electronically signed by: Brady Mcdonald M.D. 04/18/2021 2:44 PM
[2021-04-18] MEDS: CHOLECALCIFEROL 1,000 UNITS 25 MCG TAB PO SCH (18:06)
[2021-04-18] MEDS: LATANOPROST 0.005% OP SOLN 2.5 ML BTL OPB SCH (21:14)
[2021-04-19] MEDS: HYDROCODONE/ACETAMOPHEN 5/325MG TAB PO PRN (06:25)
[2021-04-19] MEDS: DICLOFENAC SOD 1% GEL 100 GM TUBE EXT SCH ×5 (06:27→21:17)
[2021-04-19 07:32] LABS: Hematocrit (blood only) 25.8 % (37-47); Hemoglobin 8.9 g/dL (12.0-16.0); Mean Corpuscular Hemoglobin 31.4 pg (25-34); Mean Corpuscular Hgb Conc 34.5 g/dL (32-36); Mean Corpuscular Volume 91.2 fL (80-100); RDW Coefficient of Variation 14.5 % (11.5-14.5); RDW Standard Deviation 47.9 fL (36.4-46.3); Red Blood Count 2.83 M/uL (4.2-5.4); White Blood Count 3.73 K/uL (4.8-10.8)
[2021-04-19 07:42] LABS: Mean Platelet Volume 11.7 fL (7.4-10.4); Platelet Count 82 K/uL (130-400)
[2021-04-19 08:20] LABS: BUN Creatinine Ratio 14.4 (10-20); Calcium 9.5 mg/dl (8.5-10.1); Creatinine Clr Calc Pharmacy 33.1 ml/min; Est GFR (African American) 53.7 ml/min; Est GFR (Non-African American) 46.4 ml/min; Potassium 4.8 mmol/L (3.5-5.1)
[2021-04-19 08:28] LABS: Magnesium 1.6 mg/dl (1.8-2.4); Thyroid Stimulating Hormone 2.27 uIu/ml (0.300-4.500)
--- NOTE | 2021-04-19 09:05 | Hospitalist Progress Note ---
Date of Service April 19, 2021 Assessment & Plan (1) Closed fracture of head of right humerus: Plan: S/P Fall; *Possible Age-related osteoporosis w current pathologic fracture, right humerus - Plan for non-operative approach at this time - Maintain sling but may come out of sling up to 6 times a day per orthopedics Continue Hydrocodone/APAP (prior hallucinating with oxycodone) - she does intermittently use Tylenol at home; Gave Toradol once daily x 2 days to get some better pain control but will avoid overuse of NSAIDs Received hydrocodone x 1 dose today (2 doses 04/18) Voltaren gel Lidocaine patch Continue bowel regimen -- miralax prn if any further issues. States small BM morning 04/19. No abd pain Ortho consulted - May come out of the sling about 6 times a day for gentle passive pendulum exercises at the shoulder and active range of motion at the el bow. Follow-up in orthopedic surgery clinic approximately 2 weeks from injury (around Apr 24) --> To call [facility] at [phone] to make an appointment PT/OT recs for SNF -- unable to return home by herself d/t safety/R handed D/c when bed available. CM following. Refs to [facility] and [facility]. Iris reviewing insurance and awaiting return call currently (2) Right knee pain: Plan: 2nd to fall had previously not had issues with pain until ambulating with therapy now that shoulder pain much improved Imaging without dislocation but does note effusion (does not appear large to tap), was not warm (calf was warm) --> Venous Doppler NEGATIVE for DVT RLE Voltaren gel Ice/elevation C/w ortho if needed/continued issues --> states effectiveness with voltaren and will continue (3) Thrombocytopenia: Plan: Baseline 50-90; Currently stable at 79 Lovenox on hold given lower platelets earlier in stay --> utilize SCDs Did have swelling/tenderness to R calf --> VENOUS DOPPLER NEGATIVE FOR DVT Chronic issue with cirrhosis Resumed Lovenox SQ and will continue to monitor platelets (4) Diabetes type 2, controlled: Plan: Patient had been on Metformin, but not been doing well with that. A1c 7.9 -- Discussed with daughter that patient stopped eating and was having frequent lows. She lost significant weight due to it. Given age it may be best to monitor and control dietary management given age. -- Can have close F/U with PCP to determine a different option BSGs 96-207 over past 24 hours. Has required 3 units of insulin Will continue to monitor for now Consider low does sulfonylurea at d/c? vs f/u with PCP/dietary modifications (5) Anemia: Plan: Hgb 10.8 on admission (prior ranges 10-11) Currently 8.9 but did get IVF previously in stay B12 wnl 866, folate 11.2 Iron studies- iron 44, TIBC 251, transferrin 210, Trans% sat 15, ferritin 71.4 fecal occult from earlier this year negative. 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 Continue rifaximin BID and Spironolactone Some mild RAJENDRA earlier in admission but did resolve with gentle hydration Cr stable 1.12 (11) Sjogren's disease: Plan: Sjogren's disease/discoid lupus erythematosus Continue hydroxychloroquine (12) Hearing difficulty: Plan: Wears hearing aids bilaterally Plan: - Continue pain control; plan for non-operative management - Awaiting bed at [facility] this week hopefully Admission and Anticipated Discharge Date Admission Date: April 10, 2021 Supervising Physician Co-Signing Physician Notes RAVIN Supervision Note: I did not personally see or examine the patient today, but I verified all sanford points of RAVIN Zhang's assessment and plan with the following exceptions/additions: none Subjective Patient evaluated this morning. Doing well. Frustrated with waiting for bed at rehab. If family support/didn't live alone would persue home with therapy however not option currently. Pain controlled -- had utilized oxycodone but states the lidocaine helping with shoulder and voltaren to her knee. Eating/drinking without issue. States she had small bowel movement this mornign and continues to pass gas but embarrassed to pass gas with roommate at times. No fever, chills, chest pain, shortness of breath, abdominal pain, nausea, vomiting or dysuria at this time. Review of Systems Review of Systems: All systems reviewed & are unremarkable except as noted in HPI & below Physical Exam Physical Exam: PHYSICAL EXAM General Appearance: WD/WN in NAD who is A&O x 3, general pallor HEENT: Head is normocephalic; healing ecchymosis on the R side of the forehead extending to mid-forehead; Mucous membranes moist; hard of hearing Neck: Supple; Trachea midline; Neg JVD Heart: RRR with no M/G/R Lungs: CTA in all lung jacobo bilaterally; Respirations unlabored; Neg accessory muscle use Abdomen: Soft, non-tender, non-distended; Positive BS x 4 quadrants Extremities: Neg cyanosis or edema; RUE in sling; cap refill immediate and sensation intact in RUE, good bond writer strength, pulse easily palpable; healing ecchymosis of the R upper arm with lidocaine patch present R knee with ecchymosis to medial aspect, minimally tender to palpation, small effusion appreciated Neurological: Speech clear; Gross motor/sensory function intact; Neg focal neurologic deficits - did not assess movement of RUE Psychiatric: Appropriate mood/affect Skin: Normal Color; Warm/Dry Results & Data Results & Data ([facility]) Vital Signs (Past 12 Hours) Vital Signs Temp Pulse Resp BP Pulse Ox 04/19/21 07:06 36.8 C 60 16 105/63 96 04/18/21 22:38 36.8 C 68 16 104/61 97 Laboratory Results 04/19/21 04/19/21 04/19/21 Range/Units 08:06 07:02 07:02 WBC 3.73 L (4.8-10.8) K/uL RBC 2.83 L (4.2-5.4) M/uL Hgb 8.9 L (12.0-16.0) g/dL Hct 25.8 L (37-47) % MCV 91.2 (80-100) fL MCH 31.4 (25-34) pg MCHC 34.5 (32-36) g/dL RDW Std Deviation 47.9 H (36.4-46.3) fL RDW Coeff of Nancy 14.5 (11.5-14.5) % Plt Count 82 L (130-400) K/uL MPV 11.7 H (7.4-10.4) fL Sodium (136-145) mmol/L Potassium (3.5-5.1) mmol/L Chloride (98-107) mmol/L Carbon Dioxide (21-32) mmol/L Anion Gap (3-11) BUN (7-18) mg/dl Creatinine (0.6-1.2) mg/dl Est Cr Clr Drug Dosing ml/min Est GFR ( Amer) ml/min Est GFR (Non-Af Amer) ml/min BUN/Creatinine Ratio (10-20) Glucose (70-99) mg/dl POC Glucose 195 H (70-99) mg/dl Calcium (8.5-10.1) mg/dl Magnesium (1.8-2.4) mg/dl Iron (35-150) mcg/dl TIBC (250-450) mcg/dl Transferrin (200-360) mg/dl Transferrin % Sat (15-50) % Ferritin (8-388) ng/ml Vitamin B12 (193-986) pg/ml 25-OH Vitamin D Total (30-100) ng/ml Folate Pending TSH (0.300-4.500) uIu/ml 04/19/21 04/18/21 04/18/21 Range/Units 07:02 20:57 17:25 WBC (4.8-10.8) K/uL RBC (4.2-5.4) M/uL Hgb (12.0-16.0) g/dL Hct (37-47) % MCV (80-100) fL MCH (25-34) pg MCHC (32-36) g/dL RDW Std Deviation (36.4-46.3) fL RDW Coeff of Nancy (11.5-14.5) % Plt Count (130-400) K/uL MPV (7.4-10.4) fL Sodium 136 (136-145) mmol/L Potassium 4.8 (3.5-5.1) mmol/L Chloride 108 H (98-107) mmol/L Carbon Dioxide 19 L (21-32) mmol/L Anion Gap 8.0 (3-11) BUN 16 (7-18) mg/dl Creatinine 1.12 (0.6-1.2) mg/dl Est Cr Clr Drug Dosing 33.1 ml/min Est GFR ( Amer) 53.7 ml/min Est GFR (Non-Af Amer) 46.4 ml/min BUN/Creatinine Ratio 14.4 (10-20) Glucose 127 H (70-99) mg/dl POC Glucose 207 H 169 H (70-99) mg/dl Calcium 9.5 (8.5-10.1) mg/dl Magnesium 1.6 L (1.8-2.4) mg/dl Iron (35-150) mcg/dl TIBC (250-450) mcg/dl Transferrin (200-360) mg/dl Transferrin % Sat (15-50) % Ferritin (8-388) ng/ml Vitamin B12 (193-986) pg/ml 25-OH Vitamin D Total (30-100) ng/ml Folate TSH 2.270 (0.300-4.500) uIu/ml 04/18/21 04/18/21 04/18/21 Range/Units 12:21 09:43 09:43 WBC (4.8-10.8) K/uL RBC (4.2-5.4) M/uL Hgb (12.0-16.0) g/dL Hct (37-47) % MCV (80-100) fL MCH (25-34) pg MCHC (32-36) g/dL RDW Std Deviation (36.4-46.3) fL RDW Coeff of Nancy (11.5-14.5) % Plt Count (130-400) K/uL MPV (7.4-10.4) fL Sodium (136-145) mmol/L Potassium (3.5-5.1) mmol/L Chloride (98-107) mmol/L Carbon Dioxide (21-32) mmol/L Anion Gap (3-11) BUN (7-18) mg/dl Creatinine (0.6-1.2) mg/dl Est Cr Clr Drug Dosing ml/min Est GFR ( Amer) ml/min Est GFR (Non-Af Amer) ml/min BUN/Creatinine Ratio (10-20) Glucose (70-99) mg/dl POC Glucose 159 H (70-99) mg/dl Calcium (8.5-10.1) mg/dl Magnesium (1.8-2.4) mg/dl Iron (35-150) mcg/dl TIBC (250-450) mcg/dl Transferrin (200-360) mg/dl Transferrin % Sat (15-50) % Ferritin (8-388) ng/ml Vitamin B12 866 (193-986) pg/ml 25-OH Vitamin D Total 58.4 (30-100) ng/ml Folate TSH (0.300-4.500) uIu/ml 04/18/21 Range/Units 09:43 WBC (4.8-10.8) K/uL RBC (4.2-5.4) M/uL Hgb (12.0-16.0) g/dL Hct (37-47) % MCV (80-100) fL MCH (25-34) pg MCHC (32-36) g/dL RDW Std Deviation (36.4-46.3) fL RDW Coeff of Nancy (11.5-14.5) % Plt Count (130-400) K/uL MPV (7.4-10.4) fL Sodium (136-145) mmol/L Potassium (3.5-5.1) mmol/L Chloride (98-107) mmol/L Carbon Dioxide (21-32) mmol/L Anion Gap (3-11) BUN (7-18) mg/dl Creatinine (0.6-1.2) mg/dl Est Cr Clr Drug Dosing ml/min Est GFR ( Amer) ml/min Est GFR (Non-Af Amer) ml/min BUN/Creatinine Ratio (10-20) Glucose (70-99) mg/dl POC Glucose (70-99) mg/dl Calcium (8.5-10.1) mg/dl Magnesium (1.8-2.4) mg/dl Iron 44 (35-150) mcg/dl TIBC 251 (250-450) mcg/dl Transferrin 210 (200-360) mg/dl Transferrin % Sat 15 (15-50) % Ferritin 71.4 (8-388) ng/ml Vitamin B12 (193-986) pg/ml 25-OH Vitamin D Total (30-100) ng/ml Folate TSH (0.300-4.500) uIu/ml PG Care Time/CCT Total # of Minutes Spent Total Time Spent with Patient: Total time spent is greater than 50% in coordination of care (as documented) at patient's floor/unit and/or counseling patient: Coding Level of Care Code 05212 Subseq Hosp Care Lvl 2 Diagnoses Closed fracture of head of right humerus S42.291A Right knee pain M25.561 Generalized anxiety disorder F41.1 Seizure R56.9 GERD (gastroesophageal reflux disease) K21.9 Thrombocytopenia D69.6 Diabetes type 2, controlled E11.9 Diabetes mellitus complication status: without complication Diabetes mellitus terminal operator insulin use: without correction use Cirrhosis K74.60 Sjogren's disease M35.00 Sjogren's organ involvement: unspecified organ involvement Hearing difficulty H91.90 Anemia D64.9 Hypomagnesemia E83.42 (1) Sjogren's disease Sjogren's organ involvement: unspecified organ involvement Qualified Code(s): M35.00 - Sicca syndrome, unspecified (2) Diabetes type 2, controlled Diabetes mellitus complication status: without complication Diabetes mellitus terminal operator insulin use: without terminal operator use Qualified Code(s): E11.9 - Type 2 diabetes mellitus without complications
[2021-04-19] MEDS: FAMOTIDINE 20 MG TAB PO SCH (09:30)
[2021-04-19] MEDS: MAGNESIUM CHLORIDE 64MG DELAYED REL TAB PO SCH ×2 (09:30→21:15)
[2021-04-19] MEDS: DOCUSATE SODIUM 100 MG CAP PO SCH ×2 (09:30→21:16)
[2021-04-19] MEDS: HYDROXYCHLOROQUINE SULFATE 200 MG TAB PO SCH (09:30)
[2021-04-19] MEDS: LIDOCAINE 5% 1 PATCH TD SCH (09:30)
[2021-04-19] MEDS: ESCITALOPRAM OXALATE 20 MG TAB PO SCH (09:30)
[2021-04-19] MEDS: levETIRAcetam 250 MG TAB PO SCH ×2 (09:30→21:16)
[2021-04-19] MEDS: SPIRONOLACTONE 25 MG TAB PO SCH (09:30)
[2021-04-19] MEDS: rifAXIMin 550 MG TABLET PO SCH ×2 (09:30→21:15)
[2021-04-19] MEDS: MAGNESIUM SULFATE / D5W 1 GM/100 ML BAG IV SCH ×2 (09:30→13:44)
[2021-04-19] MEDS: INSULIN ASPART 100 UNITS/ML 3 ML PEN SC SCH ×4 (09:35→21:17)
[2021-04-19] MEDS: ACETAMINOPHEN 325 MG TAB PO SCH ×2 (13:35→21:16)
[2021-04-19] MEDS: CHOLECALCIFEROL 1,000 UNITS 25 MCG TAB PO SCH (17:42)
[2021-04-19] MEDS: LATANOPROST 0.005% OP SOLN 2.5 ML BTL OPB SCH (21:16)
[2021-04-20] MEDS: ENOXAPARIN INJ 30 MG/0.3 ML SYR SQ SCH (06:11)
[2021-04-20] MEDS: DICLOFENAC SOD 1% GEL 100 GM TUBE EXT SCH ×4 (08:49→21:04)
[2021-04-20] MEDS: ACETAMINOPHEN 325 MG TAB PO SCH ×3 (08:50→21:26)
[2021-04-20] MEDS: rifAXIMin 550 MG TABLET PO SCH ×2 (08:51→21:03)
[2021-04-20] MEDS: MAGNESIUM CHLORIDE 64MG DELAYED REL TAB PO SCH ×2 (08:51→21:03)
[2021-04-20] MEDS: DOCUSATE SODIUM 100 MG CAP PO SCH ×2 (08:51→21:03)
[2021-04-20] MEDS: ESCITALOPRAM OXALATE 20 MG TAB PO SCH (08:51)
[2021-04-20] MEDS: SPIRONOLACTONE 25 MG TAB PO SCH (08:51)
[2021-04-20] MEDS: levETIRAcetam 250 MG TAB PO SCH ×2 (08:51→21:02)
[2021-04-20] MEDS: FAMOTIDINE 20 MG TAB PO SCH (08:52)
[2021-04-20] MEDS: LIDOCAINE 5% 1 PATCH TD SCH (08:52)
[2021-04-20] MEDS: HYDROXYCHLOROQUINE SULFATE 200 MG TAB PO SCH (08:52)
--- NOTE | 2021-04-20 09:00 | Hospitalist Progress Note ---
Date of Service April 20, 2021 Assessment & Plan (1) Closed fracture of head of right humerus: Plan: S/P Fall; *Possible Age-related osteoporosis w current pathologic fracture, right humerus - Plan for non-operative approach at this time - Maintain sling but may come out of sling up to 6 times a day per orthopedics Continue Hydrocodone/APAP (prior hallucinating with oxycodone) - she does intermittently use Tylenol at home; Gave Toradol once daily x 2 days to get some better pain control but will avoid overuse of NSAIDs Received hydrocodone x 1 dose 04/19, 2 doses 04/18. Has not gotten any further hydrocodone today. Will d/c 10mg order and utilize 5mg for breakthrough if needed Voltaren gel Lidocaine patch Continue bowel regimen -- miralax prn if any further issues. States small BM morning 04/19, additional BM overnight No abd pain reported Ortho consulted - May come out of the sling about 6 times a day for gentle passive pendulum exercises at the shoulder and active range of motion at the elbow. Follow-up in orthopedic surgery clinic approximately 2 weeks from injury (around Apr 24) --> To call [facility] at [phone] to make an appointment PT/OT recs for SNF -- unable to return home by herself d/t safety/R handed D/c when bed available. CM following. --> Iris to possible be able to take patient tomorrow. Will continue to monitor. Looking into family to bring her Rifaximin to [facility] and may be able to have them cover couple of days until able to occur (2) Right knee pain: Plan: 2nd to fall had previously not had issues with pain until ambulating with therapy now that shoulder pain much improved Imaging without dislocation but does note effusion (does not appear large to tap), was not warm (calf was warm) --> Venous Doppler NEGATIVE for DVT RLE Voltaren gel Ice/elevation C/w ortho if needed/continued issues --> states effectiveness with voltaren and will continue (3) Thrombocytopenia: Plan: Baseline 50-90; Currently stable at 79 Lovenox on hold given lower platelets earlier in stay --> utilize SCDs Did have swelling/tenderness to R calf --> VENOUS DOPPLER NEGATIVE FOR DVT Chronic issue with cirrhosis Resumed Lovenox SQ and will continue to monitor platelets (4) Diabetes type 2, controlled: Plan: Patient had been on Metformin, but not been doing well with that. A1c 7.9 -- Discussed with daughter that patient stopped eating and was having frequent lows. She lost significant weight due to it. Given age it may be best to monitor and control dietary management given age. -- Can have close F/U with PCP to determine a different option BSGs 96-207 over past 24 hours. Has required 3 units of insulin Will continue to monitor for now Consider low does sulfonylurea at d/c? vs f/u with PCP/dietary modifications (5) Anemia: Plan: Hgb 10.8 on admission (prior ranges 10-11) Currently 8.9 but did get IVF previously in stay B12 wnl 866, folate 11.2 Iron studies- iron 44, TIBC 251, transferrin 210, Trans% sat 15, ferritin 71.4 fecal occult from earlier this year negative. 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 Continue rifaximin BID and Spironolactone Some mild RAJENDRA earlier in admission but did resolve with gentle hydration Cr stable (11) Sjogren's disease: Plan: Sjogren's disease/discoid lupus erythematosus Continue hydroxychloroquine (12) Hearing difficulty: Plan: Wears hearing aids bilaterally Plan: - Continue pain control; plan for non-operative management - Awaiting bed at [facility] hopefully able to take tomorrow as above CM following Admission and Anticipated Discharge Date Admission Date: April 10, 2021 Supervising Physician Co-Signing Physician Notes RAVIN Supervision Note: I did not personally see or examine the patient today, but I verified all sanford points of RAVIN Zhang's assessment and plan with the following exceptions/additions: none Subjective Patient evaluated this afternoon. Doing well. Eating lunch. Pain controlled -- comes and goes. Currently with ice pack and lidocaine patch and states effective. Discussed should improve over time. Iris to have bed tomorrow. Family out of town but may be able to deliver when back in town. Will discuss with Iris if able to provide rifaximin in the meantime until able to be dropped off. Bowel movement overnight. No fever, chills, chest pain, shortness of breath, abdominal pain ,nausea or dysuria at this time. Review of Systems Review of Systems: All systems reviewed & are unremarkable except as noted in HPI & below Physical Exam Physical Exam: PHYSICAL EXAM General Appearance: WD/WN in NAD who is A&O x 3, general pallor HEENT: Head is normocephalic; healing ecchymosis on the R side of the forehead extending to mid-forehead; Mucous membranes moist; hard of hearing Neck: Supple; Trachea midline; Neg JVD Heart: RRR with no M/G/R Lungs: CTA in all lung jacobo bilaterally; Respirations unlabored; Neg accessory muscle use Abdomen: Soft, non-tender, non-distended; Positive BS x 4 quadrants Extremities: Neg cyanosis or edema; RUE in sling; cap refill immediate and sensation intact in RUE, good game attendant strength, pulse easily palpable; healing ecchymosis of the R upper arm with lidocaine patch present R knee with ecchymosis to medial aspect, minimally tender to palpation, small effusion appreciated Neurological: Speech clear; Gross motor/sensory function intact; Neg focal neurologic deficits, game attendant strength equal Psychiatric: Appropriate mood/affect Skin: Normal Color; Warm/Dry Results & Data Results & Data ([facility]) Vital Signs (Past 12 Hours) Vital Signs Temp Pulse Resp BP Pulse Ox 04/20/21 07:48 36.5 C 64 16 108/67 98 04/19/21 22:30 36.8 C 77 18 106/61 93 Laboratory Results 04/20/21 04/19/21 04/19/21 Range/Units 08:04 20:34 17:23 POC Glucose 123 H 227 H 172 H (70-99) mg/dl Folate (>5.38) ng/ml 04/19/21 04/19/21 Range/Units 12:18 07:02 POC Glucose 171 H (70-99) mg/dl Folate 11.20 (>5.38) ng/ml PG Care Time/CCT Total # of Minutes Spent Total Time Spent with Patient: Total time spent is greater than 50% in coordination of care (as documented) at patient's floor/unit and/or counseling patient: Coding Level of Care Code 27855 Subseq Hosp Care Lvl 1 Diagnoses Closed fracture of head of right humerus S42.291A Right knee pain M25.561 Thrombocytopenia D69.6 Diabetes type 2, controlled E11.9 Diabetes mellitus complication status: without complication Diabetes mellitus terminal gauger insulin use: without correction use Anemia D64.9 Hypomagnesemia E83.42 Generalized anxiety disorder F41.1 Seizure R56.9 GERD (gastroesophageal reflux disease) K21.9 Cirrhosis K74.60 Sjogren's disease M35.00 Sjogren's organ involvement: unspecified organ involvement Hearing difficulty H91.90 (1) Sjogren's disease Sjogren's organ involvement: unspecified organ involvement Qualified Code(s): M35.00 - Sicca syndrome, unspecified (2) Diabetes type 2, controlled Diabetes mellitus complication status: without complication Diabetes mellitus correction insulin use: without correction use Qualified Code(s): E11.9 - Type 2 diabetes mellitus without complications
[2021-04-20 09:43] LABS: BUN Creatinine Ratio 14.2 (10-20); Calcium 9.2 mg/dl (8.5-10.1); Creatinine Clr Calc Pharmacy 34.1 ml/min; Est GFR (African American) 55.5 ml/min; Est GFR (Non-African American) 47.9 ml/min; Magnesium 1.9 mg/dl (1.8-2.4); Potassium 4.5 mmol/L (3.5-5.1)
[2021-04-20] MEDS: INSULIN ASPART 100 UNITS/ML 3 ML PEN SC SCH ×4 (09:44→21:17)
[2021-04-20] MEDS: CHOLECALCIFEROL 1,000 UNITS 25 MCG TAB PO SCH (16:54)
[2021-04-20] MEDS: LATANOPROST 0.005% OP SOLN 2.5 ML BTL OPB SCH (21:04)
[2021-04-21] MEDS: ENOXAPARIN INJ 30 MG/0.3 ML SYR SQ SCH (06:13)
[2021-04-21] MEDS: HYDROXYCHLOROQUINE SULFATE 200 MG TAB PO SCH (08:01)
[2021-04-21] MEDS: FAMOTIDINE 20 MG TAB PO SCH (08:01)
[2021-04-21] MEDS: SPIRONOLACTONE 25 MG TAB PO SCH (08:02)
[2021-04-21] MEDS: ESCITALOPRAM OXALATE 20 MG TAB PO SCH (08:02)
[2021-04-21] MEDS: levETIRAcetam 250 MG TAB PO SCH ×2 (08:03→20:11)
[2021-04-21] MEDS: rifAXIMin 550 MG TABLET PO SCH ×2 (08:03→20:10)
[2021-04-21] MEDS: DOCUSATE SODIUM 100 MG CAP PO SCH ×2 (08:03→20:12)
[2021-04-21] MEDS: MAGNESIUM CHLORIDE 64MG DELAYED REL TAB PO SCH ×2 (08:03→20:11)
[2021-04-21] MEDS: ACETAMINOPHEN 325 MG TAB PO SCH ×3 (08:03→20:14)
[2021-04-21] MEDS: INSULIN ASPART 100 UNITS/ML 3 ML PEN SC SCH ×4 (08:35→20:35)
--- NOTE | 2021-04-21 08:39 | Hospitalist Progress Note ---
Date of Service April 21, 2021 Assessment & Plan (1) Closed fracture of head of right humerus: Plan: S/P Fall; *Possible Age-related osteoporosis w current pathologic fracture, right humerus - Plan for non-operative approach at this time - Maintain sling but may come out of sling up to 6 times a day per orthopedics Continue voltaren gel, lidocaine patch for pain control Hydrocodone available prn -- has not utilize any in last day and a half Continue bowel regimen -- miralax prn if any further issues. Continues to move bowels no issue reported Ortho consulted - May come out of the sling about 6 times a day for gentle passive pendulum exercises at the shoulder and active range of motion at the elbow. Follow-up in orthopedic surgery clinic approximately 2 weeks from injury (around Apr 24) --> To call [facility] at [phone] to make an appointment PT/OT recs for SNF -- unable to return home by herself d/t safety/R handed D/c when bed available--> [facility] to have bed tomorrow. Applied for auth. --> [facility] to possible be able to take patient tomorrow. Looking into family to bring her Rifaximin to [facility] and may be able to have them cover couple of days until able to occur (2) Right knee pain: Plan: 2nd to fall had previously not had issues with pain until ambulating with therapy now that shoulder pain much improved Imaging without dislocation but does note effusion (does not appear large to tap), was not warm (calf was warm) --> Venous Doppler NEGATIVE for DVT RLE Voltaren gel Ice/elevation C/w ortho if needed/continued issues --> states effectiveness with voltaren and will continue (3) Thrombocytopenia: Plan: Baseline 50-90; Currently stable at 79 Lovenox on hold given lower platelets earlier in stay --> SCDs utilized days following Did have swelling/tenderness to R calf --> VENOUS DOPPLER NEGATIVE FOR DVT Chronic issue with cirrhosis Resumed Lovenox SQ and platelets remained stable (4) Diabetes type 2, controlled: Plan: Patient had been on Metformin, but not been doing well with that. A1c 7.9 -- Discussed with daughter that patient stopped eating and was having frequent lows. She lost significant weight due to it. Given age it may be best to monitor and control dietary management given age. -- Can have close F/U with PCP to determine a different option BSG 89-147 today (5) Anemia: Plan: Hgb 10.8 on admission (prior ranges 10-11) Repeat acceptable and improved B12 wnl 866, folate 11.2 Iron studies- iron 44, TIBC 251, transferrin 210, Trans% sat 15, ferritin 71.4 fecal occult from earlier this year negative. 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 Continue rifaximin BID and Spironolactone Some mild RAJENDRA earlier in admission but did resolve with gentle hydration Cr stable (11) Sjogren's disease: Plan: Sjogren's disease/discoid lupus erythematosus Continue hydroxychloroquine (12) Hearing difficulty: Plan: Wears hearing aids bilaterally Plan: Plans for [facility] tomorrow when bed available Admission and Anticipated Discharge Date Admission Date: April 10, 2021 Supervising Physician Co-Signing Physician Notes RAVIN Supervision Note: I did not personally see or examine the patient today, but I verified all sanford points of RAVIN Zhang's assessment and plan with the following exceptions/additions: None Subjective Seen this morning. No new complaints. Utilizing lidocaine and voltaren and hasn't used any opiates. Eating/drinking no issue and continues to move bowels. Anxious to get to rehab and get stronger -- she notes walking with therapy in the halls today and did well. Review of Systems Review of Systems: All systems reviewed & are unremarkable except as noted in HPI & below Physical Exam Physical Exam: PHYSICAL EXAM General Appearance: WD/WN in NAD who is A&O x 3, general pallor HEENT: Head is normocephalic; healing ecchymosis on the R side of the forehead extending to mid-forehead; Mucous membranes moist; hard of hearing Neck: Supple; Trachea midline; Neg JVD Heart: RRR with no M/G/R Lungs: CTA in all lung jacobo bilaterally; Respirations unlabored; Neg accessory muscle use Abdomen: Soft, non-tender, non-distended; Positive BS x 4 quadrants Extremities: Neg cyanosis or edema; RUE in sling; cap refill immediate and sensation intact in RUE, good meter installer strength, pulse easily palpable; healing ecchymosis of the R upper arm with lidocaine patch present R knee with ecchymosis to medial aspect, minimally tender to palpation (decreased) Neurological: Speech clear; Gross motor/sensory function intact; Neg focal neurologic deficits, meter installer strength equal Psychiatric: Appropriate mood/affect Skin: Normal Color; Warm/Dry Results & Data Results & Data ([facility]) Vital Signs (Past 12 Hours) Vital Signs Temp Pulse Resp BP Pulse Ox 04/21/21 07:56 36.7 C 72 16 118/67 95 04/20/21 22:44 36.7 C 63 16 108/62 98 Diagnostic Findings 04/21/21 04/21/21 04/21/21 Range/Units 12:17 08:10 08:10 WBC 4.01 L (4.8-10.8) K/uL RBC 3.04 L (4.2-5.4) M/uL Hgb 9.4 L (12.0-16.0) g/dL Hct 27.8 L (37-47) % MCV 91.4 (80-100) fL MCH 30.9 (25-34) pg MCHC 33.8 (32-36) g/dL RDW Std Deviation 48.9 H (36.4-46.3) fL RDW Coeff of Nancy 14.6 H (11.5-14.5) % Plt Count 105 L (130-400) K/uL MPV 11.6 H (7.4-10.4) fL Sodium 135 L (136-145) mmol/L Potassium 4.5 (3.5-5.1) mmol/L Chloride 108 H (98-107) mmol/L Carbon Dioxide 24 (21-32) mmol/L Anion Gap 3.0 (3-11) BUN 15 (7-18) mg/dl Creatinine 1.15 (0.6-1.2) mg/dl Est Cr Clr Drug Dosing 32.3 ml/min Est GFR ( Amer) 52.0 ml/min Est GFR (Non-Af Amer) 44.9 ml/min BUN/Creatinine Ratio 13.1 (10-20) Glucose 89 (70-99) mg/dl POC Glucose 147 H (70-99) mg/dl Calcium 9.1 (8.5-10.1) mg/dl 04/21/21 04/20/21 04/20/21 Range/Units 08:05 20:37 16:55 WBC (4.8-10.8) K/uL RBC (4.2-5.4) M/uL Hgb (12.0-16.0) g/dL Hct (37-47) % MCV (80-100) fL MCH (25-34) pg MCHC (32-36) g/dL RDW Std Deviation (36.4-46.3) fL RDW Coeff of Nancy (11.5-14.5) % Plt Count (130-400) K/uL MPV (7.4-10.4) fL Sodium (136-145) mmol/L Potassium (3.5-5.1) mmol/L Chloride (98-107) mmol/L Carbon Dioxide (21-32) mmol/L Anion Gap (3-11) BUN (7-18) mg/dl Creatinine (0.6-1.2) mg/dl Est Cr Clr Drug Dosing ml/min Est GFR ( Amer) ml/min Est GFR (Non-Af Amer) ml/min BUN/Creatinine Ratio (10-20) Glucose (70-99) mg/dl POC Glucose 89 135 H 261 H (70-99) mg/dl Calcium (8.5-10.1) mg/dl PG Care Time/CCT Total # of Minutes Spent Total Time Spent with Patient: Total time spent is greater than 50% in coordination of care (as documented) at patient's floor/unit and/or counseling patient: Coding Level of Care Code 53750 Subseq Hosp Care Lvl 1 Diagnoses Closed fracture of head of right humerus S42.291A Right knee pain M25.561 Thrombocytopenia D69.6 Diabetes type 2, controlled E11.9 Diabetes mellitus complication status: without complication Diabetes mellitus longterm insulin use: without longterm use Anemia D64.9 Hypomagnesemia E83.42 Generalized anxiety disorder F41.1 Seizure R56.9 GERD (gastroesophageal reflux disease) K21.9 Cirrhosis K74.60 Sjogren's disease M35.00 Sjogren's organ involvement: unspecified organ involvement Hearing difficulty H91.90 (1) Sjogren's disease Sjogren's organ involvement: unspecified organ involvement Qualified Code(s): 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
--- NOTE | 2021-04-21 08:41 | Discharge Summary ---
Date of Service April 21, 2021 Admission HPI Per Admitting Provider The patient is an 80-year-old female with a past medical history including portosystemic encephalopathy, ascites, ELSA, osteopenia, portal hypertension, cirrhosis, urine incontinence, bilateral SNHL, esophageal varices, seizure, discoid lupus erythematosus, undifferentiated CTD, hearing loss with hearing aids present, glaucoma, GERD, thrombocytopenia, Sjogren's syndrome and diabetes mellitus. Patient presents to the emergency department with her daughter, after tripping and falling in her apartment, and sustaining right shoulder pain. She denies hitting her head and she denies any other joint involvement. X-ray in the emergency department the right shoulder shows a right humeral head fracture. Abnormal laboratories: Hemoglobin 10.8, hematocrit 32.0, platelets of 67, creatinine 1.25, glucose 252, AST 56, albumin 2.7 Principal Diagnosis R Humerus Fracture Discharge Data Allergies Allergy/AdvReac Type Severity Reaction Status Date / Time ciprofloxacin [From Cipro] Allergy Severe Hives Verified 04/10/21 01:37 levofloxacin [From Levaquin] Allergy Severe Shortness Verified 04/10/21 01:37 of breath paroxetine Allergy Unknown Diarrhea Verified 04/10/21 01:37 phenytoin Allergy Unknown Unknown Verified 04/10/21 01:37 sulfamethoxazole Allergy Unknown SOB Verified 04/10/21 01:37 [From Bactrim] trimethoprim [From Bactrim] Allergy Unknown SOB Verified 04/10/21 01:37 unknown antibiotic Allergy Severe Browning-Bryon Uncoded 04/10/21 01:37 syndrome - no records available Consultations 04/10/21 04:11 ED Decision to Admit Stat 04/10/21 11:11 Consult Orthopedic Surgery Routine Ordered Studies 04/18/21 13:30 US venous doppler LE RT Routine Hospital Course (1) Closed fracture of head of right humerus: S/P Fall; *Possible Age-related osteoporosis w current pathologic fracture, right humerus - Plan for non-operative approach at this time - Maintain sling but may come out of sling up to 6 times a day per orthopedics Continue Hydrocodone/APAP (prior hallucinating with oxycodone) - she does intermittently use Tylenol at home; Gave Toradol once daily x 2 days to get some better pain control but will avoid overuse of NSAIDs Received hydrocodone x 1 dose 04/19, 2 doses 04/18. Has not gotten any further hydrocodone today. Will d/c 10mg order and utilize 5mg for breakthrough if needed Voltaren gel Lidocaine patch Continue bowel regimen -- miralax prn if any further issues. States small BM morning 04/19, additional BM overnight No abd pain reported Ortho consulted - May come out of the sling about 6 times a day for gentle passive pendulum exercises at the shoulder and active range of motion at the elbow. Follow-up in orthopedic surgery clinic approximately 2 weeks from injury (around Apr 24) --> To call [facility] at [phone] to make an appointment PT/OT recs for SNF -- unable to return home by herself d/t safety/R handed D/c when bed available. CM following. --> [facility] to possible be able to take patient tomorrow. Will continue to monitor. Looking into family to bring her R[facility]in to [facility] and may be able to have them cover couple of days until able to occur (2) Right knee pain: 2nd to fall had previously not had issues with pain until ambulating with therapy now that shoulder pain much improved Imaging without dislocation but does note effusion (does not appear large to tap), was not warm (calf was warm) --> Venous Doppler NEGATIVE for DVT RLE Voltaren gel Ice/elevation C/w ortho if needed/continued issues --> states effectiveness with voltaren and will continue (3) Thrombocytopenia: Baseline 50-90; Currently stable at 79 Lovenox on hold given lower platelets earlier in stay --> utilize SCDs Did have swelling/tenderness to R calf --> VENOUS DOPPLER NEGATIVE FOR DVT Chronic issue with cirrhosis Resumed Lovenox SQ and will continue to monitor platelets (4) Diabetes type 2, controlled: Patient had been on Metformin, but not been doing well with that. A1c 7.9 -- Discussed with daughter that patient stopped eating and was having frequent lows. She lost significant weight due to it. Given age it may be best to monitor and control dietary management given age. -- Can have close F/U with PCP to determine a different option BSGs 96-207 over past 24 hours. Has required 3 units of insulin Will continue to monitor for now Consider low does sulfonylurea at d/c? vs f/u with PCP/dietary modifications (5) Anemia: Hgb 10.8 on admission (prior ranges 10-11) Currently 8.9 but did get IVF previously in stay B12 wnl 866, folate 11.2 Iron studies- iron 44, TIBC 251, transferrin 210, Trans% sat 15, ferritin 71.4 fecal occult from earlier this year negative. No reported bleeding continue to monitor (6) Hypomagnesemia: Mag checked given prior lows and cramping reported Low at 1.6 and ordered 2gm IV --> repeat 1.9 wnl Of note, is on mag chloride as outpatient BID and has been receiving (7) Generalized anxiety disorder: Stable Continue Escitalopram 20 mg daily (8) Seizure: Hx of such Continue levetiracetam 250 mg BID (9) GERD (gastroesophageal reflux disease): Continue famotidine 20 mg daily (10) Cirrhosis: Cryptogenic cirrhosis/ascites/portal hypertension Continue rifaximin BID and Spironolactone Some mild RAJENDRA earlier in admission but did resolve with gentle hydration Cr stable (11) Sjogren's disease: Sjogren's disease/discoid lupus erythematosus Continue hydroxychloroquine (12) Hearing difficulty: Wears hearing aids bilaterally - Continue pain control; plan for non-operative management - Awaiting bed at [facility] hopefully able to take tomorrow as above CM following Discharge Plan Discharge Items Reason For Visit: RIGHT HUMERAL HEAD FRACTURE S/P FALL Follow-up/Referrals: Tamara Benítez MD [Primary Care Provider] - Medications and DC Order Prescriptions: No Action (DME) blood sugar diagnostic [OneTouch Ultra Blue Test Strip] Strip See Rx Instructions .ROUTE .MEDSUPPLY Qty: 300 RF: 3 (DME) lancets [OneTouch Delica Lancets] 33 gauge misc See Rx Instructions .ROUTE .MEDSUPPLY Qty: 300 RF: 3 (DME) blood-glucose meter [OneTouch Ultra2 Meter] Kit See Rx Instructions .ROUTE .MEDSUPPLY Qty: 1 RF: 1 hydroxychloroquine [Plaquenil] 200 mg tablet 200 mg PO QAM Qty: 90 RF: 1 famotidine [Pepcid] 20 mg tablet 20 mg PO DAILY Qty: 90 RF: 3 levetiracetam [Keppra] 250 mg tablet 250 mg PO BID Qty: 180 RF: 3 albuterol sulfate 90 mcg/actuation HFA aerosol inhaler 2 puff inhalation Q6H PRN (Reason: shortness of breath or wheezing) Qty: 8.5 RF: 1 lidocaine 5 % adhesive patch,medicated 1 - 2 patch TOP DAILY PRN (Reason: Pain) RF: 0 cholecalciferol (vitamin D3) 50 mcg (2,000 unit) capsule 50 mcg PO QDD RF: 0 rifaximin 550 mg tablet 550 mg PO BID Qty: 90 RF: 2 spironolactone 25 mg tablet 25 mg PO DAILY Qty: 90 RF: 3 latanoprost 0.005 % drops 1 drp OPB HS RF: 0 escitalopram oxalate 20 mg tablet 20 mg PO QAM RF: 0 Slow-Mag 71.5 mg tablet,delayed release (DR/EC) 71.5 mg PO BID RF: 0 Systane (PF) 0.4-0.3 % Dropperette 1 drp OPHTHALMIC (EYE) BID PRN (Reason: Dry Eye(S)) RF: 0 Krames/Other Patient Handouts: A1C, Managing Type 2 Diabetes Admission Data Admit Date/Time: 04/10/21 11:15 Attending Provider: Abeba Boo Admit Provider: Rafael Stephen Primary Care Provider: Tamara Benítez Other Providers: Rafael Stephen ; Felix Bragg ; [facility] ; [facility] ; [place] Coding Diagnoses Closed fracture of head of right humerus S42.291A Right knee pain M25.561 Thrombocytopenia D69.6 Diabetes type 2, controlled E11.9 Diabetes mellitus terminal makeup operator insulin use: without intermediate use Diabetes mellitus complication status: without complication Anemia D64.9 Hypomagnesemia E83.42 Generalized anxiety disorder F41.1 Seizure R56.9 GERD (gastroesophageal reflux disease) K21.9 Cirrhosis K74.60 Sjogren's disease M35.00 Sjogren's organ involvement: unspecified organ involvement Hearing difficulty H91.90
[2021-04-21 08:53] LABS: Hematocrit (blood only) 27.8 % (37-47); Hemoglobin 9.4 g/dL (12.0-16.0); Mean Corpuscular Hemoglobin 30.9 pg (25-34); Mean Corpuscular Hgb Conc 33.8 g/dL (32-36); Mean Corpuscular Volume 91.4 fL (80-100); Mean Platelet Volume 11.6 fL (7.4-10.4); Platelet Count 105 K/uL (130-400); RDW Coefficient of Variation 14.6 % (11.5-14.5); RDW Standard Deviation 48.9 fL (36.4-46.3); Red Blood Count 3.04 M/uL (4.2-5.4); White Blood Count 4.01 K/uL (4.8-10.8)
[2021-04-21 09:22] LABS: BUN Creatinine Ratio 13.1 (10-20); Calcium 9.1 mg/dl (8.5-10.1); Creatinine Clr Calc Pharmacy 32.3 ml/min; Est GFR (Non-African American) 44.9 ml/min; Potassium 4.5 mmol/L (3.5-5.1)
[2021-04-21] MEDS: LIDOCAINE 5% 1 PATCH TD SCH (10:05)
[2021-04-21] MEDS: DICLOFENAC SOD 1% GEL 100 GM TUBE EXT SCH ×4 (10:06→20:12)
[2021-04-21] MEDS: CHOLECALCIFEROL 1,000 UNITS 25 MCG TAB PO SCH (18:31)
[2021-04-21] MEDS: LATANOPROST 0.005% OP SOLN 2.5 ML BTL OPB SCH (20:11)
[2021-04-22] MEDS: HYDROCODONE/ACETAMOPHEN 5/325MG TAB PO PRN (02:49)
[2021-04-22] MEDS: ENOXAPARIN INJ 30 MG/0.3 ML SYR SQ SCH (06:28)
[2021-04-22] MEDS: MAGNESIUM CHLORIDE 64MG DELAYED REL TAB PO SCH ×2 (08:38→21:02)
[2021-04-22] MEDS: SPIRONOLACTONE 25 MG TAB PO SCH (08:38)
[2021-04-22] MEDS: DOCUSATE SODIUM 100 MG CAP PO SCH ×2 (08:38→21:05)
[2021-04-22] MEDS: levETIRAcetam 250 MG TAB PO SCH ×2 (08:38→21:02)
[2021-04-22] MEDS: LIDOCAINE 5% 1 PATCH TD SCH (08:38)
[2021-04-22] MEDS: HYDROXYCHLOROQUINE SULFATE 200 MG TAB PO SCH (08:38)
[2021-04-22] MEDS: ESCITALOPRAM OXALATE 20 MG TAB PO SCH (08:39)
[2021-04-22] MEDS: FAMOTIDINE 20 MG TAB PO SCH (08:39)
[2021-04-22] MEDS: DICLOFENAC SOD 1% GEL 100 GM TUBE EXT SCH ×4 (08:39→21:02)
[2021-04-22] MEDS: rifAXIMin 550 MG TABLET PO SCH ×2 (08:39→21:02)
--- NOTE | 2021-04-22 08:42 | Discharge Summary ---
Date of Service April 22, 2021 Discharge Data Allergies Allergy/AdvReac Type Severity Reaction Status Date / Time ciprofloxacin [From Cipro] Allergy Severe Hives Verified 04/10/21 01:37 levofloxacin [From Levaquin] Allergy Severe Shortness Verified 04/10/21 01:37 of breath paroxetine Allergy Unknown Diarrhea Verified 04/10/21 01:37 phenytoin Allergy Unknown Unknown Verified 04/10/21 01:37 sulfamethoxazole Allergy Unknown SOB Verified 04/10/21 01:37 [From Bactrim] trimethoprim [From Bactrim] Allergy Unknown SOB Verified 04/10/21 01:37 unknown antibiotic Allergy Severe Browning-Bryon Uncoded 04/10/21 01:37 syndrome - no records available Consultations 04/10/21 04:11 ED Decision to Admit Stat 04/10/21 11:11 Consult Orthopedic Surgery Routine Ordered Studies 04/18/21 13:30 US venous doppler LE RT Routine Hospital Course (1) Closed fracture of head of right humerus: S/P Fall; *Possible Age-related osteoporosis w current pathologic fracture, right humerus - Plan for non-operative approach at this time - Maintain sling but may come out of sling up to 6 times a day per orthopedics Continue voltaren gel, lidocaine patch for pain control Hydrocodone available prn -- has not utilize any in last day and a half Continue bowel regimen -- miralax prn if any further issues. Continues to move bowels no issue reported Ortho consulted - May come out of the sling about 6 times a day for gentle passive pendulum exercises at the shoulder and active range of motion at the elbow. Follow-up in orthopedic surgery clinic approximately 2 weeks from injury (around Apr 24) --> To call [facility] at [phone] to make an appointment PT/OT recs for SNF -- unable to return home by herself d/t safety/R handed D/c when bed available--> [facility] to have bed tomorrow. Applied for auth. --> [facility] to possible be able to take patient tomorrow. Looking into family to bring her Rifaximin to [facility] and may be able to have them cover couple of days until able to occur (2) Right knee pain: 2nd to fall had previously not had issues with pain until ambulating with therapy now that shoulder pain much improved Imaging without dislocation but does note effusion (does not appear large to tap), was not warm (calf was warm) --> Venous Doppler NEGATIVE for DVT RLE Voltaren gel Ice/elevation C/w ortho if needed/continued issues --> states effectiveness with voltaren and will continue (3) Thrombocytopenia: Baseline 50-90; Currently stable at 79 Lovenox on hold given lower platelets earlier in stay --> SCDs utilized days following Did have swelling/tenderness to R calf --> VENOUS DOPPLER NEGATIVE FOR DVT Chronic issue with cirrhosis Resumed Lovenox SQ and platelets remained stable (4) Diabetes type 2, controlled: Patient had been on Metformin, but not been doing well with that. A1c 7.9 -- Discussed with daughter that patient stopped eating and was having frequent lows. She lost significant weight due to it. Given age it may be best to monitor and control dietary management given age. -- Can have close F/U with PCP to determine a different option BSG 89-147 today (5) Anemia: Hgb 10.8 on admission (prior ranges 10-11) Repeat acceptable and improved B12 wnl 866, folate 11.2 Iron studies- iron 44, TIBC 251, transferrin 210, Trans% sat 15, ferritin 71.4 fecal occult from earlier this year negative. No reported bleeding continue to monitor (6) Hypomagnesemia: Mag checked given prior lows and cramping reported Low at 1.6 and ordered 2gm IV --> repeat 1.9 wnl Of note, is on mag chloride as outpatient BID and has been receiving (7) Generalized anxiety disorder: Stable Continue Escitalopram 20 mg daily (8) Seizure: Hx of such Continue levetiracetam 250 mg BID (9) GERD (gastroesophageal reflux disease): Continue famotidine 20 mg daily (10) Cirrhosis: Cryptogenic cirrhosis/ascites/portal hypertension Continue rifaximin BID and Spironolactone Some mild RAJENDRA earlier in admission but did resolve with gentle hydration Cr stable (11) Sjogren's disease: Sjogren's disease/discoid lupus erythematosus Continue hydroxychloroquine (12) Hearing difficulty: Wears hearing aids bilaterally Plans for [facility] tomorrow when bed available Discharge Plan Discharge Items Reason For Visit: RIGHT HUMERAL HEAD FRACTURE S/P FALL Follow-up/Referrals: Tamara Benítez MD [Primary Care Provider] - Medications and DC Order Prescriptions: No Action (DME) blood sugar diagnostic [OneTouch Ultra Blue Test Strip] Strip See Rx Instructions .ROUTE .MEDSUPPLY Qty: 300 RF: 3 (DME) lancets [OneTouch Delica Lancets] 33 gauge misc See Rx Instructions .ROUTE .MEDSUPPLY Qty: 300 RF: 3 (DME) blood-glucose meter [OneTouch Ultra2 Meter] Kit See Rx Instructions .ROUTE .MEDSUPPLY Qty: 1 RF: 1 hydroxychloroquine [Plaquenil] 200 mg tablet 200 mg PO QAM Qty: 90 RF: 1 famotidine [Pepcid] 20 mg tablet 20 mg PO DAILY Qty: 90 RF: 3 levetiracetam [Keppra] 250 mg tablet 250 mg PO BID Qty: 180 RF: 3 albuterol sulfate 90 mcg/actuation HFA aerosol inhaler 2 puff inhalation Q6H PRN (Reason: shortness of breath or wheezing) Qty: 8.5 RF: 1 lidocaine 5 % adhesive patch,medicated 1 - 2 patch TOP DAILY PRN (Reason: Pain) RF: 0 cholecalciferol (vitamin D3) 50 mcg (2,000 unit) capsule 50 mcg PO QDD RF: 0 rifaximin 550 mg tablet 550 mg PO BID Qty: 90 RF: 2 spironolactone 25 mg tablet 25 mg PO DAILY Qty: 90 RF: 3 latanoprost 0.005 % drops 1 drp OPB HS RF: 0 escitalopram oxalate 20 mg tablet 20 mg PO QAM RF: 0 Slow-Mag 71.5 mg tablet,delayed release (DR/EC) 71.5 mg PO BID RF: 0 Systane (PF) 0.4-0.3 % Dropperette 1 drp OPHTHALMIC (EYE) BID PRN (Reason: Dry Eye(S)) RF: 0 Krames/Other Patient Handouts: A1C, Managing Type 2 Diabetes Admission Data Admit Date/Time: 04/10/21 11:15 Attending Provider: Abeba Boo Admit Provider: Rafael Stephen Primary Care Provider: Tamara Benítez Other Providers: Rafael Stephen ; Felix Bragg ; [facility] ; [facility] ; [place] Coding Diagnoses Closed fracture of head of right humerus S42.291A Right knee pain M25.561 Thrombocytopenia D69.6 Diabetes type 2, controlled E11.9 Diabetes mellitus fdc insulin use: without fdc use Diabetes mellitus complication status: without complication Anemia D64.9 Hypomagnesemia E83.42 Generalized anxiety disorder F41.1 Seizure R56.9 GERD (gastroesophageal reflux disease) K21.9 Cirrhosis K74.60 Sjogren's disease M35.00 Sjogren's organ involvement: unspecified organ involvement Hearing difficulty H91.90
[2021-04-22] MEDS: INSULIN ASPART 100 UNITS/ML 3 ML PEN SC SCH ×4 (09:37→21:02)
--- NOTE | 2021-04-22 13:33 | Hospitalist Progress Note ---
Date of Service April 22, 2021 Assessment & Plan (1) Closed fracture of head of right humerus: Plan: S/P Fall; *Possible Age-related osteoporosis w current pathologic fracture, right humerus - Plan for non-operative approach at this time - Maintain sling but may come out of sling up to 6 times a day per orthopedics Continue voltaren gel, lidocaine patch for pain control Hydrocodone available prn -- has not utilize any in several days but did use 1 dose evening 04/21. Will have available prn at rehab Continue bowel regimen -- miralax prn if any further issues. Continues to move bowels no issue reported Ortho consulted - May come out of the sling about 6 times a day for gentle passive pendulum exercises at the shoulder and active range of motion at the elbow. Follow-up in orthopedic surgery clinic approximately 2 weeks from injury (around Apr 24) --> To call [facility] at [phone] to make an appointment PT/OT recs for SNF -- unable to return home by herself d/t safety/R handed D/c when bed available --> [facility] tomorrow. Applied for authorize --> [facility] to possible be able to take patient tomorrow. Looking into family to bring her Rifaximin to [facility] and may be able to have them cover couple of days until able to occur (2) Right knee pain: Plan: 2nd to fall had previously not had issues with pain until ambulating with therapy now that shoulder pain much improved Imaging without dislocation but does note effusion (does not appear large to tap), was not warm (calf was warm) --> Venous Doppler NEGATIVE for DVT RLE Voltaren gel Ice/elevation C/w ortho if needed/continued issues --> states effectiveness with voltaren and will continue (3) Thrombocytopenia: Plan: Baseline 50-90; Currently stable at 79 Lovenox on hold given lower platelets earlier in stay --> SCDs utilized days following Did have swelling/tenderness to R calf --> VENOUS DOPPLER NEGATIVE FOR DVT Chronic issue with cirrhosis Resumed Lovenox SQ and platelets remained stable (4) Diabetes type 2, controlled: Plan: Patient had been on Metformin, but not been doing well with that. A1c 7.9 -- Discussed with daughter that patient stopped eating and was having frequent lows. She lost significant weight due to it. Given age it may be best to monitor and control dietary management given age. -- Can have close F/U with PCP to determine a different option BSGs acceptable (5) Anemia: Plan: Hgb 10.8 on admission (prior ranges 10-11) Repeat acceptable and improved on repeat B12 wnl 866, folate 11.2 Iron studies- iron 44, TIBC 251, transferrin 210, Trans% sat 15, ferritin 71.4 fecal occult from earlier this year negative. 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 Unable to take today due to staffing issues Admission and Anticipated Discharge Date Admission Date: April 10, 2021 Supervising Physician Co-Signing Physician Notes RAVIN Supervision Note: I did not personally see or examine the patient today, but I verified all sanford points of RAVIN Zhang's assessment and plan with the following exceptions/additions: DM2-blood sugars with significant hyperglycemia later in the day. Add on Lantus 6 units once daily and tighten down NovoLog goal range to 100-140 Subjective Patient evaluated this afternoon. Doing well. Disappointed about not getting to rehab yet but understands will hopefully plan for tomorrow but "believe it when I see it". Up in bed eating lunch. Pain controlled and comes and goes. She did utilize 1 dose of pain medication last night but nothing needed today. No other issues reported. Review of Systems Review of Systems: All systems reviewed & are unremarkable except as noted in HPI & below Physical Exam Physical Exam: PHYSICAL EXAM General Appearance: WD/WN in NAD who is A&O x 3, general pallor (improved) HEENT: Head is normocephalic; healing ecchymosis on the R side of the forehead extending to mid-forehead; Mucous membranes moist; hard of hearing Neck: Supple; Trachea midline; Neg JVD Heart: RRR with no M/G/R Lungs: CTA in all lung jacobo bilaterally; Respirations unlabored; Neg accessory muscle use Abdomen: Soft, non-tender, non-distended; Positive BS x 4 quadrants Extremities: Neg cyanosis or edema; RUE in sling; cap refill immediate and sensation intact in RUE, good unindentured apprentice strength, pulse easily palpable; healing ecchymosis of the R upper arm with lidocaine patch present R knee with ecchymosis to medial aspect, minimally tender to palpation (decreased) Neurological: Speech clear; Gross motor/sensory function intact; Neg focal neurologic deficits, unindentured apprentice strength equal Psychiatric: Appropriate mood/affect Skin: Normal Color; Warm/Dry Results & Data Results & Data ([facility] [place]) Vital Signs (Past 12 Hours) Vital Signs Temp Pulse Resp BP Pulse Ox 04/22/21 07:51 36.8 C 62 18 105/55 L 97 Laboratory Results 04/22/21 04/22/21 04/21/21 Range/Units 12:25 08:25 20:26 POC Glucose 129 H 132 H 283 H (70-99) mg/dl 04/21/21 04/21/21 Range/Units 20:25 17:40 POC Glucose 272 H 149 H (70-99) mg/dl PG Care Time/CCT Total # of Minutes Spent Total Time Spent with Patient: Total time spent is greater than 50% in coordination of care (as documented) at patient's floor/unit and/or counseling patient: Coding Level of Care Code 49406 Subseq Hosp Care Lvl 1 Diagnoses Closed fracture of head of right humerus S42.291A Right knee pain M25.561 Thrombocytopenia D69.6 Diabetes type 2, controlled E11.9 Diabetes mellitus complication status: without complication Diabetes mellitus marine oil terminal superintendent insulin use: without longterm use Anemia D64.9 Hypomagnesemia E83.42 Generalized anxiety disorder F41.1 Seizure R56.9 GERD (gastroesophageal reflux disease) K21.9 Cirrhosis K74.60 Sjogren's disease M35.00 Sjogren's organ involvement: unspecified organ involvement Hearing difficulty H91.90 (1) Sjogren's disease Sjogren's organ involvement: unspecified organ involvement Qualified Code(s): 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
[2021-04-22] MEDS: CHOLECALCIFEROL 1,000 UNITS 25 MCG TAB PO SCH (17:44)
[2021-04-22] MEDS: LATANOPROST 0.005% OP SOLN 2.5 ML BTL OPB SCH (21:02)
[2021-04-22] MEDS ORDERED: INSULIN GLARGINE SOLOSTAR 100 UNITS/ML 3 ML PEN SC SCH (22:20)
[2021-04-23] MEDS: ENOXAPARIN INJ 30 MG/0.3 ML SYR SQ SCH (06:11)
[2021-04-23] MEDS: SPIRONOLACTONE 25 MG TAB PO SCH (07:33)
[2021-04-23] MEDS: ESCITALOPRAM OXALATE 20 MG TAB PO SCH (07:33)
[2021-04-23] MEDS: MAGNESIUM CHLORIDE 64MG DELAYED REL TAB PO SCH ×2 (07:34→20:02)
[2021-04-23] MEDS: FAMOTIDINE 20 MG TAB PO SCH (07:34)
[2021-04-23] MEDS: LIDOCAINE 5% 1 PATCH TD SCH (07:34)
[2021-04-23] MEDS: HYDROXYCHLOROQUINE SULFATE 200 MG TAB PO SCH (07:34)
[2021-04-23] MEDS: rifAXIMin 550 MG TABLET PO SCH ×2 (07:34→20:02)
[2021-04-23] MEDS: levETIRAcetam 250 MG TAB PO SCH ×2 (07:34→20:02)
[2021-04-23] MEDS: DICLOFENAC SOD 1% GEL 100 GM TUBE EXT SCH ×4 (07:35→20:02)
[2021-04-23] MEDS: DOCUSATE SODIUM 100 MG CAP PO SCH ×2 (07:35→20:02)
--- NOTE | 2021-04-23 08:21 | Hospitalist Progress Note ---
Date of Service April 23, 2021 Assessment & Plan (1) Closed fracture of head of right humerus: Plan: S/P Fall; *Possible Age-related osteoporosis w current pathologic fracture, right humerus - Plan for non-operative approach at this time - Maintain sling but may come out of sling up to 6 times a day per orthopedics Continue voltaren gel, lidocaine patch for pain control Hydrocodone available prn -- has not utilize any in several days but did use 1 dose evening 04/21 and 1 dose overnight 04/22. Will have available prn at rehab Continue bowel regimen -- miralax prn if any further issues. Continues to move bowels no issue reported Ortho consulted - May come out of the sling about 6 times a day for gentle passive pendulum exercises at the shoulder and active range of motion at the elbow. Follow-up in orthopedic surgery clinic approximately 2 weeks from injury (around Apr 24) --> To call [facility] at [phone] to make an appointment PT/OT recs for SNF -- unable to return home by herself d/t safety/R handed D/c when bed available --> [facility] to have bed tomorrow. Applied for authorize, received 04/22--> [facility] to take patient tomorrow (2) Right knee pain: Plan: 2nd to fall had previously not had issues with pain until ambulating with therapy now that shoulder pain much improved Imaging without dislocation but does note effusion (does not appear large to tap), was not warm (calf was warm) --> Venous Doppler NEGATIVE for DVT RLE Voltaren gel Ice/elevation C/w ortho if needed/continued issues --> states effectiveness with voltaren and will continue (3) Thrombocytopenia: Plan: Baseline 50-90; Currently stable at 79 Lovenox on hold given lower platelets earlier in stay --> SCDs utilized days following Did have swelling/tenderness to R calf --> VENOUS DOPPLER NEGATIVE FOR DVT Chronic issue with cirrhosis Resumed Lovenox SQ and platelets remained stable (4) Diabetes type 2, controlled: Plan: Patient had been on Metformin, but not been doing well with that. A1c 7.9 -- Discussed with daughter that patient stopped eating and was having frequent lows. She lost significant weight due to it. Given age it may be best to monitor and control dietary management given age. -- Can have close F/U with PCP to determine a different option Added lantus evening 04/22, tightened SSI --> Rec continued insulin at long-term and possible oral at d/c with monitoring for hypoglycemia. Patient agreeable and would rec oral at d/c from rehab with monitoring outpatient Lowered CF and continue to monitor. Good appetite/eating/drinking and suspect that contributing as well (5) Anemia: Plan: Hgb 10.8 on admission (prior ranges 10-11) Repeat acceptable and improved on repeat B12 wnl 866, folate 11.2 Iron studies- iron 44, TIBC 251, transferrin 210, Trans% sat 15, ferritin 71.4 fecal occult from earlier this year negative. 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 Continue rifaximin BID and Spironolactone Some mild RAJENDRA earlier in admission but did resolve with gentle hydration Cr stable on repeat (11) Sjogren's disease: Plan: Sjogren's disease/discoid lupus erythematosus Continue hydroxychloroquine (12) Hearing difficulty: Plan: Wears hearing aids bilaterally Plan: [facility] tomorrow Admission and Anticipated Discharge Date Admission Date: April 10, 2021 Supervising Physician Co-Signing Physician Notes PA Supervision Note: I did not personally see or examine the patient today, but I verified all sanford points of RAVIN Zhang's assessment and plan with the following exceptions/additions: none Subjective eval this afternoon sitting up in bed watching a show on tablet wishes she could go home with therapy but her family doesn't think she would be safe at this time she does have some frustrations with not being in rehab already but plans for rehab tomorrow as bed confirmed today "I'll believe it when I see it" Review of Systems Review of Systems: All systems reviewed & are unremarkable except as noted in HPI & below Physical Exam Physical Exam: PHYSICAL EXAM General Appearance: WD/WN elderly female, sitting in bed, NAD, A&O x 3 HEENT: Head is normocephalic; healing ecchymosis on the R side of the forehead extending to mid-forehead; Mucous membranes moist; hard of hearing Neck: Supple; Trachea midline; Neg JVD Heart: RRR with no M/G/R Lungs: CTA in all lung jacobo bilaterally; Respirations unlabored; Neg accessory muscle use Abdomen: Soft, non-tender, non-distended; Positive BS x 4 quadrants Extremities: Neg cyanosis or edema; RUE in sling; cap refill immediate and sensation intact in RUE, good spooling supervisor strength, pulse easily palpable; healing ecchymosis of the R upper arm with lidocaine patch present R knee with ecchymosis to medial aspect, minimally tender to palpation (decreased) Neurological: Speech clear; Gross motor/sensory function intact; Neg focal neurologic deficits, spooling supervisor strength equal Psychiatric: AOX3, cooperative Skin: warm, dry Results & Data Results & Data ([facility]) Vital Signs (Past 12 Hours) Vital Signs Temp Pulse Resp BP Pulse Ox 04/23/21 07:46 36.6 C 70 18 111/69 90 04/22/21 23:41 36.8 C 69 14 103/51 L 96 Laboratory Results 04/23/21 04/23/21 04/22/21 Range/Units 12:10 08:36 20:42 POC Glucose 239 H 133 H 209 H (70-99) mg/dl 04/22/21 Range/Units 17:25 POC Glucose 223 H (70-99) mg/dl PG Care Time/CCT Total # of Minutes Spent Total Time Spent with Patient: Total time spent is greater than 50% in coordination of care (as documented) at patient's floor/unit and/or counseling patient: Coding Level of Care Code 67663 Subseq Hosp Care Lvl 1 Diagnoses Closed fracture of head of right humerus S42.291A Right knee pain M25.561 Thrombocytopenia D69.6 Diabetes type 2, controlled E11.9 Diabetes mellitus complication status: without complication Diabetes mellitus care home insulin use: without terminologist use Anemia D64.9 Hypomagnesemia E83.42 Generalized anxiety disorder F41.1 Seizure R56.9 GERD (gastroesophageal reflux disease) K21.9 Cirrhosis K74.60 Sjogren's disease M35.00 Sjogren's organ involvement: unspecified organ involvement Hearing difficulty H91.90 (1) Sjogren's disease Sjogren's organ involvement: unspecified organ involvement Qualified Code(s): 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
[2021-04-23] MEDS: INSULIN ASPART 100 UNITS/ML 3 ML PEN SC SCH ×4 (08:57→21:02)
[2021-04-23] MEDS: INSULIN GLARGINE SOLOSTAR 100 UNITS/ML 3 ML PEN SC SCH (09:03)
[2021-04-23] MEDS: HYDROCODONE/ACETAMOPHEN 5/325MG TAB PO PRN (16:52)
[2021-04-23] MEDS: CHOLECALCIFEROL 1,000 UNITS 25 MCG TAB PO SCH (16:53)
[2021-04-23] MEDS: LATANOPROST 0.005% OP SOLN 2.5 ML BTL OPB SCH (20:02)
[2021-04-24] MEDS: HYDROCODONE/ACETAMOPHEN 5/325MG TAB PO PRN (02:38)
[2021-04-24] MEDS: ENOXAPARIN INJ 30 MG/0.3 ML SYR SQ SCH (06:00)
[2021-04-24] MEDS: SPIRONOLACTONE 25 MG TAB PO SCH (07:34)
[2021-04-24] MEDS: rifAXIMin 550 MG TABLET PO SCH (07:34)
[2021-04-24] MEDS: ESCITALOPRAM OXALATE 20 MG TAB PO SCH (07:34)
[2021-04-24] MEDS: DICLOFENAC SOD 1% GEL 100 GM TUBE EXT SCH (07:35)
[2021-04-24] MEDS: DOCUSATE SODIUM 100 MG CAP PO SCH (07:35)
[2021-04-24] MEDS: MAGNESIUM CHLORIDE 64MG DELAYED REL TAB PO SCH (07:35)
[2021-04-24] MEDS: FAMOTIDINE 20 MG TAB PO SCH (07:35)
[2021-04-24] MEDS: levETIRAcetam 250 MG TAB PO SCH (07:35)
[2021-04-24] MEDS: LIDOCAINE 5% 1 PATCH TD SCH (07:36)
[2021-04-24] MEDS: HYDROXYCHLOROQUINE SULFATE 200 MG TAB PO SCH (07:36)
[2021-04-24] MEDS: INSULIN GLARGINE SOLOSTAR 100 UNITS/ML 3 ML PEN SC SCH (08:50)
[2021-04-24] MEDS: INSULIN ASPART 100 UNITS/ML 3 ML PEN SC SCH ×2 (08:50→11:38)
--- NOTE | 2021-04-24 19:28 | Discharge Summary ---
Date of Service April 24, 2021 Admission HPI Per Admitting Provider Chief Complaint: The patient presents to the emergency department with right shoulder pain after tripping and falling in her apartment Primary Care Provider: Tamara Benítez MD The patient is an 80-year-old female with a past medical history including portosystemic encephalopathy, ascites, ELSA, osteopenia, portal hypertension, cirrhosis, urine incontinence, bilateral SNHL, esophageal varices, seizure, disc oid lupus erythematosus, undifferentiated CTD, hearing loss with hearing aids present, glaucoma, GERD, thrombocytopenia, Sjogren's syndrome and diabetes mellitus. Patient presents to the emergency department with her daughter, after tripping and falling in her apartment, and sustaining right shoulder pain. She denies hitting her head and she denies any other joint involvement. X-ray in the emergency department the right shoulder shows a right humeral head fracture. Abnormal laboratories: Hemoglobin 10.8, hematocrit 32.0, platelets of 67, creatinine 1.25, glucose 252, AST 56, albumin 2.7 Admission Exam Per Admitting Provider The patient is awake, alert and oriented 3, well developed and well nourished, normocephalic and atraumatic, lying in bed and in no acute distress. HEENT--PERRL, EOMI, mucous membranes and oropharynx normal. Neck--supple. No JVD. No bruits. Thyroid normal, trachea midline, no adenopathy. Heart--normal S1 and S2. No murmurs, rubs or gallops. Lungs--clear bilaterally, no respiratory distress, no accessory muscle use. Abdomen--normal bowel sounds and soft. Nontender. Nondistended, no hernias or masses, no organomegaly. Extremities--no cyanosis or clubbing. No edema. Dermatologic--normal skin turgor, normal color, no abnormal lymph nodes, no rash. Neurologic--cranial nerves II through XII grossly intact. Rheumatologic--limited exam due to right shoulder pain Psychiatric--normal affect. Principal Diagnosis R Humerus Fx Discharge Exam PHYSICAL EXAM General Appearance: WD/WN elderly female, sitting in bed, NAD, A&O x 3 HEENT: Head is normocephalic; healing ecchymosis on the R side of the forehead extending to mid-forehead; Mucous membranes moist; hard of hearing Neck: Supple; Trachea midline; Neg JVD Heart: RRR with no M/G/R Lungs: CTA in all lung jacobo bilaterally; Respirations unlabored; Neg accessory muscle use Abdomen: Soft, non-tender, non-distended; Positive BS x 4 quadrants Extremities: Neg cyanosis or edema; RUE in sling; cap refill immediate and sensation intact in RUE, good clinical trial manager strength, pulse easily palpable; healing ecchymosis of the R upper arm with lidocaine patch present R knee with ecchymosis to medial aspect, minimally tender to palpation (decrease d), calves non-tender, b/l LE pulses palpable Neurological: Speech clear; Gross motor/sensory function intact; Neg focal neurologic deficits, clinical trial manager strength equal Psychiatric: AOX3, cooperative Skin: warm, dry Discharge Data Allergies Allergy/AdvReac Type Severity Reaction Status Date / Time ciprofloxacin [From Cipro] Allergy Severe Hives Verified 04/10/21 01:37 levofloxacin [From Levaquin] Allergy Severe Shortness Verified 04/10/21 01:37 of breath paroxetine Allergy Unknown Diarrhea Verified 04/10/21 01:37 phenytoin Allergy Unknown Unknown Verified 04/10/21 01:37 sulfamethoxazole Allergy Unknown SOB Verified 04/10/21 01:37 [From Bactrim] trimethoprim [From Bactrim] Allergy Unknown SOB Verified 04/10/21 01:37 unknown antibiotic Allergy Severe Browning-Bryon Uncoded 04/10/21 01:37 syndrome - no records available Consultations 04/10/21 04:11 ED Decision to Admit Stat 04/10/21 11:11 Consult Orthopedic Surgery Routine Ordered Studies 04/18/21 13:30 US venous doppler LE RT Routine Xray R knee Hospital Course (1) Closed fracture of head of right humerus: S/P Fall; *Possible Age-related osteoporosis w current pathologic fracture, right humerus Xray RIGHT humerus displaced, impacted fracture Ortho consulted - Plan for non-operative approach at this time - May come out of the sling about 6 times a day for gentle passive pendulum exercises at the shoulder and active range of motion at the elbow. Follow-up in orthopedic surgery clinic approximately 2 weeks from injury --> to have follow up THIS WEEK , would technically be Nov (today) but as patient with continue wait for bed rehab and bed available Sunday, discharged as available and should have follow up SERINA. It should be noted patient had to wait additional 3 days due to insurance authorization and staffing shortages at receiving facility days prior. --> To call [facility] at [phone] to make an appointment Continue voltaren gel, lidocaine patch for pain control Hydrocodone available prn-- has used sparingly Continue bowel regimen -- miralax prn if any further issues. Continues to move bowels no issue reported PT/OT recs for SNF--> arrangedments made for [facility] (2) Right knee pain: 2nd to fall had previously not had issues with pain until ambulating with therapy now that shoulder pain much improved and imaging was obtained , xray without fx but small effusion, doopler negative. ambulating better and utilizing voltaren prn with effectiveness and this was continued (3) Thrombocytopenia: Baseline 50-90; Currently stable at 79 Lovenox on hold given lower platelets earlier in stay --> SCDs utilized days following Did have swelling/tenderness to R calf --> VENOUS DOPPLER NEGATIVE FOR DVT Chronic issue with cirrhosis Resumed Lovenox SQ and platelets remained stable (4) Diabetes type 2, controlled: Patient had been on Metformin, but not been doing well with that. A1c 7.9 Lantus 6u SC AM SSI insulin at SNF and rec oral option at discharge to gain better control. f/u PCP (5) Anemia: Hgb 10.8 on admission (prior ranges 10-11) Repeat acceptable and improved on repeat B12 wnl 866, folate 11.2 Iron studies- iron 44, TIBC 251, transferrin 210, Trans% sat 15, ferritin 71.4 fecal occult from earlier this year negative. No reported bleeding (6) Hypomagnesemia: Low, replaced. stable on repeat. 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 Ortho follow up this week. Total Time Total Time Spent Total Time Spent (In Minutes): 40 Discharge Plan Discharge Items Patient Disposition: Transfer Correction Fac Reason For Visit: RIGHT HUMERAL HEAD FRACTURE S/P FALL Discharge Diagnosis: R Humerus Fracture Goals: You have been hospitalized for an acute medical problem. During your stay at [facility], we have made an effort to correct the problem that brought you to the hospital while keeping you as comfortable as possible. Medications were used to bring your condition under control and your discharge instructions will include directions for any medications you should take after leaving the hospital. Please make sure you see your Primary Care Provider as part of your follow up plan. Activity: As commented below Non-emergency contact: Primary Care Provider Call non-emergency contact if: you have any medication questions, your symptoms worsen and your pain is unusual for you Follow-up/Referrals: Tamara Benítez MD [Primary Care Provider] - Felix Bragg M.D. [Physician] - Diet: Carb Consistent or DM2 and Heart Healthy Addtl Attending Provider Instructions: You have been hospitalized following a fall. Imaging showed you had a fracture of your RIGHT HUMERUS. Orthopedics was consulted and you have opted with non-surgical treatment and can continue conservative measure. Per orthopedics, you should continue to be nonweightbearing on the right upper extremity with no range of motion of the right shoulder. You may come out of the sling about 6 times a day for gentle passive pendulum exercises at the shoulder and active range of motion at the elbow. You should follow up with orthopedics this week to have follow up on this and for further imaging to ensure healing before progressing past that with therapy. You can continue lidocaine patch and Voltaren cream for pain and use Tylenol sparingly. You can continue hydrocodone as needed as used in the hospital for breakthrough pain. While on pain medications, you should monitor your bowels as these can cause constipation. If this occurs, you can take miralax and/or Colace or other agents to assist to help move your bowels. For your diabetes, you have been started on Lantus 6 units in the morning for at rehab and they can continue sliding scale while at rehab and then you should consider starting an alternative oral option at discharge to gain better control of this given prior intolerance for metformin. For sliding scale: Goal 100-140, CF 18. Please follow up with your PCP in the next 1-2 weeks to monitor your progress. Please return to the ER if any uncontrolled pain, fever, chills, chest pain, or for any other symptoms that are concerning for you. Take care! Pending Studies at Discharge: No Stand-Alone Forms: [facility] Skilled Items Patient informed of condition?: Yes DNR: No Discharge Level of Care: Skilled Communicable Disease: No Discharge Prognosis: Stable Lines: None Urinary Catheter: No Medications and DC Order Prescriptions: New diclofenac sodium [Voltaren Arthritis Pain] 1 % Gel 2 g EXT QID Qty: 100 RF: 0 docusate sodium 100 mg Capsule 100 mg PO BID Qty: 10 RF: 0 polyethylene glycol 3350 [Miralax] 17 gram Powder In Packet 17 g PO DAILY PRN (Reason: constipation) Qty: 14 RF: 0 Lantus Solostar U-100 Insulin 100 unit/mL (3 mL) Insulin Pen 6 unit SC QAM Qty: 3 RF: 0 insulin aspart U-100 [Novolog Flexpen U-100 Insulin] 100 unit/mL (3 mL) Insulin Pen See Rx Instructions .ROUTE .COMPLEX Qty: 3 RF: 0 Continued (DME) blood sugar diagnostic [OneTouch Ultra Blue Test Strip] Strip See Rx Instructions .ROUTE .MEDSUPPLY Qty: 300 RF: 3 (DME) lancets [OneTouch Delica Lancets] 33 gauge misc See Rx Instructions .ROUTE .MEDSUPPLY Qty: 300 RF: 3 (DME) blood-glucose meter [OneTouch Ultra2 Meter] Kit See Rx Instructions .ROUTE .MEDSUPPLY Qty: 1 RF: 1 hydroxychloroquine [Plaquenil] 200 mg tablet 200 mg PO QAM Qty: 90 RF: 1 famotidine [Pepcid] 20 mg tablet 20 mg PO DAILY Qty: 90 RF: 3 levetiracetam [Keppra] 250 mg tablet 250 mg PO BID Qty: 180 RF: 3 albuterol sulfate 90 mcg/actuation HFA aerosol inhaler 2 puff inhalation Q6H PRN (Reason: shortness of breath or wheezing) Qty: 8.5 RF: 1 lidocaine 5 % adhesive patch,medicated 1 - 2 patch TOP DAILY PRN (Reason: Pain) RF: 0 cholecalciferol (vitamin D3) 50 mcg (2,000 unit) capsule 50 mcg PO QDD RF: 0 rifaximin 550 mg tablet 550 mg PO BID Qty: 90 RF: 2 spironolactone 25 mg tablet 25 mg PO DAILY Qty: 90 RF: 3 latanoprost 0.005 % drops 1 drp OPB HS RF: 0 escitalopram oxalate 20 mg tablet 20 mg PO QAM RF: 0 Slow-Mag 71.5 mg tablet,delayed release (DR/EC) 71.5 mg PO BID RF: 0 Systane (PF) 0.4-0.3 % Dropperette 1 drp OPHTHALMIC (EYE) BID PRN (Reason: Dry Eye(S)) RF: 0 Discharge Orders: Discharge Order (Routine); Ordered 04/24/21 Ordered By: Abeba Cosby/Other Patient Handouts: A1C, Managing Type 2 Diabetes Admission Data Admit Date/Time: 04/10/21 11:15 Attending Provider: Abeba Boo Admit Provider: Rafael Stephen Primary Care Provider: Tamara Benítez Other Providers: Rafael Stephen ; Felix Bragg ; [facility] ; [facility] ; [place] Other Interventions: Discharge Summary Assessment (RN) Last Done: 04/24/21 10:05 Coding Level of Care Code D/C DAY MANAGEMENT >30 MINS Diagnoses Closed fracture of head of right humerus S42.291A Right knee pain M25.561 Thrombocytopenia D69.6 Diabetes type 2, controlled E11.9 Diabetes mellitus alf insulin use: without alf use Diabetes mellitus complication status: without complication Anemia D64.9 Hypomagnesemia E83.42 Generalized anxiety disorder F41.1 Seizure R56.9 GERD (gastroesophageal reflux disease) K21.9 Cirrhosis K74.60 Sjogren's disease M35.00 Sjogren's organ involvement: unspecified organ involvement Hearing difficulty H91.90
== END 2021-04-24 12:28 | DRG 543 ==
LOC: 3N → ED → SUATTDRO 04:43 → 3N 06:30 → SUATTDRO 11:15

== ENCOUNTER 2022-04-10 15:46 | Inpatient (IN) ==
--- NOTE | 2022-04-10 16:17 | ED Triage Note ---
Date of Service April 10, 2022 History of Present Illness This patient was briefly evaluated while in triage. An abbreviated physical exam was performed. This patient is a 81-year-old Female with past medical history of cirrhosis, varices, type 2 diabetes, seen in ED 1 week ago for GI workup who presents to the ED for evaluation of ongoing nausea and vomiting, lightheadedness. Has been taking antibiotics for UTI. Referred back to ED today from primary care Physical Exam CONSTITUTIONAL: fatigued, ill appearing CARDIAC: regular rate, normal rhythm PULMONARY: lungs clear to auscultation ABDOMEN: upper tenderness, more right sided Initial orders for labs and / or imaging were placed and patient was placed in the waiting area until a bed is available. Please see further documentation for the full ED course.
--- NOTE | 2022-04-10 17:33 | XRay Report ---
KUB CLINICAL HISTORY: Ongoing nausea vomiting diarrhea COMPARISON STUDY: CT of the abdomen and pelvis October 15, 2020. FINDINGS: Cholecystectomy clips are incidentally noted. There is no evidence for a bowel obstruction. Amount of stool is within normal limits. Extensive vascular calcification is incidentally noted. Rou nd hyperdensities projecting over the right abdomen likely reflect diverticula. IMPRESSION: No evidence for a bowel obstruction. ACT 112: Negative or not required by law. Electronically signed by: Aneesh Benítez M.D. 04/10/2022 5:31 PM
[2022-04-10 19:22] LABS: INR 2.4 (0.9-1.1); Prothrombin Time 24.4 Seconds (9.0-12.0)
[2022-04-10 19:23] LABS: Hematocrit (blood only) 29.8 % (34.1-44.9); Hemoglobin 10.4 g/dl (12.0-16.0); Mean Corpuscular Hemoglobin 33.5 pg (25.0-34.0); Mean Corpuscular Hgb Conc 34.9 g/dL (32.0-36.0); Mean Corpuscular Volume 96.1 fL (80.0-100.0); Mean Platelet Volume 10.6 fL (9.4-12.3); Platelet Count 84 K/uL (130-400); RDW Coefficient of Variation 15.2 % (11.5-14.5); RDW Standard Deviation 52.7 fL (36.4-46.3); White Blood Count 10.96 K/ul (4.8-10.8)
[2022-04-10 19:24] LABS: Acanthocytes 1+; Basophils # (auto) 0.02 K/uL (0-0.2); Basophils % (auto) 0.2 %; Echinocytes 2+; Immature Granulocytes # (auto) 0.03 K/uL (0.00-0.02); Immature Granulocytes % (auto) 0.3 %; Lymphocytes % (auto) 16.4 %; Monocytes # (auto) 1.02 K/uL (0.24-0.82); Monocytes % (auto) 9.3 %; Neutrophils # (auto) 8.09 K/uL (1.4-6.5); Neutrophils % (auto) 73.8 %
[2022-04-10 19:28] LABS: Alanine Aminotransferase 25 U/L (7-52); Albumin Globulin Ratio 0.6 (0.9-2); Albumin Level 2.5 gm/dl (3.4-5.0); Alkaline Phosphatase 192 U/L (34-104); Anion Gap 9 (3-11); Aspartate Aminotransferase 60 U/L (13-39); BUN Creatinine Ratio 11.6 (10-20); Bilirubin,Total 4.1 mg/dl (0.2-1.0); Blood Urea Nitrogen 17 mg/dl (6-23); Calcium 9.1 mg/dl (8.5-10.1); Carbon Dioxide 17 mmol/L (21-32); Chloride 105 mmol/L (98-107); Est GFR (African American) 38.7 ml/min; Est GFR (Non-African American) 33.4 ml/min; Globulin 3.9 gm/dl (2.5-4.0); Glucose 123 mg/dl (70-99(Fasting)); Lipase 12 U/L (11-82); Potassium 4.3 mmol/L (3.5-5.1); Sodium 131 mmol/L (136-145); Total Protein 6.4 gm/dl (6.0-8.3)
[2022-04-10] MEDS ORDERED: SODIUM CHLORIDE 0.9% 1000ML 1,000 ML IV ONE (21:41)
[2022-04-10] MEDS ORDERED: ONDANSETRON INJ 2 MG/ML 2 ML VIAL IV STA (21:42)
--- NOTE | 2022-04-10 21:46 | Emergency Department Note ---
Impression & Plan Generalized weakness, Acute UTI (urinary tract infection), Diverticulitis ED Provider Note HISTORY OF PRESENT ILLNESS: Patient is an 81-year-old female presenting with generalized weakness and abdominal pain. Patient reports that 1 week ago she was evaluated and diagnosed with urinary tract infection. She has been taking the antibiotic as prescribed, but has been having increased nausea and vomiting and decreased oral intake. She saw her primary care provider today and was referred to the emergency department for admission. Reports generalized abdominal pain. Reports that she has multiple episodes of vomiting a day and has not tolerated anything by mouth, she vomits immediately afterwards. Denies any fevers. Denies any chest pain or shortness of breath. She lives alone and has been unable to care for herself. ROS: Constitutional: No fever +weakness Skin: No rash or diaphoresis HENT: No headaches or congestion Eyes: No vision changes Cardio: No chest pain, palpitations or leg swelling Respiratory: No cough, wheezing or shortness of breath GI: No constipation +diarrhea; +nausea; +vomiting; +abdominal pain : No dysuria, polyuria MSK: No joint or back pain Neuro: No loss of sensation, confusion, focal deficits, numbness, tingling Psychiatric: No mood changes PHYSICAL EXAM: Constitutional: Patient appears in no acute distress. HENT: Head: Normocephalic and atraumatic. Eyes: EOMI, PERRL Mouth/Throat: Mucous membranes dry. Neck: Trachea midline. Neck supple. Cardiovascular: RRR, No murmurs, rubs or gallops. Intact distal pulses. Pulmonary/Chest: No respiratory distress. Breath sounds clear and equal bilaterally. No wheezes or rales. No chest wall tenderness to palpation. Abdominal: BS +. Abdomen soft, no rebound or guarding. Generalized TTP. Back: No midline spinal tenderness, no paraspinal tenderness, no CVA tenderness. Musculoskeletal: No edema, tenderness or deformity noted. Skin: Warm and dry. No rash, erythema, pallor or cyanosis Psychiatric: Appropriate mood and affect for situation. Neurological: Alert and keenly responsive. CN II-XII grossly intact, moving al l extremities equally and fully. MDM: - Vitals signs stable. - Laboratory workup showed leukocytosis (WBC 10.96); anemia (Hgb 10.4); thrombocytopenia (plt 84); CKD (Cr 1.46); elevated total bilirubin (4.1); normal lipase - COVID negative. - KUB ordered from triage negative for acute pathology. - CT abdomen/pelvis with IV contrast showed cirrhotic liver with potential hepatic mass with moderate ascites. Potenital mild diverticulitis noted. - UA showed evidence of infection. IV rocephin ordered. - Patient givne 1L NS in ER. - Hospitalist, Dr. Stepehn, consulted for admission. - [facility] for further evaluation and management. ASSESSMENT AND PLAN: Diagnosis: generalized weakness; UTI; thrombocytopenia Plan: admit Past Med/Surg History Medical History Adjustment disorder with depressed mood Anemia Chronic back pain Cirrhosis cryptogenic Cough Esophageal varices Generalized anxiety disorder GERD (gastroesophageal reflux disease) Glaucoma Hearing difficulty History of kidney stones Hx of gout Osteoarthritis Osteopenia Portal hypertension Portosystemic encephalopathy Seizure LAST ONE MORE THAN 10 YRS AGO Sensorineural hearing loss (SNHL) of both ears Sjogren's disease SLE (systemic lupus erythematosus) Thrombocytopenia Type 2 diabetes mellitus Urinary incontinence Surgical History H/O: hysterectomy (~1984) History of colonoscopy History of esophagogastroduodenoscopy (EGD) with banding of esophageal varices History of liver biopsy Hx of cholecystectomy (~1983) S/P tooth extraction Family History Grandfather Diabetes Mother Hypertension Gallbladder disease Grandmother No problems noted. Father Pancreatic cancer Brother Alcohol abuse Alcoholic cirrhosis of liver Other No family history of adverse response to anesthesia Denies family history of Ovarian cancer Prostate cancer Alzheimer disease Heart disease Myocardial infarction Breast cancer Lung cancer Colorectal cancer Stroke Social History Smoking Status: Never smoker Second Hand Exposure: Yes (her smoked); Hx Alcohol Use: Yes Alcohol type: wine Hx Substance Use: No Preferred Language: Georgian Communication Ability: Effective Visual Impairment: Limited Hearing Ability: Use of Hearing Aid Braid Cutter Required: No Beliefs That Will Affect Care: Yazidi Yazidi Beliefs: CAODAISM marital status: Current Living Situation: Alone Current Living Situation Comment: DAUGHTER LIVES CLOSE AND CAN ASSIST>[employer]ISTS current occupational status: retired current occupation: career with [employer] How many Children do You have: 2 Feels Safe at Home: Yes Childhood Exposure to Second-Hand Smoke: No caffeine: Yes Dental Care, Regularly: No Physical Activity Frequency: Does not Exercise Seatbelt Use: always Sunscreen Use: No Assistive Devices: Brace/Splint/Immobilizer, Glasses, Hearing Aid - Bilateral and Walker Allergies Allergies Allergy/AdvReac Type Severity Reaction Status Date / Time levofloxacin [From Levaquin] Allergy Severe Shortness Verified 04/10/22 15:06 of breath sulfamethoxazole Allergy Severe SOB Verified 04/10/22 15:06 [From Bactrim] trimethoprim [From Bactrim] Allergy Severe SOB Verified 04/10/22 15:06 ciprofloxacin [From Cipro] Allergy Intermediate Hives Verified 04/10/22 15:06 paroxetine Allergy Mild Diarrhea Verified 04/10/22 15:06 phenytoin Allergy Unknown Unknown Verified 04/10/22 15:06 unknown antibiotic Allergy Severe Browning-Bryon Uncoded 04/10/22 15:06 syndrome - no records available Home Meds Home Medications Medication Instructions Recorded Confirmed cholecalciferol (vitamin D3) 50 50 mcg PO QDD 08/11/20 04/10/22 mcg (2,000 unit) capsule acetaminophen 325 mg capsule 325 mg PO QID PRN Pain 05/11/21 04/10/22 cetirizine 10 mg tablet (Zyrtec) 5 mg PO HS PRN Allergy Symptoms 07/13/21 04/10/22 cephalexin 500 mg capsule 500 mg PO Q12 04/10/22 04/10/22 spironolactone 25 mg tablet 12.5 mg PO BID 04/10/22 04/10/22 Previous Rx's Medication Instructions Recorded hydroxychloroquine 200 mg tablet 200 mg PO QAM #90 tabs 08/30/20 (Plaquenil) diclofenac sodium 1 % topical gel 2 g EXT QID #100 grams 04/24/21 (Voltaren Arthritis Pain) calcium carbonate 600 mg calcium 600 mg PO DAILY #90 tabs 06/16/21 (1,500 mg) tablet (Calcium) escitalopram oxalate 20 mg tablet 20 mg PO DAILY #90 tabs 07/20/21 rifaximin 550 mg tablet 550 mg PO BID hepatic 03/29/22 encephalopathy from cirrhosis #180 tabs albuterol sulfate 90 mcg/actuation 2 puff inhalation Q6H PRN 12/21/21 aerosol inhaler shortness of breath or wheezing #8.5 grams buspirone 5 mg tablet 5 mg PO BID #60 tabs 12/21/21 lancets 33 gauge (EduardoTouch Delica #100 ea 12/22/21 Lancets) blood sugar diagnostic #100 ea 12/29/21 magnesium chloride 71.5 mg 143 mg PO DAILY #180 tabs 01/16/22 (magnesium chloride) tablet,delayed release (Slow-Mag) levetiracetam 250 mg tablet 250 mg PO BID #180 tabs 02/27/22 (Keppra) famotidine 40 mg tablet 40 mg PO DAILY #30 tabs 02/28/22 pantoprazole 40 mg tablet,delayed 40 mg PO DAILY #30 tabs 03/20/22 release Results & Data (ED) Vital Signs Vital Signs - 24 hr 04/10/22 16:14 04/10/22 21:14 04/10/22 23:00 Temperature 36.5 C Temperature Source Oral Pulse Rate 82 Pulse Rate [Radial] 83 77 Pulse Rhythm Regular Pulse Rhythm [Radial] Regular Regular Pulse Strength Normal Pulse Strength [Radial] Normal Normal Respiratory Rate 18 16 18 Respiratory Effort / Characteristics Non-Labored Spontaneous Non-Labored Spontaneous Non-Labored Spontaneous Respiratory Depth Normal Normal Normal Respiratory Pattern Regular Regular Regular Blood Pressure 106/66 Blood Pressure [Right Arm] 120/77 120/77 Blood Pressure Mean 79 Blood Pressure Mean [Right Arm] 91 91 Blood Pressure Position Sitting Blood Pressure Position [Right Arm] Lying Lying Pulse Oximetry 98 98 100 Oxygen Delivery Method Room Air Room Air Room Air Sepsis Recent Fever Within 48 Hours No Sepsis New/Unexplained Change in Mental Status No Sepsis Action Taken by Nursing No Action Required Laboratory Data Result diagrams: 04/10/22 18:53 04/10/22 18:53 Lab Results 04/10/22 04/10/22 04/10/22 Range/Units 18:53 18:53 18:53 WBC 10.96 H (4.8-10.8) K/ul RBC 3.10 L (3.93-5.22) M/uL Hgb 10.4 L (12.0-16.0) g/dl Hct 29.8 L (34.1-44.9) % MCV 96.1 (80.0-100.0) fL MCH 33.5 (25.0-34.0) pg MCHC 34.9 (32.0-36.0) g/dL RDW Std Deviation 52.7 H (36.4-46.3) fL RDW Coeff of Nancy 15.2 H (11.5-14.5) % Plt Count 84 L (130-400) K/uL MPV 10.6 (9.4-12.3) fL Immature Gran % (Auto) 0.3 % Neut % (Auto) 73.8 % Lymph % (Auto) 16.4 % [place] % (Auto) 9.3 % Eos % (Auto) 0.0 % Baso % (Auto) 0.2 % Neut # (Auto) 8.09 H (1.4-6.5) K/uL Lymph # (Auto) 1.80 (1.2-3.4) K/uL [place] # (Auto) 1.02 H (0.24-0.82) K/uL Eos # (Auto) 0.00 (0-0.50) K/uL Baso # (Auto) 0.02 (0-0.2) K/uL Immature Gran # (Auto) 0.03 H (0.00-0.02) K/uL Echinocytes 2+ Acanthocytes (Spur) 1+ PT 24.4 H (9.0-12.0) Seconds INR 2.4 H (0.9-1.1) Sodium 131 L (136-145) mmol/L Potassium 4.3 (3.5-5.1) mmol/L Chloride 105 (98-107) mmol/L Carbon Dioxide 17 L (21-32) mmol/L Anion Gap 9 (3-11) BUN 17 (6-23) mg/dl Creatinine 1.46 H (0.6-1.2) mg/dl Est Cr Clr Drug Dosing Not Reportable Est GFR ( Amer) 38.7 ml/min Est GFR (Non-Af Amer) 33.4 ml/min BUN/Creatinine Ratio 11.6 (10-20) Glucose 123 H (70-99(Fasting)) mg/dl Calcium 9.1 (8.5-10.1) mg/dl Total Bilirubin 4.1 H (0.2-1.0) mg/dl AST 60 H (13-39) U/L ALT 25 (7-52) U/L Alkaline Phosphatase 192 H (34-104) U/L Total Protein 6.4 (6.0-8.3) gm/dl Albumin 2.5 L (3.4-5.0) gm/dl Globulin 3.9 (2.5-4.0) gm/dl Albumin/Globulin Ratio 0.6 L (0.9-2) Lipase 12 (11-82) U/L Urine Color Urine Appearance (Clear) Urine pH (4.5-7.5) Ur Specific [place] (1.000-1.030) Urine Protein (Negative) Urine Glucose (UA) (Negative) Urine Ketones (Negative) Urine Blood (Negative) Urine Nitrite (Negative) Urine Bilirubin (Negative) Urine Urobilinogen (Negative) Ur Leukocyte Esterase (Negative) Urine WBC (Auto) (0-5) /hpf Urine RBC (Auto) (0-4) /hpf U Hyaline Cast (Auto) (0-5) /lpf U Epithel Cells (Auto) (0-5) /lpf Urine Bacteria (Auto) (Negative) Urine Crystals Calcium Oxalate Crystal (None Prsent) Urine Yeast (None Prsent) SARS-CoV-2, RNA, NAAT (NEGATIVE) 04/10/22 04/10/22 Range/Units 22:38 23:42 WBC (4.8-10.8) K/ul RBC (3.93-5.22) M/uL Hgb (12.0-16.0) g/dl Hct (34.1-44.9) % MCV (80.0-100.0) fL MCH (25.0-34.0) pg MCHC (32.0-36.0) g/dL RDW Std Deviation (36.4-46.3) fL RDW Coeff of Nancy (11.5-14.5) % Plt Count (130-400) K/uL MPV (9.4-12.3) fL Immature Gran % (Auto) % Neut % (Auto) % Lymph % (Auto) % [place] % (Auto) % Eos % (Auto) % Baso % (Auto) % Neut # (Auto) (1.4-6.5) K/uL Lymph # (Auto) (1.2-3.4) K/uL [place] # (Auto) (0.24-0.82) K/uL Eos # (Auto) (0-0.50) K/uL Baso # (Auto) (0-0.2) K/uL Immature Gran # (Auto) (0.00-0.02) K/uL Echinocytes Acanthocytes (Spur) PT (9.0-12.0) Seconds INR (0.9-1.1) Sodium (136-145) mmol/L Potassium (3.5-5.1) mmol/L Chloride (98-107) mmol/L Carbon Dioxide (21-32) mmol/L Anion Gap (3-11) BUN (6-23) mg/dl Creatinine (0.6-1.2) mg/dl Est Cr Clr Drug Dosing Est GFR ( Amer) ml/min Est GFR (Non-Af Amer) ml/min BUN/Creatinine Ratio (10-20) Glucose (70-99(Fasting)) mg/dl Calcium (8.5-10.1) mg/dl Total Bilirubin (0.2-1.0) mg/dl AST (13-39) U/L ALT (7-52) U/L Alkaline Phosphatase (34-104) U/L Total Protein (6.0-8.3) gm/dl Albumin (3.4-5.0) gm/dl Globulin (2.5-4.0) gm/dl Albumin/Globulin Ratio (0.9-2) Lipase (11-82) U/L Urine Color [place] Urine Appearance Turbid A (Clear) Urine pH 5.0 (4.5-7.5) Ur Specific [place] 1.030 (1.000-1.030) Urine Protein 1+ H (Negative) Urine Glucose (UA) Negative (Negative) Urine Ketones Trace H (Negative) Urine Blood Negative (Negative) Urine Nitrite Positive A (Negative) Urine Bilirubin 1+ H (Negative) Urine Urobilinogen Negative (Negative) Ur Leukocyte Esterase 1+ H (Negative) Urine WBC (Auto) 10-30 H (0-5) /hpf Urine RBC (Auto) 0-4 (0-4) /hpf U Hyaline Cast (Auto) >30 H (0-5) /lpf U Epithel Cells (Auto) >30 H (0-5) /lpf Urine Bacteria (Auto) Negative (Negative) Urine Crystals Not Reportable Calcium Oxalate Crystal Present A (None Prsent) Urine Yeast Budding A (None Prsent) SARS-CoV-2, RNA, NAAT NEGATIVE (NEGATIVE) Administered Medications Discontinued Medications Sodium Chloride (Nss 1000ml) 1,000 mls @ 999 mls/hr IV .[id number] ONE Stop: 04/10/22 22:41 Last Infusion: 04/10/22 23:41 Dose: 0 mls/hr Documented By: Admin: 04/10/22 21:53 Dose: 999 mls/hr Documented By: ORLANDO Ceftriaxone Sodium (Rocephin) 1,000 mg in 50 mls @ 100 mls/hr IV NOW STA Stop: 04/10/22 23:53 Last Infusion: 04/11/22 00:19 Dose: 0 mls/hr Documented By: Admin: 04/10/22 23:40 Dose: 100 mls/hr Documented By: ORLANDO Ioversol (Optiray 350 100ml) 94 ml IV ONCE ONE Stop: 04/10/22 22:25 Last Admin: 04/10/22 22:25 Dose: 94 ml Documented By: RACIEL Ondansetron HCl (Ondansetron Inj 2 Mg/Ml 2 Ml Vial) 4 mg IV NOW STA Stop: 04/10/22 21:43 Last Admin: 04/10/22 21:53 Dose: 4 mg Documented By: ORLANDO Imaging Data Radiologist's Impression: KUB X-Ray 04/10/22 16:19 KUB CLINICAL HISTORY: Ongoing nausea vomiting diarrhea COMPARISON STUDY: CT of the abdomen and pelvis October 15, 2020. FINDINGS: Cholecystectomy clips are incidentally noted. There is no evidence for a bowel obstruction. Amount of stool is within normal limits. Extensive vascular calcification is incidentally noted. Round hyperdensities projecting over the right abdomen likely reflect diverticula. IMPRESSION: No evidence for a bowel obstruction. ACT 112: Negative or not required by law. Electronically signed by: Aneesh Benítez M.D. 04/10/2022 5:31 PM Discharge Plan Visit Data Chief Complaint: Dehydration Stated Complaint: DEHYDRATION,WEEKNESS ED Provider: Alyssa Amador Discharge Problem: Generalized weakness, Acute UTI (urinary tract infection), Diverticulitis Patient Disposition: Admitted As Inpatient Forms Stand Alone Forms: [facility] Prescriptions Prescriptions: No Action hydroxychloroquine [Plaquenil] 200 mg tablet 200 mg PO QAM Qty: 90 1RF calcium carbonate [Calcium 600] 600 mg calcium (1,500 mg) tablet 600 mg PO DAILY Qty: 90 3RF escitalopram oxalate 20 mg tablet 20 mg PO DAILY Qty: 90 3RF (DME) lancets [OneTouch Delica Lancets] 33 gauge misc See Rx Instructions .ROUTE .MEDSUPPLY Qty: 100 3RF Rx Instructions: TEST ONE TIME DAILY (DME) blood sugar diagnostic Strip See Rx Instructions .ROUTE .MEDSUPPLY Qty: 100 3RF Rx Instructions: TEST 1 TIME DAILY Slow-Mag 71.5 mg tablet,delayed release (DR/EC) 143 mg PO DAILY Qty: 180 3RF levetiracetam [Keppra] 250 mg tablet 250 mg PO BID Qty: 180 3RF pantoprazole 40 mg tablet,delayed release (DR/EC) 40 mg PO DAILY Qty: 30 2RF cetirizine [Zyrtec] 10 mg tablet 5 mg PO HS PRN (Reason: Allergy Symptoms) buspirone 5 mg tablet 5 mg PO BID Qty: 60 1RF albuterol sulfate 90 mcg/actuation HFA aerosol inhaler 2 puff inhalation Q6H PRN (Reason: shortness of breath or wheezing) Qty: 8.5 5RF cholecalciferol (vitamin D3) 50 mcg (2,000 unit) capsule 50 mcg PO QDD acetaminophen 325 mg capsule 325 mg PO QID PRN (Reason: Pain) rifaximin 550 mg tablet 550 mg PO BID Qty: 180 3RF famotidine 40 mg tablet 40 mg PO DAILY Qty: 30 5RF diclofenac sodium [Voltaren Arthritis Pain] 1 % Gel 2 g EXT QID Qty: 100 0RF spironolactone 25 mg tablet 12.5 mg PO BID cephalexin 500 mg capsule 500 mg PO Q12 Referrals Referrals: Tamara Benítez MD [Primary Care Provider] -
[2022-04-10] MEDS ORDERED: OPTIRAY 350 100ml IV ONE (22:24)
[2022-04-10 22:51] LABS: Appearance Urine Turbid (Clear); Bacteria Urine Automated Negative (Negative); Blood Urine Negative (Negative); Color Urine Orange; Epithelial Cell Urine Auto >30 /lpf (0-5); Glucose Urine UA Negative (Negative); Ketones Urine Trace (Negative); Leukocyte Esterase Urine 1+ (Negative); Nitrite Urine Positive (Negative); Protein Urine 1+ (Negative); Urobilinogen Urine Negative (Negative)
[2022-04-10 23:12] LABS: Bilirubin Urine 1+ (Negative)
[2022-04-10 23:23] LABS: Cast Urine Automated >30 /lpf (0-5); RBC Urine Automated 0-4 /hpf (0-4)
[2022-04-10 23:24] LABS: Calcium Oxalate Crystals Urine Present (None Prsent)
[2022-04-10] MEDS ORDERED: cefTRIAXone SODIUM 1,000 MG/50 ML BAG IV STA (23:24)
--- NOTE | 2022-04-11 00:49 | History & Physical Report ---
Date of Service April 11, 2022 Assessment & Plan (1) Generalized weakness: Plan: 1 y/o female w/ PMHx of cirrhosis, varices, type 2 diabetes who presents for over a week of malaise. - considered infectious etiology (low suspicion for UTI). will cover for sbp. consider paracentesis. ct abd w/ possible mild cholecystitis - defer abx change to dayshift until after paracentesis. consider adding flagyl and increasing rocephin dose to 2g - GI biofire ordered in ED, not yet collected (2) Cirrhosis: Plan: - will clarify hx regarding if alcoholic cirrhosis - w/ thrombocytopenia, varices, and ascites - CT abd w/ cirrhosis, moderate ascites, gastric varices, potential mild diverticulosis and potential mass of liver. Per statrad radiology read, consider MRI w/ contrast to eval for hepatocellular carcinoma. - MELD at admission: 28 - Maddrey's discriminant function at admission 61.1. consider glucocorticoids. will need to clarify if alcoholic cirrhosis because if sbp, would consider risk vs benefit of use - continue home rifaximin (3) Right flank pain: Plan: Subjectively, minimalized the abd pain and states intermittent. On exam, however, quite tender at right flank and somewhat less at RUQ. - the right flank pain on exam would not be explained by cirrhosis alone - lower suspicion for UTI given lack of urinary symptoms - patient is s/p cholecystectomy (4) Type 2 diabetes mellitus: Plan: - check bsg achs when eating and q6h when npo (5) Hx of seizure disorder: Plan: - continue home keppra Plan NPO ppx: scds only. thrombocytopenic DNR/DNI: Detailed discussion w/ patient. code: med/surg History of Present Illness Chief Complaint: generalized weakness Primary Care Provider: Tamara Benítez MD 81 y/o female w/ PMHx of cirrhosis, varices, type 2 diabetes who presents for N/V, lightheadedness, being treated for UTI as outpatient. She has generalized weakness and abdominal pain. She was seen in the ED a week ago for similar symptoms and was diagnosed w/ UTI and started on Keflex. She denies having had dysuria or other urinary symptoms and continues to deny those symptoms at the current visit. She has continued to have malaise and poor appetite and had difficulty even w/ adhering to the PO Keflex. She has intermittently had generalized abd pain. Denies fever or chills. ED course: Rocephin 1g. NSS 1L. wbc 10.96. Hb 10.4 (baseline). Plts 84 (baseline). INR 2.4 (baseline 1.3). Na 131, somewhat chronic (133+). Cr 1.46 (baseline). tbili 4.1, uptrending past few months. Allergies Allergy/AdvReac Type Severity Reaction Status Date / Time levofloxacin [From Levaquin] Allergy Severe Shortness Verified 04/10/22 15:06 of breath sulfamethoxazole Allergy Severe SOB Verified 04/10/22 15:06 [From Bactrim] trimethoprim [From Bactrim] Allergy Severe SOB Verified 04/10/22 15:06 ciprofloxacin [From Cipro] Allergy Intermediate Hives Verified 04/10/22 15:06 paroxetine Allergy Mild Diarrhea Verified 04/10/22 15:06 phenytoin Allergy Unknown Unknown Verified 04/10/22 15:06 unknown antibiotic Allergy Severe Browning-Bryon Uncoded 04/10/22 15:06 syndrome - no records available Home Medications Medication Instructions Recorded Confirmed Type cholecalciferol (vitamin D3) 50 50 mcg PO QDD 08/11/20 04/10/22 History mcg (2,000 unit) capsule hydroxychloroquine 200 mg tablet 200 mg PO QAM #90 tabs 08/30/20 04/10/22 Rx (Plaquenil) diclofenac sodium 1 % topical gel 2 g EXT QID #100 grams 04/24/21 04/10/22 Rx (Voltaren Arthritis Pain) acetaminophen 325 mg capsule 325 mg PO QID PRN Pain 05/11/21 04/10/22 History calcium carbonate 600 mg calcium 600 mg PO DAILY #90 tabs 06/16/21 04/10/22 Rx (1,500 mg) tablet (Calcium) cetirizine 10 mg tablet (Zyrtec) 5 mg PO HS PRN Allergy Symptoms 07/13/21 04/10/22 History escitalopram oxalate 20 mg tablet 20 mg PO DAILY #90 tabs 07/20/21 04/10/22 Rx rifaximin 550 mg tablet 550 mg PO BID hepatic 09/13/21 04/10/22 Rx encephalopathy from cirrhosis #180 tabs albuterol sulfate 90 mcg/actuation 2 puff inhalation Q6H PRN 12/21/21 04/10/22 Rx aerosol inhaler shortness of breath or wheezing #8.5 grams buspirone 5 mg tablet 5 mg PO BID #60 tabs 12/21/21 04/10/22 Rx lancets 33 gauge (EduardoTouch Delica #100 ea 12/22/21 04/10/22 Rx Lancets) blood sugar diagnostic #100 ea 12/29/21 04/10/22 Rx magnesium chloride 71.5 mg 143 mg PO DAILY #180 tabs 01/16/22 04/10/22 Rx (magnesium chloride) tablet,delayed release (Slow-Mag) levetiracetam 250 mg tablet 250 mg PO BID #180 tabs 02/27/22 04/10/22 Rx (Keppra) famotidine 40 mg tablet 40 mg PO DAILY #30 tabs 02/28/22 04/10/22 Rx pantoprazole 40 mg tablet,delayed 40 mg PO DAILY #30 tabs 03/20/22 04/10/22 Rx release cephalexin 500 mg capsule 500 mg PO Q12 04/10/22 04/10/22 History spironolactone 25 mg tablet 12.5 mg PO BID 04/10/22 04/10/22 History Past Med/Surg History Medical History Adjustment disorder with depressed mood Anemia Chronic back pain Cirrhosis cryptogenic Cough Esophageal varices Generalized anxiety disorder GERD (gastroesophageal reflux disease) Glaucoma Hearing difficulty History of kidney stones Hx of gout Osteoarthritis Osteopenia Portal hypertension Portosystemic encephalopathy Seizure LAST ONE MORE THAN 10 YRS AGO Sensorineural hearing loss (SNHL) of both ears Sjogren's disease SLE (systemic lupus erythematosus) Thrombocytopenia Type 2 diabetes mellitus Urinary incontinence Surgical History H/O: hysterectomy (~1984) History of colonoscopy History of esophagogastroduodenoscopy (EGD) with banding of esophageal varices History of liver biopsy Hx of cholecystectomy (~1983) S/P tooth extraction Family History Grandfather Diabetes Mother Hypertension Gallbladder disease Grandmother No problems noted. Father Pancreatic cancer Brother Alcohol abuse Alcoholic cirrhosis of liver Other No family history of adverse response to anesthesia Denies family history of Ovarian cancer Prostate cancer Alzheimer disease Heart disease Myocardial infarction Breast cancer Lung cancer Colorectal cancer Stroke Social History Smoking Status: Never smoker Second Hand Exposure: No; Do You Dip or Chew Tobacco: No; Tobacco Cessation Education Requested by Patient: No Hx Alcohol Use: Yes Alcohol type: wine Hx Substance Use: No Preferred Language: Burmese Communication Ability: Effective Visual Impairment: Limited Hearing Ability: Use of Hearing Aid Soil Science Technical Officer Required: No Beliefs That Will Affect Care: None marital status: / Current Living Situation: Alone Current Living Situation Comment: DAUGHTER LIVES CLOSE AND CAN ASSIST>[employer] current occupational status: retired current occupation: career with [employer] How many Children do You have: 2 Other Information That Helps Us Care for You: No Feels Safe at Home: Yes Safety Concerns: Feels Safe At This Time Childhood Exposure to Second-Hand Smoke: No caffeine: Yes Dental Care, Regularly: No Physical Activity Frequency: Does not Exercise Seatbelt Use: always Sunscreen Use: No Assistive Devices: Walker and Wheelchair Review of Systems Review of Systems: All systems reviewed & are unremarkable except as noted in HPI & below Physical Exam Physical Exam: General: A&Ox4. NAD. Cooperative. Slightly hard of hearing. Deep voice. HEENT: Atraumatic, normocephalic. EOMI Pulm: CTAB. -wheezes, -rales, -rhonchi. No respiratory distress. Cardiac: RRR, -mrg. Puffy ankles, no pitting edema. Abdominal: RUQ mild-mod ttp. Pain is worse at R flank. Very positive R cva ttp. Soft, nondistended. Integ: Warm, dry, intact. Msk: Moving all extrem. Results & Data Results & Data ([facility]) Vital Signs (Past 12 Hours) Vital Signs Temp Pulse Pulse Resp BP BP Pulse Ox 04/10/22 23:00 77 18 120/77 100 04/10/22 21:14 83 16 120/77 98 04/10/22 16:14 36.5 C 82 18 106/66 98 O2 Del Method 04/10/22 23:00 Room Air 04/10/22 21:14 Room Air 04/10/22 16:14 Room Air Laboratory Results Cardiac Enzymes 04/10/22 Range/Units 18:53 AST 60 H (13-39) U/L Coagulation 04/10/22 Range/Units 18:53 PT 24.4 H (9.0-12.0) Seconds CBC 04/10/22 Range/Units 18:53 WBC 10.96 H (4.8-10.8) K/ul RBC 3.10 L (3.93-5.22) M/uL Hgb 10.4 L (12.0-16.0) g/dl Hct 29.8 L (34.1-44.9) % Plt Count 84 L (130-400) K/uL Neut # (Auto) 8.09 H (1.4-6.5) K/uL Lymph # (Auto) 1.80 (1.2-3.4) K/uL [place] # (Auto) 1.02 H (0.24-0.82) K/uL Eos # (Auto) 0.00 (0-0.50) K/uL Baso # (Auto) 0.02 (0-0.2) K/uL Comprehensive Metabolic Panel 04/10/22 Range/Units 18:53 Sodium 131 L (136-145) mmol/L Potassium 4.3 (3.5-5.1) mmol/L Chloride 105 (98-107) mmol/L Carbon Dioxide 17 L (21-32) mmol/L BUN 17 (6-23) mg/dl Creatinine 1.46 H (0.6-1.2) mg/dl Glucose 123 H (70-99(Fasting)) mg/dl Calcium 9.1 (8.5-10.1) mg/dl AST 60 H (13-39) U/L ALT 25 (7-52) U/L Alkaline Phosphatase 192 H (34-104) U/L Total Protein 6.4 (6.0-8.3) gm/dl Albumin 2.5 L (3.4-5.0) gm/dl Intake and Output 04/10/22 04/10/22 04/11/22 14:59 22:59 06:59 Intake Total 1050 / 1050 Balance 1050 / 1050 Intake: IV 1050 / 1050 Sodium Chloride 0.9% 1000ML 1, 1000 / 1000 000 ml @ 999 mls/hr IV .Q1H1M ONE Rx#:[id number] cefTRIAXone SODIUM 1,000 mg In 50 / 50 50 ml @ 100 mls/hr IV NOW STA Rx#:[id number] Other: Weight 0 g Patient Weight 04/11/22 06:59 Weight 0 g Diagnostic Findings KUB X-Ray 04/10/22 16:19 KUB CLINICAL HISTORY: Ongoing nausea vomiting diarrhea COMPARISON STUDY: CT of the abdomen and pelvis October 15, 2020. FINDINGS: Cholecystectomy clips are incidentally noted. There is no evidence for a bowel obstruction. Amount of stool is within normal limits. Extensive vascular calcification is incidentally noted. Round hyperdensities projecting over the right abdomen likely reflect diverticula. IMPRESSION: No evidence for a bowel obstruction. ACT 112: Negative or not required by law. Electronically signed by: Aneesh Benítez M.D. 04/10/2022 5:[address] abd/pelv w/ contrast. statrad. Cirrhotic liver. Potential mass within hepatic segment 6 mesauring 1.4 cm (image [id number]). Consider MRI with contrast to evaluate for hepatocellular carcinoma. Moderate ascites. Hiatal hernia. Gastric varices. Sigmoid diverticulosis. Potential mild diverticulitis (image [id number]). No abscess or free air. Radiologist: Mike Bennett MD. Study ready at 22:23 and initial results transmitted at 23:09 Code Status & VTE Plan Code Status DNR/DNI VTE Prophylaxis Plan VTE Prophylaxis will be ordered: Yes Supervising Physician Co-Signing Physician Notes Attending addendum: I have physically seen this patient, have supervised the medical residents activities, and agree with the H&P unless as otherwise noted. Assessment and Plan: Generalized weakness- Multiple potential etiologies including but not limited to: Urinary tract infection, peritonitis, diverticulitis Follow urine cultures, blood cultures and ascites if paracentesis performed Consult gastroenterology GI/cirrhosis/varices/ascites/question of mild diverticulitis on CT/potential liver mass- Order MRI abdomen/pelvis Diagnostic/therapeutic paracentesis Empiric treatment for diverticulitis as noted Meld score 28 Diabetes mellitus- Accu-Cheks before meals and at bedtime/every 6 hours when n.p.o., with NovoLog coverage per scale Check hemoglobin A1c Seizure disorder- Continue Keppra Remaining orders and notations as noted Resident Activity Tracking Resident Involvement: Resident Care Provided Care Provided: Adult [facility] Medicine
[2022-04-11] MEDS ORDERED: Flu Vaccine-High Dose (Fluzone-HD) PF 65+ 0.7mL SYR IM ONE (05:30)
[2022-04-11 05:35] LABS: Albumin Globulin Ratio 0.6 (0.9-2); BUN Creatinine Ratio 13.4 (10-20); Bilirubin,Total 3.4 mg/dl (0.2-1.0); Calcium 8.6 mg/dl (8.5-10.1); Creatinine Clr Calc Pharmacy 28.4 ml/min; Est GFR (Non-African American) 37.1 ml/min; Globulin 3.4 gm/dl (2.5-4.0); Magnesium 1.3 mg/dl (1.7-2.4); Potassium 4.4 mmol/L (3.5-5.1); Total Protein 5.4 gm/dl (6.0-8.3)
[2022-04-11 05:45] LABS: INR 2.8 (0.9-1.1); Prothrombin Time 28.5 Seconds (9.0-12.0)
[2022-04-11 05:46] LABS: Hematocrit (blood only) 25.3 % (34.1-44.9); Hemoglobin 8.9 g/dl (12.0-16.0); Mean Corpuscular Hemoglobin 33.6 pg (25.0-34.0); Mean Corpuscular Hgb Conc 35.2 g/dL (32.0-36.0); Mean Corpuscular Volume 95.5 fL (80.0-100.0); Mean Platelet Volume 11.4 fL (9.4-12.3); Platelet Count 43 K/uL (130-400); RDW Coefficient of Variation 14.8 % (11.5-14.5); RDW Standard Deviation 51.6 fL (36.4-46.3); Red Blood Count 2.65 M/uL (3.93-5.22); White Blood Count 6.96 K/ul (4.8-10.8)
[2022-04-11 05:47] LABS: Acanthocytes 1+; Basophils # (auto) 0.01 K/uL (0-0.2); Basophils % (auto) 0.1 %; Echinocytes 1+; Immature Granulocytes # (auto) 0.04 K/uL (0.00-0.02); Immature Granulocytes % (auto) 0.6 %; Lymphocytes # (auto) 1.26 K/uL (1.2-3.4); Lymphocytes % (auto) 18.1 %; Monocytes # (auto) 0.63 K/uL (0.24-0.82); Monocytes % (auto) 9.1 %; Neutrophils # (auto) 5.02 K/uL (1.4-6.5); Neutrophils % (auto) 72.1 %; Platelet Estimate Decreased (Normal)
[2022-04-11] MEDS ORDERED: MAGNESIUM SULFATE / D5W 1 GM/100 ML BAG IV SCH (07:45)
[2022-04-11] MEDS: MAGNESIUM SULFATE / D5W 1 GM/100 ML BAG IV SCH ×4 (08:45→14:44)
--- NOTE | 2022-04-11 08:55 | CT Scan Report ---
CT SCAN OF THE ABDOMEN AND PELVIS WITH IV CONTRAST CLINICAL HISTORY: Generalized weakness. Generalized abdominal pain. COMPARISON STUDY: Abdominal CT dated 10/15/2020. TECHNIQUE: Following the IV administration of 94 cc of Optiray 350, CT scan of the abdomen and pelvi s is performed from the lung bases to the proximal femora. Images are reviewed in the axial, sagittal , and coronal planes. IV contrast was administered without complication. A dose lowering technique wa s utilized adhering to the principles of ALARA. The examination is mostly degraded by motion artifact . CT DOSE: 327.21 mGy.cm FINDINGS: Lung bases: The heart is normal in size and without pericardial effusion. There are small right and t race left pleural effusions with dependent atelectasis. There is a moderate hiatal hernia which conta ins ascitic fluid. There are esophageal varices. Liver: The contrast-enhanced liver is cirrhotic in morphology and markedly heterogeneous in attenuati on. Hepatic attenuation is diminished indicating steatosis. There is nodularity of the hepatic surfac e contour and hypertrophy of the left lobe. There is no intrahepatic biliary ductal dilatation. The h epatic veins and portal veins are patent. An indeterminate 1.6 cm low-attenuation lesion is seen in t he inferior right lobe on image #[id number]. Gallbladder: Surgically absent noting clips in the gallbladder fossa. Spleen: Normal in size and attenuation. Pancreas: Atrophic and grossly unremarkable. Adrenal glands: Unremarkable. Kidneys: The contrast enhanced kidneys are atrophic and without hydronephrosis. The kidneys enhance s ymmetrically. A circumaortic left renal vein is incidentally noted. There are small nonobstructing bi lateral renal calculi which measure up to 5 mm. Abdominal vasculature: The abdominal aorta is normal in course and caliber noting advanced atheroscle rotic calcification. Bowel: There is moderate colonic diverticulosis without CT evidence of acute diverticulitis. Residual enteric contrast is noted in the colon. No bowel obstruction is seen. The appendix is normal as vis ualized. Peritoneum: There is a moderate volume of abdominopelvic ascites. No intraperitoneal free air is seen . Lymphadenopathy: None. Pelvic viscera: The bladder is normal as visualized and contains numerous tiny bladder calculi. Uteru s is surgically absent. No adnexal lesion is seen. Skeletal structures: The skeletal structures are osteopenic. There are chronic compression injuries o f L1 and L4. Moderate lumbosacral spondylosis is observed. No lytic or blastic lesions are seen. Soft tissues: There is body wall edema. IMPRESSION: 1. The liver is cirrhotic in morphology, steatotic, and markedly heterogeneous in attenuation. 2. Esophageal varices and a moderate volume of abdominopelvic ascites indicate portal hypertension. 3. Small right and trace left pleural effusions with dependent atelectasis. 4. There is a 1.6 cm indeterminate low-attenuation lesion in the inferior right lobe of the liver. Th is was not seen on 10/15/2020. Correlate with serum AFP levels. Consider a nonemergent/outpatient cont rast-enhanced liver protocol MRI for further assessment. 5. Bilateral nephrolithiasis. 6. Colonic diverticulosis without CT evidence of acute diverticulitis. 7. Bladder calculi are noted. 8. Additional findings as above. ACT 112: Positive. There are findings on this exam that require communication between the performing entity and the patient following Patient Test Result Information Act ([place] Act 112) guidelines. Electronically signed by: Jose Maria Baird M.D. 04/11/2022 8:54 AM
[2022-04-11] MEDS ORDERED: ALBUMIN 25% 100 mL 25 GM/100 ML VIAL IV ONE (11:00)
[2022-04-11] MEDS: ONDANSETRON INJ 2 MG/ML 2 ML VIAL IV PRN ×2 (11:12→20:18)
[2022-04-11] MEDS: HYDROXYCHLOROQUINE SULFATE 200 MG TAB PO SCH (12:02)
[2022-04-11] MEDS: rifAXIMin 550 MG TABLET PO SCH ×3 (13:55→21:47)
[2022-04-11] MEDS: PANTOprazole 40 MG TAB PO SCH (13:55)
[2022-04-11] MEDS: FAMOTIDINE 40 MG TABLET PO SCH (13:55)
[2022-04-11] MEDS: levETIRAcetam 250 MG TAB PO SCH ×3 (13:55→21:47)
[2022-04-11] MEDS: SPIRONOLACTONE 12.5 MG TAB PO SCH ×2 (13:56→21:37)
--- NOTE | 2022-04-11 14:19 | Ultrasound Report ---
US abdomen ltd ascites CLINICAL HISTORY: abdominal pain, cirrhosis w/ ascites, ?SBP COMPARISON STUDY: CT of the abdomen and pelvis April 10, 2022. FINDINGS: The patient presented today for possible paracentesis. Sonography of the abdomen and pelvis demonstrated a small amount of ascites. The amount of fluid is insufficient for therapeutic paracent esis. The possibility of diagnostic paracentesis was discussed with the patient. The patient deferred paracentesis at this time. IMPRESSION: Small amount of ascites, insufficient for therapeutic paracentesis. The possibility of d iagnostic paracentesis was discussed with the patient who deferred the procedure at this time. ACT 112: Negative or not required by law. Electronically signed by: Aneesh Benítez M.D. 04/11/2022 2:18 PM
--- NOTE | 2022-04-11 16:05 | Communication Note ---
Date of Service: April 11, 2022 I personally examined the patient and verified all sanford points of history and exam, discussed case, and agree with decision making with Dr Lira. Feeling better than yesterday. Still some nausea, Zofran helped. Has not really taken in much p.o., but has taken in some sips and ice chips, and most importantly she notes she has not vomited. No alcohol, basically minimal throughout her entire life. Cryptogenic cirrhosis. Notes that she has generally been feeling worse with the nondescript malaise and fatigue for about a month. No fevers chills or sweats no significant abdominal pain. Worsening nausea over the last week or 2. Vitals noted, in general she is awake and alert pleasant no distress. HEENT normocephalic atraumatic mucous membranes moist. Breathing unlabored no accessory muscle use good effort. Skin shows no rashes no pallor or icterus. Abdomen is soft nondistended nontender may be a mild degree of fluid palpable no guarding rebound or rigidity Fatigue/malaise -Appears to be related to liver diseasedifferential on worsening liver disease includes SBP (try to get paracentesis today, but when there was not enough to be therapeutic, she declinedcontinue empiric ceftriaxone; if the questionable liver mass is real, certainly that could be an exacerbating factor; I also harbor concerns about simply worsening of her cirrhosiswith no acute alcoholic hepatitis at play, I am not sure there would really be any meaningful benefit to steroids, will give vitamin K to see if her INR corrects at all prognostically, and ask GI for an opinion. Continue supportive care otherwise.
[2022-04-11] MEDS: cefTRIAXone SODIUM 2,000 MG in DEXTROSE 5% 50 ML IV SCH (17:36)
[2022-04-11] MEDS ORDERED: PHYTONADIONE 10 MG in DEXTROSE 5% 50 ML IV ONE (18:28)
--- NOTE | 2022-04-11 20:51 | Billing Data ---
Date of Service April 11, 2022 Coding Level of Care Code 33721 Initial Inpt Care Lvl 3
[2022-04-12] MEDS ORDERED: GLUCAGON FOR INJ 1 MG VIAL SQ PRN (00:32)
[2022-04-12] MEDS ORDERED: DEXTROSE 50% 50 ML SYRINGE IV PRN (00:32)
[2022-04-12] MEDS ORDERED: GLUCOSE 10 TAB/TUBE PO PRN (00:32)
[2022-04-12] MEDS ORDERED: CARBOHYDRATES FOR HYPOGLYCEMIA PO PRN (00:32)
[2022-04-12] MEDS ORDERED: GLUCOSE 40% GEL 15 GM TUBE PO PRN (00:32)
--- NOTE | 2022-04-12 05:54 | Electrocardiogram Report ---
Test Reason : Blood Pressure : / mmHG Vent. Rate : 083 BPM Atrial Rate : 083 BPM P-R Int : 170 ms QRS Dur : 070 ms QT Int : 448 ms P-R-T Axes : 001 -09 009 degrees QTc Int : 526 ms Sinus rhythm with Premature atrial complexes Low voltage QRS Possible Septal infarct , age undetermined Nonspecific T wave abnormality Prolonged QT Abnormal ECG When compared with ECG of 03-APR-2022 11:07, Septal infarct is now Present Nonspecific T wave abnormality, worse in Anterolateral leads QT has lengthened Confirmed by Jeyson Chun ([id number]) on 04/12/2022 5:54:01 AM Referred By: Damir Case Confirmed By:Jeyson Chun
[2022-04-12 07:02] LABS: Albumin Globulin Ratio 0.9 (0.9-2); Albumin Level 2.4 gm/dl (3.4-5.0); BUN Creatinine Ratio 13.2 (10-20); Bilirubin Direct 1.1 mg/dl (0-0.2); Calcium 8.3 mg/dl (8.5-10.1); Creatinine Clr Calc Pharmacy 26.5 ml/min; Est GFR (African American) 39.4 ml/min; Globulin 2.8 gm/dl (2.5-4.0); Hematocrit (blood only) 23.8 % (34.1-44.9); Hemoglobin 8.3 g/dl (12.0-16.0); Magnesium 2.1 mg/dl (1.7-2.4); Mean Corpuscular Hemoglobin 33.5 pg (25.0-34.0); Mean Corpuscular Hgb Conc 34.9 g/dL (32.0-36.0); Mean Platelet Volume 11.6 fL (9.4-12.3); Platelet Count 44 K/uL (130-400); Potassium 4.3 mmol/L (3.5-5.1); RDW Coefficient of Variation 14.7 % (11.5-14.5); RDW Standard Deviation 51.7 fL (36.4-46.3); Red Blood Count 2.48 M/uL (3.93-5.22); Total Protein 5.2 gm/dl (6.0-8.3); White Blood Count 6.01 K/ul (4.8-10.8)
--- NOTE | 2022-04-12 07:45 | Hospitalist Progress Note ---
Date of Service April 12, 2022 Assessment & Plan (1) Generalized weakness: (2) Cirrhosis: (3) Right flank pain: (4) Type 2 diabetes mellitus: (5) Hx of seizure disorder: Plan 81 y/o female w/ PMHx of cirrhosis, varices, type 2 diabetes who presents for over a week of malaise. Generalized weakness - considered infectious etiology (low suspicion for UTI). will cover for sbp. consider paracentesis. ct abd w/ possible mild cholecystitis - Paracentesis declined by patient. Acities very minimal if any at this time. - GI biofire ordered Cirrhosis - will clarify hx regarding if alcoholic cirrhosis - w/ thrombocytopenia, varices, and ascites - CT abd w/ cirrhosis, moderate ascites, gastric varices, potential mild diverticulosis and potential mass of liver. Per statrad radiology read, consider MRI w/ contrast to eval for hepatocellular carcinoma. - MELD at admission: 28 - Maddrey's discriminant function at admission 61.1. consider glucocorticoids. will need to clarify if alcoholic cirrhosis because if sbp, would consider risk vs benefit of use - continue home rifaximin - Patient has an elevated AFP(13.6) and CEA (11.6). Should repeat AFP in one month to see if elevated over 7 ng/mL. - Liver MRI as an outpatient to exam new liver mass. - GI consulted and appreciate recommendations. Right flank pain: - abd pain is intermittent and states intermittent. On exam, however, quite tender at right flank and somewhat less at RUQ. - the right flank pain on exam would not be explained by cirrhosis alone - lower suspicion for UTI given lack of urinary symptoms - patient is s/p cholecystectomy Type 2 diabetes mellitus - check bsg achs when eating. Hx of seizure disorder: - continue home [facility] Admission and Anticipated Discharge Date Admission Date: April 11, 2022 Supervising Physician Co-Signing Physician Notes I personally examined the patient and verified all sanford points of history and exam, discussed case, and agree with decision making with Dr Lira No nausea or abdominal pain, but extreme fatigue and malaise. Daughter present at the bedside, updated to the best my ability. GI input appreciated. Vitals noted, in general she is awake and alert very fatigued appearing pleasant otherwise no distress. HEENT normocephalic atraumatic mucous membranes moist. Breathing unlabored no accessory muscle use good effort. Skin shows no rashes no pallor or icterus. Neuro without focal deficits. Fatigue/malaise -Appears to be related to liver diseasedifferential on worsening liver disease includes SBP (declined paracentesison empiric antibiotics); if the questionable liver mass is real, certainly that could be an exacerbating factor; GI entertaining possible viral illnesses; I also harbor concerns about simply worsening of her cirrhosisINR still quite elevated but at least did correct some with vitamin K. Continue supportive care otherwise. Subjective Patient was seen bedside this AM. Patient has been having some nausea and feeling tired. Also still having slight ab pain in the epigastric region that has been going on for some time. Also states that she is having some trouble with PO intake but has been able to get some food and water PO. Review of Systems Review of Systems: All systems reviewed & are unremarkable except as noted in HPI & below Physical Exam Constitutional: well developed Neck: normal visual inspection Respiratory: normal respiratory effort, lungs clear to auscultation Cardiovascular: RRR, no murmur, no edema Gastrointestinal (Abdomen): Inspection/Auscultation: abdomen normal to inspection Percussion/Palpation: abdomen soft; abdomen nontender and no ascites Musculoskeletal: Head/Neck/Chest: normocephalic Skin: no rashes, warm and dry Psychiatric: Orientation: alert and oriented x 3 Results & Data Results & Data ([facility]) Vital Signs (Past 12 Hours) Vital Signs Temp Pulse Pulse Resp BP Pulse Ox O2 Del Method 04/12/22 00:22 36.4 C L 77 16 105/56 L 97 Room Air 04/11/22 21:00 36.7 C 73 16 113/73 98 Room Air 04/11/22 20:37 36.7 C 77 16 106/60 98 Room Air 04/11/22 20:16 36.7 C 78 16 105/57 L 96 Room Air 04/11/22 19:52 36.7 C 86 16 100/61 96 Room Air Resident Activity Tracking Resident Involvement: Resident Care Provided Care Provided: Adult Hospital Medicine
[2022-04-12 10:01] LABS: INR 2.1 (0.9-1.1); Prothrombin Time 21.2 Seconds (9.0-12.0)
[2022-04-12] MEDS: HYDROXYCHLOROQUINE SULFATE 200 MG TAB PO SCH (10:37)
[2022-04-12] MEDS: rifAXIMin 550 MG TABLET PO SCH ×2 (10:37→21:49)
[2022-04-12] MEDS: PANTOprazole 40 MG TAB PO SCH (10:37)
[2022-04-12] MEDS: SPIRONOLACTONE 12.5 MG TAB PO SCH ×2 (10:37→21:49)
[2022-04-12] MEDS: FAMOTIDINE 40 MG TABLET PO SCH (10:37)
[2022-04-12] MEDS: levETIRAcetam 250 MG TAB PO SCH ×2 (10:37→21:49)
--- NOTE | 2022-04-12 10:39 | Gastrointestinal Consultation ---
Date of Consultation April 12, 2022 Assessment & Plan (1) Cirrhosis: MELD score improving since admission, now at 24. Patient denies any alcohol use prior to admission. She notes ongoing body aches, weakness, & fatigue. Recent antibiotic treatment for UTI as well. -Obtain biofire to rule out underlying viral illnesses that could have contribute to acutely worsening liver function; Obtain Winkler studies as well. -In terms of HCC surveillance, given new findings of 1.6 cm liver lesion and new elevation of AFP found while inpatient, would advise outpatient Liver MRI when discharged. -Trend MELD labs daily. -No evidence of significant ascites; patient is being empirically treated for SBP by primary team. -Continue Aldactone 25 mg daily; If volume management worsens consider neprhology evaluation for assistance with diuretic management as per Dr. Magallanes's recommendations on 03/02/22. -Continue Xifaxan 550 mg BID. Avoid constipation, goal is for 3-4 bowel movements daily. Currently no evidence of hepatic encephalopathy. -EGD due in 2022 for variceal surveillance. -Continue Protonix 40 mg BID. -Avoid NSAIDs. -Limit Tylenol to less than 2 gm daily. -2 gm Sodium restricted diet. -Continue to avoid alcohol. 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 She presented to the emergency room for nausea, vomiting, and lightheadedness. She notes she was being treated for a UTI as an outpatient after an ER visit a week ago. She notes that while at home she began to notice that she was progressively weaker and feeling less capable of caring for herself. She notes decreased appetite. Since admission, it appears that she had CT imaging of the abdomen/pelvis. This suggested a 1.6 cm lesion on the right liver that requires MRI evaluation. This is new from her previous imaging. Since hospitalization an AFP is obtained and is now elevated at 13.6. Patient's was seen in outpatient clinic by Dr. Magallanes on 03/02/22 and discussion was had regarding patient's complaints of abdominal fullness which she felt was ascites. An US imaging study was scheduled and it was advised to obtain a nephrology consult for assistance for diuretic management given her history of chronic kidney disease. Patient is presently on Aldactone 12.5 mg BID. Upon admission, she was treated empirically for SBP with Ceftriaxone. A paracentesis was obtained, however there was only a small amount of ascitic fluid insufficient for a therapeutic tap. Last EGD was in June 2021 and indicated grade 1 varices. The patient is currently on Protonix 40 mg BID. Her MELD score yesterday was 28, but has improved to 24 today. There was concern for a possible alcoholic hepatitis but the patient is clear that she was not drinking alcohol prior to her admission to the hospital. WBC 6,010. H/H 8.3/23.8. Alk phos 135. AST 56, ALT 21. T bili 3.0, D bili 1.1. INR improved to 2.1 today. Patient denies jaundice. Allergies Allergy/AdvReac Type Severity Reaction Status Date / Time levofloxacin [From Levaquin] Allergy Severe Shortness Verified 04/10/22 15:06 of breath sulfamethoxazole Allergy Severe SOB Verified 04/10/22 15:06 [From Bactrim] trimethoprim [From Bactrim] Allergy Severe SOB Verified 04/10/22 15:06 ciprofloxacin [From Cipro] Allergy Intermediate Hives Verified 04/10/22 15:06 paroxetine Allergy Mild Diarrhea Verified 04/10/22 15:06 phenytoin Allergy Unknown Unknown Verified 04/10/22 15:06 unknown antibiotic Allergy Severe Browning-Bryon Uncoded 04/10/22 15:06 syndrome - no records available Home Medications Medication Instructions Recorded Confirmed Type cholecalciferol (vitamin D3) 50 50 mcg PO QDD 08/11/20 04/10/22 History mcg (2,000 unit) capsule hydroxychloroquine 200 mg tablet 200 mg PO QAM #90 tabs 08/30/20 04/10/22 Rx (Plaquenil) diclofenac sodium 1 % topical gel 2 g EXT QID #100 grams 04/24/21 04/10/22 Rx (Voltaren Arthritis Pain) acetaminophen 325 mg capsule 325 mg PO QID PRN Pain 05/11/21 04/10/22 History calcium carbonate 600 mg calcium 600 mg PO DAILY #90 tabs 06/16/21 04/10/22 Rx (1,500 mg) tablet (Calcium) cetirizine 10 mg tablet (Zyrtec) 5 mg PO HS PRN Allergy Symptoms 07/13/21 04/10/22 History escitalopram oxalate 20 mg tablet 20 mg PO DAILY #90 tabs 07/20/21 04/10/22 Rx rifaximin 550 mg tablet 550 mg PO BID hepatic 09/13/21 04/10/22 Rx encephalopathy from cirrhosis #180 tabs albuterol sulfate 90 mcg/actuation 2 puff inhalation Q6H PRN 12/21/21 04/10/22 Rx aerosol inhaler shortness of breath or wheezing #8.5 grams buspirone 5 mg tablet 5 mg PO BID #60 tabs 12/21/21 04/10/22 Rx lancets 33 gauge (OneTouch Delica #100 ea 12/22/21 04/10/22 Rx Lancets) blood sugar diagnostic #100 ea 12/29/21 04/10/22 Rx magnesium chloride 71.5 mg 143 mg PO DAILY #180 tabs 01/16/22 04/10/22 Rx (magnesium chloride) tablet,delayed release (Slow-Mag) levetiracetam 250 mg tablet 250 mg PO BID #180 tabs 02/27/22 04/10/22 Rx (Keppra) famotidine 40 mg tablet 40 mg PO DAILY #30 tabs 02/28/22 04/10/22 Rx pantoprazole 40 mg tablet,delayed 40 mg PO DAILY #30 tabs 03/20/22 04/10/22 Rx release cephalexin 500 mg capsule 500 mg PO Q12 04/10/22 04/10/22 History spironolactone 25 mg tablet 12.5 mg PO BID 04/10/22 04/10/22 History Patient History Medical History Adjustment disorder with depressed mood Anemia Chronic back pain Cirrhosis cryptogenic Cough Esophageal varices Generalized anxiety disorder GERD (gastroesophageal reflux disease) Glaucoma Hearing difficulty History of kidney stones Hx of gout Osteoarthritis Osteopenia Portal hypertension Portosystemic encephalopathy Seizure LAST ONE MORE THAN 10 YRS AGO Sensorineural hearing loss (SNHL) of both ears Sjogren's disease SLE (systemic lupus erythematosus) Thrombocytopenia Type 2 diabetes mellitus Urinary incontinence Surgical History H/O: hysterectomy (~1984) History of colonoscopy History of esophagogastroduodenoscopy (EGD) with banding of esophageal varices History of liver biopsy Hx of cholecystectomy (~1983) S/P tooth extraction Family History Grandfather Diabetes Mother Hypertension Gallbladder disease Grandmother No problems noted. Father Pancreatic cancer Brother Alcohol abuse Alcoholic cirrhosis of liver Other No family history of adverse response to anesthesia Denies family history of Ovarian cancer Prostate cancer Alzheimer disease Heart disease Myocardial infarction Breast cancer Lung cancer Colorectal cancer Stroke Social History Smoking Status: Never smoker Second Hand Exposure: No; Do You Dip or Chew Tobacco: No; Tobacco Cessation Education Requested by Patient: No Hx Alcohol Use: Yes Alcohol type: wine Hx Substance Use: No Preferred Language: Upper Sorbian Communication Ability: Effective Visual Impairment: Limited Hearing Ability: Use of Hearing Aid Protective Signal Installer Required: No Beliefs That Will Affect Care: None marital status: / Current Living Situation: Alone Current Living Situation Comment: DAUGHTER LIVES CLOSE AND CAN ASSIST>[facility] ASSISTS current occupational status: retired current occupation: career with [employer] How many Children do You have: 2 Other Information That Helps Us Care for You: No Feels Safe at Home: Yes Safety Concerns: Feels Safe At This Time Childhood Exposure to Second-Hand Smoke: No caffeine: Yes Dental Care, Regularly: No Physical Activity Frequency: Does not Exercise Seatbelt Use: always Sunscreen Use: No Assistive Devices: Walker and Wheelchair Review of Systems Constitutional: + chills, + fatigue and + weakness Respiratory: no cough and no dyspnea Cardiovascular: no chest pain Gastrointestinal: no abdominal pain, no hematemesis, no constipation, no diarrhea/loose stools, no blood in stools and no melena Integumentary: no problem reported Psychiatric: no problem reported Hematologic / Lymphatic: no unexplained weight loss Physical Exam Constitutional: well developed Neck: normal visual inspection Respiratory: normal respiratory effort Cardiovascular: Rate/Rhythm: regular rate Gastrointestinal (Abdomen): Inspection/Auscultation: abdomen normal to inspection Percussion/Palpation: abdomen soft; abdomen nontender and no ascites Musculoskeletal: Head/Neck/Chest: normocephalic Skin: no jaundice Psychiatric: Orientation: alert and oriented x 3 Results & Data ([facility]) Vital Signs (Past 12 Hours) Vital Signs Temp Pulse Resp BP Pulse Ox O2 Del Method 04/12/22 07:54 36.5 C 76 20 96/58 L 98 Nasal Cannula 04/12/22 00:22 36.4 C L 77 16 105/56 L 97 Room Air PG Care Time/CCT Total # of Minutes Spent Total Time Spent with Patient: Total time spent is greater than 50% in coordination of care (as documented) at patient's floor/unit and/or counseling patient: Coding Level of Care Code 16739 Initial Inpt Care Lvl 3 Diagnoses Cirrhosis K74.60
[2022-04-12] MEDS: cefTRIAXone SODIUM 2,000 MG in DEXTROSE 5% 50 ML IV SCH (16:56)
--- NOTE | 2022-04-12 18:08 | Billing Data ---
Date of Service April 12, 2022 Coding Level of Care Code 08009 Subseq Hosp Care Lvl 3
[2022-04-12] MEDS: ONDANSETRON INJ 2 MG/ML 2 ML VIAL IV PRN (18:13)
--- NOTE | 2022-04-13 06:41 | Hospitalist Progress Note ---
Date of Service April 13, 2022 Assessment & Plan (1) Generalized weakness: (2) Cirrhosis: (3) Right flank pain: (4) Type 2 diabetes mellitus: (5) Hx of seizure disorder: Plan 81 y/o female w/ PMHx of cirrhosis, varices, type 2 diabetes who presents for over a week of malaise. Generalized weakness - considered infectious etiology (low suspicion for UTI). will cover for sbp. consider paracentesis. ct abd w/ possible mild cholecystitis - Paracentesis declined by patient. Acities very minimal if any at this time. - GI biofire ordered and pending. - Once patient is able to tolerate food. She will be able to go home. Should be given Zofran before meals on 04/13. Cirrhosis - not alcoholic related cirrhosis - w/ thrombocytopenia, varices, and ascites - CT abd w/ cirrhosis, moderate ascites, gastric varices, potential mild diverticulosis and potential mass of liver. - MELD at admission: 28 - Maddrey's discriminant function at admission 61.1. glucocorticoids not needed d/t not being from alcohol. - continue home rifaximin - Patient has an elevated AFP(13.6) and CEA (11.6). Should repeat AFP in one month to see if elevated over 7 ng/mL. - Liver MRI as an outpatient to exam new liver mass. - GI consulted and appreciate recommendations. Right flank pain: - abd pain is intermittent and states intermittent. On exam, however, quite tender at right flank and somewhat less at RUQ. - the right flank pain on exam would not be explained by cirrhosis alone - lower suspicion for UTI given lack of urinary symptoms - patient is s/p cholecystectomy Type 2 diabetes mellitus - check bsg achs when eating. Hx of seizure disorder: - continue home [facility] Admission and Anticipated Discharge Date Admission Date: April 11, 2022 Supervising Physician Co-Signing Physician Notes I personally examined the patient and verified all sanford points of history and exam, discussed case, and agree with decision making with Dr Lira Nausea persistsbut is improved some. Was able to eat a little cream await for breakfast, less as the day went on. Fatigue persists. May be a little bit better this morning. Hard to tell. No vomiting. Vitals noted, in general she is awake and alert very fatigued appearing pleasant otherwise no distress. HEENT normocephalic atraumatic mucous membranes moist. Breathing unlabored no accessory muscle use good effort. Skin shows no rashes no pallor or icterus. Neuro without focal deficits. Fatigue/malaise -Appears to be related to liver diseasedifferential on worsening liver disease includes SBP (declined paracentesison empiric antibiotics); if the questionable liver mass is real, certainly that could be an exacerbating factor; GI entertaining possible viral illnesses; I also harbor concerns about simply worsening of her cirrhosisINR still quite elevated but at least did correct some with vitamin K. Bilirubin and INR reassuring that this may have all been an acute process such as SBPobviously still too soon to tell. Continue antibiotics. Escalate nausea and GI symptomatic control. Encourage p.o. intake. PT/OT eval and treat Subjective Patient was seen bedside this AM. She states that she is having trouble with eating and is feeling nauseas as she eats. Review of Systems Review of Systems: All systems reviewed & are unremarkable except as noted in Subjective Physical Exam Constitutional: well developed Neck: normal visual inspection Respiratory: normal respiratory effort, lungs clear to auscultation Cardiovascular: RRR, no murmur, no edema Gastrointestinal (Abdomen): Inspection/Auscultation: abdomen normal to inspection Percussion/Palpation: abdomen soft; abdomen nontender and no ascites Musculoskeletal: Head/Neck/Chest: normocephalic Skin: no rashes, warm and dry Psychiatric: Orientation: alert and oriented x 3 Results & Data Results & Data ([facility]) Vital Signs (Past 12 Hours) Vital Signs Temp Pulse Resp BP Pulse Ox O2 Del Method 04/12/22 20:50 Room Air 04/12/22 21:10 36.7 C 78 16 106/62 97 Room Air Resident Activity Tracking Resident Involvement: Resident Care Provided Care Provided: Adult Hospital Medicine
[2022-04-13 08:37] LABS: INR 1.7 (0.9-1.1); Prothrombin Time 17.7 Seconds (9.0-12.0)
[2022-04-13 08:44] LABS: Hematocrit (blood only) 24.7 % (34.1-44.9); Hemoglobin 8.7 g/dl (12.0-16.0); Mean Corpuscular Hemoglobin 33.7 pg (25.0-34.0); Mean Corpuscular Hgb Conc 35.2 g/dL (32.0-36.0); Mean Corpuscular Volume 95.7 fL (80.0-100.0); Mean Platelet Volume 11.8 fL (9.4-12.3); Platelet Count 41 K/uL (130-400); RDW Coefficient of Variation 15.2 % (11.5-14.5); RDW Standard Deviation 53.1 fL (36.4-46.3); Red Blood Count 2.58 M/uL (3.93-5.22); White Blood Count 5.91 K/ul (4.8-10.8)
[2022-04-13 08:50] LABS: Albumin Globulin Ratio 0.7 (0.9-2); Albumin Level 2.3 gm/dl (3.4-5.0); BUN Creatinine Ratio 14.9 (10-20); Calcium 8.7 mg/dl (8.5-10.1); Creatinine Clr Calc Pharmacy 25.7 ml/min; Est GFR (African American) 38.1 ml/min; Est GFR (Non-African American) 32.9 ml/min; Globulin 3.1 gm/dl (2.5-4.0); Magnesium 1.8 mg/dl (1.7-2.4); Potassium 4.1 mmol/L (3.5-5.1); Total Protein 5.4 gm/dl (6.0-8.3)
[2022-04-13 08:51] LABS: Albumin Level 2.4 gm/dl (3.4-5.0); Bilirubin Direct 1.3 mg/dl (0-0.2); Total Protein 5.4 gm/dl (6.0-8.3)
[2022-04-13] MEDS: PANTOprazole 40 MG TAB PO SCH ×2 (09:04→21:47)
[2022-04-13] MEDS: SPIRONOLACTONE 12.5 MG TAB PO SCH ×2 (09:04→21:50)
[2022-04-13] MEDS: FAMOTIDINE 40 MG TABLET PO SCH (09:04)
[2022-04-13] MEDS: levETIRAcetam 250 MG TAB PO SCH ×2 (09:04→21:50)
[2022-04-13] MEDS: HYDROXYCHLOROQUINE SULFATE 200 MG TAB PO SCH (09:05)
[2022-04-13] MEDS: rifAXIMin 550 MG TABLET PO SCH ×3 (09:05→21:48)
[2022-04-13] MEDS: LACTATED RINGER'S 1,000 ML IV SCH ×2 (09:10→21:44)
--- NOTE | 2022-04-13 11:02 | Gastroenterology Progress Note ---
Date of Service April 13, 2022 Assessment & Plan (1) Cirrhosis: Plan: MELD labs improving to 23 today. -In terms of HCC surveillance, given new findings of 1.6 cm liver lesion and new elevation of AFP found while inpatient, would advise outpatient Liver MRI when discharged. -Continue to trend MELD labs. -No evidence of significant ascites; patient is being empirically treated for SBP by primary team. -Continue Aldactone 25 mg daily; If volume management worsens consider neprhology evaluation for assistance with diuretic management as per Dr. Magallanes's recommendations on 03/02/22. -Continue Xifaxan 550 mg BID. Avoid constipation, goal is for 3-4 bowel movemen ts daily. Currently no evidence of hepatic encephalopathy. -EGD due in 2022 for variceal surveillance. -Continue Protonix 40 mg BID. -Avoid NSAIDs. -Limit Tylenol to less than 2 gm daily. -2 gm Sodium restricted diet. -Continue to avoid alcohol. Supportive care and discharge decisions per primary team. Admission and Anticipated Discharge Date Admission Date: April 11, 2022 Supervising Physician Co-Signing Physician Notes Agree with ASHLEY Medina as above Abd: Soft, slight tenderness in mid-abdomen, slightly distended, +BS, -fluid wave Continue current therapy and supportive care I encouraged her to get out of bed to a chair if possible to help prevent deconditioning Subjective Patient is an 81 yo female with cirrhosis. MELD labs improving this AM to 23. INR down to 1.7. Patient is generally deconditioned and is not ambulating at her baseline. No GI specific complaints today. Review of Systems Gastrointestinal: no abdominal pain, no change in bowel habits, no diarrhea/loose stools and no blood in stools Integumentary: no yellowing of the skin Physical Exam Constitutional: well developed Respiratory: normal respiratory effort Cardiovascular: Rate/Rhythm: regular rate Gastrointestinal (Abdomen): Inspection/Auscultation: abdomen normal to inspection PG Care Time/CCT Total # of Minutes Spent Total Time Spent with Patient: Total time spent is greater than 50% in coordination of care (as documented) at patient's floor/unit and/or counseling patient: Coding Level of Care Code 63770 Subseq Hosp Care Lvl 3 Diagnoses Cirrhosis K74.60
[2022-04-13] MEDS: cefTRIAXone SODIUM 2,000 MG in DEXTROSE 5% 50 ML IV SCH (16:00)
[2022-04-13] MEDS: ONDANSETRON INJ 2 MG/ML 2 ML VIAL IV PRN (16:26)
--- NOTE | 2022-04-13 20:01 | Billing Data ---
Date of Service April 13, 2022 Coding Level of Care Code 94030 Subseq Hosp Care Lvl 3
[2022-04-13] MEDS: ONDANSETRON INJ 2 MG/ML 2 ML VIAL IV SCH (21:40)
[2022-04-13] MEDS: FAMOTIDINE 20 MG in SYRINGE 3 ML IV SCH (21:41)
[2022-04-14] MEDS: ONDANSETRON INJ 2 MG/ML 2 ML VIAL IV SCH ×3 (02:08→14:56)
--- NOTE | 2022-04-14 07:03 | Hospitalist Progress Note ---
Date of Service April 14, 2022 Assessment & Plan (1) Generalized weakness: (2) Cirrhosis: (3) Right flank pain: (4) Type 2 diabetes mellitus: (5) Hx of seizure disorder: Plan 81 y/o female w/ PMHx of cirrhosis, varices, type 2 diabetes who presents for over a week of malaise. Generalized weakness - considered infectious etiology (low suspicion for UTI). will cover for sbp. consider paracentesis. ct abd w/ possible mild cholecystitis - Paracentesis declined by patient. Acities very minimal if any at this time. - GI biofire ordered. Not collected. - Once patient is able to tolerate food. She will be able to go. Should be given Zofran before meals on 04/13. - Patient is doing better on 04/14 and able to go. She is currently pending placement for SNF. Cirrhosis - not alcoholic related cirrhosis - w/ thrombocytopenia, varices, and ascites - CT abd w/ cirrhosis, moderate ascites, gastric varices, potential mild diverticulosis and potential mass of liver. - MELD at admission: 28 - Maddrey's discriminant function at admission 61.1. glucocorticoids not needed d/t not being from alcohol. - continue home rifaximin - Patient has an elevated AFP(13.6) and CEA (11.6). Should repeat AFP in one month to see if elevated over 7 ng/mL. - Liver MRI as an outpatient to exam new liver mass. - GI consulted and appreciate recommendations. - EBV testing was positive for capsid IgG. meaning an acute infection of EBV. - Stopped antibiotics on 04/14 given that liver injury at this time most likely d/t EBV infection. Right flank pain: - abd pain is intermittent and states intermittent. On exam, however, quite tender at right flank and somewhat less at RUQ. - the right flank pain on exam would not be explained by cirrhosis alone - lower suspicion for UTI given lack of urinary symptoms - patient is s/p cholecystectomy Type 2 diabetes mellitus - check bsg achs when eating. Hx of seizure disorder: - continue home keppra Admission and Anticipated Discharge Date Admission Date: April 11, 2022 Supervising Physician Co-Signing Physician Notes I personally examined the patient and verified all sanford points of history and exam, discussed case, and agree with decision making with Dr Lira Sleeping comfortably whenever I go to see her. In discussion with resident physician. P.o. intake has improved some. Awaiting SNF Vitals noted, sleeping comfortably no distress. Breathing unlabored no accessory muscle use good effort. Skin shows no rashes no pallor or icterus. Fatigue/malaisewith EBV labs suggesting recent infection, fortunately this may be our etiology. Cautiously stop SBP coverage, follow closely, ongoing supportive care. Overall clinical picture does show slow but steady impr ovement. Resident physician noted he would update family today. Prior differential: (Appears to be related to liver diseasedifferential on worsening liver disease includes SBP (declined paracentesison empiric antibiotics); if the questionable liver mass is real, certainly that could be an exacerbating factor; GI entertaining possible viral illnesses; I also harbor concerns about simply worsening of her cirrhosis) PT/OT eval and treat Subjective Patient was seen bedside this AM. She is doing better with eating and is having less nausea like she had before. Review of Systems Review of Systems: All systems reviewed & are unremarkable except as noted in Subjective Physical Exam Constitutional: well developed Neck: normal visual inspection Respiratory: normal respiratory effort, lungs clear to auscultation Cardiovascular: RRR, no murmur, no edema Gastrointestinal (Abdomen): Inspection/Auscultation: abdomen normal to inspection Percussion/Palpation: abdomen soft; abdomen nontender and no ascites Musculoskeletal: Head/Neck/Chest: normocephalic Skin: no rashes, warm and dry Psychiatric: Orientation: alert and oriented x 3 Results & Data Results & Data ([facility]) Vital Signs (Past 12 Hours) Vital Signs Temp Pulse Resp BP Pulse Ox O2 Del Method 04/13/22 20:54 36.6 C 77 18 99/57 L 98 Room Air Resident Activity Tracking Resident Involvement: Resident Care Provided Care Provided: Adult Hospital Medicine
[2022-04-14 08:18] LABS: INR 1.8 (0.9-1.1); Prothrombin Time 18.4 Seconds (9.0-12.0)
[2022-04-14 08:30] LABS: Hematocrit (blood only) 22.6 % (34.1-44.9); Hemoglobin 7.8 g/dl (12.0-16.0); Mean Corpuscular Hemoglobin 33.5 pg (25.0-34.0); Mean Corpuscular Hgb Conc 34.5 g/dL (32.0-36.0); Mean Platelet Volume 10.9 fL (9.4-12.3); Platelet Count 34 K/uL (130-400); Platelet Estimate Decreased (Normal); RDW Coefficient of Variation 15.2 % (11.5-14.5); RDW Standard Deviation 53.1 fL (36.4-46.3); Red Blood Count 2.33 M/uL (3.93-5.22)
[2022-04-14 08:35] LABS: Albumin Globulin Ratio 0.8 (0.9-2); Albumin Level 2.1 gm/dl (3.4-5.0); BUN Creatinine Ratio 15.1 (10-20); Bilirubin Direct 1.1 mg/dl (0-0.2); Bilirubin,Total 2.6 mg/dl (0.2-1.0); Calcium 8.2 mg/dl (8.5-10.1); Creatinine Clr Calc Pharmacy 27.4 ml/min; Est GFR (African American) 41.1 ml/min; Est GFR (Non-African American) 35.5 ml/min; Globulin 2.7 gm/dl (2.5-4.0); Potassium 3.9 mmol/L (3.5-5.1); Total Protein 4.8 gm/dl (6.0-8.3)
[2022-04-14] MEDS: HYDROXYCHLOROQUINE SULFATE 200 MG TAB PO SCH (09:06)
[2022-04-14] MEDS: levETIRAcetam 250 MG TAB PO SCH ×2 (09:06→21:56)
[2022-04-14] MEDS: SPIRONOLACTONE 12.5 MG TAB PO SCH ×2 (09:06→21:56)
[2022-04-14] MEDS: PANTOprazole 40 MG TAB PO SCH ×2 (09:06→21:56)
[2022-04-14] MEDS: SUCRALFATE 1 GM/10 ML UDC PO SCH ×3 (09:06→17:00)
[2022-04-14] MEDS: rifAXIMin 550 MG TABLET PO SCH ×2 (09:07→21:56)
[2022-04-14] MEDS: FAMOTIDINE 20 MG in SYRINGE 3 ML IV SCH ×2 (09:07→21:58)
[2022-04-14] MEDS: LACTATED RINGER'S 1,000 ML IV SCH ×2 (10:52→20:32)
[2022-04-14 13:24] LABS: EBV Nuclear Ag Antibody <18.00 U/mL; Epstein Barr Virus Early Ag Ab <9.00 U/mL
[2022-04-14] MEDS ORDERED: LACTATED RINGER'S 500 ML IV ONE (15:19)
[2022-04-14] MEDS ORDERED: ONDANSETRON INJ 2 MG/ML 2 ML VIAL IV PRN (19:44)
--- NOTE | 2022-04-14 19:47 | Billing Data ---
Date of Service April 14, 2022 Coding Level of Care Code 16163 Subseq Hosp Care Lvl 2
--- NOTE | 2022-04-14 19:48 | Billing Data ---
Date of Service April 14, 2022 Coding Level of Care Code 77474 Subseq Hosp Care Lvl 2
[2022-04-15 08:00] LABS: INR 1.7 (0.9-1.1); Prothrombin Time 17.9 Seconds (9.0-12.0)
[2022-04-15 08:13] LABS: Albumin Globulin Ratio 0.8 (0.9-2); Albumin Level 2.1 gm/dl (3.4-5.0); BUN Creatinine Ratio 14.6 (10-20); Bilirubin Direct 1.2 mg/dl (0-0.2); Bilirubin,Total 2.9 mg/dl (0.2-1.0); Calcium 8.2 mg/dl (8.5-10.1); Creatinine Clr Calc Pharmacy 29.3 ml/min; Est GFR (African American) 44.6 ml/min; Est GFR (Non-African American) 38.4 ml/min; Globulin 2.7 gm/dl (2.5-4.0); Total Protein 4.8 gm/dl (6.0-8.3)
--- NOTE | 2022-04-15 08:14 | Hospitalist Progress Note ---
Date of Service April 15, 2022 Assessment & Plan (1) Generalized weakness: Plan: Pt is an 81 y/o female w/ PMH of cirrhosis, varices, type 2 diabetes who presents for over a week of malaise. Generalized weakness - considered infectious etiology (low suspicion for UTI). will cover for sbp. consider paracentesis. ct abd w/ possible mild cholecystitis - Paracentesis declined by patient. Acities very minimal if any at this time. - GI biofire ordered. Not collected. - Once patient is able to tolerate food. She will be able to go. Should be given Zofran before meals on 04/13. - Patient is doing better on 04/14 and able to go. - She is currently stable and pending placement for SNF Cirrhosis - not alcoholic related cirrhosis - w/ thrombocytopenia, varices, and ascites - CT abd w/ cirrhosis, moderate ascites, gastric varices, potential mild diverticulosis and potential mass of liver. - MELD at admission: 28 - Maddrey's discriminant function at admission 61.1. glucocorticoids not needed d/t not being from alcohol. - continue home rifaximin - Patient has an elevated AFP(13.6) and CEA (11.6). Should repeat AFP in one month to see if elevated over 7 ng/mL. - Liver MRI as an outpatient to exam new liver mass. - GI consulted and appreciate recommendations. - EBV testing was positive for capsid IgG. meaning an acute infection of EBV. - Stopped antibiotics on 04/14 given that liver injury at this time most likely d/t EBV infection. Right flank pain - abd pain is intermittent and states intermittent. On exam, however, quite tender at right flank and somewhat less at RUQ. - the right flank pain on exam would not be explained by cirrhosis alone - lower suspicion for UTI given lack of urinary symptoms - patient is s/p cholecystectomy Type 2 diabetes mellitus - check bsg achs when eating. Hx of seizure disorder - continue home keppra (2) Cirrhosis: (3) Right flank pain: (4) Type 2 diabetes mellitus: (5) Hx of seizure disorder: Plan FEN: LR at 80 mL/hr, carb consistent/low Na diet Code: DNR/DNI Dispo: SNF Admission and Anticipated Discharge Date Admission Date: April 11, 2022 Supervising Physician Co-Signing Physician Notes I personally examined the patient and verified all sanford points of history and exam, discussed case, and agree with decision making with Dr Suazo Sleeping but easily awoken. Notes appetite has improved and p.o. intake is better. Vitals noted, pleasant awake alert oriented and in no distress. Breathing unlabored no accessory muscle use good effort. Skin shows no rashes no pallor or icterus. Fatigue/malaisewith EBV labs suggesting recent infection, fortunately this may be our etiology. Now off antibiotics for about a day with no worseningsuspect she did not have SBP but rather EBV. Overall clinical picture does show slow but steady improvement. Resident physician noted she would update family today. Prior differential: (Appears to be related to liver diseasedifferential on worsening liver disease includes SBP (declined paracentesison empiric antibiotics); if the questionable liver mass is real, certainly that could be an exacerbating factor; GI entertaining possible viral illnesses; I also harbor concerns about simply worsening of her cirrhosis) PT/OT eval and treat Subjective 04/14/2022: Pt awake in bed this AM. She feels much better than previously. Her appetite is improved and she feels stronger overall. She does note sharp pains on the sides of both legs that has been ongoing for months. She notes this may have began after a bout of shingles. No new issues or complaints. Physical Exam Constitutional: NAD. Vitals WNL. Eyes: no conjunctival abnormality Respiratory: CTA bilaterally. No rhonchi, wheezing, or crackles. Non labored breathing. Cardiovascular: RRR. No murmur noted. No LL edema. Gastrointestinal (Abdomen): Nontender, +BS. No masses noted. No ascites noted. Skin: no rashes, warm and dry Psychiatric: Alert. Mood and affect congruent. Results & Data Results & Data ([facility]) Vital Signs (Past 12 Hours) Vital Signs Temp Pulse Resp BP Pulse Ox O2 Del Method 04/15/22 07:08 36.9 C 75 16 114/65 94 Room Air 04/14/22 22:00 Room Air 04/14/22 20:45 36.6 C 71 16 98/60 L 97 Room Air Resident Activity Tracking Resident Involvement: Resident Care Provided Care Provided: Adult [facility]
[2022-04-15 08:36] LABS: Acanthocytes 1+; Basophils # (auto) 0.01 K/uL (0-0.2); Basophils % (auto) 0.2 %; Echinocytes 1+; Immature Granulocytes # (auto) 0.01 K/uL (0.00-0.02); Immature Granulocytes % (auto) 0.2 %; Lymphocytes # (auto) 1.28 K/uL (1.2-3.4); Lymphocytes % (auto) 25.2 %; Monocytes # (auto) 0.48 K/uL (0.24-0.82); Monocytes % (auto) 9.4 %; Platelet Estimate Decreased (Normal)
[2022-04-15 08:40] LABS: Hematocrit (blood only) 23.6 % (34.1-44.9); Hemoglobin 8.2 g/dl (12.0-16.0); Mean Corpuscular Hemoglobin 33.6 pg (25.0-34.0); Mean Corpuscular Hgb Conc 34.7 g/dL (32.0-36.0); Mean Corpuscular Volume 96.7 fL (80.0-100.0); Mean Platelet Volume 11.1 fL (9.4-12.3); Platelet Count 38 K/uL (130-400); RDW Coefficient of Variation 14.6 % (11.5-14.5); RDW Standard Deviation 51.4 fL (36.4-46.3); Red Blood Count 2.44 M/uL (3.93-5.22); White Blood Count 5.08 K/ul (4.8-10.8)
[2022-04-15] MEDS: SUCRALFATE 1 GM/10 ML UDC PO SCH ×3 (08:42→17:20)
[2022-04-15] MEDS: FAMOTIDINE 20 MG in SYRINGE 3 ML IV SCH ×2 (08:46→20:22)
[2022-04-15] MEDS: levETIRAcetam 250 MG TAB PO SCH ×2 (09:12→20:23)
[2022-04-15] MEDS: SPIRONOLACTONE 12.5 MG TAB PO SCH ×2 (09:12→20:23)
[2022-04-15] MEDS: HYDROXYCHLOROQUINE SULFATE 200 MG TAB PO SCH (09:12)
[2022-04-15] MEDS: PANTOprazole 40 MG TAB PO SCH ×2 (09:12→20:23)
[2022-04-15] MEDS: rifAXIMin 550 MG TABLET PO SCH ×2 (09:12→20:24)
[2022-04-15] MEDS: LACTATED RINGER'S 1,000 ML IV SCH ×2 (11:25→23:09)
--- NOTE | 2022-04-15 18:07 | Billing Data ---
Date of Service April 15, 2022 Coding Level of Care Code 06742 Subseq Hosp Care Lvl 3
--- NOTE | 2022-04-15 23:28 | Electrocardiogram Report ---
Test Reason : Blood Pressure : / mmHG Vent. Rate : 080 BPM Atrial Rate : 078 BPM P-R Int : 192 ms QRS Dur : 084 ms QT Int : 436 ms P-R-T Axes : 000 -24 -21 degrees QTc Int : 502 ms Sinus rhythm with Premature atrial complexes Low voltage QRS Cannot rule out Anterior infarct (cited on or before 10-APR-2022) Nonspecific T wave abnormality Prolonged QT Abnormal ECG When compared with ECG of 10-APR-2022 18:36, No significant change Confirmed by Jeyson Chun ([id number]) on 04/15/2022 11:27:50 PM Referred By: Damir Case Confirmed By:Jeyson Chun
--- NOTE | 2022-04-16 07:09 | Hospitalist Progress Note ---
Date of Service April 16, 2022 Assessment & Plan (1) Generalized weakness: Plan: Pt is an 81 y/o female w/ PMH of cirrhosis, varices, type 2 diabetes who presents for over a week of malaise. Generalized weakness - considered infectious etiology (low suspicion for UTI). Covered for SBP - Paracentesis declined by patient - GI biofire ordered. Not collected d/t lack of adequate stool sample- d/c ordered d/t EBV as probable cause - Should be given scheduled Zofran before meals as of 04/13 - Patient is doing better on 04/14 and able to go - She is currently stable and pending placement for SNF 04/15, 04/16 Cirrhosis - not alcoholic related cirrhosis - w/ thrombocytopenia, varices, and ascites - CT abd w/ cirrhosis, moderate ascites, gastric varices, potential mild diverticulosis and potential mass of liver. - MELD at admission: 28 - Maddrey's discriminant function at admission 61.1. glucocorticoids not needed d/t not being from alcohol. - continue home rifaximin and avoid constipation with goal of 3-4 BM daily - Patient has an elevated AFP(13.6) and CEA (11.6). Should repeat AFP in one month to see if elevated over 7 ng/mL. - GI consulted and recommending liver MRI after d/c d/t new liver mass. EGD in 2022 for variceal surveillance - EBV testing was positive for capsid IgG, meaning an acute infection of EBV. - Stopped antibiotics on 04/14 given that liver injury at this time most likely d/t EBV infection. Low urine output - pt overnight produced 125 mL urine 04/15 - increased fluids from LR 80 mL to 100 mL - pt's legs slightly swollen and stomach slightly edematous 04/16 - d/c fluids 04/16 Right flank pain - abd pain is intermittent and states intermittent. On exam, however, quite tender at right flank and somewhat less at RUQ. - the right flank pain on exam would not be explained by cirrhosis alone - lower suspicion for UTI given lack of urinary symptoms - patient is s/p cholecystectomy Depression - pt's daughter concerned w/ pt morale and mood - pt typically taking escitalopram 20 mg daily at home- per lit review, pt w/ liver dysfunction should be on max of 10 mg daily - discussed with daughter about risk v. benefits of med and how pt's situation is affecting her mood - pt's daughter would like us to reach out to pt's GI doc (Dr. Magallanes) about dosing of escitalopram as he manages her cirrhosis - plan to discuss further w/ pt and pt's daughter after discussion w/ GI Type 2 diabetes mellitus - check BS achs Hx of seizure disorder - continue home keppra (2) Cirrhosis: (3) Right flank pain: (4) Type 2 diabetes mellitus: (5) Hx of seizure disorder: (6) Low urine output: Plan FEN: carb consistent/low Na diet Code: DNR/DNI Dispo: pending SNF- applications in to [facility] Admission and Anticipated Discharge Date Admission Date: April 11, 2022 Supervising Physician Co-Signing Physician Notes I personally examined the patient and verified all sanford points of history and exam, discussed case, and agree with decision making with Dr Suazo Sitting up in a chair! Ate breakfast fairly well. Stomach doing a good bit better overall. Still fairly weak. Caregiver at the bedsidenotes that the patient actually was able to get out of bed to chair more independently than was expected. Vitals noted, pleasant awake alert oriented and in no distress. Breathing unlabored no accessory muscle use good effort. Skin shows no rashes no pallor or icterus. Fatigue/malaisewith EBV labs suggesting recent infection, fortunately this may be our etiology. Now off antibiotics for about a day with no worseningsuspect she did not have SBP but rather EBV. Overall clinical picture does show slow but steady improvement. Stop IV fluids, make sure that she is able to maintain hydration of her own accord prior to dispo to SNF Prior differential: (Appears to be related to liver diseasedifferential on worsening liver disease includes SBP (declined paracentesison empiric antibiotics); if the questionable liver mass is real, certainly that could be an exacerbating factor; GI entertaining possible viral illnesses; I also harbor concerns about simply worsening of her cirrhosis) PT/OT eval and treatanticipate SNF tomorrow, as long as she is doing okay maintaining hydration without IVs Subjective Pt is an 81 y/o female w/ PMH of cirrhosis, varices, type 2 diabetes who presents for over a week of malaise. Pt feeling overall weak today. She finds it difficulty to sit for long periods of time as she develops pain on her sides. Her appetite is ok, but finds it difficult to eat foods w/o salt. She endorses 1 episode of diarrhea per day. Physical Exam Constitutional: NAD. Vitals WNL. Eyes: no conjunctival abnormality Respiratory: CTA bilaterally. No rhonchi, wheezing, or crackles. Non labored breathing. Cardiovascular: RRR. No murmur noted. Bilateral, non pitting edema in the lower extremities from foot to mid calf. Gastrointestinal (Abdomen): Nontender, soft, +BS. No masses noted. Slightly distended throughout. Skin: no rashes, warm and dry Psychiatric: Alert. Mood and affect congruent. Results & Data Results & Data ([facility]) Vital Signs (Past 12 Hours) Vital Signs Temp Pulse Resp BP Pulse Ox O2 Del Method 04/15/22 20:20 Room Air 04/15/22 20:49 36.7 C 73 16 100/64 99 Room Air Resident Activity Tracking Resident Involvement: Resident Care Provided Care Provided: Adult Hospital Medicine
[2022-04-16 07:21] LABS: INR 1.7 (0.9-1.1)
[2022-04-16 07:45] LABS: Albumin Globulin Ratio 0.8 (0.9-2); BUN Creatinine Ratio 13.6 (10-20); Bilirubin Direct 1.2 mg/dl (0-0.2); Calcium 8.1 mg/dl (8.5-10.1); Creatinine Clr Calc Pharmacy 30.5 ml/min; Est GFR (African American) 46.7 ml/min; Est GFR (Non-African American) 40.3 ml/min; Globulin 2.6 gm/dl (2.5-4.0); Total Protein 4.6 gm/dl (6.0-8.3)
[2022-04-16] MEDS: SUCRALFATE 1 GM/10 ML UDC PO SCH ×3 (08:26→17:40)
[2022-04-16 08:50] LABS: Hematocrit (blood only) 22.7 % (34.1-44.9); Hemoglobin 8.1 g/dl (12.0-16.0); Mean Corpuscular Hemoglobin 33.9 pg (25.0-34.0); Mean Corpuscular Hgb Conc 35.7 g/dL (32.0-36.0); Mean Platelet Volume 11.5 fL (9.4-12.3); Platelet Count 37 K/uL (130-400); RDW Coefficient of Variation 14.4 % (11.5-14.5); RDW Standard Deviation 49.5 fL (36.4-46.3); Red Blood Count 2.39 M/uL (3.93-5.22); White Blood Count 5.33 K/ul (4.8-10.8)
[2022-04-16 08:58] LABS: Acanthocytes 1+; Basophils # (auto) 0.01 K/uL (0-0.2); Basophils % (auto) 0.2 %; Echinocytes 1+; Immature Granulocytes # (auto) 0.03 K/uL (0.00-0.02); Immature Granulocytes % (auto) 0.6 %; Lymphocytes % (auto) 22.5 %; Monocytes # (auto) 0.61 K/uL (0.24-0.82); Monocytes % (auto) 11.4 %; Neutrophils # (auto) 3.48 K/uL (1.4-6.5); Neutrophils % (auto) 65.3 %
[2022-04-16] MEDS: PROCHLORPERAZINE 5 MG in SYRINGE 4 ML IV PRN (09:05)
[2022-04-16] MEDS: HYDROXYCHLOROQUINE SULFATE 200 MG TAB PO SCH (09:07)
[2022-04-16] MEDS: levETIRAcetam 250 MG TAB PO SCH ×2 (09:07→20:37)
[2022-04-16] MEDS: rifAXIMin 550 MG TABLET PO SCH ×2 (09:07→20:38)
[2022-04-16] MEDS: PANTOprazole 40 MG TAB PO SCH ×2 (09:07→20:38)
[2022-04-16] MEDS: SPIRONOLACTONE 12.5 MG TAB PO SCH ×2 (09:07→20:38)
[2022-04-16] MEDS: FAMOTIDINE 20 MG in SYRINGE 3 ML IV SCH (09:49)
[2022-04-16] MEDS: LACTATED RINGER'S 1,000 ML IV SCH (10:41)
--- NOTE | 2022-04-16 18:57 | Billing Data ---
Date of Service April 16, 2022 Coding Level of Care Code 53156 Subseq Hosp Care Lvl 3
[2022-04-16] MEDS: FAMOTIDINE 20 MG TAB PO SCH (20:37)
[2022-04-17 07:26] LABS: INR 1.7 (0.9-1.1); Prothrombin Time 17.5 Seconds (9.0-12.0)
[2022-04-17 07:56] LABS: Hematocrit (blood only) 21.7 % (34.1-44.9); Hemoglobin 7.8 g/dl (12.0-16.0); Mean Corpuscular Hemoglobin 34.1 pg (25.0-34.0); Mean Corpuscular Hgb Conc 35.9 g/dL (32.0-36.0); Mean Corpuscular Volume 94.8 fL (80.0-100.0); Mean Platelet Volume 11.6 fL (9.4-12.3); Platelet Count 38 K/uL (130-400); RDW Coefficient of Variation 14.9 % (11.5-14.5); RDW Standard Deviation 51.2 fL (36.4-46.3); Red Blood Count 2.29 M/uL (3.93-5.22); White Blood Count 5.64 K/ul (4.8-10.8)
[2022-04-17 08:06] LABS: Albumin Globulin Ratio 0.8 (0.9-2); BUN Creatinine Ratio 12.5 (10-20); Bilirubin Direct 1.2 mg/dl (0-0.2); Bilirubin,Total 2.9 mg/dl (0.2-1.0); Calcium 8.1 mg/dl (8.5-10.1); Creatinine Clr Calc Pharmacy 29.8 ml/min; Est GFR (African American) 45.4 ml/min; Est GFR (Non-African American) 39.2 ml/min; Globulin 2.6 gm/dl (2.5-4.0); Potassium 4.1 mmol/L (3.5-5.1); Total Protein 4.6 gm/dl (6.0-8.3)
[2022-04-17 08:07] LABS: Acanthocytes 2+; Basophils # (auto) 0.01 K/uL (0-0.2); Basophils % (auto) 0.2 %; Echinocytes 1+; Immature Granulocytes # (auto) 0.02 K/uL (0.00-0.02); Immature Granulocytes % (auto) 0.4 %; Lymphocytes # (auto) 1.56 K/uL (1.2-3.4); Lymphocytes % (auto) 27.7 %; Monocytes # (auto) 0.65 K/uL (0.24-0.82); Monocytes % (auto) 11.5 %; Neutrophils % (auto) 60.2 %; Polychromasia 1+
[2022-04-17] MEDS: SUCRALFATE 1 GM/10 ML UDC PO SCH ×3 (08:19→17:48)
[2022-04-17] MEDS: HYDROXYCHLOROQUINE SULFATE 200 MG TAB PO SCH (09:24)
[2022-04-17] MEDS: levETIRAcetam 250 MG TAB PO SCH ×2 (09:24→20:52)
[2022-04-17] MEDS: FAMOTIDINE 20 MG TAB PO SCH ×2 (09:24→20:52)
[2022-04-17] MEDS: PANTOprazole 40 MG TAB PO SCH ×2 (09:24→20:53)
[2022-04-17] MEDS: SPIRONOLACTONE 12.5 MG TAB PO SCH ×2 (09:24→20:53)
[2022-04-17] MEDS: rifAXIMin 550 MG TABLET PO SCH ×2 (09:25→20:53)
--- NOTE | 2022-04-17 13:52 | Hospitalist Progress Note ---
Date of Service April 17, 2022 Assessment & Plan (1) Generalized weakness: Plan: Pt is an 81 y/o female w/ PMH of cirrhosis, varices, type 2 diabetes who presents for over a week of malaise. 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 - MELD at admission: 28 - Maddrey's discriminant function at admission 61.1. glucocorticoids not needed d/t not being from alcohol. - continue home rifaximin and avoid constipation with goal of 3-4 BM daily - Patient has an elevated AFP(13.6) and CEA (11.6). Should repeat AFP in one month to see if elevated over 7 ng/mL. - GI consulted and recommending liver MRI after d/c d/t new liver mass. - EGD planned in 2022 for variceal surveillance - Continue sodium restriction to 2 g per outpatient GI and inpatient GI recommendations --- Family advised to adhere to recommendations rather than bringing in salt packets for patient's meals Low urine output - pt overnight produced 125 mL urine 04/17 - Edema and abdominal distension noted 04/17 - d/c fluids 04/16, will continue to monitor into 04/18 and evaluate need for diuresis Right flank pain - abd pain is intermittent and states intermittent - no abdominal pain at rest or with TTP 04/17 - the right flank pain on exam would not be explained by cirrhosis alone - lower suspicion for UTI given lack of urinary symptoms - patient is s/p cholecystectomy Depression - pt's daughter concerned w/ pt morale and mood - will restart Lexapro 20 mg PO daily per conversation with outpatient GI physician Type 2 diabetes mellitus - discontinued q4h BSG checks - will follow with daily labs (CMP) - discontinue carb consistent diet per family request as patient is not eating Hx of seizure disorder - continue home keppra (2) Cirrhosis: (3) Right flank pain: (4) Type 2 diabetes mellitus: (5) Hx of seizure disorder: (6) Low urine output: Plan FEN: low Na diet DVT Ppx: SCD d/t TCPenia Code: DNR/DNI Dispo: pending SNF- applications in to [facility] Admission and Anticipated Discharge Date Admission Date: April 11, 2022 Supervising Physician Co-Signing Physician Notes I also saw the patient confirmed sanford portions of the history and physical examination. When we visited the patient this afternoon, [id number] was at bedside with a list of questions/concerns. She is concerned that the patient is having 4 times daily bedside glucose checks. She would like to see this discontinued. She is concerned that the patient is on a low-salt diet; she is concerned that the patient has a poor appetite to begin with and limiting salt is further decreasing her appetite and subsequently her caloric intake. We discussed the glucose checks; this seems reasonable to discontinue. We will get the morning blood sugars part of her routine a.m. blood work and I did explain to the patient that if she becomes symptomatic, nursing would be instructed to check her glucose. We had a long discussion about the importance of a low-salt diet. Patient's only concern is a discomfort of the right lateral calf it began at some point today, seems to be fairly continuous but of varying degrees of discomfort. EXAM 118/70, 88, 18, 36.7 C, 95% on room air She is pleasant. Lying supine in bed. Heart regular Respirations nonlabored Abdomen generally nontender Focused examination of the right lower extremity is unremarkable; no calf tenderness, no erythema, no skin lesion. She is able to plantar and dorsiflex her right foot passively and active against resistance without noted discomfort. Trace to 1+ edema in both lower extremities bilaterally, they seem symmetrical DATA Sodium 131, potassium 4.1, BUN 16, creatinine 1.28 IMPRESSION & PLAN Cirrhosis Generalized weakness I agree with the impression and plan as noted in the resident documentation We will discuss with her outpatient gastroenterology team. Subjective Pt is an 81 y/o female w/ PMH of cirrhosis, varices, type 2 diabetes who presents for over a week of malaise. 04/17: Patient states she is feeling well today, but notes that she has worsening bloating in her abdomen, w/o pain. She notes that her legs are also swollen, which she states is not her baseline. Patient is requesting addition of salt to her diet, notes that nothing tastes good and this is preventing her from eating. She denies any chest pain, dyspnea, pleuritic pain, abdominal pain, dysuria, or bowel changes. Spoke with [id number] (Naomi) at bedside. She requested re-initiation of Lexapro 20 mg, discontinuation of BSG checks, discontinuation of carb-consistent diet, and discontinuation of sodium restricted diet. Risk and benefits of such measures were discussed with patient. She requested we discussed these requests with Dr. Magallanes (her outpatient [facility]). Naomi noted that patient has mentioned burning pain in her lateral left calf starting sometime this morning. Review of Systems Review of Systems: See HPI. Physical Exam Physical Exam: Gen: NAD, alert, interactive HEENT: No jaundice or scleral icterus. Resp:Non-labored, no wheezing/rhonchi/rales, CTAB CV:RRR, normal S1/S2, no M/R/G Abd: Soft, non-distended, no TTP, normoactive bowels, no masses Extr: 2+ dp bilaterally, 2+ LE edema (pitting) from ankle to mid-calf, no deep calf TTP, Haleigh sign negative, ful. Skin: No rashes lesions or erythema Results & Data Results & Data ([facility]) Vital Signs (Past 12 Hours) Vital Signs Temp Pulse Resp BP Pulse Ox O2 Del Method 04/17/22 07:17 37.1 C 85 18 104/66 95 Room Air Resident Activity Tracking Resident Involvement: Resident Care Provided Care Provided: Adult Hospital Medicine
[2022-04-17] MEDS ORDERED: ESCITALOPRAM OXALATE 10 MG TAB PO SCH (15:30)
[2022-04-17] MEDS ORDERED: TROLAMINE SALICYLATE 10% CRM 255 APPLN/85 GM TUBE EXT PRN (16:15)
[2022-04-17] MEDS: PROCHLORPERAZINE 5 MG in SYRINGE 4 ML IV PRN (20:53)
--- NOTE | 2022-04-18 07:53 | Hospitalist Progress Note ---
Date of Service April 18, 2022 Assessment & Plan (1) Generalized weakness: Plan: Pt is an 81 y/o female w/ PMH of cirrhosis, varices, type 2 diabetes who presents for over a week of malaise. 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 - MELD at admission: 28 - Maddrey's discriminant function at admission 61.1. glucocorticoids not needed d/t not being from alcohol. - continue home rifaximin and avoid constipation with goal of 3-4 BM daily - Patient has an elevated AFP(13.6) and CEA (11.6). Should repeat AFP in one month to see if elevated over 7 ng/mL. - GI consulted and recommending liver MRI after d/c d/t new liver mass. - EGD planned in 2022 for variceal surveillance - Continue sodium restriction to 2 g per outpatient GI and inpatient GI recommendations --- Family advised to adhere to recommendations rather than bringing in salt packets for patient's meals, continued non-adherence --- Patient endorsed worsening nausea and abdominal discomfort, US abdomen obtained, mild ascites present (overall unchanged), no additional intervention at this time Low urine output - pt overnight produced 125 mL urine 04/17 - Edema and abdominal distension noted 04/17 - d/c fluids 04/16, will continue to monitor into 04/18 and evaluate need for diuresis --- No additional diuresis at this time 04/18, patient urinating small amounts regularly Right flank pain - abd pain is intermittent and states intermittent - no abdominal pain at rest or with TTP 04/17 - the right flank pain on exam would not be explained by cirrhosis alone - lower suspicion for UTI given lack of urinary symptoms - patient is s/p cholecystectomy - Mild abdominal pain in all 4 quadrant 04/18, ultrasound obtained, see above Depression - pt's daughter concerned w/ pt morale and mood - will restart Lexapro 20 mg PO daily per conversation with outpatient GI physician Type 2 diabetes mellitus - discontinued q4h BSG checks - will follow with daily labs (CMP) - discontinue carb consistent diet per family request as patient is not eating --- Placed order to add strawberry boost, family notes patient drinks this regularly at home Hx of seizure disorder - continue home keppra (2) Cirrhosis: (3) Right flank pain: (4) Type 2 diabetes mellitus: (5) Hx of seizure disorder: (6) Low urine output: Plan FEN: low Na diet DVT Ppx: SCD d/t TCPenia Code: DNR/DNI Dispo: pending SNF- applications in to [facility] Admission and Anticipated Discharge Date Admission Date: April 11, 2022 Supervising Physician Co-Signing Physician Notes I also saw the patient confirmed sanford portions of the history and physical examination. Upon our exam midafternoon, the patient noted that she is feeling little bit better. She had some nausea earlier today. EXAM 97/63, 79, 18, 36.7 C She is pleasant. Lying supine in bed. Heart regular Respirations nonlabored Abdomen generally nontender DATA Hemoglobin 8.6, platelet count 53 PT 16.6, INR 1.6 Sodium 130, potassium 4.0, BUN 16, creatinine 1.41 Total bilirubin 3.7, direct bilirubin 1.4, AST 64, ALT 30, alkaline phosphatase 136 IMPRESSION & PLAN Cirrhosis Anemia, improving Thrombocytopenia, stable to slight improvement, and elevated PTT secondary to cirrhosis Generalized weakness Depression Check ultrasound of abdomen, limited for ascites assessment Monitor CBC/CMP Case management continues to work on placement options Additional per resident documentation Subjective Pt is an 81 y/o female w/ PMH of cirrhosis, varices, type 2 diabetes who presents for over a week of malaise. 04/18: Patient resting comfortably upon arrival to room. She notes worsening nausea and abdominal bloating this morning, states that her leg swelling is the same. Notes that she has been able to urinate well and last urination was at 0600 (nursing confirmed). Patient states that her leg burning from yesterday is improved and only comes and goes. She is not having any chest pain, dysuria, pleuritic pain, or headaches. She denies dysuria. 1700: Spoke with [id number] (Naomi) at via phone. Noted that patient enjoys strawberry boost for breakfast at home regularly. Requested order inpatient. 04/17: Patient states she is feeling well today, but notes that she has worsening bloating in her abdomen, w/o pain. She notes that her legs are also swollen, which she states is not her baseline. Patient is requesting addition of salt to her diet, notes that nothing tastes good and this is preventing her from eating. She denies any chest pain, dyspnea, pleuritic pain, abdominal pain, dysuria, or bowel changes. Review of Systems Review of Systems: See HPI. Physical Exam 2 Physical Exam: Gen: NAD, alert, interactive HEENT: No jaundice or scleral icterus. Resp:Non-labored, no wheezing/rhonchi/rales, CTAB CV:RRR, normal S1/S2, no M/R/G Abd: Soft, mildly-distended, mild diffuse TTP, normoactive bowels, no masses Extr: 2+ dp bilaterally, 1+ LE edema (pitting) from ankle to mid-calf, no deep calf TTP, Haleigh sign negative Skin: No rashes lesions or erythema Results & Data Results & Data ([facility]) Vital Signs (Past 12 Hours) Vital Signs Temp Pulse Resp BP Pulse Ox O2 Del Method 04/18/22 07:40 36.7 C 79 18 97/63 L 95 Room Air 04/17/22 20:50 Room Air 04/17/22 22:31 37.0 C 72 20 119/69 93 Room Air
[2022-04-18] MEDS: FAMOTIDINE 20 MG TAB PO SCH ×2 (08:37→20:56)
[2022-04-18] MEDS: levETIRAcetam 250 MG TAB PO SCH ×2 (08:37→20:56)
[2022-04-18] MEDS: SPIRONOLACTONE 12.5 MG TAB PO SCH ×3 (08:37→20:58)
[2022-04-18] MEDS: PANTOprazole 40 MG TAB PO SCH ×2 (08:38→20:57)
[2022-04-18] MEDS: rifAXIMin 550 MG TABLET PO SCH ×2 (08:38→20:57)
[2022-04-18] MEDS: HYDROXYCHLOROQUINE SULFATE 200 MG TAB PO SCH (08:39)
[2022-04-18] MEDS: SUCRALFATE 1 GM/10 ML UDC PO SCH ×3 (08:39→17:22)
[2022-04-18 09:59] LABS: Hematocrit (blood only) 24.1 % (34.1-44.9); Hemoglobin 8.6 g/dl (12.0-16.0); Mean Corpuscular Hemoglobin 34.1 pg (25.0-34.0); Mean Corpuscular Hgb Conc 35.7 g/dL (32.0-36.0); Mean Corpuscular Volume 95.6 fL (80.0-100.0); Mean Platelet Volume 12.1 fL (9.4-12.3); Nucleated RBC # (auto) 0.02 K/uL (0-0); Nucleated RBC % (auto) 0.3 %; Platelet Count 53 K/uL (130-400); RDW Coefficient of Variation 15.1 % (11.5-14.5); Red Blood Count 2.52 M/uL (3.93-5.22); White Blood Count 7.02 K/ul (4.8-10.8)
[2022-04-18] MEDS: PROCHLORPERAZINE 5 MG in SYRINGE 4 ML IV PRN ×2 (10:09→21:59)
[2022-04-18] MEDS: ESCITALOPRAM OXALATE 20 MG TAB PO SCH ×2 (10:09→14:51)
[2022-04-18 10:11] LABS: Albumin Globulin Ratio 0.8 (0.9-2); Albumin Level 2.3 gm/dl (3.4-5.0); BUN Creatinine Ratio 11.3 (10-20); Bilirubin Direct 1.4 mg/dl (0-0.2); Bilirubin,Total 3.7 mg/dl (0.2-1.0); Calcium 8.7 mg/dl (8.5-10.1); Est GFR (African American) 40.4 ml/min; Est GFR (Non-African American) 34.8 ml/min; Globulin 2.9 gm/dl (2.5-4.0); Total Protein 5.2 gm/dl (6.0-8.3)
[2022-04-18 10:12] LABS: INR 1.6 (0.9-1.1); Prothrombin Time 16.6 Seconds (9.0-12.0)
[2022-04-18 10:21] LABS: Acanthocytes 3+; Basophils # (auto) 0.01 K/uL (0-0.2); Basophils % (auto) 0.1 %; Echinocytes 1+; Immature Granulocytes # (auto) 0.03 K/uL (0.00-0.02); Immature Granulocytes % (auto) 0.4 %; Lymphocytes # (auto) 1.64 K/uL (1.2-3.4); Lymphocytes % (auto) 23.4 %; Monocytes % (auto) 11.4 %; Neutrophils # (auto) 4.54 K/uL (1.4-6.5); Neutrophils % (auto) 64.7 %; Polychromasia 1+; Tear Drop Cells 1+
--- NOTE | 2022-04-18 15:57 | Ultrasound Report ---
US abdomen ltd ascites CLINICAL HISTORY: increased abdominal fullness TECHNIQUE: Real-time grayscale sonographic images of the abdomen were obtained. Comparison: None available at the time of this dictation. FINDINGS/IMPRESSION: Mild ascites is seen in all 4 quadrants ACT 112: Negative or not required by law. Electronically signed by: Zeke Coreas M.D. 04/18/2022 3:55 PM
--- NOTE | 2022-04-19 07:44 | Hospitalist Progress Note ---
Date of Service April 19, 2022 Assessment & Plan (1) Generalized weakness: Plan: Pt is an 81 y/o female w/ PMH of cirrhosis, varices, type 2 diabetes who presents for over a week of malaise. 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 - MELD at admission: 28 - Maddrey's discriminant function at admission 61.1. glucocorticoids not needed d/t not being from alcohol. - continue home rifaximin and avoid constipation with goal of 3-4 BM daily - Patient has an elevated AFP(13.6) and CEA (11.6). Should repeat AFP in one month to see if elevated over 7 ng/mL. - GI consulted and recommending liver MRI after d/c d/t new liver mass. - EGD planned in 2022 for variceal surveillance - 04/18 Continue sodium restriction to 2 g per outpatient GI and inpatient GI recommendations * Family advised to adhere to recommendations rather than bringing in salt packets for patient's meals, continued non-adherence * Patient endorsed worsening nausea and abdominal discomfort, US abdomen obtained, mild ascites present (overall unchanged), no additional intervention at this time --- 04/19 Nausea alleviated by Compazine --- Salt restriction discontinued PM d/t minimal PO intake Low urine output - pt overnight produced 125 mL urine 04/17 - Edema and abdominal distension noted 04/17 - d/c fluids 04/16, will continue to monitor into 04/18 and evaluate need for diuresis - 04/18 No additional diuresis at this time, patient urinating small amounts regularly Right flank pain - abd pain is intermittent and states intermittent - no abdominal pain at rest or with TTP 04/17 - the right flank pain on exam would not be explained by cirrhosis alone - lower suspicion for UTI given lack of urinary symptoms - patient is s/p cholecystectomy - Mild abdominal pain in all 4 quadrant 04/18, ultrasound obtained, see above Depression - pt's daughter concerned w/ pt morale and mood - will restart Lexapro 20 mg PO daily per conversation with outpatient GI physician --- Continue Lexapro 20 mg PO Type 2 diabetes mellitus - discontinued q4h BSG checks - will follow with daily labs (CMP) - discontinue carb consistent diet per family request as patient is not eating --- Placed order to add strawberry boost, family notes patient drinks this regularly at home Hx of seizure disorder - continue home keppra (2) Cirrhosis: (3) Right flank pain: (4) Type 2 diabetes mellitus: (5) Hx of seizure disorder: (6) Low urine output: Plan FEN: low Na diet DVT Ppx: SCD d/t TCPenia Code: DNR/DNI Dispo: pending SNF- applications in to [facility] Admission and Anticipated Discharge Date Admission Date: April 11, 2022 Supervising Physician Co-Signing Physician Notes I also saw the patient confirmed [place] portions of the history and physical examination. Upon seeing the patient today, she was just getting started with physical therapy. The patient had declined physical therapy and days previous of this was good to see. EXAM 113/71, 66, 16, 36.8, 97% on room air She is pleasant. She is seated at the side of her bed. She is attempting to ambulate with a walker Heart regular Respirations nonlabored Abdomen generally nontender DATA Hemoglobin 8.6, platelet count 50 PT 16, INR 1.5 Sodium 130, potassium 4.2, BUN 16, creatinine 1.43 Total bilirubin 3.2, direct bilirubin 1.5, AST 68, ALT 31, alkaline phosphatase 182 IMAGING Limited ultrasound dated 04/18/2022 shows mild ascites in all 4 quadrants IMPRESSION & PLAN Cirrhosis Anemia, improving Thrombocytopenia, stable to slight improvement, and elevated PTT secondary to cirrhosis Generalized weakness Depression Physical therapy Continue current [place]/plan of care Case management continues to work on placement options Additional per resident documentation Subjective Pt is an 81 y/o female w/ PMH of cirrhosis, varices, type 2 diabetes who presents for over a week of malaise. 04/19: Patient resting comfortably on arrival. Nausea is improved. Ongoing abdominal bloating, unchanged leg swelling. Notes continued urination. Occasional abdominal pain in RUQ. Left leg pain has resolved. She states she is 'as good as she can be'. No chest pain, dyspnea, pleuritic pain, or headaches. No dysuria. Patient was excited to receive [place] boost. 04/18: Patient resting comfortably upon arrival to room. She notes worsening nausea and abdominal bloating this morning, states that her leg swelling is the same. Notes that she has been able to urinate well and last urination was at 0600 (nursing confirmed). Patient states that her leg burning from yesterday is improved and only comes and goes. She is not having any chest pain, dysuria, pleuritic pain, or headaches. She denies dysuria. 1700: Spoke with [id number] (Naomi) at via phone. Noted that patient enjoys strawberry boost for breakfast at home regularly. Requested order inpatient. Review of Systems Review of Systems: See HPI. Physical Exam Physical Exam: Gen: NAD, alert, interactive HEENT: No jaundice or scleral icterus. Resp:Non-labored, no wheezing/rhonchi/rales, CTAB CV:RRR, normal S1/S2, no M/R/G Abd: Soft, mildly-distended, mild RUQ TTP, normoactive bowels, no masses Extr: 2+ dp bilaterally, 1+ LE edema (pitting) from ankle to mid-calf, no deep calf TTP, Haleigh sign negative Skin: No rashes lesions or erythema Results & Data Results & Data ([facility]) Vital Signs (Past 12 Hours) Vital Signs Temp Pulse Resp BP BP Pulse Ox O2 Del Method 04/19/22 07:29 36.8 C 66 16 113/71 97 Room Air 04/18/22 20:55 Room Air 04/18/22 21:08 36.7 C 62 16 110/61 95 Room Air Resident Activity Tracking Resident Involvement: Resident Care Provided Care Provided: Adult Hospital Medicine
[2022-04-19] MEDS: SUCRALFATE 1 GM/10 ML UDC PO SCH ×3 (08:45→15:48)
[2022-04-19] MEDS: PROCHLORPERAZINE 5 MG in SYRINGE 4 ML IV PRN (09:44)
[2022-04-19 09:57] LABS: Hematocrit (blood only) 24.1 % (34.1-44.9); Hemoglobin 8.6 g/dl (12.0-16.0); Mean Corpuscular Hemoglobin 34.5 pg (25.0-34.0); Mean Corpuscular Hgb Conc 35.7 g/dL (32.0-36.0); Mean Corpuscular Volume 96.8 fL (80.0-100.0); Mean Platelet Volume 10.8 fL (9.4-12.3); Platelet Count 50 K/uL (130-400); RDW Coefficient of Variation 16.1 % (11.5-14.5); RDW Standard Deviation 55.2 fL (36.4-46.3); Red Blood Count 2.49 M/uL (3.93-5.22); White Blood Count 6.35 K/ul (4.8-10.8)
[2022-04-19 10:02] LABS: INR 1.5 (0.9-1.1)
[2022-04-19 10:26] LABS: Albumin Globulin Ratio 0.8 (0.9-2); Albumin Level 2.2 gm/dl (3.4-5.0); BUN Creatinine Ratio 11.2 (10-20); Bilirubin Direct 1.5 mg/dl (0-0.2); Bilirubin,Total 3.2 mg/dl (0.2-1.0); Calcium 8.8 mg/dl (8.5-10.1); Creatinine Clr Calc Pharmacy 26.6 ml/min; Est GFR (African American) 39.7 ml/min; Est GFR (Non-African American) 34.3 ml/min; Globulin 2.9 gm/dl (2.5-4.0); Potassium 4.2 mmol/L (3.5-5.1); Total Protein 5.1 gm/dl (6.0-8.3)
[2022-04-19] MEDS: ESCITALOPRAM OXALATE 20 MG TAB PO SCH (10:53)
[2022-04-19] MEDS: PANTOprazole 40 MG TAB PO SCH ×2 (10:53→21:54)
[2022-04-19] MEDS: SPIRONOLACTONE 12.5 MG TAB PO SCH ×2 (10:53→21:54)
[2022-04-19] MEDS: FAMOTIDINE 20 MG TAB PO SCH ×2 (10:53→21:53)
[2022-04-19] MEDS: rifAXIMin 550 MG TABLET PO SCH ×2 (10:53→21:54)
[2022-04-19] MEDS: HYDROXYCHLOROQUINE SULFATE 200 MG TAB PO SCH (10:54)
[2022-04-19] MEDS: levETIRAcetam 250 MG TAB PO SCH ×2 (10:54→21:54)
--- NOTE | 2022-04-20 08:01 | Hospitalist Progress Note ---
Date of Service April 20, 2022 Assessment & Plan (1) Generalized weakness: Plan: Pt is an 81 y/o female w/ PMH of cirrhosis, varices, type 2 diabetes who presents for over a week of malaise. Generalized weakness - Originally covered for SBP, discontinued abx 04/14 - Paracentesis not indicated d/t fluid volume - EBV IgG +, IgM -, unlikely active infection, likely chronic infection - Should be given scheduled Zofran before meals as of 04/13 - Patient is doing better on 04/14 - 04/20 Patient is feeling significantly improved today --- [facility] care closed to admissions. [facility] not in patient's network. Family will need to consider other options. CM following. 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 - MELD at admission: 28 - Maddrey's discriminant function at admission 61.1. glucocorticoids not needed d/t not being from alcohol. - continue home rifaximin and avoid constipation with goal of 3-4 BM daily - Patient has an elevated AFP(13.6) and CEA (11.6). Should repeat AFP in one month to see if elevated over 7 ng/mL. - GI consulted and recommending liver MRI after d/c d/t new liver mass. - EGD planned in 2022 for variceal surveillance - 04/18 Continue sodium restriction to 2 g per outpatient GI and inpatient GI recommendations * Family advised to adhere to recommendations rather than bringing in salt packets for patient's meals, continued non-adherence * Patient endorsed worsening nausea and abdominal discomfort, US abdomen obtained, mild ascites present (overall unchanged), no additional intervention at this time - 04/19 Nausea alleviated by Compazine - 04/19 Salt restriction discontinued --- 04/20 No nausea or bloating --- 04/20 Hgb 7.7, transfuse for Hgb < 7 --- 04/20 Plt 40, no active bleeding ----04/20 Total Bili 2.9 H, Albumin 2.0 L Low urine output - pt overnight produced 125 mL urine 04/17 - Edema and abdominal distension noted 04/17 - d/c fluids 04/16, will continue to monitor into 04/18 and evaluate need for diuresis - 04/18 No additional diuresis at this time, patient urinating small amounts regularly Right flank pain - abd pain is intermittent and states intermittent - no abdominal pain at rest or with TTP 04/17 - the right flank pain on exam would not be explained by cirrhosis alone - lower suspicion for UTI given lack of urinary symptoms - patient is s/p cholecystectomy - Mild abdominal pain in all 4 quadrant 04/18, ultrasound obtained, see above --- 04/20 Flank pain absent Depression - pt's daughter concerned w/ pt morale and mood - will restart Lexapro 20 mg PO daily per conversation with outpatient GI physician --- Continue Lexapro 20 mg PO Type 2 diabetes mellitus - discontinued q4h BSG checks - will follow with daily labs (CMP) - discontinue carb consistent diet per family request as patient is not eating --- Placed order to add strawberry boost, family notes patient drinks this regularly at home Hx of seizure disorder - continue home keppra (2) Cirrhosis: (3) Right flank pain: (4) Type 2 diabetes mellitus: (5) Hx of seizure disorder: (6) Low urine output: Plan FEN: regular DVT Ppx: SCD d/t TCPenia Code: DNR/DNI Dispo: pending SNF- [facility] and [facility] unavailable, pending family decision Admission and Anticipated Discharge Date Admission Date: April 11, 2022 Supervising Physician Co-Signing Physician Notes I also saw the patient confirmed [place] portions of the history and physical examination. I agree with the impression plan as noted in the resident documentation. EXAM 90/58, 86, 18, 36.8 C She is pleasant. Heart regular Respirations nonlabored Abdomen generally nontender DATA Hemoglobin 7.7, platelet count 40,000 PT 7.2, INR 1.7 Sodium 131, potassium 4.3 Total bilirubin 2.9, direct 1.1 AST 55, ALT 28, alkaline phosphatase 144 IMAGING Limited ultrasound dated 04/18/2022 shows mild ascites in all 4 quadrants IMPRESSION & PLAN Cirrhosis Anemia, lower today but within baseline range Thrombocytopenia, lower today but within baseline range, and elevated PTT secondary to cirrhosis Generalized weakness, seems to be improving on the past couple of days Depression, stable Physical therapy Continue current medications/plan of care Case management continues to work on placement options Additional per resident documentation Subjective Pt is an 81 y/o female w/ PMH of cirrhosis, varices, type 2 diabetes who pre sents for over a week of malaise. 04/20: Patient states she is feeling very well today. Her nausea is resolved, her abdomen does not feel as bloated and she is having no discomfort in her legs. She denies any chest pain, pleuritic pain, dyspnea, or headaches. She was comfortable and enjoying her breakfast upon arrival to her room this morning. 1245 Received message from nursing that daughter in law was requesting call. Attempted to call daughter in law w/o answer 04/19: Patient resting comfortably on arrival. Nausea is improved. Ongoing abdominal bloating, unchanged leg swelling. Notes continued urination. Occasional abdominal pain in RUQ. Left leg pain has resolved. She states she is 'as good as she can be'. No chest pain, dyspnea, pleuritic pain, or headaches. No dysuria. Patient was excited to receive [place] boost. Review of Systems Review of Systems: See HPI. Physical Exam Physical Exam: Gen: NAD, alert, interactive Resp:Non-labored, no wheezing/rhonchi/rales, CTAB CV:RRR, normal S1/S2, no M/R/G Abd: Soft, mildly-distended, no TTP, normoactive bowels, no masses Extr: 2+ dp bilaterally, 1+ LE edema (pitting) from ankle to mid-calf, no deep calf TTP, Haleigh sign negative Skin: Skin pale, no jaundice. No rashes lesions or erythema Results & Data Results & Data ([facility]) Vital Signs (Past 12 Hours) Vital Signs Temp Pulse Resp BP Pulse Ox O2 Del Method 04/20/22 07:19 36.7 C 80 16 97/57 L 94 Room Air 04/19/22 21:54 Room Air 04/19/22 22:30 36.4 C L 89 16 118/66 96 Resident Activity Tracking Resident Involvement: Resident Care Provided Care Provided: Adult Hospital Medicine
[2022-04-20] MEDS: ESCITALOPRAM OXALATE 20 MG TAB PO SCH (09:12)
[2022-04-20] MEDS: rifAXIMin 550 MG TABLET PO SCH ×2 (09:13→20:22)
[2022-04-20] MEDS: levETIRAcetam 250 MG TAB PO SCH ×2 (09:13→20:22)
[2022-04-20] MEDS: HYDROXYCHLOROQUINE SULFATE 200 MG TAB PO SCH (09:13)
[2022-04-20] MEDS: SPIRONOLACTONE 12.5 MG TAB PO SCH ×2 (09:13→20:22)
[2022-04-20] MEDS: SUCRALFATE 1 GM/10 ML UDC PO SCH ×3 (09:13→17:31)
[2022-04-20] MEDS: FAMOTIDINE 20 MG TAB PO SCH ×2 (09:13→20:22)
[2022-04-20] MEDS: PANTOprazole 40 MG TAB PO SCH ×2 (09:13→20:22)
[2022-04-20 09:19] LABS: INR 1.7 (0.9-1.1); Prothrombin Time 17.2 Seconds (9.0-12.0)
[2022-04-20 09:44] LABS: Albumin Globulin Ratio 0.8 (0.9-2); Bilirubin Direct 1.1 mg/dl (0-0.2); Bilirubin,Total 2.9 mg/dl (0.2-1.0); Calcium 8.7 mg/dl (8.5-10.1); Creatinine Clr Calc Pharmacy 24.6 ml/min; Est GFR (Non-African American) 31.1 ml/min; Globulin 2.6 gm/dl (2.5-4.0); Potassium 4.3 mmol/L (3.5-5.1); Total Protein 4.6 gm/dl (6.0-8.3)
[2022-04-20 09:47] LABS: Hematocrit (blood only) 22.4 % (34.1-44.9); Hemoglobin 7.7 g/dl (12.0-16.0); Mean Corpuscular Hemoglobin 33.8 pg (25.0-34.0); Mean Corpuscular Hgb Conc 34.4 g/dL (32.0-36.0); Mean Corpuscular Volume 98.2 fL (80.0-100.0); Mean Platelet Volume 11.1 fL (9.4-12.3); Platelet Count 40 K/uL (130-400); RDW Coefficient of Variation 16.2 % (11.5-14.5); RDW Standard Deviation 56.3 fL (36.4-46.3); Red Blood Count 2.28 M/uL (3.93-5.22); White Blood Count 4.74 K/ul (4.8-10.8)
[2022-04-20 09:48] LABS: Platelet Estimate Decreased (Normal)
[2022-04-20 17:46] LABS: Lymphocytes % (manual) 35 %; Monocytes % (manual) 3 %; Neutrophils % (manual) 61 %
[2022-04-21] MEDS: SUCRALFATE 1 GM/10 ML UDC PO SCH ×3 (07:50→17:14)
--- NOTE | 2022-04-21 08:10 | Hospitalist Progress Note ---
Date of Service April 21, 2022 Assessment & Plan (1) Generalized weakness: Plan: Pt is an 81 y/o female w/ PMH of cirrhosis, varices, type 2 diabetes who presents for over a week of malaise. Generalized weakness - Originally covered for SBP, discontinued abx 04/14 - Paracentesis not indicated d/t fluid volume - EBV IgG +, IgM -, unlikely active infection, likely chronic infection - Should be given scheduled Zofran before meals as of 04/13 - Patient is doing better on 04/14 - 04/20 Patient is feeling significantly improved today --- Family considering [facility] vs taking patient home, CM following --- OT strongly recommending SNF, patient on board with recommendation Cirrhosis (Cryptogenic, non-alcoholic) - w/ thrombocytopenia, varices, and ascites - possible association w/ chronic EBV - CT abd w/ cirrhosis, moderate ascites, gastric varices, potential mild diverticulosis and potential mass of liver. - MELD at admission: 28 - Maddrey's discriminant function at admission 61.1. glucocorticoids not needed d/t not being from alcohol. - continue home rifaximin and avoid constipation with goal of 3-4 BM daily - Patient has an elevated AFP(13.6) and CEA (11.6). Should repeat [facility] to see if elevated over 7 ng/mL. - GI consulted and recommending liver MRI after d/c d/t new liver mass. - EGD planned in 2022 for variceal surveillance - 04/18 Continue sodium restriction to 2 g per outpatient GI and inpatient GI recommendations * Family advised to adhere to recommendations rather than bringing in salt packets for patient's meals, continued non-adherence * Patient endorsed worsening nausea and abdominal discomfort, US abdomen obtained, mild ascites present (overall unchanged), no additional intervention at this time - 04/19 Nausea alleviated by Compazine - 04/19 Salt restriction discontinued --- 04/21 Hgb 8.3, transfuse for Hgb < 7 --- 04/21 Plt 47, no active bleeding ----04/21 Total Bili 2.7 H, Albumin 2.3 L --- 04/21 Na 128, Gluc 339, corrected Na 132, baseline 130-131 --- Increase in Cr > 0.3 w/in 48 hours, will hold Spironolactone and recheck Cr tomorrow, added 500 cc bolus LR Low urine output - pt overnight produced 125 mL urine 04/17 - Edema and abdominal distension noted 04/17 - d/c fluids 04/16, will continue to monitor into 04/18 and evaluate need for diuresis - 04/18 No additional diuresis at this time, patient urinating small amounts regularly Right flank pain - abd pain is intermittent and states intermittent - no abdominal pain at rest or with TTP 04/17 - the right flank pain on exam would not be explained by cirrhosis alone - lower suspicion for UTI given lack of urinary symptoms - patient is s/p cholecystectomy - Mild abdominal pain in all 4 quadrant 04/18, ultrasound obtained, see above --- 04/21 Flank pain absent Depression - pt's daughter concerned w/ pt morale and mood - will restart Lexapro 20 mg PO daily per conversation with outpatient GI physician --- Continue Lexapro 20 mg PO Type 2 diabetes mellitus - discontinued q4h BSG checks - will follow with daily labs (CMP) - discontinue carb consistent diet per family request as patient is not eating - 04/19 Placed order to add strawberry boost, family notes patient drinks this regularly at home --- 04/21 Glucose elevated to 339 in AM labs, repeat at noon showed glucose of 372, started basal insulin (Lantus 10), will follow Hx of seizure disorder - continue home [place] (2) Cirrhosis: (3) Right flank pain: (4) Type 2 diabetes mellitus: (5) Hx of seizure disorder: (6) Low urine output: Plan FEN: regular DVT Ppx: SCD d/t TCPenia Code: DNR/DNI Dispo: pending SNF- [facility], pending family decision Admission and Anticipated Discharge Date Admission Date: April 11, 2022 Supervising Physician Co-Signing Physician Notes Patient seen and examined independently of PGY-1 Dr. Bell. Agree with history, exam findings, assessment and plan of care as outlined. In brief, Isatu is an 81 year old female with hx of cirrhosis with esophageal varices, DM2 admitted with malaise x 1 week. Feels well today. She did work with physical therapy and noted that even though she could walk down the sy and back, when she returned to her room she was quite tired. Does report that her appetite seems to be a bit better as well. VS and nursing notes reviewed. Non-toxic appearing. No scleral icterus. Mucus membranes are moist. Heart with regular rate and rhythm. Systolic murmur. Lungs are clear to auscultation throughout. Abdomen is soft and slightly distended, but not tense. Legs without edema. Labs reviewed. 1. Generalized weakness. Unclear etiology. Improved, but she is decondi tioned compared to her baseline. 2. Cirrhosis with varices, ascites, and thrombocytopenia. Continue home rifaximin. Some ascites, but not enough to attempt to drain via paracentesis. Continue spironolactone. 3. Liver mass. AFP elevated. Will need repeat AFP in 1 month and MRI as an outpatient. 4. RAJENDRA. Cr is starting to creep up. ?start of HRS. Seems to be rather euvolemic on exam outside of the ascites. Maybe secondary to being intravascularly dry with her elevated glucose levels. Reviewed medication list to ensure that medications do not need to be renally adjusted. Will hold spironolactone and give a small fluid bolus. 5. Depression. Restarted Lexapro 20mg. 6. DM2. Liberalized diet as appetite has been diminished. Continue Marinol. Glucose levels have been a bit elevated today so will start 10u lantus to keep sugars in a reasonable range. 7. Hx of seizures. Continue home Keppra. Dispo: pending placement. Subjective Pt is an 81 y/o female w/ PMH of cirrhosis, varices, type 2 diabetes who presents for over a week of malaise. 04/21: Patient continues to feel well today, she denies nausea or abdominal discomfort. She denies dysuria. She is not having any chest pain, pleuritic pain, or dyspnea. 0830 Family considering [facility] vs taking patient home 04/20: Patient states she is feeling very well today. Her nausea is resolved, her abdomen does not feel as bloated and she is having no discomfort in her legs. She denies any chest pain, pleuritic pain, dyspnea, or headaches. She was comfortable and enjoying her breakfast upon arrival to her room this morning. 1245 Received message from nursing that daughter in law was requesting call. Called daughter. Review of Systems Review of Systems: See HPI. Physical Exam Physical Exam: Gen: NAD, alert, interactive Resp:Non-labored, no wheezing/rhonchi/rales, CTAB CV:RRR, normal S1/S2, no M/R/G Abd: Soft, mildly-distended, no TTP, normoactive bowels, no masses Extr: 2+ dp bilaterally, 1+ LE edema (pitting) from ankle to mid-calf, no deep calf TTP, Haleigh sign negative Skin: Skin pale, no jaundice. No rashes lesions or erythema Results & Data Results & Data ([facility]) Vital Signs (Past 12 Hours) Vital Signs Temp Pulse Resp BP Pulse Ox O2 Del Method 04/21/22 07:05 36.7 C 86 16 100/62 96 Room Air 04/20/22 22:15 37 C 93 H 16 111/64 98 Resident Activity Tracking Resident Involvement: Resident Care Provided Care Provided: Adult Hospital Medicine
[2022-04-21] MEDS: ESCITALOPRAM OXALATE 20 MG TAB PO SCH (09:03)
[2022-04-21] MEDS: FAMOTIDINE 20 MG TAB PO SCH ×2 (09:03→20:56)
[2022-04-21] MEDS: levETIRAcetam 250 MG TAB PO SCH ×2 (09:03→20:56)
[2022-04-21] MEDS: SPIRONOLACTONE 12.5 MG TAB PO SCH (09:04)
[2022-04-21] MEDS: HYDROXYCHLOROQUINE SULFATE 200 MG TAB PO SCH (09:04)
[2022-04-21] MEDS: rifAXIMin 550 MG TABLET PO SCH ×2 (09:04→20:56)
[2022-04-21] MEDS: PANTOprazole 40 MG TAB PO SCH ×2 (09:04→20:56)
[2022-04-21 10:15] LABS: Albumin Globulin Ratio 0.8 (0.9-2); Albumin Level 2.3 gm/dl (3.4-5.0); BUN Creatinine Ratio 10.2 (10-20); Bilirubin Direct 1.3 mg/dl (0-0.2); Bilirubin,Total 2.7 mg/dl (0.2-1.0); Calcium 9.2 mg/dl (8.5-10.1); Creatinine Clr Calc Pharmacy 21.5 ml/min; Est GFR (African American) 30.7 ml/min; Est GFR (Non-African American) 26.5 ml/min; Globulin 2.9 gm/dl (2.5-4.0); Potassium 4.5 mmol/L (3.5-5.1); Total Protein 5.2 gm/dl (6.0-8.3)
[2022-04-21 10:18] LABS: Hematocrit (blood only) 24.2 % (34.1-44.9); Hemoglobin 8.3 g/dl (12.0-16.0); Mean Corpuscular Hemoglobin 34.2 pg (25.0-34.0); Mean Corpuscular Hgb Conc 34.3 g/dL (32.0-36.0); Mean Corpuscular Volume 99.6 fL (80.0-100.0); Mean Platelet Volume 12.1 fL (9.4-12.3); Platelet Count 47 K/uL (130-400); RDW Coefficient of Variation 16.7 % (11.5-14.5); RDW Standard Deviation 59.9 fL (36.4-46.3); Red Blood Count 2.43 M/uL (3.93-5.22); White Blood Count 6.29 K/ul (4.8-10.8)
[2022-04-21 10:24] LABS: INR 1.5 (0.9-1.1); Prothrombin Time 15.9 Seconds (9.0-12.0)
[2022-04-21] MEDS ORDERED: CARBOHYDRATES FOR HYPOGLYCEMIA PO PRN (14:05)
[2022-04-21] MEDS ORDERED: GLUCOSE 40% GEL 15 GM TUBE PO PRN (14:05)
[2022-04-21] MEDS ORDERED: GLUCOSE 10 TAB/TUBE PO PRN (14:05)
[2022-04-21] MEDS ORDERED: GLUCAGON FOR INJ 1 MG VIAL SQ PRN (14:05)
[2022-04-21] MEDS ORDERED: DEXTROSE 50% 50 ML SYRINGE IV PRN (14:05)
[2022-04-21] MEDS: LANTUS PER UNIT CHARGE SQ SCH (14:21)
[2022-04-21] MEDS: LACTATED RINGER'S 500 ML IV ONE ×2 (18:25→20:23)
--- NOTE | 2022-04-21 20:01 | Communication Note ---
Date of Service: April 21, 2022 Glucometer 419 and 372 at ~6pm. Patient was given 10u Lantus at 2pm. A1c 10.9 in November. Diet had been liberalized to regular diet. Difficult IV access and family is refusing US-guided IV placement. plan at 8PM: 9u sq [employer] now. check bsg at midnight and 3AM. Will order SSI tomorrow depending on needs. Check A1c if able to get IV access. Consider re- adding DM2 carb-consistent qualifier to diet.
[2022-04-21] MEDS ORDERED: INSULIN ASPART PER UNIT SC STA (20:22)
--- NOTE | 2022-04-22 07:02 | Hospitalist Progress Note ---
Date of Service April 22, 2022 Assessment & Plan (1) Generalized weakness: Plan: Pt is an 81 y/o female w/ PMH of cirrhosis, varices, type 2 diabetes who presents for over a week of malaise. Generalized weakness - Originally covered for SBP, discontinued abx 04/14 - Paracentesis not indicated d/t fluid volume - EBV IgG +, IgM -, unlikely active infection, likely chronic infection - Should be given scheduled Zofran before meals as of 04/13 - Patient is doing better on 04/14 - 04/20 Patient is feeling significantly improved today --- Family considering [facility] CM following --- OT strongly recommending SNF, patient on board with recommendation Cirrhosis (Cryptogenic, non-alcoholic) - w/ thrombocytopenia, varices, and ascites - possible association w/ chronic EBV - CT abd w/ cirrhosis, moderate ascites, gastric varices, potential mild diverticulosis and potential mass of liver. - MELD at admission: 28 - Maddrey's discriminant function at admission 61.1. glucocorticoids not needed d/t not being from alcohol. - continue home rifaximin and avoid constipation with goal of 3-4 BM daily - Patient has an elevated AFP(13.6) and CEA (11.6). Should repeat AFP in one month to see if elevated over 7 ng/mL. - GI consulted and recommending liver MRI after d/c d/t new liver mass. - EGD planned in 2022 for variceal surveillance - 04/18 Continue sodium restriction to 2 g per outpatient GI and inpatient GI recommendations * Family advised to adhere to recommendations rather than bringing in salt packets for patient's meals, continued non-adherence * Patient endorsed worsening nausea and abdominal discomfort, US abdomen obtained, mild ascites present (overall unchanged), no additional intervention at this time - 04/19 Nausea alleviated by Compazine - 04/19 Salt restriction discontinued - 04/21 Na 128, Gluc 339, corrected Na 132, baseline 130-131 - 04/21 Increase in Cr > 0.3 w/in 48 hours, will hold Spironolactone and recheck Cr tomorrow, added 500 cc bolus LR --- 04/22 Ongoing elevations in pt's Cr, pt. unable to receive 500 cc bolus 04/21 d/t lack of IV access, re-attempt with US guidance today. Bolus ordered. Concern for development of HRS. Medications reviewed for potential causes, Spironolactone on hold. --- 04/22 Family made aware of palliative and hospice options, ongoing discussion between patient and family Low urine output - pt overnight produced 125 mL urine 04/17 - Edema and abdominal distension noted 04/17 - d/c fluids 04/16, will continue to monitor into 04/18 and evaluate need for diuresis - 04/18 No additional diuresis at this time, patient urinating small amounts regularly Right flank pain - abd pain is intermittent and states intermittent - no abdominal pain at rest or with TTP 04/17 - the right flank pain on exam would not be explained by cirrhosis alone - lower suspicion for UTI given lack of urinary symptoms - patient is s/p cholecystectomy - Mild abdominal pain in all 4 quadrant 04/18, ultrasound obtained, see above --- 04/22 Flank pain absent Depression - pt's daughter concerned w/ pt morale and mood - will restart Lexapro 20 mg PO daily per conversation with outpatient GI physician --- Continue Lexapro 20 mg PO Type 2 diabetes mellitus - discontinued q4h BSG checks - will follow with daily labs (CMP) - discontinue carb consistent diet per family request as patient is not eating - 04/19 Placed order to add strawberry boost, family notes patient drinks this regularly at home - 04/21 Glucose elevated to 339 in AM labs, repeat at noon showed glucose of 372, started basal insulin (Lantus 10), will follow --- 04/22 Persistent elevations in BSG (350+) despite long acting insulin, started sliding scale insulin and BSG checks prior to meals Hx of seizure disorder - continue home Keppra (2) Cirrhosis: (3) Right flank pain: (4) Type 2 diabetes mellitus: (5) Hx of seizure disorder: (6) Low urine output: Plan FEN: Regular DVT Ppx: SCD d/t TCPenia Code: DNR/DNI Dispo: pending - Planning [facility] Admission and Anticipated Discharge Date Admission Date: April 11, 2022 Supervising Physician Co-Signing Physician Notes Patient seen and examined independently of PGY-1 Dr. Bell. Agree with history, exam findings, assessment and plan of care as outlined. In brief, Isatu is an 81 year old female with hx of cirrhosis with esophageal varices, DM2 admitted with malaise x 1 week. Granddaughter at the bedside this afternoon. Noting that Isatu seems weaker. Even having difficulty gripping the soda cup. She is nauseated this afternoon. Also updated [id number] Naomi and her at the bedside this afternoon. Overnight events: unable to obtain IV access and family had declined further attempts with US guided PIV at the time. They are now amenable to this after explaining the purpose of having a peripheral IV. VS and nursing notes reviewed. Non-toxic appearing. No scleral icterus. Mucus membranes are moist. Heart with regular rate and rhythm. Systolic murmur. Lungs are clear to auscultation throughout. Abdomen is soft and slightly distended, but not tense. Legs without edema. Labs reviewed. 1. Generalized weakness. Unclear etiology. Improved, but she is quite deconditioned compared to her baseline. 2. Cirrhosis with varices, ascites, and thrombocytopenia. Continue home rifaximin. Some ascites, but not enough to attempt to drain via paracentesis. Holding spironolactone. 3. Liver mass. AFP elevated. Will need repeat AFP in 1 month and MRI as an outpatient. 4. RAJENDRA. Cr is starting to creep up. ?start of HRS. Maybe secondary to being intravascularly dry with her elevated glucose levels. Reviewed medication list to ensure that medications do not need to be renally adjusted. Will hold spironolactone and give a small fluid bolus after US guided PIV is placed. If no improvement, can consider urine lytes and UA/microscopy to evaluate for casts/AIN. 5. Depression. Restarted Lexapro 20mg. 6. DM2. A1C 6.0%. I suspect this may be falsely low due to recent diminished appetite as well as borderline splenomegaly and chronic anemia. Liberalized diet as appetite has been diminished. Continue Marinol (although being very aware that this can also cause nausea). Glucose levels have been a bit elevated today so started 10u lantus + sliding scale insulin to keep sugars in a reasonable range. 7. Hx of seizures. Continue home Keppra. Dispo: pending placement. Subjective Pt is an 81 y/o female w/ PMH of cirrhosis, varices, type 2 diabetes who presents for over a week of malaise. 04/22: Patient resting comfortably in bed enjoying her breakfast upon presenta tion. Today she notes that she is feeling stronger. She is not having any nausea or abdoinal pain. She denies chest pain or dyspnea and is not experiencing any dysuria. 0800 Spoke with daughter in law Gillette via phone for 45 minutes. Explained clinical course over last day. She expressed understanding and asked questions. 04/21: Patient continues to feel well today, she denies nausea or abdominal discomfort. She denies dysuria. She is not having any chest pain, pleuritic pain, or dyspnea. 0830 Family considering [facility] vs taking patient home Review of Systems Review of Systems: See HPI. Physical Exam Physical Exam: Gen: NAD, alert, interactive Resp:Non-labored, no wheezing/rhonchi/rales, CTAB CV:RRR, normal S1/S2, no M/R/G Abd: Soft, mildly-distended, no TTP, normoactive bowels, no masses Extr: 2+ dp bilaterally, 1+ LE edema (pitting) from ankle to mid-calf, no deep calf TTP, Haleigh sign negative Skin: Skin pale, no jaundice. No rashes lesions or erythema Results & Data Results & Data ([facility]) Vital Signs (Past 12 Hours) Vital Signs Temp Pulse Resp BP Pulse Ox O2 Del Method 04/21/22 23:58 36.9 C 92 H 17 93/58 L 96 Room Air Resident Activity Tracking Resident Involvement: Resident Care Provided Care Provided: Adult [facility] Medicine
[2022-04-22 07:59] LABS: Hematocrit (blood only) 23.1 % (34.1-44.9); Hemoglobin 8.1 g/dl (12.0-16.0); Mean Corpuscular Hemoglobin 34.2 pg (25.0-34.0); Mean Corpuscular Hgb Conc 35.1 g/dL (32.0-36.0); Mean Corpuscular Volume 97.5 fL (80.0-100.0); Mean Platelet Volume 11.6 fL (9.4-12.3); Platelet Count 52 K/uL (130-400); RDW Coefficient of Variation 16.6 % (11.5-14.5); RDW Standard Deviation 57.1 fL (36.4-46.3); Red Blood Count 2.37 M/uL (3.93-5.22); White Blood Count 6.82 K/ul (4.8-10.8)
[2022-04-22 08:11] LABS: INR 1.6 (0.9-1.1); Prothrombin Time 16.4 Seconds (9.0-12.0)
[2022-04-22 08:30] LABS: Albumin Globulin Ratio 0.7 (0.9-2); Albumin Level 2.1 gm/dl (3.4-5.0); BUN Creatinine Ratio 9.7 (10-20); Bilirubin Direct 1.2 mg/dl (0-0.2); Bilirubin,Total 2.8 mg/dl (0.2-1.0); Calcium 8.9 mg/dl (8.5-10.1); Creatinine Clr Calc Pharmacy 20.6 ml/min; Est GFR (African American) 29.1 ml/min; Est GFR (Non-African American) 25.1 ml/min; Globulin 2.9 gm/dl (2.5-4.0); Potassium 4.4 mmol/L (3.5-5.1)
[2022-04-22 09:17] LABS: Estimated Average Glucose 126 mg/dl
[2022-04-22] MEDS: PANTOprazole 40 MG TAB PO SCH ×2 (09:43→20:16)
[2022-04-22] MEDS: SUCRALFATE 1 GM/10 ML UDC PO SCH ×3 (09:43→17:50)
[2022-04-22] MEDS: FAMOTIDINE 20 MG TAB PO SCH ×2 (09:44→20:16)
[2022-04-22] MEDS: levETIRAcetam 250 MG TAB PO SCH ×2 (09:44→20:16)
[2022-04-22] MEDS: ESCITALOPRAM OXALATE 20 MG TAB PO SCH (09:44)
[2022-04-22] MEDS: HYDROXYCHLOROQUINE SULFATE 200 MG TAB PO SCH (09:44)
[2022-04-22] MEDS: rifAXIMin 550 MG TABLET PO SCH ×2 (09:45→20:16)
[2022-04-22] MEDS: LANTUS PER UNIT CHARGE SQ SCH (10:29)
[2022-04-22] MEDS ORDERED: ONDANSETRON 4 MG OD TAB PO STA (13:38)
[2022-04-22] MEDS: INSULIN ASPART PER UNIT SC SCH ×3 (14:03→20:30)
[2022-04-22] MEDS ORDERED: LACTATED RINGER'S 500 ML IV ONE (16:06)
[2022-04-23 07:01] LABS: INR 1.6 (0.9-1.1); Prothrombin Time 16.6 Seconds (9.0-12.0)
[2022-04-23 07:06] LABS: Hematocrit (blood only) 21.4 % (34.1-44.9); Hemoglobin 7.5 g/dl (12.0-16.0); Mean Corpuscular Hemoglobin 34.1 pg (25.0-34.0); Mean Corpuscular Volume 97.3 fL (80.0-100.0); Mean Platelet Volume 11.5 fL (9.4-12.3); Platelet Count 44 K/uL (130-400); RDW Coefficient of Variation 16.4 % (11.5-14.5); RDW Standard Deviation 57.6 fL (36.4-46.3); White Blood Count 5.59 K/ul (4.8-10.8)
[2022-04-23 07:23] LABS: Acanthocytes 1+; Basophils # (auto) 0.02 K/uL (0-0.2); Basophils % (auto) 0.4 %; Echinocytes 2+; Immature Granulocytes # (auto) 0.02 K/uL (0.00-0.02); Immature Granulocytes % (auto) 0.4 %; Lymphocytes % (auto) 23.3 %; Monocytes # (auto) 0.59 K/uL (0.24-0.82); Monocytes % (auto) 10.6 %; Neutrophils # (auto) 3.66 K/uL (1.4-6.5); Neutrophils % (auto) 65.3 %; Polychromasia 1+; Tear Drop Cells 1+
[2022-04-23 07:30] LABS: Albumin Globulin Ratio 0.8 (0.9-2); Bilirubin Direct 1.1 mg/dl (0-0.2); Creatinine Clr Calc Pharmacy 20.1 ml/min; Est GFR (African American) 28.2 ml/min; Est GFR (Non-African American) 24.3 ml/min; Globulin 2.6 gm/dl (2.5-4.0); Potassium 4.6 mmol/L (3.5-5.1); Total Protein 4.6 gm/dl (6.0-8.3)
[2022-04-23] MEDS: INSULIN ASPART PER UNIT SC SCH ×4 (09:49→20:57)
[2022-04-23] MEDS: SUCRALFATE 1 GM/10 ML UDC PO SCH ×3 (09:50→17:27)
[2022-04-23] MEDS: ESCITALOPRAM OXALATE 20 MG TAB PO SCH (09:50)
[2022-04-23] MEDS: FAMOTIDINE 20 MG TAB PO SCH ×2 (09:50→20:50)
[2022-04-23] MEDS: HYDROXYCHLOROQUINE SULFATE 200 MG TAB PO SCH (09:50)
[2022-04-23] MEDS: rifAXIMin 550 MG TABLET PO SCH ×2 (09:51→20:50)
[2022-04-23] MEDS: PANTOprazole 40 MG TAB PO SCH ×2 (09:51→20:50)
[2022-04-23] MEDS: levETIRAcetam 250 MG TAB PO SCH ×2 (09:51→20:50)
[2022-04-23] MEDS: LANTUS PER UNIT CHARGE SQ SCH (09:54)
--- NOTE | 2022-04-23 10:54 | Nephrology Consultation ---
Date of Consultation April 23, 2022 Assessment & Plan (1) RAJENDRA (acute kidney injury): Oliguric by report. No notable response to fluid bolus yesterday. Decreased EAV. Electrolytes normal. Increased TBW. No emergent indication for dialysis. Clinical presentation prerenal due to poor oral intake versus HRS. Appropriately documenting UOP would be important prognostic indicator. Based on prior conversations dialysis would not be consistent with goals of care. Isatu would likely not tolerate HD well and not a candidate for PD due to ascites. UA/microscopy and urine sodium requested. CT obtained earlier during admission reviewed. No additional imaging at this time. Please monitor and document strict I/O. Early directed therapy with octreotide, midodrine, and IV albumin has been ordered. (2) CKD (chronic kidney disease): Baseline creatinine 1.5 mg/dL. Kidneys atrophic on imaging. (3) Cirrhosis: Prognosis is unfortunately guarded. MELD 25. Evidence of worsening portal hypertension, will start triple therapy for HRS early. (4) Anemia: Iron studies with next labs. Epogen 24549 units x 1 now. (5) History of kidney stones: Imaging reviewed. No intervention at this time. History of Present Illness Reason for Consultation: RAJENDRA, possible HRS Requesting Physician: Lalito Davis DO Attending Physician: Lalito Davis DO History of Present Illness Isatu Toledo is an 81 year-old female with cryogenic cirrhosis, CKD III, SLE, Sjogren, and OA/DJD. Complications of cirrhosis include esophageal varices and ascites. Paracentesis removing 2 L of ascitic fluid performed at the end of February. She has notable chronic anemia and thrombocytopenia. Imaging has revealed a 1.6 cm lesion in the liver and AFP was found to be elevated. I met Isatu in the outpatient nephrology clinic last month. She was referred by Dr. Magallanes for assistance in management of her volume status. Treatment included spironolactone which has now been held during her current admission due to worsening kidney function. Per report urine output has been notably decreased, though not documented. Isatu reports increasing abdominal distention and lower extremity edema. She had presented to the ER on April 03 with weakness and nausea. Appetite has been poor. Isatu was diagnosed with an E coli UTI. Unfortunately, symptoms persisted on treatment. She returned to the hospital and was admitted for additional evaluation on April 11. Isatu struggled with increasing frailty and debility. Goals of care conversations are ongoing and she appears to understand the advanced nature of her illness. She is anticipating discharge to a SNF. She is focused predominately on maintaining quality of life. Prior to our clinic visit in March, diuretics were previously discontinued during an admission to [facility] with RAJENDRA attributed to dehydration. She continues to struggle with poor PO intake. Appetite is poor. She is losing weight. She has a noted degree of weakness but is able to maintain some independence with the assistance of a caregiver twice daily at home. Isatu reports reasonable quality of life but very sedentary life currently. BP has been relatively low but acceptable. She has had a couple falls at home but denies notable orthostatic lightheadedness. She denies syncope or presyncope. She denies any melena or hematochezia. There have been no fevers or chills. Isatu denied abdominal pain this AM. I discussed the recent history and plan of care with Dr. Bell . Allergies Allergy/AdvReac Type Severity Reaction Status Date / Time levofloxacin [From Levaquin] Allergy Severe Shortness Verified 04/10/22 15:06 of breath sulfamethoxazole Allergy Severe SOB Verified 04/10/22 15:06 [From Bactrim] trimethoprim [From Bactrim] Allergy Severe SOB Verified 04/10/22 15:06 ciprofloxacin [From Cipro] Allergy Intermediate Hives Verified 04/10/22 15:06 paroxetine Allergy Mild Diarrhea Verified 04/10/22 15:06 phenytoin Allergy Unknown Unknown Verified 04/10/22 15:06 unknown antibiotic Allergy Severe Browning-Bryon Uncoded 04/10/22 15:06 syndrome - no records available Home Medications Medication Instructions Recorded Confirmed Type cholecalciferol (vitamin D3) 50 50 mcg PO QDD 08/11/20 04/10/22 History mcg (2,000 unit) capsule hydroxychloroquine 200 mg tablet 200 mg PO QAM #90 tabs 08/30/20 04/10/22 Rx (Plaquenil) diclofenac sodium 1 % topical gel 2 g EXT QID #100 grams 04/24/21 04/10/22 Rx (Voltaren Arthritis Pain) acetaminophen 325 mg capsule 325 mg PO QID PRN Pain 05/11/21 04/10/22 History calcium carbonate 600 mg calcium 600 mg PO DAILY #90 tabs 06/16/21 04/10/22 Rx (1,500 mg) tablet (Calcium) cetirizine 10 mg tablet (Zyrtec) 5 mg PO HS PRN Allergy Symptoms 07/13/21 04/10/22 History escitalopram oxalate 20 mg tablet 20 mg PO DAILY #90 tabs 07/20/21 04/10/22 Rx rifaximin 550 mg tablet 550 mg PO BID hepatic 09/13/21 04/10/22 Rx encephalopathy from cirrhosis #180 tabs albuterol sulfate 90 mcg/actuation 2 puff inhalation Q6H PRN 12/21/21 04/10/22 R x aerosol inhaler shortness of breath or wheezing #8.5 grams buspirone 5 mg tablet 5 mg PO BID #60 tabs 12/21/21 04/10/22 Rx lancets 33 gauge (OneTouch Delica #100 ea 12/22/21 04/10/22 Rx Lancets) blood sugar diagnostic #100 ea 12/29/21 04/10/22 Rx magnesium chloride 71.5 mg 143 mg PO DAILY #180 tabs 01/16/22 04/10/22 Rx (magnesium chloride) tablet,delayed release (Slow-Mag) levetiracetam 250 mg tablet 250 mg PO BID #180 tabs 02/27/22 04/10/22 Rx (Keppra) famotidine 40 mg tablet 40 mg PO DAILY #30 tabs 02/28/22 04/10/22 Rx pantoprazole 40 mg tablet,delayed 40 mg PO DAILY #30 tabs 03/20/22 04/10/22 Rx release cephalexin 500 mg capsule 500 mg PO Q12 04/10/22 04/10/22 History spironolactone 25 mg tablet 12.5 mg PO BID 04/10/22 04/10/22 History Patient History Medical History Adjustment disorder with depressed mood Anemia Chronic back pain Cirrhosis cryptogenic Cough Esophageal varices Generalized anxiety disorder GERD (gastroesophageal reflux disease) Glaucoma Hearing difficulty History of kidney stones Hx of gout Osteoarthritis Osteopenia Portal hypertension Portosystemic encephalopathy Seizure LAST ONE MORE THAN 10 YRS AGO Sensorineural hearing loss (SNHL) of both ears Sjogren's disease SLE (systemic lupus erythematosus) Thrombocytopenia Type 2 diabetes mellitus Urinary incontinence Surgical History H/O: hysterectomy (~1984) History of colonoscopy History of esophagogastroduodenoscopy (EGD) with banding of esophageal varices History of liver biopsy Hx of cholecystectomy (~1983) S/P tooth extraction Family History Grandfather Diabetes Mother Hypertension Gallbladder disease Grandmother No problems noted. Father Pancreatic cancer Brother Alcohol abuse Alcoholic cirrhosis of liver Other No family history of adverse response to anesthesia Denies family history of Ovarian cancer Prostate cancer Alzheimer disease Heart disease Myocardial infarction Breast cancer Lung cancer Colorectal cancer Stroke Social History Smoking Status: Never smoker Second Hand Exposure: No; Hx Alcohol Use: Yes Alcohol type: wine Hx Substance Use: No Preferred Language: Icelandic Communication Ability: Effective Visual Impairment: Limited Hearing Ability: Use of Hearing Aid Signs And Displays Salesperson Required: No Beliefs That Will Affect Care: Orthodox Orthodox Beliefs: FAITH marital status: / Current Living Situation: Alone Current Living Situation Comment: DAUGHTER LIVES CLOSE AND CAN ASSIST>[employer] ASSISTS current occupational status: retired current occupation: career with [employer] How many Children do You have: 2 Feels Safe at Home: Yes Childhood Exposure to Second-Hand Smoke: No caffeine: Yes Dental Care, Regularly: No Physical Activity Frequency: Does not Exercise Seatbelt Use: always Sunscreen Use: No Assistive Devices: Walker and Wheelchair Review of Systems Review of Systems: All systems reviewed & are unremarkable except as noted in HPI & below Physical Exam Constitutional: well developed and + frail appearing; no acute distress Eyes: + anicteric sclerae; no corneal abnormality ENMT: Ears: + hearing impairment Mouth: + dry oral mucous membranes Neck: normal visual inspection and trachea midline Respiratory: normal respiratory effort Auscultation: lungs clear to auscultation bilaterally and + rales Cardiovascular: Rate/Rhythm: regular rate Heart Sounds: normal S1 and normal S2 Extremities: + edema Gastrointestinal (Abdomen): Inspection/Auscultation: + abdomen distended Percussion/Palpation: abdomen soft Musculoskeletal: Extremities: no cyanosis and no clubbing Skin: + turgor decreased and + jaundice Neurologic: Motor/Sensory: no tremor and no asterixis Psychiatric: Orientation: alert, oriented to person and oriented to place Results & Data ([facility]) Vital Signs (Past 12 Hours) Vital Signs Temp Pulse Resp BP Pulse Ox O2 Del Method 04/23/22 07:07 36.5 C 70 16 91/55 L 95 Room Air Laboratory Results Laboratory Results - last 24 hr 04/22/22 04/22/22 04/22/22 12:15 17:22 20:29 WBC RBC Hgb Hct MCV MCH MCHC RDW Std Deviation RDW Coeff of Nancy Plt Count MPV Immature Gran % (Auto) Neut % (Auto) Lymph % (Auto) [place] % (Auto) Eos % (Auto) Baso % (Auto) Neut # (Auto) Lymph # (Auto) [place] # (Auto) Eos # (Auto) Baso # (Auto) Immature Gran # (Auto) Polychromasia Tear Drop Cells Echinocytes Acanthocytes (Spur) PT INR Sodium Potassium Chloride Carbon Dioxide Anion Gap BUN Creatinine Est Cr Clr Drug Dosing Est GFR ( Amer) Est GFR (Non-Af Amer) BUN/Creatinine Ratio Glucose POC Glucose 194 H 233 H 232 H Calcium Total Bilirubin Direct Bilirubin AST ALT Alkaline Phosphatase Total Protein Albumin Globulin Albumin/Globulin Ratio 04/23/22 04/23/22 04/23/22 06:00 06:00 06:00 WBC 5.59 RBC 2.20 L Hgb 7.5 L Hct 21.4 L MCV 97.3 MCH 34.1 H MCHC 35.0 RDW Std Deviation 57.6 H RDW Coeff of Nancy 16.4 H Plt Count 44 L MPV 11.5 Immature Gran % (Auto) 0.4 Neut % (Auto) 65.3 Lymph % (Auto) 23.3 [place] % (Auto) 10.6 Eos % (Auto) 0.0 Baso % (Auto) 0.4 Neut # (Auto) 3.66 Lymph # (Auto) 1.30 [place] # (Auto) 0.59 Eos # (Auto) 0.00 Baso # (Auto) 0.02 Immature Gran # (Auto) 0.02 Polychromasia 1+ Tear Drop Cells 1+ Echinocytes 2+ Acanthocytes (Spur) 1+ PT 16.6 H INR 1.6 H Sodium 128 L Potassium 4.6 Chloride 103 Carbon Dioxide 22 Anion Gap 3 BUN 19 Creatinine 1.90 H Est Cr Clr Drug Dosing 20.1 Est GFR ( Amer) 28.2 Est GFR (Non-Af Amer) 24.3 BUN/Creatinine Ratio 10.0 Glucose 94 POC Glucose Calcium 9.0 Total Bilirubin 3.0 H Direct Bilirubin 1.1 H AST 70 H ALT 36 Alkaline Phosphatase 160 H Total Protein 4.6 L Albumin 2.0 L Globulin 2.6 Albumin/Globulin Ratio 0.8 L 04/23/22 08:28 WBC RBC Hgb Hct MCV MCH MCHC RDW Std Deviation RDW Coeff of Nancy Plt Count MPV Immature Gran % (Auto) Neut % (Auto) Lymph % (Auto) [place] % (Auto) Eos % (Auto) Baso % (Auto) Neut # (Auto) Lymph # (Auto) [place] # (Auto) Eos # (Auto) Baso # (Auto) Immature Gran # (Auto) Polychromasia Tear Drop Cells Echinocytes Acanthocytes (Spur) PT INR Sodium Potassium Chloride Carbon Dioxide Anion Gap BUN Creatinine Est Cr Clr Drug Dosing Est GFR ( Amer) Est GFR (Non-Af Amer) BUN/Creatinine Ratio Glucose POC Glucose 98 Calcium Total Bilirubin Direct Bilirubin AST ALT Alkaline Phosphatase Total Protein Albumin Globulin Albumin/Globulin Ratio PG Care Time/CCT Total # of Minutes Spent Total Time Spent with Patient: Total time spent is greater than 50% in coordination of care (as documented) at patient's floor/unit and/or counseling patient: Coding Level of Care Code 33907 Inpt Consult Level 5 Diagnoses RAJENDRA (acute kidney injury) N17.9 CKD (chronic kidney disease) N18.9 Cirrhosis K74.60 Anemia D64.9 History of kidney stones Z87.442
[2022-04-23] MEDS ORDERED: EPOETIN ALFA 10,000 UNITS/ML VIAL SQ ONE (11:14)
[2022-04-23 11:32] LABS: Appearance Urine Cloudy (Clear); Bacteria Urine Automated Negative (Negative); Blood Urine Trace (Negative); Color Urine Dark Yellow; Epithelial Cell Urine Auto >30 /lpf (0-5); Glucose Urine UA Negative (Negative); Ketones Urine Negative (Negative); Leukocyte Esterase Urine 2+ (Negative); Nitrite Urine Negative (Negative); Protein Urine Trace (Negative); Specific Gravity Urine 1.014 (1.000-1.030); Urobilinogen Urine Negative (Negative); WBC Urine Automated >30 /hpf (0-5)
[2022-04-23 11:37] LABS: Bilirubin Urine 1+ (Negative)
[2022-04-23] MEDS: ALBUMIN 25% 100 mL 25 GM/100 ML VIAL IV SCH ×2 (12:03→19:15)
[2022-04-23] MEDS: MIDODRINE HCL 2.5 MG TAB PO SCH ×2 (12:04→17:28)
[2022-04-23] MEDS: OCTREOTIDE ACETATE 100 MCG/ML VIAL SQ SCH ×2 (13:38→21:15)
--- NOTE | 2022-04-23 14:09 | Hospitalist Progress Note ---
Date of Service April 23, 2022 Assessment & Plan (1) Generalized weakness: Plan: Pt is an 81 y/o female w/ PMH of cirrhosis, varices, type 2 diabetes who presents for over a week of malaise. Cirrhosis (non-alcoholic) - a/w TCPenia, varices, and ascites - CT abd w/ cirrhosis, moderate ascites, gastric varices, potential mild diverticulosis and potential mass of liver. - MELD at admission: 28 - Maddrey's discriminant function at admission 61.1. glucocorticoids not needed d/t not being from alcohol. - Continue home rifaximin and avoid constipation with goal of 3-4 BM daily - Patient has an elevated AFP(13.6) and CEA (11.6). Should repeat AFP in one month to see if elevated over 7 ng/mL. - GI consulted and recommending liver MRI after d/c d/t new liver mass, EGD planned in 2022 for variceal surveillance - 04/18 Continue sodium restriction to 2 g per outpatient GI and inpatient GI recommendations - 04/19 Nausea alleviated by Compazine - 04/19 Salt restriction discontinued - 04/21 Na 128, Gluc 339, corrected Na 132, baseline 130-131 - 04/21 Increase in Cr > 0.3 w/in 48 hours, will hold Spironolactone and recheck Cr tomorrow, added 500 cc bolus LR - 04/22 Ongoing elevations in pt's Cr, pt. unable to receive 500 cc bolus 04/21 d/t lack of IV access, re-attempt with US guidance today. Bolus ordered. Concern for development of HRS. Medications reviewed for potential causes, Spironolactone on hold. Family made aware of palliative and hospice options, ongoing discussion between patient and family --- 04/23 Concern ongoing for HRS. MELD: Cr 1.9 (1.85), Bili 3.0 (2.8), INR 1.6 (1.6), Na 128 (128) = 27 Acute Kidney Injury (RAJENDRA) - Ongoing oliguria by report from nursing, known to produce small volumed voids 100-125 cc - 04/21 RAJENDRA noted Cr 1.55 --> 1.77, LR 500 cc bolus ordered, not received d/t lack of IV access - 04/22 RAJENDRA worsening Cr 1.77 --> 1.85, IV obtained via US guidance, LR 500 cc received --- 04/23 Patient notes that she believes her frequency of urination is diminishing, RAJENDRA worsening Cr 1.85 --> 1.90, Nephrology consulted d/t HRS concern --- Nephrology Recommendations: No emergent dialysis need (not consistent w/ patient goals of care), poor PO intake vs HRS, ordered UA/microscopy and Urine Na, strict I/O monitoring, started early directed therapy w/ octreotide, midodrine, and IV albumin. Ordered iron studies and Epogen 79318 units d/t anemia. Right flank pain - Intermittent flank pain, w/o TTP on exam, no dysuria at present (low suspicion for urinary infection) - Patient is s/p cholecystectomy - 04/18 Mild abdominal pain in all 4 quadrant w/ TTP, ultrasound obtained, see above --- 04/23 Flank pain absent, no TTP Generalized weakness - Originally covered for SBP, discontinued abx 04/14 - Paracentesis not indicated d/t fluid volume - EBV IgG +, IgM -, unlikely active infection, likely chronic - 04/13 Compazine scheduled - 04/20 Patient is feeling significantly improved - OT strongly recommending SNF, patient on board with recommendation --- Family considering [facility] CM following Depression - Continue Lexapro 20 mg PO Type 2 diabetes mellitus - BSG checked w/ meals - No carb consistent diet per family and patient request - 04/19 Placed order to add strawberry boost, family notes patient drinks this regularly at home - 04/21 Glucose elevated to 339 in AM labs, repeat at noon showed glucose of 372, started basal insulin (Lantus 10), will follow - 04/22 Persistent elevations in BSG (350+) despite long acting insulin, started sliding scale insulin and BSG checks prior to meals --- 04/23 Continue basal and sliding scale insulin, only check glucose before meals Hx of seizure disorder - continue home Keppra (2) Cirrhosis: (3) Right flank pain: (4) Type 2 diabetes mellitus: (5) Hx of seizure disorder: (6) Low urine output: Plan FEN: Regular DVT Ppx: SCD d/t TCPenia Code: DNR/DNI Dispo: pending SNF- Planning [facility] Admission and Anticipated Discharge Date Admission Date: April 11, 2022 Supervising Physician Co-Signing Physician Notes Patient seen and examined independently of PGY-1 Dr. Bell. Agree with history, exam findings, assessment and plan of care as outlined. In brief, Isatu is an 81 year old female with hx of cirrhosis with esophageal varices, DM2 admitted with malaise x 1 week. Isatu is reporting that she feels very cold. No hot-cold feeling. No fevers. Intermittently incontinent of urine. VS and nursing notes reviewed. Non-toxic appearing. No scleral icterus. Mucus membranes are moist. Heart with regular rate and rhythm. Systolic murmur. +2 edema bilateral lower extremities. Lungs are clear to auscultation throughout. Abdomen is soft and slightly distended, but not tense. Labs reviewed. 1. Generalized weakness. Improved, but she is quite deconditioned compared to her baseline. 2. Cirrhosis with varices, ascites, and thrombocytopenia. Continue home rifaximin. Some ascites, but not enough to attempt to drain via paracentesis. Holding spironolactone. 3. RAJENDRA. Cr is starting to creep up (baseline Cr ~ 1.5). ?start of HRS vs pre- renal. Hold continue to hold spironolactone. No improvement in renal function with fluid bolus yesterday. Start octreodtide, midodrine, albumin per nephrology for HRS. I/O's requested. Urine Na=16. Appreciate nephrology assistance and recommendations. 4. Liver mass. AFP elevated. Will need repeat AFP in 1 month and MRI as an outpatient. 5. Anemia. Check iron studies with AM labs. Started epogen per nephrology. 6. DM2. A1C 6.0%. I suspect this may be falsely low due to recent diminished appetite as well as borderline splenomegaly and chronic anemia. Liberalized diet as appetite has been diminished. Decreased Marinol to BID instead of TID (although being very aware that this can also cause nausea). Continue 10u lantus + sliding scale insulin to keep sugars in a reasonable range. 7. Hyponatremia. Chronic. Corrected Na today is 130. ?intravascularly depleted (although not improved after bolus yesterday) vs medication (SSRI...less so with keppra). 8. Hx of seizures. Continue home Keppra. Dispo: pending clinical improvement. Will need rehab/SNF at discharge. Subjective Pt is an 81 y/o female w/ PMH of cirrhosis, varices, type 2 diabetes who presents for over a week of malaise. 04/23: Patient was up in her chair upon arrival, appeared comfortable. She notes that she is having nausea today after breakfast, she ate 25-50% of her food. She is not having abdominal pain at present, states it comes and goes. She denies chest pain or dyspnea. She denies any dysuria but notes decreasd frequency of urination. She notes her legs are becoming more swollen today. 1500 Spoke with patient's daughter Maria C Chadwick for 40 minutes, explained big picture and clinical course over the last day. She was satisfied with explanations. 04/22: Patient resting comfortably in bed enjoying her breakfast upon presentation. Today she notes that she is feeling stronger. She is not having any nausea or abdominal pain. She denies chest pain or dyspnea and is not experiencing any dysuria. 0800 Spoke with daughter in law Gil[place] via phone for 45 minutes. Explained clinical course over last day. She expressed understanding and asked questions. Review of Systems Review of Systems: See HPI. Physical Exam Physical Exam: Gen: NAD, alert, interactive, pale w/o jaundice Resp:Non-labored, no wheezing/rhonchi/rales, CTAB CV:RRR, normal S1/S2, no M/R/G Abd: Soft, moderately-distended, no TTP, hypoactive bowels, no masses Extr: 2+ dp bilaterally, 2+ LE edema (pitting) from ankle to thigh, no deep calf TTP, Haleigh sign negative Results & Data Results & Data ([facility]) Vital Signs (Past 12 Hours) Vital Signs Temp Pulse Resp BP Pulse Ox O2 Del Method 04/23/22 07:07 36.5 C 70 16 91/55 L 95 Room Air Resident Activity Tracking Resident Involvement: Resident Care Provided Care Provided: Adult Hospital Medicine
[2022-04-23] MEDS: LIDOCAINE 5% 1 PATCH TD SCH (22:00)
[2022-04-24] MEDS: ALBUMIN 25% 100 mL 25 GM/100 ML VIAL IV SCH ×3 (04:30→18:35)
[2022-04-24] MEDS: OCTREOTIDE ACETATE 100 MCG/ML VIAL SQ SCH ×3 (06:13→21:25)
--- NOTE | 2022-04-24 07:26 | Hospitalist Progress Note ---
Date of Service April 24, 2022 Assessment & Plan (1) Generalized weakness: Plan: Pt is an 81 y/o female w/ PMH of cirrhosis, varices, type 2 diabetes who presents for over a week of malaise. 04/24 1100 Family and patient agreeable to palliative care consultation, orders placed. Cirrhosis (non-alcoholic) - a/w TCPenia, varices, and ascites - CT abd w/ cirrhosis, moderate ascites, gastric varices, potential mild diverticulosis and potential mass of liver. - MELD at admission: 28 - Maddrey's discriminant function at admission 61.1. glucocorticoids not needed d/t not being from alcohol. - Continue home rifaximin and avoid constipation with goal of 3-4 BM daily - Patient has an elevated AFP(13.6) and CEA (11.6). Should repeat AFP in one month to see if elevated over 7 ng/mL. - GI consulted and recommending liver MRI after d/c d/t new liver mass, EGD planned in 2022 for variceal surveillance - 04/18 Continue sodium restriction to 2 g per outpatient GI and inpatient GI recommendations - 04/19 Nausea alleviated by Compazine - 04/19 Salt restriction discontinued - 04/21 Na 128, Gluc 339, corrected Na 132, baseline 130-131 - 04/21 Increase in Cr > 0.3 w/in 48 hours, will hold Spironolactone and recheck Cr tomorrow, added 500 cc bolus LR - 04/22 Ongoing elevations in pt's Cr, pt. unable to receive 500 cc bolus 04/21 d/t lack of IV access, re-attempt with US guidance today. Bolus ordered. Concern for development of HRS. Medications reviewed for potential causes, Spironolactone on hold. Family made aware of palliative and hospice options, ongoing discussion between patient and family - 04/23 Concern ongoing for HRS. MELD: Cr 1.9 (1.85), Bili 3.0 (2.8), INR 1.6 (1.6), Na 128 (128) = 27 --- 04/24 Concern ongoing for HRS vs pre-renal kidney injury (Cr 1.92). MELD: Cr 1.92 (1.9), Bili 3.0 (3.0), INR 1.7 (1.6), Na 128 (128) = 28 --- 04/24 Gastroenterology consultation: Recommending palliative care consultation, paracentesis consideration given for patient discomfort as needed, continue Xifaxan and Protonix. --- 04/24 Hgb 6.7, patient and family agreeable to transfusion, process initiated at 1100. Consent forms completed. Acute Kidney Injury (RAJENDRA) - Ongoing oliguria by report from nursing, known to produce small volumed voids 100-125 cc - 04/21 RAJENDRA noted Cr 1.55 --> 1.77, LR 500 cc bolus ordered, not received d/t lac k of IV access - 04/22 RAJENDRA worsening Cr 1.77 --> 1.85, IV obtained via US guidance, LR 500 cc received -04/23 Patient notes that she believes her frequency of urination is diminishing, RAJENDRA worsening Cr 1.85 --> 1.90, Nephrology consulted d/t HRS concern. Nephrology Recommendations: No emergent dialysis need (not consistent w/ patient goals of care), poor PO intake vs HRS, ordered UA/microscopy and Urine Na, strict I/O monitoring, started early directed therapy w/ octreotide, midodrine, and IV albumin. Ordered iron studies and Epogen 58985 units d/t anemia. --- 04/24 Notes ongoing low urine output and worsening abdominal distension in last 24 hours. Dialysis not within patient's goals of care. Recommended palliative consultation. Continue Octreotide, Midodrine, and Albumin. HH dropping, iron stores low, provided IV Venofer pending decision on PRBC transfusion. Right flank pain - Intermittent flank pain, w/o TTP on exam, no dysuria at present (low suspicion for urinary infection) - Patient is s/p cholecystectomy - 04/18 Mild abdominal pain in all 4 quadrant w/ TTP, ultrasound obtained, see above --- 04/24 Flank pain absent, no TTP Generalized weakness - Originally covered for SBP, discontinued abx 04/14 - Paracentesis not indicated d/t fluid volume - EBV IgG +, IgM -, unlikely active infection, likely chronic - 04/13 Compazine scheduled - 04/20 Patient is feeling significantly improved - OT strongly recommending SNF, patient on board with recommendation - Family considering [facility], CM following --- 04/24 Transition to SNF paused d/t clinical picture, CM following Depression - Continue Lexapro 20 mg PO Type 2 diabetes mellitus - BSG checked w/ meals - No carb consistent diet per family and patient request - 04/19 Placed order to add strawberry boost, family notes patient drinks this regularly at home - 04/21 Glucose elevated to 339 in AM labs, repeat at noon showed glucose of 372, started basal insulin (Lantus 10), will follow - 04/22 Persistent elevations in BSG (350+) despite long acting insulin, started sliding scale insulin and BSG checks prior to meals --- 04/24 Continue basal and sliding scale insulin, only check glucose before meals Hx of seizure disorder - continue home Keppra (2) Cirrhosis: (3) Right flank pain: (4) Type 2 diabetes mellitus: (5) Hx of seizure disorder: (6) Low urine output: Plan FEN: Regular, 1 unit PRBC 04/24 DVT Ppx: SCD d/t TCPenia Code: DNR/DNI Dispo: pending SNF- Planning [facility] Admission and Anticipated Discharge Date Admission Date: April 11, 2022 Supervising Physician Co-Signing Physician Notes I personally examined the patient and verified all sanford points of history and exam, discussed case, and agree with decision making with Dr Presley Very fatigued. Resident physician had extensive discussions with family Vitals noted nad heent nc at mmm breathing unlabored no accessory muscles good effort skin no rashes 1. Generalized weakness. now symptomatic anemia as welltransfuse. 2. Cirrhosis with varices, ascites, and thrombocytopenia. Continue home rifaximin. Some ascites, but not enough to attempt to drain via paracentesis. Holding spironolactone. 3. RAJENDRA.diuretic vs HRS 4. Liver mass. AFP elevated. Will need repeat AFP in 1 month and MRI as an outpatient. 5. Anemia. worse. transfuse as above 6. DM2. A1C 6.0%. I suspect this may be falsely low due to recent diminished appetite as well as borderline splenomegaly and chronic anemia. Liberalized diet as appetite has been diminished. marinol BID. Continue 10u lantus + sliding scale insulin to keep sugars in a reasonable range. 7. Hyponatremia. Chronic. Corrected Na today is 130. ?intravascularly depleted (although not improved after bolus yesterday) vs medication (SSRI...less so with keppra). 8. Hx of seizures. Continue home Keppra. Dispo: extensive d/w family per dr presley Subjective Pt is an 81 y/o female w/ PMH of cirrhosis, varices, type 2 diabetes who presents for over a week of malaise. 04/24: Patient lying in bed upon arrival, very somnolent, but arousable to touch and voice. Patient denies any nausea or abdominal pain, but appeared to groan whenever she was drifting into sleep. Patient denied any chest pain or dyspnea, but she believes her abdomen and legs are becoming more swollen. [id number] Discussed case and prognosis with patient and family. Spoke with patient's son and daughter in law privately outside of the room, they noted that she has been increasingly making request regarding her and arrangements of her belongings after she passes. Family and patient have opted to speak with the palliative care team. Options for palliative care, comfort care, and hospice were briefly discussed with the family. Palliative consult was placed. 04/23: Patient was up in her chair upon arrival, appeared comfortable. She notes that she is having nausea today after breakfast, she ate 25-50% of her food. She is not having abdominal pain at present, states it comes and goes. She denies chest pain or dyspnea. She denies any dysuria but notes decreasd frequency of urination. She notes her legs are becoming more swollen today. 1500 Spoke with patient's daughter Maria C Chadwick for 40 minutes, explained big picture and clinical course over the last day. She was satisfied with explanations. Review of Systems Review of Systems: See HPI. Physical Exam Physical Exam: Gen: NAD, pale, weak, somnolent but arousable Resp:Non-labored, no wheezing/rhonchi/rales, CTAB CV:RRR, normal S1/S2, no M/R/G Abd: Soft, moderately-distended (worsening), no TTP, hypoactive bowels, no masses Extr: 2+ dp bilaterally, 2+ LE edema (pitting) from ankle to thigh, no deep calf TTP, Haleigh sign negative Results & Data Results & Data ([facility]) Vital Signs (Past 12 Hours) Vital Signs Temp Pulse Resp BP Pulse Ox O2 Del Method 04/24/22 06:19 36.8 C 75 18 110/68 91 Room Air 04/24/22 04:29 36.7 C 76 14 103/61 94 Room Air 04/23/22 21:00 Room Air 04/23/22 21:31 37.0 C 70 20 107/63 95 Room Air Resident Activity Tracking Resident Involvement: Resident Care Provided Care Provided: Adult Hospital Medicine
[2022-04-24 08:29] LABS: Hematocrit (blood only) 19.3 % (34.1-44.9); Hemoglobin 6.7 g/dl (12.0-16.0); Mean Corpuscular Hgb Conc 34.7 g/dL (32.0-36.0); Mean Platelet Volume 11.2 fL (9.4-12.3); Platelet Count 41 K/uL (130-400); RDW Coefficient of Variation 16.7 % (11.5-14.5); RDW Standard Deviation 59.1 fL (36.4-46.3); Red Blood Count 1.97 M/uL (3.93-5.22)
[2022-04-24 08:33] LABS: INR 1.7 (0.9-1.1); Prothrombin Time 17.5 Seconds (9.0-12.0)
[2022-04-24 08:49] LABS: Albumin Globulin Ratio 1.5 (0.9-2); Albumin Level 3.1 gm/dl (3.4-5.0); BUN Creatinine Ratio 10.4 (10-20); Bilirubin Direct 1.1 mg/dl (0-0.2); Calcium 9.7 mg/dl (8.5-10.1); Creatinine Clr Calc Pharmacy 19.8 ml/min; Est GFR (African American) 27.8 ml/min; Globulin 2.1 gm/dl (2.5-4.0); Total Protein 5.2 gm/dl (6.0-8.3)
[2022-04-24 08:53] LABS: Iron 59 mcg/dl (35-150); Unsaturated Iron Binding Cap < 55 mcg/dl (155-355)
[2022-04-24 09:03] LABS: Platelet Estimate Decreased (Normal)
[2022-04-24] MEDS: INSULIN ASPART PER UNIT SC SCH ×4 (09:24→21:04)
[2022-04-24] MEDS: LANTUS PER UNIT CHARGE SQ SCH (09:24)
[2022-04-24] MEDS: MIDODRINE HCL 2.5 MG TAB PO SCH ×3 (09:25→17:52)
[2022-04-24] MEDS: HYDROXYCHLOROQUINE SULFATE 200 MG TAB PO SCH (09:25)
[2022-04-24] MEDS: ESCITALOPRAM OXALATE 20 MG TAB PO SCH (09:25)
[2022-04-24] MEDS: PANTOprazole 40 MG TAB PO SCH ×3 (09:25→21:35)
[2022-04-24] MEDS: FAMOTIDINE 20 MG TAB PO SCH ×3 (09:25→21:35)
[2022-04-24] MEDS: rifAXIMin 550 MG TABLET PO SCH ×3 (09:26→21:35)
[2022-04-24] MEDS: levETIRAcetam 250 MG TAB PO SCH ×2 (09:26→21:16)
[2022-04-24] MEDS: SUCRALFATE 1 GM/10 ML UDC PO SCH ×3 (09:26→17:52)
--- NOTE | 2022-04-24 09:40 | Nephrology Progress Note ---
Date of Service April 24, 2022 Assessment & Plan (1) RAJENDRA (acute kidney injury): Plan: Creatinine stable. I/O not able to be accurately documented. Increasing abdominal distention. Kanika 16. No classic for HRS but clinical presentation is certainly concerning. Abdominal ascites appears to have increased in past 24 hours. Urine output subjectively remains low by report. Based on prior conversations dialysis would not be consistent with goals of care. Isatu would likely not tolerate dialysis well. Consider palliative care consultation. Prognosis is unfortunately poor. Continue directed therapy with octreotide 100 mg Q 8 hours, midodrine 5 mg PO TID, and IV albumin 25 gram Q 8 hours. (2) CKD (chronic kidney disease): Plan: Baseline creatinine 1.5 mg/dL. Kidneys atrophic on imaging. (3) Cirrhosis: Plan: Prognosis is unfortunately guarded. MELD 28. Evidence of worsening portal hypertension. (4) Anemia: Plan: Epogen 28849 units provided yesterday. H/H dropping. No melena or hematochezia per RN. Primary service consulting with family regarding PRBC transfusion support. Iron stores are notably low. I have ordered 1 dose of IV Venofer pending decision regarding PRBC transfusion. Admission and Anticipated Discharge Date Admission Date: April 11, 2022 Subjective No acute events overnight. Incontinent of large BM overnight. Denies melena or hematochezia. Nausea reported this AM. Poor appetite. Feeling very weak. Increased abdominal distention. Unable to collect accurate I/O's. No fevers or chills. Review of Systems Review of Systems: All systems reviewed & are unremarkable except as noted in HPI & below Constitutional: + fatigue and + weakness; no fever and no chills Gastrointestinal: + bloating and + nausea; no abdominal pain Physical Exam Constitutional: + ill appearing, + thin and + frail appearing; no acute distress Eyes: + anicteric sclerae; no corneal abnormality ENMT: Ears: + hearing impairment Mouth: + dry oral mucous membranes Neck: normal visual inspection and trachea midline Respiratory: normal respiratory effort Auscultation: lungs clear to auscultation bilaterally and + rales Cardiovascular: Rate/Rhythm: regular rate Heart Sounds: normal S1 and normal S2 Extremities: + edema Gastrointestinal (Abdomen): Inspection/Auscultation: + abdomen distended Percussion/Palpation: abdomen soft Musculoskeletal: Extremities: no cyanosis and no clubbing Skin: + turgor decreased and + jaundice Neurologic: Motor/Sensory: no tremor and no asterixis Psychiatric: Orientation: alert, oriented to person and oriented to place Results & Data ([facility]) Vital Signs (Past 12 Hours) Vital Signs Temp Pulse Resp BP Pulse Ox O2 Del Method 04/24/22 07:27 37.0 C 79 16 101/64 92 Room Air 04/24/22 06:19 36.8 C 75 18 110/68 91 Room Air 04/24/22 04:29 36.7 C 76 14 103/61 94 Room Air Laboratory Results Laboratory Results - last 24 hr 04/23/22 04/23/22 04/23/22 11:14 11:14 12:41 WBC RBC Hgb Hct MCV MCH MCHC RDW Std Deviation RDW Coeff of Nancy Plt Count MPV Platelet Estimate PT INR Sodium Potassium Chloride Carbon Dioxide Anion Gap BUN Creatinine Est Cr Clr Drug Dosing Est GFR ( Amer) Est GFR (Non-Af Amer) BUN/Creatinine Ratio Glucose POC Glucose 163 H Calcium Iron TIBC Unsaturated IBC Transferrin % Sat Total Bilirubin Direct Bilirubin AST ALT Alkaline Phosphatase Total Protein Albumin Globulin Albumin/Globulin Ratio Urine Color Dark Yellow Urine Appearance Cloudy A Urine pH 5.0 Ur Specific [place] 1.014 Urine Protein Trace H Urine Glucose (UA) Negative Urine Ketones Negative Urine Blood Trace H Urine Nitrite Negative Urine Bilirubin 1+ H Urine Urobilinogen Negative Ur Leukocyte Esterase 2+ H Urine WBC (Auto) >30 H Urine RBC (Auto) 5-10 H U Hyaline Cast (Auto) 5-10 H U Epithel Cells (Auto) >30 H Urine Bacteria (Auto) Negative Urine Yeast Budding A Ur Random Sodium 16 04/23/22 04/24/22 04/24/22 17:11 07:38 07:38 WBC 5.30 RBC 1.97 L Hgb 6.7 L* Hct 19.3 L* MCV 98.0 MCH 34.0 MCHC 34.7 RDW Std Deviation 59.1 H RDW Coeff of Nancy 16.7 H Plt Count 41 L MPV 11.2 Platelet Estimate Decreased L PT INR Sodium 128 L Potassium 5.0 Chloride 101 Carbon Dioxide 22 Anion Gap 5 BUN 20 Creatinine 1.92 H Est Cr Clr Drug Dosing 19.8 Est GFR ( Amer) 27.8 Est GFR (Non-Af Amer) 24.0 BUN/Creatinine Ratio 10.4 Glucose 178 H POC Glucose 206 H Calcium 9.7 Iron TIBC Unsaturated IBC Transferrin % Sat Total Bilirubin 3.0 H Direct Bilirubin 1.1 H AST 46 H ALT 26 Alkaline Phosphatase 122 H Total Protein 5.2 L Albumin 3.1 L Globulin 2.1 L Albumin/Globulin Ratio 1.5 Urine Color Urine Appearance Urine pH Ur Specific [place] Urine Protein Urine Glucose (UA) Urine Ketones Urine Blood Urine Nitrite Urine Bilirubin Urine Urobilinogen Ur Leukocyte Esterase Urine WBC (Auto) Urine RBC (Auto) U Hyaline Cast (Auto) U Epithel Cells (Auto) Urine Bacteria (Auto) Urine Yeast Ur Random Sodium 04/24/22 04/24/22 04/24/22 07:38 07:38 07:41 WBC RBC Hgb Hct MCV MCH MCHC RDW Std Deviation RDW Coeff of Nancy Plt Count MPV Platelet Estimate PT 17.5 H INR 1.7 H Sodium Potassium Chloride Carbon Dioxide Anion Gap BUN Creatinine Est Cr Clr Drug Dosing Est GFR ( Amer) Est GFR (Non-Af Amer) BUN/Creatinine Ratio Glucose POC Glucose 193 H Calcium Iron 59 TIBC TNP Unsaturated IBC < 55 L Transferrin % Sat TNP Total Bilirubin Direct Bilirubin AST ALT Alkaline Phosphatase Total Protein Albumin Globulin Albumin/Globulin Ratio Urine Color Urine Appearance Urine pH Ur Specific [place] Urine Protein Urine Glucose (UA) Urine Ketones Urine Blood Urine Nitrite Urine Bilirubin Urine Urobilinogen Ur Leukocyte Esterase Urine WBC (Auto) Urine RBC (Auto) U Hyaline Cast (Auto) U Epithel Cells (Auto) Urine Bacteria (Auto) Urine Yeast Ur Random Sodium PG Care Time/CCT Total # of Minutes Spent Total Time Spent with Patient: Total time spent is greater than 50% in coordination of care (as documented) at patient's floor/unit and/or counseling patient: Coding Level of Care Code 98284 Subseq Hosp Care Lvl 3 Diagnoses RAJENDRA (acute kidney injury) N17.9 CKD (chronic kidney disease) N18.9 Cirrhosis K74.60 Anemia D64.9
[2022-04-24] MEDS ORDERED: IRON SUCROSE 200 MG in 0.9 % SODIUM CHLORIDE 100 ML IV ONE (11:00)
[2022-04-24] MEDS ORDERED: SODIUM CHLORIDE 0.9% 250 ML IV PRN (11:04)
--- NOTE | 2022-04-24 12:12 | Gastroenterology Progress Note ---
Date of Service April 24, 2022 Assessment & Plan (1) Cirrhosis: Plan: MELD Na Score = 27.953 -Recommend palliative care consultation at this point. Discussed this with patient and family. Patient does not wish for aggressive measures. -No evidence of significant ascites, therefore would hold off on paracentesis at this point but could be reconsidered if worsening distention for patient comfort. -Diuretic management per nephrology given RAJENDRA. -Continue Xifaxan 550 mg BID. Avoid constipation, goal is for 3-4 bowel movements daily. Currently no evidence of hepatic encephalopathy. -Continue Protonix 40 mg BID. -Continue to avoid alcohol. -Supportive care and discharge decisions per primary team. Admission and Anticipated Discharge Date Admission Date: April 11, 2022 Subjective Patient with progressive weakness. Hemoglobin 6.5. No overt GIB per nursing. Family at bedside. Inquiring about treatment goals. Order reportedly for blood transfusion. Seen by nephrology. Review of Systems Constitutional: as per Subjective / HPI; no fever and no chills Gastrointestinal: + bloating; no abdominal pain, no blood in stools and no melena Physical Exam Constitutional: comfortable; not in distress Respiratory: normal respiratory effort, lungs clear to auscultation Cardiovascular: Rate/Rhythm: regular rate and regular rhythm Heart Sounds: + murmur Gastrointestinal (Abdomen): Inspection/Auscultation: + abdomen distended and normal bowel sounds Percussion/Palpation: abdomen soft and + ascites; abdomen nontender Musculoskeletal: Extremities: + lower extremity abnormal to inspection (mild BLE edema) Skin: no rashes, warm and dry Psychiatric: Orientation: alert, oriented to person and cooperative Results & Data Results & Data ([facility]) Vital Signs (Past 12 Hours) Vital Signs Temp Pulse Resp BP Pulse Ox O2 Del Method 04/24/22 11:05 36.8 C 81 16 108/68 94 Room Air 04/24/22 10:31 36.9 C 78 15 102/63 94 Room Air 04/24/22 08:00 Room Air 04/24/22 07:27 37.0 C 79 16 101/64 92 Room Air 04/24/22 06:19 36.8 C 75 18 110/68 91 Room Air 04/24/22 04:29 36.7 C 76 14 103/61 94 Room Air Laboratory Results Abnormal lab results 04/23/22 04/23/22 04/24/22 Range/Units 12:41 17:11 07:38 RBC 1.97 L (3.93-5.22) M/uL Hgb 6.7 L* (12.0-16.0) g/dl Hct 19.3 L* (34.1-44.9) % RDW Std Deviation 59.1 H (36.4-46.3) fL RDW Coeff of Nancy 16.7 H (11.5-14.5) % Plt Count 41 L (130-400) K/uL Platelet Estimate Decreased L (Normal) PT (9.0-12.0) Seconds INR (0.9-1.1) Sodium (136-145) mmol/L Creatinine (0.6-1.2) mg/dl Glucose (70-99(Fasting)) mg/dl POC Glucose 163 H 206 H (70-99) mg/dl Unsaturated IBC (155-355) mcg/dl Total Bilirubin (0.2-1.0) mg/dl Direct Bilirubin (0-0.2) mg/dl AST (13-39) U/L Alkaline Phosphatase (34-104) U/L Total Protein (6.0-8.3) gm/dl Albumin (3.4-5.0) gm/dl Globulin (2.5-4.0) gm/dl Crossmatch 04/24/22 04/24/22 04/24/22 Range/Units 07:38 07:38 07:38 RBC (3.93-5.22) M/uL Hgb (12.0-16.0) g/dl Hct (34.1-44.9) % RDW Std Deviation (36.4-46.3) fL RDW Coeff of Nancy (11.5-14.5) % Plt Count (130-400) K/uL Platelet Estimate (Normal) PT 17.5 H (9.0-12.0) Seconds INR 1.7 H (0.9-1.1) Sodium 128 L (136-145) mmol/L Creatinine 1.92 H (0.6-1.2) mg/dl Glucose 178 H (70-99(Fasting)) mg/dl POC Glucose (70-99) mg/dl Unsaturated IBC < 55 L (155-355) mcg/dl Total Bilirubin 3.0 H (0.2-1.0) mg/dl Direct Bilirubin 1.1 H (0-0.2) mg/dl AST 46 H (13-39) U/L Alkaline Phosphatase 122 H (34-104) U/L Total Protein 5.2 L (6.0-8.3) gm/dl Albumin 3.1 L (3.4-5.0) gm/dl Globulin 2.1 L (2.5-4.0) gm/dl Crossmatch 04/24/22 04/24/22 04/24/22 Range/Units 07:41 11:28 12:00 RBC (3.93-5.22) M/uL Hgb (12.0-16.0) g/dl Hct (34.1-44.9) % RDW Std Deviation (36.4-46.3) fL RDW Coeff of Nancy (11.5-14.5) % Plt Count (130-400) K/uL Platelet Estimate (Normal) PT (9.0-12.0) Seconds INR (0.9-1.1) Sodium (136-145) mmol/L Creatinine (0.6-1.2) mg/dl Glucose (70-99(Fasting)) mg/dl POC Glucose 193 H 178 H (70-99) mg/dl Unsaturated IBC (155-355) mcg/dl Total Bilirubin (0.2-1.0) mg/dl Direct Bilirubin (0-0.2) mg/dl AST (13-39) U/L Alkaline Phosphatase (34-104) U/L Total Protein (6.0-8.3) gm/dl Albumin (3.4-5.0) gm/dl Globulin (2.5-4.0) gm/dl Crossmatch See Detail PG Care Time/CCT Total # of Minutes Spent Total Time Spent with Patient: Total time spent is greater than 50% in coordination of care (as documented) at patient's floor/unit and/or counseling patient: Coding Level of Care Code 98095 Subseq Hosp Care Lvl 3 Diagnoses Cirrhosis K74.60
--- NOTE | 2022-04-24 12:59 | Palliative Care Consultation ---
Date of Consultation April 24, 2022 Assessment & Plan (1) Generalized weakness: Plan has been to go to SNF on discharge for rehab. (2) Palliative care encounter: Mrs. Toledo would not engage in conversation so it is difficult for me to assess whether she is capable of decision making. Per previous notes, and RN report, she has not had significant encephalopathy and has been participating in discussions. I did review her advance directive on file that was completed in December of 2019. She designates her daughter, Maria C Tang as POA with alternates being her son, Андрей Toledo and daughter in law Naomi Toledo. In that document, she indicates that she would not want dialysis should her renal failure progress. She indicated that she would not want any aggressive measures at that time. I will plan to meet with family tomorrow morning per their request to discuss goals of care further. History of Present Illness Reason for Consultation: goals of care Requesting Physician: Dr. Bell Attending Physician: Reza Marvin DO History of Present Illness 81 yo lady with history of cirrhosis, portal hypertension and esophageal varices. She presented with generalized weakness and abdominal pain. Her MELD score on admission was 28. During the course of her hospital stay, she has had progressive increase in her creatinine to 1.9 currently with a GFR of 24. She was noted to have hemoglobin of 6.7 today though there is no overt GI bleeding. She is receiving a transfusion at this time. Despite treatment, she has had progressive decline and we have been consulted to assist with goals of care discussion. Per Dr. Bell, family has requested meeting to discuss this tomorrow morning. I met with Isatu. There was no family at bedside. She is hard of hearing and appears to be withdrawn. She denies pain, shortness of breath, nausea and answered yes when asked if she's comfortable. Allergies Allergy/AdvReac Type Severity Reaction Status Date / Time levofloxacin [From Levaquin] Allergy Severe Shortness Verified 04/10/22 15:06 of breath sulfamethoxazole Allergy Severe SOB Verified 04/10/22 15:06 [From Bactrim] trimethoprim [From Bactrim] Allergy Severe SOB Verified 04/10/22 15:06 ciprofloxacin [From Cipro] Allergy Intermediate Hives Verified 04/10/22 15:06 paroxetine Allergy Mild Diarrhea Verified 04/10/22 15:06 phenytoin Allergy Unknown Unknown Verified 04/10/22 15:06 unknown antibiotic Allergy Severe Browning-Bryon Uncoded 04/10/22 15:06 syndrome - no records available Home Medications Medication Instructions Recorded Confirmed Type cholecalciferol (vitamin D3) 50 50 mcg PO QDD 08/11/20 04/10/22 History mcg (2,000 unit) capsule hydroxychloroquine 200 mg tablet 200 mg PO QAM #90 tabs 08/30/20 04/10/22 Rx (Plaquenil) diclofenac sodium 1 % topical gel 2 g EXT QID #100 grams 04/24/21 04/10/22 Rx (Voltaren Arthritis Pain) acetaminophen 325 mg capsule 325 mg PO QID PRN Pain 05/11/21 04/10/22 History calcium carbonate 600 mg calcium 600 mg PO DAILY #90 tabs 06/16/21 04/10/22 Rx (1,500 mg) tablet (Calcium) cetirizine 10 mg tablet (Zyrtec) 5 mg PO HS PRN Allergy Symptoms 07/13/21 04/10/22 History escitalopram oxalate 20 mg tablet 20 mg PO DAILY #90 tabs 07/20/21 04/10/22 Rx rifaximin 550 mg tablet 550 mg PO BID hepatic 09/13/21 04/10/22 Rx encephalopathy from cirrhosis #180 tabs albuterol sulfate 90 mcg/actuation 2 puff inhalation Q6H PRN 12/21/21 04/10/22 Rx aerosol inhaler shortness of breath or wheezing #8.5 grams buspirone 5 mg tablet 5 mg PO BID #60 tabs 12/21/21 04/10/22 Rx lancets 33 gauge (OneTouch Delica #100 ea 12/22/21 04/10/22 Rx Lancets) blood sugar diagnostic #100 ea 12/29/21 04/10/22 Rx magnesium chloride 71.5 mg 143 mg PO DAILY #180 tabs 01/16/22 04/10/22 Rx (magnesium chloride) tablet,delayed release (Slow-Mag) levetiracetam 250 mg tablet 250 mg PO BID #180 tabs 02/27/22 04/10/22 Rx (Keppra) famotidine 40 mg tablet 40 mg PO DAILY #30 tabs 02/28/22 04/10/22 Rx pantoprazole 40 mg tablet,delayed 40 mg PO DAILY #30 tabs 03/20/22 04/10/22 Rx release cephalexin 500 mg capsule 500 mg PO Q12 04/10/22 04/10/22 History spironolactone 25 mg tablet 12.5 mg PO BID 04/10/22 04/10/22 History Patient History Medical History Adjustment disorder with depressed mood Anemia Chronic back pain Cirrhosis cryptogenic Cough Esophageal varices Generalized anxiety disorder GERD (gastroesophageal reflux disease) Glaucoma Hearing difficulty History of kidney stones Hx of gout Osteoarthritis Osteopenia Portal hypertension Portosystemic encephalopathy Seizure LAST ONE MORE THAN 10 YRS AGO Sensorineural hearing loss (SNHL) of both ears Sjogren's disease SLE (systemic lupus erythematosus) Thrombocytopenia Type 2 diabetes mellitus Urinary incontinence Surgical History H/O: hysterectomy (~1984) History of colonoscopy History of esophagogastroduodenoscopy (EGD) with banding of esophageal varices History of liver biopsy Hx of cholecystectomy (~1983) S/P tooth extraction Family History Grandfather Diabetes Mother Hypertension Gallbladder disease Grandmother No problems noted. Father Pancreatic cancer Brother Alcohol abuse Alcoholic cirrhosis of liver Other No family history of adverse response to anesthesia Denies family history of Ovarian cancer Prostate cancer Alzheimer disease Heart disease Myocardial infarction Breast cancer Lung cancer Colorectal cancer Stroke Social History Smoking Status: Never smoker Second Hand Exposure: No; Hx Alcohol Use: Yes Alcohol type: wine Hx Substance Use: No Preferred Language: Kinyarwanda Communication Ability: Effective Visual Impairment: Limited Hearing Ability: Use of Hearing Aid Probate Clerk Required: No Beliefs That Will Affect Care: Anabaptism Anabaptism Beliefs: GNOSTICIST marital status: / Current Living Situation: Alone Current Living Situation Comment: DAUGHTER LIVES CLOSE AND CAN ASSIST>[employer] current occupational status: retired current occupation: career with [employer] How many Children do You have: 2 Feels Safe at Home: Yes Childhood Exposure to Second-Hand Smoke: No caffeine: Yes Dental Care, Regularly: No Physical Activity Frequency: Does not Exercise Seatbelt Use: always Sunscreen Use: No Assistive Devices: Walker and Wheelchair Review of Systems Review of Systems: ESAS Pain 0/3 Dyspnea 0/3 Anxiety 0/3 Nausea 0/3 Fatigue 2/3 PPS 40% Physical Exam Constitutional: withdrawn, NAD Eyes: scleral icterus ENMT: Ears: + hearing impairment hearing aids noted Respiratory: normal respiratory effort; no labored breathing Cardiovascular: Rate/Rhythm: regular rate and regular rhythm Gastrointestinal (Abdomen): mild distension, nontender Musculoskeletal: Extremities: + muscle atrophy Skin: jaundice Neurologic: does not engage in conversation Results & Data ([facility]) Vital Signs (Past 12 Hours) Vital Signs Temp Pulse Resp BP Pulse Ox O2 Del Method 04/24/22 11:05 98.2 F 81 16 108/68 94 Room Air 04/24/22 10:31 98.4 F 78 15 102/63 94 Room Air 04/24/22 08:00 Room Air 04/24/22 07:27 98.6 F 79 16 101/64 92 Room Air 04/24/22 06:19 98.2 F 75 18 110/68 91 Room Air 04/24/22 04:29 98.1 F 76 14 103/61 94 Room Air PG Care Time/CCT Total # of Minutes Spent Total Time Spent: 59 Total Time Spent with Patient: Total time spent is greater than 50% in coordination of care (as documented) at patient's floor/unit and/or counseling patient: goals of care, coordination of care, chart review. Coding Level of Care Code 30783 Initial Inpt Care Lvl 2 Diagnoses Generalized weakness R53.1 Palliative care encounter Z51.5
--- NOTE | 2022-04-24 19:19 | Billing Data ---
Date of Service April 24, 2022 Coding Level of Care Code 07116 Subseq Hosp Care Lvl 3
[2022-04-24] MEDS: LIDOCAINE 5% 1 PATCH TD SCH (21:17)
[2022-04-25] MEDS: ALBUMIN 25% 100 mL 25 GM/100 ML VIAL IV SCH (04:04)
[2022-04-25] MEDS: OCTREOTIDE ACETATE 100 MCG/ML VIAL SQ SCH (05:37)
--- NOTE | 2022-04-25 07:17 | Hospitalist Progress Note ---
Date of Service April 25, 2022 Assessment & Plan (1) Generalized weakness: Plan: Pt is an 81 y/o female w/ PMH of cirrhosis, varices, type 2 diabetes who presents for over a week of malaise. 04/24 1100 Family and patient agreeable to palliative care consultation, orders placed. 04/25 1130 Joined in conversation with patient's son, daughter in law, and Dr. Carter. Family discussing comfort care. No decision at this time. Cirrhosis (non-alcoholic) - a/w TCPenia, varices, and ascites - CT abd w/ cirrhosis, moderate ascites, gastric varices, potential mild diverticulosis and potential mass of liver. - Maddrey's discriminant function at admission 61.1. glucocorticoids not needed d/t not being from alcohol. - Continue home rifaximin and avoid constipation with goal of 3-4 BM daily - Patient has an elevated AFP(13.6) and CEA (11.6). Should repeat AFP in one month to see if elevated over 7 ng/mL. - GI consulted and recommending liver MRI after d/c d/t new liver mass, EGD planned in 2022 for variceal surveillance - 04/18 Continue sodium restriction to 2 g per outpatient GI and inpatient GI recommendations - 04/19 Nausea alleviated by Compazine - 04/19 Salt restriction discontinued - 04/21 Na 128, Gluc 339, corrected Na 132, baseline 130-131 - 04/21 Increase in Cr > 0.3 w/in 48 hours, will hold Spironolactone and recheck Cr tomorrow, added 500 cc bolus LR - 04/22 Ongoing elevations in Cr, pt. unable to receive 500 cc bolus, re-attempt IV with US guidance. Concern for development of HRS. Medications reviewed for potential causes, Spironolactone on hold. Nephrology consulted. Family made aware of palliative and hospice options, ongoing discussion between patient and family. - 04/24 Gastroenterology consultation: Recommending palliative care consultation, paracentesis consideration given for patient discomfort as needed, continue Xifaxan and Protonix. Hgb 6.7, patient and family agreeable to transfusion, process initiated at 1100. Consent forms completed. - 04/25 Hbg improved (7.3), patient remains symptomatic, patient and family wishes to hold off on additional transfusion. Worsening abdominal ascites and lower extremity edema, patient denies abdominal pain or discomfort at this time, paracentesis as needed for symptomatic improvement (per GI). Na low (129) but stable and asymptomatic. Bilirubin level rising, consistent with cirrhosis, will follow. Acute Kidney Injury (RAJENDRA) - Ongoing oliguria by report from nursing, known to produce small volumed voids 100-125 cc - 04/21 RAJENDRA noted Cr 1.55 --> 1.77, LR 500 cc bolus ordered, not received d/t lack of IV access - 04/22 RAJENDRA worsening Cr 1.77 --> 1.85, IV obtained via US guidance, LR 500 cc received -04/23 Patient notes that she believes her frequency of urination is diminishing, RAJENDRA worsening Cr 1.85 --> 1.90, Nephrology consulted d/t HRS concern. Nephrology Recommendations: No emergent dialysis need (not consistent w/ patient goals of care), poor PO intake vs HRS, ordered UA/microscopy and Urine Na, strict I/O monitoring, started early directed therapy w/ octreotide, midodrine, and IV albumin. Ordered iron studies and Epogen 66335 units d/t anemia. - 04/24 Notes ongoing low urine output and worsening abdominal distension in last 24 hours. Dialysis not within patient's goals of care. Recommended palliative consultation. Continue Octreotide, Midodrine, and Albumin. HH dropping, iron stores low, provided IV Venofer pending decision on PRBC transfusion. --- 04/25 Cr 1.89 (from 1.92). Nephrology - not expecting significant renal recovery, creatinine stable, evidence of worsening portal hypertension, plans to stop Octreotide after 48 hours and wean albumin to 25 grams q12h while continuing Midodrine 5 mg PO TID. Venofer 200 mg IV provided in AM. Right flank pain - Intermittent flank pain, w/o TTP on exam, no dysuria at present (low suspicion for urinary infection) - Patient is s/p cholecystectomy - 04/18 Mild abdominal pain in all 4 quadrant w/ TTP, ultrasound obtained, see above --- 04/25 Flank pain absent, no TTP, increasing abdominal distension Generalized weakness - Originally covered for SBP, discontinued abx 04/14 - Paracentesis not indicated d/t fluid volume - EBV IgG +, IgM -, unlikely active infection, likely chronic - 04/13 Compazine scheduled - 04/20 Patient is feeling significantly improved - OT strongly recommending SNF, patient on board with recommendation --- Family considering half-way care vs at home w/ hospice options Depression - Continue Lexapro 20 mg PO Type 2 diabetes mellitus - BSG checked w/ meals - No carb consistent diet per family and patient request - 04/19 Placed order to add strawberry boost, family notes patient drinks this regularly at home - 04/21 Glucose elevated to 339 in AM labs, repeat at noon showed glucose of 372, started basal insulin (Lantus 10), will follow - 04/22 Persistent elevations in BSG (350+) despite long acting insulin, started sliding scale insulin and BSG checks prior to meals --- Continue basal and sliding scale insulin, only check glucose before meals, regular diet Hx of seizure disorder - continue home Keppra (2) Cirrhosis: (3) Right flank pain: (4) Type 2 diabetes mellitus: (5) Hx of seizure disorder: (6) Low urine output: Plan FEN: Regular, 1 unit PRBC 04/24 DVT Ppx: SCD d/t TCPenia Code: DNR/DNI Dispo: pending family discussion on Hospice Care, palliative and CM following Admission and Anticipated Discharge Date Admission Date: April 11, 2022 Supervising Physician Co-Signing Physician Notes I personally examined the patient and verified all sanford points of history and exam, discussed case, and agree with decision making with Dr Presley Fatigued, appetite poor. Vitals noted nad heent nc at mmm breathing unlabored no accessory muscles good effort skin no rashes abdomen soft mild distention mild fluid wave no guarding rebound or rigidity 1. Generalized weakness. progressive liver disease 2. Cirrhosis with varices, ascites, and thrombocytopenia. Continue home rifaximin. Some ascites, but not enough to attempt to drain via paracentesis. Holding spironolactone. 3. RAJENDRA.diuretic vs HRS 4. Liver mass. AFP elevated. Will need repeat AFP in 1 month and MRI as an outpatient. 5. Anemia. transfused, improved symptoms transiently 6. DM2. A1C 6.0%. I suspect this may be falsely low due to recent diminished appetite as well as borderline splenomegaly and chronic anemia. Liberalized diet as appetite has been diminished. marinol BID. Continue 10u lantus + sliding scale insulin to keep sugars in a reasonable range. 7. Hyponatremia. chronic 8. Hx of seizures. Continue home Keppra. Dispo: extensive d/w family per dr presley and dr carter Subjective Pt is an 81 y/o female w/ PMH of cirrhosis, varices, type 2 diabetes who prese nts for over a week of malaise. 04/25: Patient resting in bed comfortably this morning. Remains somnolent but somewhat improved. Patient able to converse well this morning. She denies any discomfort. She notes that overnight she experienced mild shortness of breath and dizziness and was started on oxygen which resolved her symptoms. She is not having any chest pain or abdominal pain. 1130 Joined in conversation with patient's son and daughter in law that was led by palliative care physician Dr. Carter. Patient family considering transition to comfort care and hospice options as outpatient. Family elected to discuss further today with patient's POA Maria C Lunsford. Patient has deferred additional decision making to her family. Will continue current level of care as family decides. 04/24: Patient lying in bed upon arrival, very somnolent, but arousable to touch and voice. Patient denies any nausea or abdominal pain, but appeared to groan whenever she was drifting into sleep. Patient denied any chest pain or dyspnea, but she believes her abdomen and legs are becoming more swollen. Review of Systems Review of Systems: See HPI. Physical Exam Physical Exam: Gen: NAD, pale, weak, somnolent but arousable (mildly improved from 04/24) Resp:Non-labored, no wheezing/rhonchi/rales, CTAB CV:RRR, normal S1/S2, no M/R/G Abd: Soft, moderately-distended (worsening), no TTP, hypoactive bowels, no masses Extr: 2+ dp bilaterally, 2+ LE edema (pitting) from ankle to thigh, no deep calf TTP, Haleigh sign negative Results & Data Results & Data ([facility]) Vital Signs (Past 12 Hours) Vital Signs Temp Pulse Resp BP Pulse Ox O2 Del Method O2 Flow Rate 04/24/22 19:50 Nasal Cannula 2 04/24/22 21:50 94 Nasal Cannula 2 04/24/22 21:46 37.0 C 72 18 114/67 88 L Room Air Resident Activity Tracking Resident Involvement: Resident Care Provided Care Provided: Adult Hospital Medicine
[2022-04-25 08:08] LABS: Hematocrit (blood only) 21.3 % (34.1-44.9); Hemoglobin 7.3 g/dl (12.0-16.0); Mean Corpuscular Hemoglobin 33.5 pg (25.0-34.0); Mean Corpuscular Hgb Conc 34.3 g/dL (32.0-36.0); Mean Corpuscular Volume 97.7 fL (80.0-100.0); Mean Platelet Volume 11.5 fL (9.4-12.3); Platelet Count 50 K/uL (130-400); RDW Coefficient of Variation 17.6 % (11.5-14.5); RDW Standard Deviation 62.4 fL (36.4-46.3); Red Blood Count 2.18 M/uL (3.93-5.22); White Blood Count 7.75 K/ul (4.8-10.8)
[2022-04-25 08:14] LABS: INR 1.8 (0.9-1.1); Prothrombin Time 18.4 Seconds (9.0-12.0)
[2022-04-25 08:28] LABS: Albumin Globulin Ratio 1.9 (0.9-2); Albumin Level 3.5 gm/dl (3.4-5.0); BUN Creatinine Ratio 9.5 (10-20); Bilirubin Direct 1.6 mg/dl (0-0.2); Bilirubin,Total 4.6 mg/dl (0.2-1.0); Calcium 9.9 mg/dl (8.5-10.1); Creatinine Clr Calc Pharmacy 20.2 ml/min; Est GFR (African American) 28.3 ml/min; Est GFR (Non-African American) 24.5 ml/min; Globulin 1.8 gm/dl (2.5-4.0); Potassium 4.6 mmol/L (3.5-5.1); Total Protein 5.3 gm/dl (6.0-8.3)
[2022-04-25] MEDS: SUCRALFATE 1 GM/10 ML UDC PO SCH ×3 (08:37→16:52)
[2022-04-25] MEDS: MIDODRINE HCL 2.5 MG TAB PO SCH ×3 (08:38→16:52)
[2022-04-25] MEDS: ESCITALOPRAM OXALATE 20 MG TAB PO SCH (08:38)
[2022-04-25] MEDS: HYDROXYCHLOROQUINE SULFATE 200 MG TAB PO SCH (08:39)
[2022-04-25] MEDS: FAMOTIDINE 20 MG TAB PO SCH ×2 (08:39→20:48)
[2022-04-25] MEDS: PANTOprazole 40 MG TAB PO SCH ×2 (08:40→20:49)
[2022-04-25] MEDS: levETIRAcetam 250 MG TAB PO SCH ×2 (08:40→20:49)
[2022-04-25] MEDS: rifAXIMin 550 MG TABLET PO SCH ×3 (08:40→20:48)
--- NOTE | 2022-04-25 09:44 | Nephrology Progress Note ---
Date of Service April 25, 2022 Assessment & Plan (1) RAJENDRA (acute kidney injury): Plan: Creatinine stable. Persistent evidence of worsening portal hypertension and general clinical decline. Based on prior conversations dialysis would not be consistent with goals of care. Isatu would likely not tolerate dialysis well. GI and palliative care consultation appreciated. Continue directed therapy. After ~48 hours of therapy octreotide will be stopped. Albumin weaned to 25 grams q 12 hours. Continue midodrine 5 mg PO TID. (2) CKD (chronic kidney disease): Plan: Baseline creatinine 1.5 mg/dL. Kidneys atrophic on imaging. I do not expect to see significant renal recovery. (3) Cirrhosis: Plan: MELD 29. Evidence of worsening portal hypertension. (4) Anemia: Plan: Epogen 59230 units provided 04/23. s/p PRBC transfusion yesterday. Iron stores are notably low. Venofer 200 mg IV x 1 dose provided yesterday. Additional 200 mg IV provided this AM. Admission and Anticipated Discharge Date Admission Date: April 11, 2022 Subjective No acute events overnight. Isatu was very lethargic this AM and appeared confused. She did not answer most of my questions. She was oriented to person only. I discussed the patient's condition and plan of care with Dr. Bell this AM. Review of Systems Review of Systems: All systems reviewed & are unremarkable except as noted in HPI & below Physical Exam Constitutional: well developed, + ill appearing, + thin and + frail appearing; no acute distress Eyes: + anicteric sclerae; no corneal abnormality ENMT: Ears: + hearing impairment Mouth: + dry oral mucous membranes Neck: normal visual inspection and trachea midline Respiratory: normal respiratory effort Auscultation: lungs clear to auscultation bilaterally and + rales Cardiovascular: Rate/Rhythm: regular rate Heart Sounds: normal S1 and normal S2 Extremities: + edema Gastrointestinal (Abdomen): Inspection/Auscultation: + abdomen distended Percussion/Palpation: abdomen soft Musculoskeletal: Extremities: no cyanosis and no clubbing Skin: + turgor decreased and + jaundice Neurologic: Motor/Sensory: no tremor and no asterixis Psychiatric: Orientation: alert, oriented to person and oriented to place Results & Data ([facility]) Vital Signs (Past 12 Hours) Vital Signs Temp Pulse Resp BP Pulse Ox O2 Del Method O2 Flow Rate 04/25/22 08:05 36.4 C L 71 16 102/59 L 90 Nasal Cannula 2 04/24/22 21:50 94 Nasal Cannula 2 04/24/22 21:46 37.0 C 72 18 114/67 88 L Room Air Laboratory Results Laboratory Results - last 24 hr 04/24/22 04/24/22 04/24/22 07:38 11:28 12:00 WBC RBC Hgb Hct MCV MCH MCHC RDW Std Deviation RDW Coeff of Nancy Plt Count MPV PT INR Sodium Potassium Chloride Carbon Dioxide Anion Gap BUN Creatinine Est Cr Clr Drug Dosing Est GFR ( Amer) Est GFR (Non-Af Amer) BUN/Creatinine Ratio Glucose POC Glucose 178 H Calcium Total Bilirubin Direct Bilirubin AST ALT Alkaline Phosphatase Total Protein Albumin Globulin Albumin/Globulin Ratio Blood Type O Positive Blood Type Recheck O Positive Antibody Screen NEGATIVE Crossmatch See Detail 04/24/22 04/24/22 04/25/22 17:08 20:38 07:32 WBC 7.75 RBC 2.18 L Hgb 7.3 L Hct 21.3 L MCV 97.7 MCH 33.5 MCHC 34.3 RDW Std Deviation 62.4 H RDW Coeff of Nancy 17.6 H Plt Count 50 L MPV 11.5 PT INR Sodium Potassium Chloride Carbon Dioxide Anion Gap BUN Creatinine Est Cr Clr Drug Dosing Est GFR ( Amer) Est GFR (Non-Af Amer) BUN/Creatinine Ratio Glucose POC Glucose 145 H 128 H Calcium Total Bilirubin Direct Bilirubin AST ALT Alkaline Phosphatase Total Protein Albumin Globulin Albumin/Globulin Ratio Blood Type Blood Type Recheck Antibody Screen Crossmatch 04/25/22 04/25/22 04/25/22 07:32 07:32 07:57 WBC RBC Hgb Hct MCV MCH MCHC RDW Std Deviation RDW Coeff of Nancy Plt Count MPV PT 18.4 H INR 1.8 H Sodium 129 L Potassium 4.6 Chloride 102 Carbon Dioxide 22 Anion Gap 5 BUN 18 Creatinine 1.89 H Est Cr Clr Drug Dosing 20.2 Est GFR ( Amer) 28.3 Est GFR (Non-Af Amer) 24.5 BUN/Creatinine Ratio 9.5 L Glucose 70 POC Glucose 80 Calcium 9.9 Total Bilirubin 4.6 H D Direct Bilirubin 1.6 H AST 38 ALT 21 Alkaline Phosphatase 103 Total Protein 5.3 L Albumin 3.5 Globulin 1.8 L Albumin/Globulin Ratio 1.9 Blood Type Blood Type Recheck Antibody Screen Crossmatch PG Care Time/CCT Total # of Minutes Spent Total Time Spent with Patient: Total time spent is greater than 50% in coordination of care (as documented) at patient's floor/unit and/or counseling patient: Coding Level of Care Code 00497 Subseq Hosp Care Lvl 3 Diagnoses RAJENDRA (acute kidney injury) N17.9 CKD (chronic kidney disease) N18.9 Cirrhosis K74.60 Anemia D64.9
[2022-04-25] MEDS ORDERED: IRON SUCROSE 200 MG in 0.9 % SODIUM CHLORIDE 100 ML IV ONE (09:45)
[2022-04-25] MEDS: LANTUS PER UNIT CHARGE SQ SCH (10:23)
[2022-04-25] MEDS: INSULIN ASPART PER UNIT SC SCH ×4 (10:23→21:18)
--- NOTE | 2022-04-25 13:10 | Palliative Care Progress Note ---
Date of Service April 25, 2022 Assessment & Plan (1) Generalized weakness: Plan: Seen by PT and recommended for SNF (2) Palliative care encounter: Plan: I met with her son, Андрей and daughter in law, Naomi. Isatu has deferred decision making to them. Dr. Bell was also able to join us. We discussed role of palliative care for symptom management and assistance with goals of care. Her family has a good understanding of her illness and prognosis, which is poor. We discussed the advance directive on file which indicates that Isatu would not want aggressive care. Her family confirms that she has said that if she were very ill, she would want not want measures to prolong her life. They feel that focus on comfort would be the best choice for her at this time. They note that sewing and reading are two things which Isatu enjoys very much and has not been able to do. She spends most of her time watching news on TV which is not particularly enjoyable for her. We discussed options for transfer to SNF with initial skilled care and transition to hospice, versus home with hospice. They are not able to care for Isatu in their home but have a family friend who has offered to help. They have been working with case management on SNF placement. We discussed hospice benefit and services provided as well as differences between medicare skilled care benefit and hospice. We discussed what would be involved in shift of focus to comfort care, including assessing meds and focusing on those for symptom management, nutrition and hydration, transfusions, medications used for symptom management. They would like to speak with Isatu's daughter, Maria C Lunsford, who is POA, as well as other family members. They will consider whether they would prefer home with hospice versus SNF. We will continue current level of care at this time. Discussed with case management. Admission and Anticipated Discharge Date Admission Date: April 11, 2022 Subjective More alert today. Complains of feeling tired. Review of Systems Review of Systems: ESAS Pain 0/3 Anxiety 1/3 Nausea 0/3 Fatigue 2/3 Drowsiness 1/3 PPS 30% Physical Exam Constitutional: no acute distress Eyes: scleral icterus Respiratory: normal respiratory effort; no labored breathing Cardiovascular: Rate/Rhythm: regular rate and regular rhythm Neurologic: variable confusion Results & Data ([facility]) Vital Signs (Past 12 Hours) Vital Signs Temp Pulse Resp BP Pulse Ox O2 Del Method O2 Flow Rate 04/25/22 11:59 123/57 L 11/08/22 07:40 Nasal Cannula 2 04/25/22 11:09 98.2 F 63 16 128/69 93 Nasal Cannula 2 04/25/22 10:53 98.1 F 63 16 120/66 94 Nasal Cannula 2 04/25/22 10:34 98.1 F 62 16 112/66 93 Nasal Cannula 2 04/25/22 08:05 97.5 F L 71 16 102/59 L 90 Nasal Cannula 2 PG Care Time/CCT Total # of Minutes Spent Total Time Spent: 68 Total Time Spent with Patient: Total time spent is greater than 50% in coordination of care (as documented) at patient's floor/unit and/or counseling patient: goals of care, prognosis, hospice, symptom management, family education and support, coordination of care Coding Level of Care Code 66670 Prolonged Care (int'l) Diagnoses Generalized weakness R53.1 Palliative care encounter Z51.5
--- NOTE | 2022-04-25 19:12 | Billing Data ---
Date of Service April 25, 2022 Coding Level of Care Code 24275 Subseq Hosp Care Lvl 3
[2022-04-25] MEDS: LIDOCAINE 5% 1 PATCH TD SCH (20:49)
[2022-04-25] MEDS ORDERED: ALBUMIN 25% 100 mL 25 GM/100 ML VIAL IV SCH (21:00)
--- NOTE | 2022-04-26 06:58 | Hospitalist Progress Note ---
Date of Service April 26, 2022 Assessment & Plan (1) Generalized weakness: Plan: Pt is an 81 y/o female w/ PMH of cirrhosis, varices, type 2 diabetes who presents for over a week of malaise. 04/24 1100 Family and patient agreeable to palliative care consultation, orders placed. 04/25 1130 Joined in conversation with patient's son, daughter in law, and Dr. Carter. Family discussing comfort care. No decision at this time. Cirrhosis (non-alcoholic) - a/w TCPenia, varices, and ascites - CT abd w/ cirrhosis, moderate ascites, gastric varices, potential mild diverticulosis and potential mass of liver. - Maddrey's discriminant function at admission 61.1. glucocorticoids not needed d/t not being from alcohol. - Continue home rifaximin and avoid constipation with goal of 3-4 BM daily - Patient has an elevated AFP(13.6) and CEA (11.6). Should repeat AFP in one month to see if elevated over 7 ng/mL. - GI consulted and recommending liver MRI after d/c d/t new liver mass, EGD planned in 2022 for variceal surveillance - 04/18 Continue sodium restriction to 2 g per outpatient GI and inpatient GI recommendations - 04/19 Nausea alleviated by Compazine - 04/19 Salt restriction discontinued - 04/21 Na 128, Gluc 339, corrected Na 132, baseline 130-131 - 04/21 Increase in Cr > 0.3 w/in 48 hours, will hold Spironolactone and recheck Cr tomorrow, added 500 cc bolus LR - 04/22 Ongoing elevations in Cr, pt. unable to receive 500 cc bolus, re-attempt IV with US guidance. Concern for development of HRS. Medications reviewed for potential causes, Spironolactone on hold. Nephrology consulted. Family made aware of palliative and hospice options, ongoing discussion between patient and family. - 04/24 Gastroenterology consultation: Recommending palliative care consultation, paracentesis consideration given for patient discomfort as needed, continue Xifaxan and Protonix. Hgb 6.7, patient and family agreeable to transfusion, process initiated at 1100. Consent forms completed. - 04/25 Hbg improved (7.3), patient remains symptomatic, patient and family wishes to hold off on additional transfusion. Worsening abdominal ascites and lower extremity edema, patient denies abdominal pain or discomfort at this time, paracentesis as needed for symptomatic improvement (per GI). Na low (129) but stable and asymptomatic. Bilirubin level rising, consistent with cirrhosis, will follow. Acute Kidney Injury (RAJENDRA) - Ongoing oliguria by report from nursing, known to produce small volumed voids 100-125 cc - 04/21 RAJENDRA noted Cr 1.55 --> 1.77, LR 500 cc bolus ordered, not received d/t lack of IV access - 04/22 RAJENDRA worsening Cr 1.77 --> 1.85, IV obtained via US guidance, LR 500 cc received -04/23 Patient notes that she believes her frequency of urination is diminishing, RAJENDRA worsening Cr 1.85 --> 1.90, Nephrology consulted d/t HRS concern. Nephrology Recommendations: No emergent dialysis need (not consistent w/ patient goals of care), poor PO intake vs HRS, ordered UA/microscopy and Urine Na, strict I/O monitoring, started early directed therapy w/ octreotide, midodrine, and IV albumin. Ordered iron studies and Epogen 99805 units d/t anemia. - 04/24 Notes ongoing low urine output and worsening abdominal distension in last 24 hours. Dialysis not within patient's goals of care. Recommended palliative consultation. Continue Octreotide, Midodrine, and Albumin. HH dropping, iron stores low, provided IV Venofer pending decision on PRBC transfusion. --- 04/25 Cr 1.89 (from 1.92). Nephrology - not expecting significant renal recovery, creatinine stable, evidence of worsening portal hypertension, plans to stop Octreotide after 48 hours and wean albumin to 25 grams q12h while continuing Midodrine 5 mg PO TID. Venofer 200 mg IV provided in AM. Right flank pain - Intermittent flank pain, w/o TTP on exam, no dysuria at present (low suspicion for urinary infection) - Patient is s/p cholecystectomy - 04/18 Mild abdominal pain in all 4 quadrant w/ TTP, ultrasound obtained, see above --- 04/25 Flank pain absent, no TTP, increasing abdominal distension Generalized weakness - Originally covered for SBP, discontinued abx 04/14 - Paracentesis not indicated d/t fluid volume - EBV IgG +, IgM -, unlikely active infection, likely chronic - 04/13 Compazine scheduled - 04/20 Patient is feeling significantly improved - OT strongly recommending SNF, patient on board with recommendation --- Family considering shelter care vs at home w/ hospice options Depression - Continue Lexapro 20 mg PO Type 2 diabetes mellitus - BSG checked w/ meals - No carb consistent diet per family and patient request - 04/19 Placed order to add strawberry boost, family notes patient drinks this regularly at home - 04/21 Glucose elevated to 339 in AM labs, repeat at noon showed glucose of 372, started basal insulin (Lantus 10), will follow - 04/22 Persistent elevations in BSG (350+) despite long acting insulin, started sliding scale insulin and BSG checks prior to meals --- Continue basal and sliding scale insulin, only check glucose before meals, regular diet Hx of seizure disorder - continue home Keppra (2) Cirrhosis: (3) Right flank pain: (4) Type 2 diabetes mellitus: (5) Hx of seizure disorder: (6) Low urine output: Plan FEN: Regular, 1 unit PRBC 04/24 DVT Ppx: SCD d/t TCPenia Code: DNR/DNI Dispo: pending family discussion on Hospice Care, palliative and CM following Admission and Anticipated Discharge Date Admission Date: April 11, 2022 Subjective Pt is an 81 y/o female w/ PMH of cirrhosis, varices, type 2 diabetes who presents for over a week of malaise. 04/26: 0830 Notified by family (via phone) and case management team that family had decided to transition to comfort care. Family is planning home with hospice. 04/25: Patient resting in bed comfortably this morning. Remains somnolent but somewhat improved. Patient able to converse well this morning. She denies any discomfort. She notes that overnight she experienced mild shortness of breath and dizziness and was started on oxygen which resolved her symptoms. She is not having any chest pain or abdominal pain. 1130 Joined in conversation with patient's son and daughter in law that was led by palliative care physician Dr. Carter. Patient family considering transition to comfort care and hospice options as outpatient. Family elected to discuss further today with patient's POA Maria C Lunsford. Patient has deferred additional decision making to her family. Will continue current level of care as family decides. Review of Systems Review of Systems: See HPI. Physical Exam Physical Exam: Gen: NAD, pale, weak, somnolent but arousable (mildly improved from 04/24) Resp:Non-labored, no wheezing/rhonchi/rales, CTAB CV:RRR, normal S1/S2, no M/R/G Abd: Soft, moderately-distended (worsening), no TTP, hypoactive bowels, no masses Extr: 2+ dp bilaterally, 2+ LE edema (pitting) from ankle to thigh, no deep calf TTP, Haleigh sign negative Results & Data Results & Data ([facility]) Vital Signs (Past 12 Hours) Vital Signs Temp Pulse Resp BP Pulse Ox O2 Del Method O2 Flow Rate 04/25/22 22:01 36.9 C 79 19 115/71 93 Nasal Cannula 2 04/25/22 20:45 Nasal Cannula 2
[2022-04-26] MEDS: INSULIN ASPART PER UNIT SC SCH (08:11)
[2022-04-26] MEDS: SUCRALFATE 1 GM/10 ML UDC PO SCH (09:09)
[2022-04-26 09:29] LABS: INR 1.8 (0.9-1.1); Prothrombin Time 18.5 Seconds (9.0-12.0)
[2022-04-26] MEDS: rifAXIMin 550 MG TABLET PO SCH (09:37)
--- NOTE | 2022-04-26 09:43 | Palliative Care Progress Note ---
Date of Service April 26, 2022 Assessment & Plan (1) Palliative care encounter: (2) CKD (chronic kidney disease): (3) Generalized weakness: Plan On comfort care. Family has chosen home with hospice I returned dtr call and [facility], no response as of 1514. comfort orders written. no acute issues. Mariajose Danielson DNP Clinical Director, Palliative Medicine Admission and Anticipated Discharge Date Admission Date: April 11, 2022 Subjective TT from nursing: "[id number] Isatu Tre her daughter Naomi called this morning to see if you could give her a call sometime today. Her # [phone]" returned Naomi's call at 0945, [facility] req call back. chart reviewed/family has chosen home to friend's house with [facility]. Additonally, CM notes state: "Received call from Pt's daughter in law, Naomi. She states they had a family meeting last night. They want to take PT home with [facility]. She states PT will be going to stay with a family friend - Reji Sanchez. Pt will have a first floor set up. They will need a hospital bed, Over bed table, Oxygen at 2L, beside commode. They want PT changed to comfort care. They want to take her home as soon as hospice can be set up. Referral made to [facility]. Pt will be staying with Reji Sanchez; [address], [place] [address]; phone - [phone]. Physician notified of plan for hospice." Comfort care orders written in accordance with family request. All non essential, non comfort interventions have been stopped. Mariajose Danielson DNP Clinical Director, Palliative Medicine Review of Systems Review of Systems: All systems reviewed & are unremarkable except as noted in HPI & below Physical Exam Physical Exam: +lethargy, +weakness, unable to follow commands +jaundice normal resp effort, no stridor , no wheezing S1S2 +BLE edema skin pale/cool, turgor decreased Results & Data ([facility]) Vital Signs (Past 12 Hours) Vital Signs Temp Pulse Resp BP Pulse Ox O2 Del Method O2 Flow Rate 04/26/22 07:32 37.1 C 86 16 106/63 91 2 04/25/22 22:01 36.9 C 79 19 115/71 93 Nasal Cannula 2 PG Care Time/CCT Total # of Minutes Spent Total Time Spent with Patient: Total time spent is greater than 50% in coordination of care (as documented) at patient's floor/unit and/or counseling patient: [place] [address] Subseq Hosp Care Lvl 2 Patient Type Established History Problem Focused Exam Expanded Problem Focused Medical Decision Making Moderate Complexity Diagnoses Palliative care encounter Z51.5 CKD (chronic kidney disease) N18.9 Generalized weakness R53.1
[2022-04-26 09:44] LABS: Hematocrit (blood only) 21.5 % (34.1-44.9); Hemoglobin 7.4 g/dl (12.0-16.0); Mean Corpuscular Hemoglobin 33.2 pg (25.0-34.0); Mean Corpuscular Hgb Conc 34.4 g/dL (32.0-36.0); Mean Corpuscular Volume 96.4 fL (80.0-100.0); Mean Platelet Volume 11.7 fL (9.4-12.3); Platelet Count 50 K/uL (130-400); RDW Coefficient of Variation 17.3 % (11.5-14.5); RDW Standard Deviation 59.3 fL (36.4-46.3); Red Blood Count 2.23 M/uL (3.93-5.22); White Blood Count 7.24 K/ul (4.8-10.8)
[2022-04-26 09:45] LABS: Albumin Globulin Ratio 1.7 (0.9-2); Albumin Level 3.2 gm/dl (3.4-5.0); BUN Creatinine Ratio 9.6 (10-20); Bilirubin Direct 1.8 mg/dl (0-0.2); Bilirubin,Total 4.9 mg/dl (0.2-1.0); Calcium 9.7 mg/dl (8.5-10.1); Creatinine Clr Calc Pharmacy 20.3 ml/min; Est GFR (African American) 28.5 ml/min; Est GFR (Non-African American) 24.6 ml/min; Globulin 1.9 gm/dl (2.5-4.0); Total Protein 5.1 gm/dl (6.0-8.3)
[2022-04-26] MEDS: MIDODRINE HCL 2.5 MG TAB PO SCH (09:48)
[2022-04-26] MEDS: HYDROXYCHLOROQUINE SULFATE 200 MG TAB PO SCH (09:48)
[2022-04-26] MEDS: ESCITALOPRAM OXALATE 20 MG TAB PO SCH (09:48)
[2022-04-26] MEDS: FAMOTIDINE 20 MG TAB PO SCH (09:48)
[2022-04-26] MEDS: levETIRAcetam 250 MG TAB PO SCH (09:49)
[2022-04-26] MEDS: LANTUS PER UNIT CHARGE SQ SCH (09:50)
[2022-04-26] MEDS: PANTOprazole 40 MG TAB PO SCH (09:50)
[2022-04-26] MEDS ORDERED: ONDANSETRON 4 MG OD TAB SL PRN (09:59)
[2022-04-26] MEDS ORDERED: ONDANSETRON INJ 2 MG/ML 2 ML VIAL IV PRN (09:59)
[2022-04-26] MEDS ORDERED: LORazepam 0.5 MG in SYRINGE 0 ML IV PRN (09:59)
[2022-04-26] MEDS ORDERED: ACETAMINOPHEN 325 MG TAB PO PRN (09:59)
[2022-04-26] MEDS ORDERED: LORazepam 0.5 MG TAB PO PRN ×2 (09:59→10:02)
[2022-04-26] MEDS ORDERED: HYOSCYAMINE SULFATE 0.125 MG TAB SL PRN (10:02)
--- NOTE | 2022-04-26 10:37 | Nephrology Progress Note ---
Date of Service April 26, 2022 Assessment & Plan (1) RAJENDRA (acute kidney injury): Plan: Creatinine stable. Albumin weaned off. Octreotide stopped after 48 hours. May continue midodrine as tolerated to assist BP. Goals of care transitioning to palliative. Limited options for management at this time. No additional IV therapy now. (2) Cirrhosis: Plan: Palliative care consultation reviewed. Unfortunately, concerning signs of progressive portal hypertension. (3) Anemia: Plan: Epogen 28292 units provided 04/23. s/p PRBC transfusion 04/24. Iron stores are notably low. Venofer 200 mg IV x 1 dose provided 04/24 and 04/25. No additional therapy planned at this time. Admission and Anticipated Discharge Date Admission Date: April 11, 2022 Subjective No acute events overnight. Isatu was very weak and lethargic this AM. Resting comfortably in bed. No complaints. Not able to swallow midodrine or PO medications this AM. Review of Systems Review of Systems: All systems reviewed & are unremarkable except as noted in HPI & below Physical Exam Constitutional: well developed, + ill appearing, + thin and + frail appearing; no acute distress Eyes: + anicteric sclerae; no corneal abnormality ENMT: Ears: + hearing impairment Mouth: + dry oral mucous membranes Neck: normal visual inspection and trachea midline Respiratory: normal respiratory effort Auscultation: lungs clear to auscultation bilaterally and + rales Cardiovascular: Rate/Rhythm: regular rate Heart Sounds: normal S1 and normal S2 Extremities: + edema Gastrointestinal (Abdomen): Inspection/Auscultation: + abdomen distended Percussion/Palpation: abdomen soft Musculoskeletal: Extremities: no cyanosis and no clubbing Skin: + turgor decreased and + jaundice Neurologic: Motor/Sensory: no tremor and no asterixis Psychiatric: Orientation: alert, oriented to person and oriented to place Results & Data ([facility]) Vital Signs (Past 12 Hours) Vital Signs Temp Pulse Resp BP Pulse Ox O2 Flow Rate 04/26/22 07:32 37.1 C 86 16 106/63 91 2 Laboratory Results Laboratory Results - last 24 hr 04/25/22 04/25/22 04/25/22 12:06 17:00 20:54 WBC RBC Hgb Hct MCV MCH MCHC RDW Std Deviation RDW Coeff of Nancy Plt Count MPV PT INR Sodium Potassium Chloride Carbon Dioxide Anion Gap BUN Creatinine Est Cr Clr Drug Dosing Est GFR ( Amer) Est GFR (Non-Af Amer) BUN/Creatinine Ratio Glucose POC Glucose 111 H 119 H 146 H Calcium Total Bilirubin Direct Bilirubin AST ALT Alkaline Phosphatase Total Protein Albumin Globulin Albumin/Globulin Ratio 04/26/22 04/26/22 04/26/22 07:57 08:46 08:46 WBC 7.24 RBC 2.23 L Hgb 7.4 L Hct 21.5 L MCV 96.4 MCH 33.2 MCHC 34.4 RDW Std Deviation 59.3 H RDW Coeff of Nancy 17.3 H Plt Count 50 L MPV 11.7 PT INR Sodium 130 L Potassium 5.0 Chloride 102 Carbon Dioxide 21 Anion Gap 7 BUN 18 Creatinine 1.88 H Est Cr Clr Drug Dosing 20.3 Est GFR ( Amer) 28.5 Est GFR (Non-Af Amer) 24.6 BUN/Creatinine Ratio 9.6 L Glucose 107 H POC Glucose 117 H Calcium 9.7 Total Bilirubin 4.9 H Direct Bilirubin 1.8 H AST 39 ALT 20 Alkaline Phosphatase 104 Total Protein 5.1 L Albumin 3.2 L Globulin 1.9 L Albumin/Globulin Ratio 1.7 04/26/22 08:46 WBC RBC Hgb Hct MCV MCH MCHC RDW Std Deviation RDW Coeff of Nancy Plt Count MPV PT 18.5 H INR 1.8 H Sodium Potassium Chloride Carbon Dioxide Anion Gap BUN Creatinine Est Cr Clr Drug Dosing Est GFR ( Amer) Est GFR (Non-Af Amer) BUN/Creatinine Ratio Glucose POC Glucose Calcium Total Bilirubin Direct Bilirubin AST ALT Alkaline Phosphatase Total Protein Albumin Globulin Albumin/Globulin Ratio PG Care Time/CCT Total # of Minutes Spent Total Time Spent with Patient: Total time spent is greater than 50% in coordination of care (as documented) at patient's floor/unit and/or counseling patient: Coding Level of Care Code 92999 Subseq Hosp Care Lvl 3 Diagnoses RAJENDRA (acute kidney injury) N17.9 Cirrhosis K74.60 Anemia D64.9
[2022-04-26] MEDS: MoRPHine SULFATE 5 MG/0.25 ML UDP PO PRN ×2 (11:49→15:15)
--- NOTE | 2022-04-26 18:10 | Discharge Summary ---
Date of Service April 26, 2022 Admission HPI Per Admitting Provider 81 y/o female w/ PMHx of cirrhosis, varices, type 2 diabetes who presents for N/V, lightheadedness, being treated for UTI as outpatient. She has generalized weakness and abdominal pain. She was seen in the ED a week ago for similar symptoms and was diagnosed w/ UTI and started on Keflex. She denies having had dysuria or other urinary symptoms and continues to deny those symptoms at the current visit. She has continued to have malaise and poor appetite and had difficulty even w/ adhering to the PO Keflex. She has intermittently had generalized abd pain. Denies fever or chills. ED course: Rocephin 1g. NSS 1L. wbc 10.96. Hb 10.4 (baseline). Plts 84 (baseline). INR 2.4 (baseline 1.3). Na 131, somewhat chronic (133+). Cr 1.46 (baseline). tbili 4.1, uptrending past few months. Admission Exam Per Admitting Provider General: A&Ox4. NAD. Cooperative. Slightly hard of hearing. Deep voice. HEENT: Atraumatic, normocephalic. EOMI Pulm: CTAB. -wheezes, -rales, -rhonchi. No respiratory distress. Cardiac: RRR, -mrg. Puffy ankles, no pitting edema. Abdominal: RUQ mild-mod ttp. Pain is worse at R flank. Very positive R cva ttp. Soft, nondistended. Integ: Warm, dry, intact. Msk: Moving all extrem. Principal Diagnosis Cirrhosis/Generalize Weakness Discharge Exam Gen: NAD, pale, weak, somnolent but arousable Resp:Non-labored, no wheezing/rhonchi/rales, CTAB CV:RRR, normal S1/S2, no M/R/G Abd: Soft, moderately-distended (worsening), no TTP, hypoactive bowels, no masses Extr: 2+ dp bilaterally, 2+ LE edema (pitting) from ankle to thigh, no deep calf TTP, Haleigh sign negative Discharge Data Allergies Allergy/AdvReac Type Severity Reaction Status Date / Time levofloxacin [From Levaquin] Allergy Severe Shortness Verified 04/10/22 15:06 of breath sulfamethoxazole Allergy Severe SOB Verified 04/10/22 15:06 [From Bactrim] trimethoprim [From Bactrim] Allergy Severe SOB Verified 04/10/22 15:06 ciprofloxacin [From Cipro] Allergy Intermediate Hives Verified 04/10/22 15:06 paroxetine Allergy Mild Diarrhea Verified 04/10/22 15:06 phenytoin Allergy Unknown Unknown Verified 04/10/22 15:06 unknown antibiotic Allergy Severe Browning-Bryon Uncoded 04/10/22 15:06 syndrome - no records available Consultations 04/11/22 00:43 ED Decision to Admit Stat 04/11/22 15:21 Consult Gastroenterology Routine 04/23/22 08:19 Consult Nephrology Routine 04/24/22 12:46 Consult Palliative Care Routine Ordered Studies 04/10/22 21:41 CT abd pelvis IV con only Urgent 04/11/22 09:05 US abdomen ltd ascites Routine 04/18/22 13:51 US abdomen ltd ascites Routine Hospital Course (1) Generalized weakness: (2) Cirrhosis: (3) Right flank pain: (4) Type 2 diabetes mellitus: (5) Hx of seizure disorder: (6) Low urine output: Plan Isatu is an 81 y/o female w/ PMH of cirrhosis, varices, type 2 diabetes who presents for over a week of malaise. 04/24 1100 Family and patient agreeable to palliative care consultation, orders placed. 04/25 1130 Joined in conversation with patient's son, daughter in law, and Dr. Carter. Family discussing comfort care. No decision at this time. 04/26 1530 Patient transitioned to home with hospice care. Levsin, Ativan, and Morphine were sent to patient's pharmacy to aid in patient comfort. Cirrhosis (non-alcoholic) - a/w TCPenia, varices, and ascites - CT abd w/ cirrhosis, moderate ascites, gastric varices, potential mild diverticulosis and potential mass of liver. - Maddrey's discriminant function at admission 61.1. glucocorticoids not needed d/t not being from alcohol. - Continue home rifaximin and avoid constipation with goal of 3-4 BM daily - Patient has an elevated AFP(13.6) and CEA (11.6). Should repeat AFP in one month to see if elevated over 7 ng/mL. - GI consulted and recommending liver MRI after d/c d/t new liver mass, EGD planned in 2022 for variceal surveillance - 04/18 Continue sodium restriction to 2 g per outpatient GI and inpatient GI recommendations - 04/19 Nausea alleviated by Compazine - 04/19 Salt restriction discontinued - 04/21 Na 128, Gluc 339, corrected Na 132, baseline 130-131 - 04/21 Increase in Cr > 0.3 w/in 48 hours, will hold Spironolactone and recheck Cr tomorrow, added 500 cc bolus LR - 04/22 Ongoing elevations in Cr, pt. unable to receive 500 cc bolus, re-attempt IV with US guidance. Concern for development of HRS. Medications reviewed for potential causes, Spironolactone on hold. Nephrology consulted. Family made aware of palliative and hospice options, ongoing discussion between patient and family. - astroenterology consultation: Recommending palliative care consultation, paracentesis consideration given for patient discomfort as needed, continue Xifaxan and Protonix. Hgb 6.7, patient and family agreeable to transfusion, process initiated at 1100. Consent forms completed. - 04/25 Hbg improved (7.3), patient remains symptomatic, patient and family wishe s to hold off on additional transfusion. Worsening abdominal ascites and lower extremity edema, patient denies abdominal pain or discomfort at this time, paracentesis as needed for symptomatic improvement (per GI). Na low (129) but stable and asymptomatic. Bilirubin level rising, consistent with cirrhosis, will follow. Acute Kidney Injury (RAJENDRA) - Ongoing oliguria by report from nursing, known to produce small volumed voids 100-125 cc - 04/21 RAJENDRA noted Cr 1.55 --> 1.77, LR 500 cc bolus ordered, not received d/t lack of IV access - 04/22 RAJENDRA worsening Cr 1.77 --> 1.85, IV obtained via US guidance, LR 500 cc received -04/23 Patient notes that she believes her frequency of urination is diminishing, RAJENDRA worsening Cr 1.85 --> 1.90, Nephrology consulted d/t HRS concern.Nephrology Recommendations: No emergent dialysis need (not consistent w/ patient goals of care), poor PO intake vs HRS, ordered UA/microscopy and Urine Na, strict I/O monitoring, started early directed therapy w/ octreotide, midodrine, and IV albumin. Ordered iron studies and Epogen 16039 units d/t anemia. - 04/24 Notes ongoing low urine output and worsening abdominal distension in last 24 hours. Dialysis not within patient's goals of care. Recommended palliative consultation. Continue Octreotide, Midodrine, and Albumin. HH dropping, iron stores low, provided IV Venofer pending decision on PRBC transfusion. - 04/25 Cr 1.89 (from 1.92).Nephrology- not expecting significant renal recovery, creatinine stable, evidence of worsening portal hypertension, plans to stop Octreotide after 48 hours and wean albumin to 25 grams q12h while continuing Midodrine 5 mg PO TID. Venofer 200 mg IV provided in AM. Right flank pain - Intermittent flank pain, w/o TTP on exam, no dysuria at present (low suspicion for urinary infection) - Patient is s/p cholecystectomy - 04/18 Mild abdominal pain in all 4 quadrant w/ TTP, ultrasound obtained, see above - 04/25 Flank pain absent, no TTP, increasing abdominal distension Generalized weakness - Originally covered for SBP, discontinued abx 04/14 - Paracentesis not indicated d/t fluid volume - EBV IgG +, IgM -, unlikely active infection, likely chronic - 04/13 Compazine scheduled - 04/20 Patient is feeling significantly improved - OT strongly recommending SNF, patient on board with recommendation - Family considering [facility] vs at home w/ hospice options Depression - Continue Lexapro 20 mg PO Type 2 diabetes mellitus - BSG checked w/ meals - No carb consistent diet per family and patient request - 04/19 Placed order to add strawberry boost, family notes patient drinks this regularly at home - 04/21 Glucose elevated to 339 in AM labs, repeat at noon showed glucose of 372, started basal insulin (Lantus 10), will follow - 04/22 Persistent elevations in BSG (350+) despite long acting insulin, started sliding scale insulin and BSG checks prior to meals - 04/23-04/25 Continue basal and sliding scale insulin, only check glucose before meals, regular diet Hx of seizure disorder - continue home Keppra FEN: Regular, 1 unit PRBC 04/24 DVT Ppx: Code: DNR/DNI Dispo: Home w/ Hospice Total Time Total Time Spent Total Time Spent (In Minutes): See attending attestation. Discharge Plan Discharge Items Patient Disposition: Hospice - Home Reason For Visit: GENERALIZED WEAKNESS, ABD PAIN Discharge Diagnosis: cirrhosis Activity: Per Instructions section Non-emergency contact: Primary Care Provider Call non-emergency contact if: you have any medication questions Follow-up/Referrals: Tamara Benítez MD [Primary Care Provider] - Diet: Regular Addtl Attending Provider Instructions: You were admitted to [facility] for generalized weakness. Per workup, your symptoms and condition are most likely secondary to cirrhosis (end-stage liver disease). After detailed discussion with you and your family, the decision was made to transition to home hospice care. This is a shift in goals of care from curative to prioritizing quality of life. New medications: Obtain refills as needed from PCP. The morphine solution and ativan to [facility] will be sent later today. as needed morphine solution for pain or breathing difficulty as needed Ativan for anxiety or agitation as needed hyoscyamine for secretions The medications that have been discontinued are shown in the medications list. Several previous home medications are continued. Pending Studies at Discharge: No Stand-Alone Forms: [facility] Medications and DC Order Prescriptions: New hyoscyamine sulfate [Levsin] 0.125 mg Tablet 0.125 mg sublingual Q4H PRN (Reason: secretions) 30 Days Qty: 60 0RF morphine concentrate 100 mg/5 mL (20 mg/mL) solution 5 mg PO Q6H PRN (Reason: pain) Qty: 15 0RF lorazepam [Ativan] 0.5 mg tablet 0.5 mg PO Q8H PRN (Reason: anxiety) Qty: 7 0RF Continued escitalopram oxalate 20 mg tablet 20 mg PO DAILY Qty: 90 3RF levetiracetam [Keppra] 250 mg tablet 250 mg PO BID Qty: 180 3RF pantoprazole 40 mg tablet,delayed release (DR/EC) 40 mg PO DAILY Qty: 30 2RF buspirone 5 mg tablet 5 mg PO BID Qty: 60 1RF rifaximin 550 mg tablet 550 mg PO BID Qty: 180 3RF famotidine 40 mg tablet 40 mg PO DAILY Qty: 30 5RF Discontinued hydroxychloroquine [Plaquenil] 200 mg tablet 200 mg PO QAM Qty: 90 1RF calcium carbonate [Calcium 600] 600 mg calcium (1,500 mg) tablet 600 mg PO DAILY Qty: 90 3RF (DME) lancets [OneTouch Delica Lancets] 33 gauge misc See Rx Instructions .ROUTE .MEDSUPPLY Qty: 100 3RF Rx Instructions: TEST ONE TIME DAILY (DME) blood sugar diagnostic Strip See Rx Instructions .ROUTE .MEDSUPPLY Qty: 100 3RF Rx Instructions: TEST 1 TIME DAILY Slow-Mag 71.5 mg tablet,delayed release (DR/EC) 143 mg PO DAILY Qty: 180 3RF cetirizine [Zyrtec] 10 mg tablet 5 mg PO HS PRN (Reason: Allergy Symptoms) albuterol sulfate 90 mcg/actuation HFA aerosol inhaler 2 puff inhalation Q6H PRN (Reason: shortness of breath or wheezing) Qty: 8.5 5RF cholecalciferol (vitamin D3) 50 mcg (2,000 unit) capsule 50 mcg PO QDD acetaminophen 325 mg capsule 325 mg PO QID PRN (Reason: Pain) diclofenac sodium [Voltaren Arthritis Pain] 1 % Gel 2 g EXT QID Qty: 100 0RF spironolactone 25 mg tablet 12.5 mg PO BID cephalexin 500 mg capsule 500 mg PO Q12 Discharge Orders: Discharge Order (Routine); Ordered 04/26/22 Ordered By: Ortega Cosby/Other Patient Handouts: Managing Type 2 Diabetes Admission Data Admit Date/Time: 04/11/22 16:32 Attending Provider: Reza Marvin Admit Provider: Jose Maria Lira Primary Care Provider: Tamara Benítez Other Providers: Rafael Stephen ; Damir Magallanes ; [place] ; [place],[facility] ; [place],[facility] ; Sae Kennedy ; Leta Carter ; [facility] Other Interventions: Discharge Summary Assessment (RN) Last Done: 04/26/22 15:32 Supervising Physician Co-Signing Physician Notes I personally examined the patient and verified all sanford points of history and exam, discussed case, and agree with decision making with Dr Bell For home with hospice today. Daughter present at the bedside, answered all questions the best my ability and her satisfaction. Vitals noted nad heent nc at mmm breathing unlabored no accessory muscles good effort skin no rashes 1.Generalized weakness. progressive liver disease 2.Cirrhosis with varices, ascites, and thrombocytopenia. 3. RAJENDRA. 4.Liver mass. AFP elevated. 5.Anemia. transfused, improved symptoms transiently mildly 6.DM2. A1C 6.0%. 7. Hyponatremia. chronic 8.Hx of seizures. Continue home Keppra. For home with hospice
--- NOTE | 2022-04-26 18:13 | Billing Data ---
Date of Service April 26, 2022 Coding Level of Care Code D/C DAY MANAGEMENT <30 MINS
== END 2022-04-26 16:09 | disposition hospice, home (50) | DRG 433 ==
LOC: 3N 15:46 → ED 15:46 → SUATTDRO 04-11 02:48 → 3N 04-11 03:24 → SUATTDRO 04-11 16:32